=== PATIENT | female | born 1945 | race Caucasian/White ===

== ENCOUNTER 2020-05-12 08:57 | Outpatient (REF) | payer MEDICARE, OTHER, SELFPAY ==
[2020-05-12 11:35] LABS: Hematocrit 42.5 % (37-47); Hemoglobin 13.8 g/dl (12.0-16.0); Mean Corpuscular HGB Conc 32.5 g/dl (31.0-35.0); Mean Corpuscular Hemoglobin 30.1 pg (27.0-33.0); Mean Corpuscular Volume 92.8 fL (80-98); Mean Platelet Volume 10.5 fL (9.4-12.3); Platelet Count 261 X10*3/uL (160-400); Red Blood Count 4.58 X10*6/uL (4.20-5.50); Red Cell Distribution Width 13.1 % (11.0-16.0); White Blood Count 5.3 X10*3/uL (4.8-10.8)
[2020-05-12 11:39] LABS: Alanine Aminotransferase 31 U/L (0-31); Albumin Level 4.2 g/dL (3.5-5.0); Alkaline Phosphatase 56 U/L (39-117); Anion Gap 14 (12-20); Aspartate Amino Transferase 22 U/L (5-31); Bilirubin Total 0.5 mg/dL (0.0-1.0); Blood Urea Nitrogen 19 mg/dL (9-16); Calcium 9.1 mg/dL (8.4-10.2); Carbon Dioxide 26 mmol/L (22-29); Chloride 105 mmol/L (96-108); Cholesterol 191 mg/dL; Estimated Glomerular Filt Rate > 60; Glucose Fasting 78 mg/dL (60-99); HDL Cholesterol 59 mg/dL; LDL Cholesterol Calculated 101 mg/dl; Potassium 4.5 mmol/l (3.3-5.1); Sodium 140 mmol/L (135-145); Total Protein 7.1 g/dL (6.5-8.0); Triglycerides 155 mg/dL
[2020-05-12 12:01] LABS: Vitamin D 25-OH Total 33.8 ng/mL (>30)
== END 2020-05-12 08:58 | disposition home or self-care (01) ==
LOC: HO.HMGCLDS 08:57
PROVIDERS: PCP Internal Medicine; Visit Provider Internal Medicine
DX: E78.00 Pure hypercholesterolemia, unspecified (principal); E55.9 Vitamin D deficiency, unspecified; I10 Essential (primary) hypertension; M85.80 Other specified disorders of bone density and structure, unspecified site
CPT/HCPCS: 36415; 80053; 80061; 82306; 84443; 85027

== ENCOUNTER → 2020-05-15 08:59 | Outpatient (BNVA) | payer MEDICARE, OTHER, SELFPAY | PROVIDERS: PCP Internal Medicine; Referring Provider Internal Medicine; Visit Provider Surgery | DX: K21.9 Gastro-esophageal reflux disease without esophagitis (principal); K44.9 Diaphragmatic hernia without obstruction or gangrene | CPT/HCPCS: 99202 ==

== ENCOUNTER 2020-05-18 09:22 | Day surgery (SDC) | payer MEDICARE, OTHER, SELFPAY ==
[2020-05-13 14:21] VITALS: BMI 40.0
--- NOTE | 2020-05-14 13:33 | HO.ANESPROP2 ---
Documented by User: Autumn Martinney 05/15/20 13:40 HPI - Anesthesia Eval Consult details Narrative: 74yo F for Cataract PCP cleared Psuedocholinesterase deficiency [facility] Past Medical History Medical History Cataract Family history of pseudocholinesterase deficiency GERD (gastroesophageal reflux disease) Hearing difficulty of both ears Hiatal hernia HTN (hypertension) Hx of Clostridium difficile infection Hx of deep venous thrombosis Hypercholesterolemia Macular degeneration Obesity Osteopenia PVD (peripheral vascular disease) Restless leg syndrome Sleep apnea TIA (transient ischemic attack) Vitamin D deficiency Family History Family History Father Heart disease Stomach cancer CVD (cardiovascular disease) Mother Arthritis Brother Colon cancer Maternal Grandmother No problems noted. Maternal Grandfather No problems noted. Paternal Grandfather No problems noted. Paternal Grandmother No problems noted. Son No problems noted. Daughter No problems noted. Brother No problems noted. Brother No problems noted. Brother No problems noted. Brother No problems noted. Brother No problems noted. Brother No problems noted. Brother No problems noted. Surgical History Surgical History History of ankle surgery History of breast biopsy History of colonoscopy History of esophagogastroduodenoscopy (EGD) History of exploratory laparotomy History of eye surgery History of eyelid surgery History of foot surgery History of knee replacement procedure of right knee History of nasal surgery History of removal of cyst History of revision of total replacement of right knee joint History of thumb surgery Hx of cholecystectomy Hx of right cataract extraction Social History Social History Alcohol intake: current Alcohol intake frequency: holidays/special occasions only Smoking Status: Never smoker Advance Directives: No Advance Directives Information Provided: No Advance Directives on File: No Meds Allergies Allergy/AdvReac Type Severity Reaction Status Date / Time succinylcholine Allergy Severe PSEUDOCHOLINESTERASE Unverified 05/15/20 09:45 [SUCCINYLCHOLINE] DEFICIENT adhesive tape [ADHESIVE TAPE] Allergy Intermediate BLISTERS, Verified 05/15/20 09:45 ITCHING dibucaine [DIBUCAINE] Allergy Unknown UNKNOWN Verified 05/15/20 09:45 Home Medications Medication Instructions Recorded Confirmed Type ammonium lactate 12 % topical cream 1 appl TOPICAL BID 05/12/20 05/15/20 History aspirin 81 mg tablet,delayed 81 mg PO DAILY 05/12/20 05/15/20 History release calcium citrate 200 mg 2 tab PO BID 05/12/20 05/15/20 History calcium-vitamin D3 6.25 mcg (250 unit) tablet cholecalciferol (vitamin D3) 50 50 mcg PO DAILY 05/12/20 05/15/20 History mcg (2,000 unit) capsule fluticasone propionate 50 1 spray INTRANASAL DAILY 05/12/20 05/15/20 History mcg/actuation nasal spray,suspension lisinopril 10 mg tablet 5 mg PO BID 05/12/20 05/15/20 History loratadine 10 mg tablet 10 mg PO DAILY 05/12/20 05/15/20 History pramipexole 0.25 mg tablet 0.75 mg PO BEDTIME tab 05/12/20 05/15/20 History rosuvastatin 10 mg tablet See Rx Instructions PO DAILY 05/12/20 05/15/20 History vit C 250 mg-E 200 unit-zinc 40 1 tab PO BID 05/12/20 05/15/20 History mg-copper 1 ki-rzmmne-maqhss capsule biotin 10,000 mcg PO DAILY 05/13/20 05/15/20 History flaxseed oil 1,000 mg PO TID 05/13/20 05/15/20 History loperamide [Imodium A-D] 2 mg PO QID PRN 05/13/20 05/15/20 History sucralfate 100 mg/mL oral 10 ml PO DAILY PRN ml 05/15/20 05/15/20 History suspension Exam Exam Date and Time: May 14, 2020 1333 Height,Weight and Vital Signs: Height 5 ft Weight 92.986 kg Pertinent Lab Results Pertinent Lab Results: Laboratory Tests 05/12/20 05/12/20 09:03 09:03 WBC 5.3 Hgb 13.8 Hct 42.5 Plt Count 261 Sodium 140 Potassium 4.5 Chloride 105 Carbon Dioxide 26 BUN 19 H Creatinine 0.74 Assessment and Plan Assessment Anesthesia Assessment: Chart Reviewed Documented by User: Ira Bravo 05/18/20 11:12 [facility] Past Medical History Medical History Cataract Family history of pseudocholinesterase deficiency GERD (gastroesophageal reflux disease) Hearing difficulty of both ears Hiatal hernia HTN (hypertension) Hx of Clostridium difficile infection Hx of deep venous thrombosis Hypercholesterolemia Macular degeneration Obesity Osteopenia PVD (peripheral vascular disease) Restless leg syndrome Sleep apnea TIA (transient ischemic attack) Vitamin D deficiency Family History Family History Father Heart disease Stomach cancer CVD (cardiovascular disease) Mother Arthritis Brother Colon cancer Maternal Grandmother No problems noted. Maternal Grandfather No problems noted. Paternal Grandfather No problems noted. Paternal Grandmother No problems noted. Son No problems noted. Daughter No problems noted. Brother No problems noted. Brother No problems noted. Brother No problems noted. Brother No problems noted. Brother No problems noted. Brother No problems noted. Brother No problems noted. Surgical History Surgical History History of ankle surgery History of breast biopsy History of colonoscopy History of esophagogastroduodenoscopy (EGD) History of exploratory laparotomy History of eye surgery History of eyelid surgery History of foot surgery History of knee replacement procedure of right knee History of nasal surgery History of removal of cyst History of revision of total replacement of right knee joint History of thumb surgery Hx of cholecystectomy Hx of right cataract extraction Social History Social History Alcohol intake: current Alcohol intake frequency: holidays/special occasions only Smoking Status: Never smoker Advance Directives: No Advance Directives Information Provided: No Advance Directives on File: No Meds Allergies Allergy/AdvReac Type Severity Reaction Status Date / Time succinylcholine Allergy Severe PSEUDOCHOLINESTERASE Unverified 05/15/20 09:45 [SUCCINYLCHOLINE] DEFICIENT adhesive tape [ADHESIVE TAPE] Allergy Intermediate BLISTERS, Verified 05/15/20 09:45 ITCHING dibucaine [DIBUCAINE] Allergy Unknown UNKNOWN Verified 05/15/20 09:45 Home Medications Medication Instructions Recorded Confirmed Type ammonium lactate 12 % topical cream 1 appl TOPICAL BID 05/12/20 05/15/20 History aspirin 81 mg tablet,delayed 81 mg PO DAILY 05/12/20 05/15/20 History release calcium citrate 200 mg 2 tab PO BID 05/12/20 05/15/20 History calcium-vitamin D3 6.25 mcg (250 unit) tablet cholecalciferol (vitamin D3) 50 50 mcg PO DAILY 05/12/20 05/15/20 History mcg (2,000 unit) capsule fluticasone propionate 50 1 spray INTRANASAL DAILY 05/12/20 05/15/20 History mcg/actuation nasal spray,suspension lisinopril 10 mg tablet 5 mg PO BID 05/12/20 05/15/20 History loratadine 10 mg tablet 10 mg PO DAILY 05/12/20 05/15/20 History pramipexole 0.25 mg tablet 0.75 mg PO BEDTIME tab 05/12/20 05/15/20 History rosuvastatin 10 mg tablet See Rx Instructions PO DAILY 05/12/20 05/15/20 History vit C 250 mg-E 200 unit-zinc 40 1 tab PO BID 05/12/20 05/15/20 History mg-copper 1 hi-pyonln-mnnrri capsule biotin 10,000 mcg PO DAILY 05/13/20 05/15/20 History flaxseed oil 1,000 mg PO TID 05/13/20 05/15/20 History loperamide [Imodium A-D] 2 mg PO QID PRN 05/13/20 05/15/20 History sucralfate 100 mg/mL oral 10 ml PO DAILY PRN ml 05/15/20 05/15/20 History suspension Exam Airway Mallampati Class: II TM Dist: >3cm Neck ROM: Full Heart: RRR Lungs: CTA Assessment and Plan Assessment Anesthesia Assessment: Anesthesia Plan Discussed and Chart Reviewed Final Anesthetic Review NPO: Yes ASA Class: III Final Preanesthetic Review: Meds/Allgs Chart Reviewed, Consent Obtained/Reviewed and Anes Risks/Benef Reviewed Patient Risk: Intermediate Procedure Risk: Low Anesthetic Plan Anesthetic Plan: MAC: Disposition: Standard PACU
--- NOTE | 2020-05-14 13:38 | MHC.SHP ---
Pre-Procedural Eval Section A The patient is an INPATIENT: No The History & Physical has been completed within 30 days and I have reviewed it.: Yes Section B Chief Complaint: Cataracts Left Eye Allergies: Allergies Allergy/AdvReac Type Severity Reaction Status Date / Time succinylcholine Allergy Severe PSEUDOCHOLINESTERASE Unverified 02/20/20 14:34 [SUCCINYLCHOLINE] DEFICIENT adhesive tape [ADHESIVE TAPE] Allergy Intermediate BLISTERS, Verified 05/08/20 13:49 ITCHING dibucaine [DIBUCAINE] Allergy Unknown UNKNOWN Verified 05/08/20 13:49 pseudocolonestrace Allergy Unknown unknown Uncoded 05/08/20 13:49 Plan Diagnosis/Plan: Unchanged Patient has been examined and remains a candidate for the planned procedure
[2020-05-18 10:58] VITALS: BP 124/79; PULSE 73; RESP 16; TEMP 36.6; O2SAT 98
[2020-05-18] MEDS: Tetracaine HCl/PF 0.5% Oph Sol 4 ML DROPS 1 DROP EYE-LEFT (11:24)
[2020-05-18] MEDS: Tropicamide 1 % Ophth Sol 3 ML BTL 1 DROP EYE-LEFT ×3 (11:25→11:31)
[2020-05-18] MEDS: Phenylephrine HCL 2.5% Oph SoL 2 ML BOTTLE 1 DROP EYE-LEFT ×3 (11:27→11:33)
[2020-05-18 12:08] VITALS: BP 131/72; PULSE 78; RESP 18; TEMP 36.1; O2SAT 96
--- NOTE | 2020-05-18 12:08 | HO.PNOPHT ---
Ophthalmology Procedure Procedure Date of Service: 05/18/20 Ophthalmology Viscoelastic: Healdomenic Cidt Dual Pack Pro Ophthalmology Lenses: TECMARIELA [id number] (24) Procedure Notes: PREOPERATIVE DIAGNOSIS: Decreased visual acuity left eye secondary to cataract POSTOPERATIVE DIAGNOSIS: Same PROCEDURE: Left cataract extraction with intraocular lens insertion with Synialysis SURGEON: Wolfgang Carroll M.D. ANESTHESIA: Topical/MAC ESTIMATED BLOOD LOSS: None COMPLICATIONS: None After obtaining informed consent, the patient was brought to the operation room suite and placed in the supine position. After adequate sedation per anesthesia, topical drops of Tetracaine were given to the left eye. The eye was then prepped and draped in the usual sterile fashion. The operating room microscope was then positioned over the operative eye and a lid speculum placed. A paracentesis was created. Viscoelastic was then instilled into the anterior chamber. A three plane incision was then created temporally, utilizing a 2.85 mm keratome. Poor dilation due to synichaia reqired synichialysis followed by placement of a Malyugin ring.Capsulotomy forceps were then utilized to create a circular tear capsulotomy. Hydrodissection and hydrodelineation were carried out until adequate mobilization of the nucleus occurred. Phacoemulsification was then utilized to remove the dense central nucleus followed by removal of the cortical material utilizing the automated aspiration irrigation unit. Viscoat elastic was instilled into the posterior capsular bag followed by placement of a posterior chamber intraocular lens without difficulty.The Maiyugin Ring was removed. The residual Viscoat elastic was then removed utilizing the automated IA machine. The wound was check and found to be watertight. The patient tolerated the procedure well and the lid speculum was removed. Intracameral injection of Vigamox 0.1 mL followed by a subtenon injection of Kenalog-40 0.2 mL were administered. The patient will be seen in the a.m.
--- NOTE | 2020-05-18 12:39 | HO.POSTANES ---
Post Anesthesia Evaluation Post Anesthesia Evaluation Vital Signs: Vital Signs Temp Pulse Resp BP Pulse Ox 05/18/20 12:08 97.0 F 78 18 131/72 96 05/18/20 10:58 98 F 73 16 124/79 98 Anesthesia: Monitored Mental Status: Awake Pain Control: Satisfactory Nausea/Vomiting: None Hydration: Adequate Anesthesia-Related Issues: No Anes. Related Issues
== END 2020-05-18 12:29 | disposition home or self-care (01) ==
PROVIDERS: PCP Internal Medicine; Visit Provider Ophthalmology
PROC: (CPT 66985; principal; 2020-05-18 11:40)
DX: H25.12 Age-related nuclear cataract, left eye (principal); H21.542 Posterior synechiae (iris), left eye; H35.3190 Nonexudative age-related macular degeneration, unspecified eye, stage unspecified; I10 Essential (primary) hypertension; I73.9 Peripheral vascular disease, unspecified; E88.09 Other disorders of plasma-protein metabolism, not elsewhere classified; E55.9 Vitamin D deficiency, unspecified; Z79.82 Long term (current) use of aspirin; Z79.899 Other long term (current) drug therapy; Z86.718 Personal history of other venous thrombosis and embolism; Z86.73 Personal history of transient ischemic attack (TIA), and cerebral infarction without residual deficits; Z91.040 Latex allergy status; Z91.09 Other allergy status, other than to drugs and biological substances
CPT/HCPCS: 66982; J2250; J3010; J3300; V2632

== ENCOUNTER → 2020-08-13 09:49 | Outpatient (BNVA) | payer MEDICARE, OTHER, SELFPAY | PROVIDERS: PCP Internal Medicine; Visit Provider Surgery | DX: Z86.018 Personal history of other benign neoplasm (principal) | CPT/HCPCS: 99212 ==

== ENCOUNTER 2020-09-01 09:27 | Outpatient (REF) | payer MEDICARE, OTHER, SELFPAY ==
--- NOTE | 2020-09-01 10:35 | MHC.AU.AHA ---
Adult Audiological Evaluation Date of Visit: 09/01/20 Reason for Appointment: Audiological evaluation to monitor the status of Ms. Vargas's hearing loss. She has a longstanding history of bilateral sensorineural hearing loss and hearing aid use. She feels that her hearing is gradually getting worse. She denies any changes to her medical history since her last visit. Previous Hearing Test Results: [facility] [place], 12/31/2018- Mild to moderately severe sensorineural hearing loss bilaterally. Ear History: History of Ear Wax Buildup: Both Ears Medical History: Medical History: High Blood Pressure Medical History: Knee surgery with a complicated healing process between 4844-2455 that required high doses of antibiotics, some of which were administered through a PICC line. Numerous after-effects of the antibiotics. 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: [employer] Model: Adapto CIC Serial Number: [id number] Battery Size: 10 Repair Warranty: 06/06/2010 Loss and Damage Warranty: 06/06/2009 Dispensed By: [facility] Date of Fittin05/13/2008 Hearing Instrument History- Left Ear: Office Machines Teacher: Phon[employer] Model: Virto Q50-10 Serial Number: [id number] Battery Size: 10 Warranty: 07/28/2014 Loss and Damage Warranty: 07/28/2013 Dispensed By: [facility] Date of Fittin07/05/2012 Otoscopy: Right Ear: Unremarkable Left Ear: Partially occluded with cerumen Tympanometry: Tympanometry performed due to: To assess integrity of the middle ear system Right Ear: Normal Middle Ear System (Type A) Left Ear: Normal Middle Ear System (Type A) Hearing Evaluation: Transducer(s) Used: Insert Earphones, Bone Conduction Method: Conventional Audiometry Stimuli Used: Pure Tones Right Ear: Description of Hearing: Mild sloping to moderately severe sensorineural hearing loss from 250-8000 Hz. Left Ear: Description of Hearing: Normal hearing from 250-500 Hz, sloping to a mild to moderate sensorineural hearing loss from 8524-9608 Hz. Speech Recognition Threshold (SRT): Method Used: Monitored Live Voice Stimuli Used: Spondee Words Right Ear: 40 dBHL Left Ear: 35 dBHL Word Discrimination: Method: Recorded Lists Word Lists Used: NU-6 Right Ear: 88% at 75 dBHL Left Ear: 96% at 75 dBHL Comparison: Compared to the most recent evaluation: Hearing is stable. Recommendations: Audiological re-evaluation in one year. Hearing aid maintenance performed today. Recommend use of earwax removal drops or wax removal by a physician for the left ear. Diagnosis: Primary Diagnosis: H90.3 Bilateral Sensorineural Hearing Loss Services Performed: Comprehensive Audiological Evaluation (CPT 04220) Tympanometry (CPT 27166) Signature: Provider: Estrella Jeffers, CCC-A
== END 2020-09-01 09:28 | disposition home or self-care (01) ==
LOC: HO.SH 09:27
PROVIDERS: Visit Provider Internal Medicine
DX: H90.3 Sensorineural hearing loss, bilateral (principal)
CPT/HCPCS: 92557; 92567

== ENCOUNTER 2020-12-17 06:22 | Outpatient (REF) | payer MEDICARE, OTHER, SELFPAY ==
[2020-12-17 12:11] LABS: Alanine Aminotransferase 30 U/L (0-31); Albumin Level 4.1 g/dL (3.5-5.0); Alkaline Phosphatase 62 U/L (39-117); Anion Gap 15 (12-20); Aspartate Amino Transferase 22 U/L (5-31); Bilirubin Total 0.5 mg/dL (0.0-1.0); Blood Urea Nitrogen 16 mg/dL (9-16); Calcium 9.1 mg/dL (8.4-10.2); Carbon Dioxide 25 mmol/L (22-29); Chloride 103 mmol/L (96-108); Estimated Glomerular Filt Rate > 60; Glucose Fasting 107 mg/dL (60-99); Potassium 3.9 mmol/L (3.3-5.1); Sodium 139 mmol/L (135-145); Total Protein 6.8 g/dL (6.5-8.0)
[2020-12-17 12:19] LABS: Vitamin D 25-OH Total 34.7 ng/mL (>30)
[2020-12-23 07:32] LABS: N-Telopeptide 15 (see note); NTXCreaRU 43 mg/dL (20-275)
== END 2020-12-17 06:23 | disposition home or self-care (01) ==
LOC: HO.HMGCLDS 06:22
PROVIDERS: PCP Internal Medicine; Visit Provider Internal Medicine Endocrinology, Diabetes & Metabolism
DX: M81.0 Age-related osteoporosis without current pathological fracture (principal)
CPT/HCPCS: 36415; 80053; 82306; 82523

== ENCOUNTER → 2020-12-21 09:58 | Outpatient (BNVA) | payer MEDICARE, OTHER, SELFPAY | PROVIDERS: PCP Internal Medicine; Visit Provider Internal Medicine Endocrinology, Diabetes & Metabolism | DX: M81.0 Age-related osteoporosis without current pathological fracture (principal) | CPT/HCPCS: 99212 ==

== ENCOUNTER 2021-01-29 09:15 | Outpatient (REF) | payer MEDICARE, OTHER, SELFPAY ==
--- NOTE | ~2021-01-29 | MM_ITS ---
EXAMINATION: BONE DENSITOMETRY CLINICAL INDICATION: Age-related osteoporosis without current pathological fracture. COMPARISON: Previous BD dated 02/06/2018 and baseline BD dated 05/30/2006. TECHNIQUE: Using a [employer] DXA System (software version: 13.1) manufactured by [employer], dual-energy x-ray absorptiometry was performed of the lumbar spine and left hip. The images are of good technical quality. Summary results are attached. FINDINGS: AP SPINE L1-L4: Current: BMD 1.226 g/cm2, Z-score 1.3, T-score 0.4, normal, 7.5% increase from previous, 17.8% increase from baseline (<5% change is not significant). Prior: BMD 1.140 g/cm2. Baseline: BMD 1.041 g/cm2. LEFT FEMUR, NECK: Current: BMD 0.754 g/cm2, Z-score -0.6, T-score -2.0, osteopenia. Prior: BMD 0.774 g/cm2. Baseline: BMD 0.866 g/cm2. LEFT FEMUR, TOTAL: Current: BMD 0.938 g/cm2, Z-score 0.7, T-score -0.6, normal, 1.1% increase from previous, 3.2% decrease from baseline (<5% change is not significant). Prior: BMD 0.928 g/cm2. Baseline: BMD 0.969 g/cm2. IDENTIFIED RISK FACTORS: History of adult fracture. Osteoporosis. Thiazide. Menopause. HISTORY OF FRACTURE: Other. MEDICATIONS: Calcium supplement and/or multivitamin. Vitamin D. Bisphosphonates. MM/XR DEXA axial skeleton IMPRESSION: 1. DIAGNOSIS: Osteopenia based on the lowest T-score value of -2.0 in the femoral neck applying World Health Organization criteria. 2. 10-YEAR FRACTURE RISK PREDICTION, FRAX: Major osteoporotic fracture (clinical spine, forearm, hip or shoulder) 19.5%. Hip fracture 4.8%. 3. Treatment Recommendations: NOF guidelines recommend consideration for treatment in postmenopausal women and men age 50 and older presenting with the following: -A hip or vertebral (clinical or morphometric) fracture. -T-score less than or equal to -2.5 at the femoral neck or spine after appropriate evaluation to exclude secondary causes. -Low bone mass at the hip or spine and a 10-year fracture probability by FRAX of greater than or equal to 3% for hip fracture or greater than or equal to 20% for major osteoporotic fracture based on the [place] adapted WHO algorithm. 4. Other Recommendations: All treatment decisions require clinical judgment and consideration of individual patient factors, including patient preferences, comorbidities, previous drug use, risk factors not captured in the FRAX model (e.g. frailty, falls, vitamin D deficiency, increased bone turnover, interval significant decline in bone density) and possible under or overestimation of fracture risk by FRAX. Additional medical evaluation for secondary cause of low bone mineral density may be appropriate. FUTURE SCAN RECOMMENDATION: People with diagnosed cases of osteoporosis or at high risk for fracture should have regular bone mineral density tests. For patients eligible for Medicare, routine testing is allowed once every 2 years. The testing frequency can be increased to one year for patients who have rapidly progressing disease, those who are receiving or discontinuing medical therapy to restore bone mass, or have additional risk factors.
== END 2021-01-29 09:16 | disposition home or self-care (01) ==
LOC: HO.MAMMO 09:15
PROVIDERS: Visit Provider Internal Medicine Endocrinology, Diabetes & Metabolism
DX: Z13.820 Encounter for screening for osteoporosis (principal); M81.0 Age-related osteoporosis without current pathological fracture; M85.80 Other specified disorders of bone density and structure, unspecified site; Z87.81 Personal history of (healed) traumatic fracture; Z78.0 Asymptomatic menopausal state; Z79.899 Other long term (current) drug therapy
CPT/HCPCS: 77080

== ENCOUNTER 2021-02-17 10:35 | Outpatient (REF) | payer MEDICARE, OTHER, SELFPAY ==
--- NOTE | ~2021-02-17 | MM_ITS ---
EXAMINATION: MM SCREENING DIGITAL BREAST TOMOSYNTHESIS, BILATERAL CLINICAL INFORMATION: Screening. Asymptomatic. The lifetime risk of breast cancer based on the Tyrer-Cuzick Model is 12%. COMPARISON: Mammography: 02/12/2020, 11/21/2018, 11/20/2017 TECHNIQUE: Digital breast tomosynthesis is performed in both the craniocaudal and mediolateral oblique views along with computer-aided detection (CAD). Synthesized 2D images are generated from the tomosynthesis. Additional left MLO view is provided. FINDINGS: There are scattered areas of fibroglandular density (ACR BI-RADS breast composition Category b). Parenchymal pattern borders on heterogeneously glandular distribution is similar to prior studies. No interval mass or developing density. No architectural abnormality. There are scattered benign round and coarse and some vascular calcifications again seen. Biopsy clip marker again noted inferior medial right breast. There are multiple dermal lesions overlying both breasts, mid outer left breast and many bilateral posterior medial breasts. No significant changes. MM/MM tomosynthesis screening BI IMPRESSION: No mammographic evidence of malignancy. ASSESSMENT: BI-RADS 2: Benign RECOMMENDATION: Routine annual mammography screening. This patient's information was entered into a reminder system with a target due date for their next mammogram.
== END 2021-02-17 10:36 | disposition home or self-care (01) ==
LOC: HO.MAMMO 10:35
PROVIDERS: PCP Internal Medicine; Visit Provider Surgery
DX: Z12.31 Encounter for screening mammogram for malignant neoplasm of breast (principal)
CPT/HCPCS: 77063; 77067

== ENCOUNTER → 2021-02-24 11:04 | Outpatient (BNVA) | payer MEDICARE, OTHER, SELFPAY | PROVIDERS: PCP Internal Medicine; Referring Provider Internal Medicine; Visit Provider Surgery | DX: N60.99 Unspecified benign mammary dysplasia of unspecified breast (principal) | CPT/HCPCS: 99212 ==

== ENCOUNTER 2021-04-12 06:12 | Outpatient (REF) | payer MEDICARE, OTHER, SELFPAY ==
[2021-04-12 12:16] LABS: Vitamin D 25-OH Total 37.6 ng/mL (>30)
[2021-04-12 12:18] LABS: Alanine Aminotransferase 31 U/L (0-31); Albumin Level 4.1 g/dL (3.5-5.0); Alkaline Phosphatase 61 U/L (39-117); Anion Gap 13 (12-20); Aspartate Amino Transferase 20 U/L (5-31); Bilirubin Total 0.6 mg/dL (0.0-1.0); Blood Urea Nitrogen 23 mg/dL (9-16); Calcium 8.7 mg/dL (8.4-10.2); Carbon Dioxide 26 mmol/L (22-29); Chloride 103 mmol/L (96-108); Cholesterol 192 mg/dL; Estimated Glomerular Filt Rate > 60; Glucose Fasting 106 mg/dL (60-99); HDL Cholesterol 51 mg/dL; LDL Cholesterol Calculated 113 mg/dl; Potassium 3.9 mmol/L (3.3-5.1); Sodium 138 mmol/L (135-145); Total Protein 6.7 g/dL (6.5-8.0); Triglycerides 143 mg/dL
[2021-04-12 12:49] LABS: Reflex LDLD? No
== END 2021-04-12 06:13 | disposition home or self-care (01) ==
LOC: HO.HMGCLDS 06:12
PROVIDERS: PCP Internal Medicine; Visit Provider Internal Medicine
DX: E55.9 Vitamin D deficiency, unspecified (principal); E78.00 Pure hypercholesterolemia, unspecified; I10 Essential (primary) hypertension
CPT/HCPCS: 36415; 80053; 80061; 82306

== ENCOUNTER → 2021-08-25 11:05 | Outpatient (BNVA) | payer MEDICARE, OTHER, SELFPAY | PROVIDERS: PCP Internal Medicine; Visit Provider Surgery | DX: N60.99 Unspecified benign mammary dysplasia of unspecified breast (principal) | CPT/HCPCS: 99212 ==

== ENCOUNTER 2021-09-02 11:30 | Outpatient (REF) | payer MEDICARE, OTHER, SELFPAY ==
--- NOTE | 2021-09-22 14:04 | MHC.AU.AHA ---
Adult Audiological Evaluation Date of Visit: 09/02/21 Heat Treat Technician Used: Not Applicable Reason for Appointment: Audiologic re-evaluation to determine possible change in hearing. Palak has a long-standing history bilateral hearing loss with hearing aid use. She reports some right ear discomfort after wearing the hearing aid for an extended period of time. The right aid is 14 years old and the left aid is 9 years old. Previous Hearing Test Results: 09/01/2020 [facility] Right ear - Mild sloping to moderately-severe sensorineural hearing loss with 88% speech understanding at 75 dB HL. Left ear - Normal hearing thresholds at 250 and 500 Hz, sloping to a mild to moderate sensorineural loss at 5222-4367 Hz with 96% speech discrimination at 75 dB HL. 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 Room: [employer] Model: Adapto CIC Serial Number: [id number] Battery Size: 10 Repair Warranty: 06/06/2010 Loss and Damage Warranty: 06/06/2009 Dispensed By: [facility] Date of Fittin05/13/2008 Hearing Instrument History- Left Ear: Supervisor Beater Room: Phonak Model: Virto Q50-10 Serial Number: [id number] Battery Size: 10 Warranty: 07/28/2014 Loss and Damage Warranty: 07/28/2013 Dispensed By: [facility] Date of Fittin07/05/2012 Otoscopy: Right Ear: Unremarkable Left Ear: Unremarkable Tympanometry: Not performed at today's visit as all previous testing has indicated normal middle ear function bilaterally. Hearing Evaluation: Transducer(s) Used: Insert Earphones Bone Conduction Method: Conventional Audiometry Stimuli Used: Pure Tones Right Ear: Description of Hearing: Borderline normal hearing threshold at 250 Hz, sloping to a moderate high frequency sensorineural hearing loss. The right ear threshold is 15 dB poorer than the left ear only at 8000 Hz. Left Ear: Description of Hearing: Borderline normal hearing threshold at 250 Hz, sloping to a moderate high frequency sensorineural hearing loss. Speech Recognition Threshold (SRT): Method Used: Monitored Live Voice Stimuli Used: Spondee Words Right Ear: 35 dB HL Left Ear: 35 dB HL Word Discrimination: Method: Recorded Lists Word Lists Used: NU-6 Right Ear: 92% at 70 dB HL Left Ear: 92% at 80 dB HL Most Comfortable Level (MCL): Right Ear: 70 dB HL Left Ear: 75 dB HL Comparison: Compared to the most recent evaluation: Hearing is stable. Recommendations: Audiological re-evaluation in one year. Will send a reminder card. Hearing aid maintenance performed today. Due to the age of the hearing aids, advised Palak to consider trial period with new binaural hearing aids. Diagnosis: Primary Diagnosis: H90.3 Bilateral Sensorineural Hearing Loss Services Performed: Comprehensive Audiological Evaluation (CPT 92324) Signature: Provider: Estrella Granger, CCC-A
== END 2021-09-02 11:31 | disposition home or self-care (01) ==
LOC: HO.SH 11:30
PROVIDERS: Visit Provider Internal Medicine
DX: Z01.118 Encounter for examination of ears and hearing with other abnormal findings (principal); H90.3 Sensorineural hearing loss, bilateral
CPT/HCPCS: 92557

== ENCOUNTER 2021-10-11 06:15 | Outpatient (REF) | payer MEDICARE, OTHER, SELFPAY ==
[2021-10-11 11:31] LABS: Hematocrit 41.6 % (37.0-47.0); Hemoglobin 13.6 g/dl (12.0-16.0); Mean Corpuscular HGB Conc 32.7 g/dl (31.0-35.0); Mean Corpuscular Volume 91.8 fL (80.0-98.0); Mean Platelet Volume 10.5 fL (9.4-12.3); Platelet Count 254 X10*3/uL (160-400); Red Blood Count 4.53 X10*6/uL (4.20-5.50); Red Cell Distribution Width 12.7 % (11.0-16.0); White Blood Count 4.9 X10*3/uL (4.8-10.8)
[2021-10-11 11:54] LABS: Alanine Aminotransferase 22 U/L (0-31); Albumin Level 4.2 g/dL (3.5-5.0); Alkaline Phosphatase 53 U/L (39-117); Anion Gap 12 (12-20); Aspartate Amino Transferase 19 U/L (5-31); Bilirubin Total 0.4 mg/dL (0.0-1.0); Blood Urea Nitrogen 19 mg/dL (9-16); Calcium 9.9 mg/dL (8.4-10.2); Carbon Dioxide 28 mmol/L (22-29); Chloride 102 mmol/L (96-108); Estimated Glomerular Filt Rate > 60; Glucose Fasting 102 mg/dL (60-99); Potassium 4.1 mmol/L (3.3-5.1); Sodium 138 mmol/L (135-145); Total Protein 7.1 g/dL (6.5-8.0)
[2021-10-11 11:59] LABS: TSH reflex Free T4 0.97 uIU/mL (0.32-4.0); Vitamin D 25-OH Total 37.1 ng/mL (>30)
== END 2021-10-11 06:16 | disposition home or self-care (01) ==
LOC: HO.HMGCLDS 06:15
PROVIDERS: Visit Provider Internal Medicine
DX: Z00.00 Encounter for general adult medical examination without abnormal findings (principal); E78.00 Pure hypercholesterolemia, unspecified; I10 Essential (primary) hypertension; M81.0 Age-related osteoporosis without current pathological fracture; E55.9 Vitamin D deficiency, unspecified
CPT/HCPCS: 36415; 80053; 82306; 84443; 85027

== ENCOUNTER 2021-11-23 07:06 | Outpatient (REF) | payer MEDICARE, OTHER, SELFPAY ==
[2021-11-26 16:51] LABS: N-Telopeptide 17 (see note); NTXCreaRU 76 mg/dL (20-275)
== END 2021-11-23 07:07 | disposition home or self-care (01) ==
LOC: HO.HMGCLDS 07:06
PROVIDERS: Visit Provider Internal Medicine Endocrinology, Diabetes & Metabolism
DX: M85.80 Other specified disorders of bone density and structure, unspecified site (principal)
CPT/HCPCS: 82523

== ENCOUNTER → 2021-12-09 14:49 | Outpatient (BNVA) | payer MEDICARE, OTHER, SELFPAY | PROVIDERS: PCP Internal Medicine; Visit Provider Internal Medicine Endocrinology, Diabetes & Metabolism | DX: M81.0 Age-related osteoporosis without current pathological fracture (principal) | CPT/HCPCS: 99212 ==

== ENCOUNTER 2022-01-18 12:41 | Outpatient (REF) | payer MEDICARE, OTHER, SELFPAY ==
[2022-01-18 16:28] LABS: Creatinine, mg/dL 79.26
[2022-01-18 18:41] LABS: Creatinine, 24Hr Urine 1.3 G/Day (1.0-2.0); Total Volume 24 Hour Urine 1625 mL
[2022-01-20 18:12] LABS: Calcium, 24 Hr Urine 96 mg/24 h; Calcium/Creatinine Ratio 70 mg/g creat (30-275); Creatinine 24Hr Urine 1.37 g/24 h (0.50-2.15)
== END 2022-01-18 12:42 | disposition home or self-care (01) ==
LOC: HO.HMGCLDS 12:41
PROVIDERS: PCP Internal Medicine; Visit Provider Internal Medicine Endocrinology, Diabetes & Metabolism
DX: M81.0 Age-related osteoporosis without current pathological fracture (principal)
CPT/HCPCS: 82340; 82570

== ENCOUNTER 2022-02-23 10:28 | Outpatient (REF) | payer MEDICARE, OTHER, SELFPAY ==
--- NOTE | ~2022-02-23 | MM_ITS ---
EXAMINATION: MM SCREENING DIGITAL BREAST TOMOSYNTHESIS, BILATERAL CLINICAL INFORMATION: Screening. Asymptomatic. The lifetime risk of breast cancer based on the Tyrer-Cuzick Model is 11%. COMPARISON: Mammography: 02/17/2021, 02/12/2020, 11/21/2018 TECHNIQUE: Digital breast tomosynthesis is performed in both the craniocaudal and mediolateral oblique views along with computer-aided detection (CAD). Synthesized 2D images are generated from the tomosynthesis. FINDINGS: There are scattered areas of fibroglandular density (ACR BI-RADS breast composition Category b). There are no significant masses, abnormal calcifications, or other abnormalities. Breast tissue composition borders on heterogeneously dense. There is a biopsy clip marker again seen mid lower inner right breast. There are scattered vascular and some round and coarse calcifications in each breast. There are some dermal lesions overlying the posterior inferior breasts. No significant changes. MM/MM tomosynthesis screening BI IMPRESSION: No mammographic evidence of malignancy. ASSESSMENT: BI-RADS 2: Benign RECOMMENDATION: Routine annual mammography screening. This patient's information was entered into a reminder system with a target due date for their next mammogram.
== END 2022-02-23 10:29 | disposition home or self-care (01) ==
LOC: HO.MAMMO 10:28
PROVIDERS: PCP Internal Medicine; Visit Provider Internal Medicine
DX: Z12.31 Encounter for screening mammogram for malignant neoplasm of breast (principal)
CPT/HCPCS: 77063; 77067

== ENCOUNTER → 2022-03-02 10:03 | Outpatient (BNVA) | payer MEDICARE, OTHER, SELFPAY | PROVIDERS: PCP Internal Medicine; Visit Provider Surgery | DX: N60.99 Unspecified benign mammary dysplasia of unspecified breast (principal) | CPT/HCPCS: 99212 ==

== ENCOUNTER 2022-03-31 13:58 | Emergency (ER) | payer MEDICARE, OTHER, SELFPAY ==
[2022-03-31 14:19] VITALS: BP 166/83; PULSE 77; O2SAT 98
[2022-03-31 14:33] VITALS: BP 157/77; PULSE 82; RESP 18; TEMP 36.6; O2SAT 99; BMI 30.2
--- NOTE | 2022-03-31 15:21 | ED.BACK ---
HPI - Back Pain/Injury General Chief Complaint: Back Pain/Injury Stated Complaint: BACK PAIN Time Seen by Provider: 03/31/22 14:30 Source: patient Mode of arrival: ambulatory History of Present Illness HPI Narrative: 76 year old female with a PMHx of osteoporosis, osteoarthritis, obesity, GERD, Vit D deficiency, and HTN, presents to the ED with worsening mid/low back pain since last night. 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 Denies other injury, trauma or fall. She reports taking Tylenol arthritis with some alleviation. reports that the pain is exacerbated by movement, 9/10 in severity and it is a stabbing, intermittent pain. She denies any urinary incontinence/retention, fever, radiation pain, weakness, numbness or tingling, hematuria/dysuria, abdominal pain. MD elicited complaint: back pain Pertinent past history: arthritis Onset (ago): day(s) (couple days. Got worse last night) Timing: intermittent Severity: severe Pain scale (0-10): 9 Quality: sharp and stabbing Location: lumbar spine Radiation: none Exacerbating factors: movement Relieving factors: medication Associated symptoms: denies other symptoms Related Data Home Medications Medication Instructions Recorded Confirmed aspirin 81 mg tablet,delayed 81 mg PO DAILY 05/12/20 10/25/21 release vit C 250 mg-vit E 90 mg-zinc 40 1 tab PO BID 05/12/20 10/25/21 mg-copper 1 [id number] capsule (PreserVision AREDS-2) flaxseed oil 1,000 mg capsule 1,000 mg PO TID 05/13/20 10/25/21 loperamide 2 mg capsule (Imodium 2 mg PO QID PRN Diarrhea 05/13/20 10/25/21 A-D) acetaminophen 650 mg 650 mg PO Q12H 08/13/20 10/25/21 tablet,extended release (Tylenol Arthritis Pain) diclofenac sodium 1 % topical gel 2 g topical QID 08/13/20 10/25/21 lutein 10 mg tablet 10 mg PO DAILY 08/13/20 10/25/21 simethicone 180 mg capsule (Gas 180 mg PO DAILY 08/13/20 10/25/21 Relief (simethicone)) loratadine 10 mg tablet (Claritin) 10 mg PO DAILY 02/24/21 10/25/21 acetaminophen 650 mg 650 mg PO Q8H 08/25/21 10/25/21 tablet,extended release amoxicillin 500 mg capsule 1,000 mg PO BID 08/25/21 10/25/21 cimetidine 200 mg tablet 200 mg PO BEDTIME 10/25/21 10/25/21 Previous Rx's Medication Instructions Recorded esomeprazole magnesium 40 mg 40 mg PO BID #30 caps 05/12/20 capsule,delayed release calcium citrate 200 mg 2 tab PO DAILY 90 days #180 tabs 12/21/20 calcium-vitamin D3 6.25 mcg (250 unit) tablet fluticasone propionate 50 1 spray intranasal DAILY #48 mL 03/03/21 mcg/actuation nasal spray,suspension cholecalciferol (vitamin D3) 50 50 mcg PO DAILY 90 days #90 caps 06/30/21 mcg (2,000 unit) capsule lisinopril 10 mg tablet 5 mg PO BID #180 tabs 07/01/21 hydrochlorothiazide 25 mg tablet 25 mg PO DAILY #90 tabs 10/25/21 rosuvastatin 10 mg tablet See Rx Instructions PO DAILY #90 10/25/21 tabs meclizine 12.5 mg tablet 12.5 mg PO BID PRN dizziness #14 12/17/21 tabs pramipexole 0.25 mg tablet 0.5 - 0.75 mg PO DAILY #270 tabs 02/25/22 acetaminophen 500 mg tablet 500 mg PO Q6H PRN fever or pain 03/31/22 (Tylenol Extra Strength) #14 tabs cyclobenzaprine 5 mg tablet 5 mg PO Q8H PRN pain (scale score 03/31/22 7-10) 5 days #14 tabs naproxen 500 mg tablet 500 mg PO BID PRN pain 10 days #20 03/31/22 tabs Allergies Allergy/AdvReac Type Severity Reaction Status Date / Time succinylcholine Allergy Severe PSEUDOCHOLINESTERASE Verified 03/02/22 10:09 [SUCCINYLCHOLINE] DEFICIENT adhesive tape [ADHESIVE TAPE] Allergy Intermediate BLISTERS, Verified 03/02/22 10:09 ITCHING dibucaine [DIBUCAINE] Allergy Unknown UNKNOWN Verified 03/02/22 10:09 Review of Systems Review of Systems: Constitutional: No Fever, No Chills ENT/Mouth: No Ear Pain, No Nasal Congestion, No Sinus Pain, No Hoarseness, No sore throat, No Rhinorrhea, No Swallowing Difficulty Cardiovascular: No Chest Pain, No SOB Respiratory: No Cough, No Sputum, No Wheezing Gastrointestinal: No Nausea, No Vomiting, No Diarrhea, No Constipation, No Abdominal pain Genitourinary: No Dysuria, No Urinary Frequency, No Hematuria, No Urinary Incontinence/retention, No Urgency, No Flank Pain Musculoskeletal: +mid/lower back pain, No joint pain, No Myalgias, No Joint Swelling Skin: No Skin Lesions, No rash Neuro: No Weakness, No Numbness, No Paresthesias Yes all other systems are reviewed and are negative Constitutional: Constitutional: Reports as per HPI and Reports no additional constitutional complaints Neurologic: Denies Sensory deficit (Neuro) [facility] Past Medical History Attestation statement: The following information was validated with the patient. Medical History Annual physical exam Atypical ductal hyperplasia of breast Cataract Family history of pseudocholinesterase deficiency GERD (gastroesophageal reflux disease) Hearing difficulty of both ears Hearing loss Hiatal hernia HTN (hypertension) Hx of Clostridium difficile infection Hx of deep venous thrombosis Hypercholesterolemia Knee pain, left Macular degeneration Obesity Osteopenia Osteoporosis PVD (peripheral vascular disease) Restless leg syndrome Sleep apnea TIA (transient ischemic attack) Vitamin D deficiency Surgical History History of ankle surgery History of breast biopsy History of colonoscopy History of esophagogastroduodenoscopy (EGD) History of exploratory laparotomy History of eye surgery History of eyelid surgery History of foot surgery History of knee replacement procedure of right knee History of nasal surgery History of removal of cyst History of revision of total replacement of right knee joint History of thumb surgery Hx of cholecystectomy Hx of right cataract extraction Family History Family History Father Heart disease Stomach cancer CVD (cardiovascular disease) Mother Arthritis Brother Colon cancer Maternal Grandmother No problems noted. Maternal Grandfather No problems noted. Paternal Grandfather No problems noted. Paternal Grandmother No problems noted. Son No problems noted. Daughter No problems noted. Brother No problems noted. Brother No problems noted. Brother No problems noted. Brother No problems noted. Brother No problems noted. Brother No problems noted. Brother No problems noted. Social History Social History Housing: House Alcohol intake: current Alcohol intake frequency: holidays/special occasions only Patient Tobacco Use Status: Never used Tobacco e-Cigarette/Vaping Use: Never Used Advance Directives: No Advance Directives Information Provided: Yes Current occupational status: retired Cognitive needs: No Hearing needs: No Vision needs: Yes Physical Exam Vital Signs: Vital Signs: Last Vital Signs Temp 97.9 F 03/31/22 14:33 Pulse 82 03/31/22 14:33 Resp 18 03/31/22 14:33 BP 157/77 H 03/31/22 14:33 Pulse Ox 99 03/31/22 14:33 O2 Del Method 03/31/22 14:33 BMI result Body Mass Index 30.2 Const: General: cooperative, healthy appearing, comfortable, no acute distress, alert, awake, Physically active and acute distress Orientation/consciousness: patient oriented x3 Limitations: no limitations HEENT: Head: Yes normal to inspection and Yes atraumatic Ears: hearing grossly normal bilaterally General nose exam: Normal external nose present Face and sinus: Yes normal facial exam Eyes: General: appearance normal, both eyes and all related structures EOM: EOMs intact bilaterally Neck: Other: no midline cervical spinous ttp Neck: Yes normal visual inspection and Yes no meningeal signs Chest: Chest palpation & inspection: normal inspection of the chest Resp: Effort & Inspection: normal respiratory effort, able to speak in complete sentences and respiratory distress Auscultation: clear to auscultation bilaterally, no crackles, no rales and no rhonchi Cardio: Rate: regular rate Rhythm: regular rhythm Heart sounds: S1 normal heart sound present and S2 normal heart sound present Peripheral pulses: Peripheral pulses 2+ throughout GI: Inspection: Yes normal to inspection Palpation (GI): Soft to palpation, nontender, no guarding and not rigid : General: Yes no CVA tenderness Back/Spine/Pelvis: Other: No midline thoracic/lumbar spinous tenderness/step-off or deformity. + R buttock ttp Back: no CVA tenderness, No mass, No erythema, No warmth and No ecchymosis Skin: Rashes: no rashes Wounds: no wounds Neuro: Other: Strength intact throughout. No saddle anesthesia. Sensation intact to light touch. Neurovascular intact distally General: patient oriented x3, gait normal, tone normal, moves all extremities, no meningeal signs and no focal motor deficits Gait exam (Neuro): Normal gait present Motor exam (neuro): 5/5 motor strength present throughout Sensory Exam: No Sensory deficit (Neuro) Extrem: General: Yes normal to inspection and Yes no clubbing, cyanosis or edema Course Course Course Narrative: -1700--patient reports symptomatic improvement after medications given in the ED, ambulated w/steady gait to the bathroom MDM - Back Pain/Injury MDM Narrative Medical decision making narrative: 76 year old female with a PMHx of osteoporosis, osteoarthritis, obesity, GERD, Vit D deficiency, and HTN, presents to the ED with worsening mid/low back pain since last night. On exam, VSS, right-sided lumbar/buttock MSK tenderness. No midline spinous tenderness through or red flag symptoms. No saddle paresthesia. Concern for back strain/spasming vs ?herniated disc. Low suspicion for Kidney stone/ Pyelonephritis or UTI. Lower suspicion for cauda equina, compression fracture, epidural abscess, or fracture Plan: IM Toradol, PO Flexeril Differential Diagnosis Differential diagnosis: Likely lumbar radiculopathy, sciatica, strain of lumbar region and pyelonephritis Medical Records Attestation: I reviewed the patient's medical records. Lab Data Attestation: I reviewed the patient's lab results. Discharge Plan Discharge Clinical Impression: Back pain Patient Disposition: Home, Self-Care Instructions: Acute Low Back Pain (ED) Additional Instructions: Your pain is likely musculoskeletal Flexeril is a muscle relaxer, take at night as it makes you drowsy, do not drive, drink alcohol, or operate machinery while taking it Naproxen as an anti-inflammatory / pain medication, take with food In addition take Tylenol at home If symptoms persist or worsen, pain becomes unbearable, you developed urinary retention or incontinence, or weakness return to the ED Prescriptions: New acetaminophen [Tylenol Extra Strength] 500 mg tablet 500 mg PO Q6H PRN (Reason: fever or pain) Qty: 14 0RF naproxen 500 mg tablet 500 mg PO BID PRN (Reason: pain) 10 Days Qty: 20 0RF cyclobenzaprine 5 mg tablet 5 mg PO Q8H PRN (Reason: pain (scale score 7-10)) 5 Days Qty: 14 0RF No Action fluticasone propionate 50 mcg/actuation spray,suspension 1 spray intranasal DAILY Qty: 48 3RF cholecalciferol (vitamin D3) 50 mcg (2,000 unit) capsule 50 mcg PO DAILY 90 Days Qty: 90 1RF lisinopril 10 mg tablet 5 mg PO BID Qty: 180 3RF pramipexole 0.25 mg tablet 0.5 - 0.75 mg PO DAILY Qty: 270 3RF loperamide [Imodium A-D] 2 mg Capsule 2 mg PO QID PRN (Reason: Diarrhea) flaxseed oil 1,000 mg Capsule 1,000 mg PO TID aspirin 81 mg tablet,delayed release (DR/EC) 81 mg PO DAILY PreserVision AREDS-2 [phone]-mg capsule 1 tab PO BID Rx Instructions: give with food (meal/snack) esomeprazole magnesium 40 mg capsule,delayed release(DR/EC) 40 mg PO BID Qty: 30 0RF cimetidine 200 mg tablet 200 mg PO BEDTIME rosuvastatin 10 mg tablet See Rx Instructions PO DAILY Qty: 90 3RF Rx Instructions: 5 mg PO daily; hydrochlorothiazide 25 mg tablet 25 mg PO DAILY Qty: 90 3RF meclizine 12.5 mg tablet 12.5 mg PO BID PRN (Reason: dizziness) Qty: 14 0RF acetaminophen [Tylenol Arthritis Pain] 650 mg tablet extended release 650 mg PO Q12H lutein 10 mg tablet 10 mg PO DAILY Rx Instructions: give with meal/snack simethicone [Gas Relief (simethicone)] 180 mg capsule 180 mg PO DAILY diclofenac sodium 1 % gel 2 g topical QID Rx Instructions: apply to single elbow, wrist or hand; for hand includes palm/fingers/back of hand calcium citrate-vitamin D3 200 mg-6.25 mcg (250 unit) tablet 2 tab PO DAILY 90 Days Qty: 180 1RF acetaminophen 650 mg tablet extended release 650 mg PO Q8H amoxicillin 500 mg capsule 1,000 mg PO BID loratadine [Claritin] 10 mg tablet 10 mg PO DAILY Referrals: Erik Grant MD [Primary Care Provider] - 3 days
[2022-03-31] MEDS: Cyclobenzaprine HCl 10 MG TABLET PO (16:07)
[2022-03-31] MEDS: Ketorolac Tromethamine 30 MG/ML VIAL IM (16:08)
== END 2022-03-31 17:26 | disposition home or self-care (01) ==
PROVIDERS: Emergency Provider Emergency Medicine; PCP Internal Medicine Medical Oncology
DX: M54.50 Low back pain, unspecified (principal); Z79.899 Other long term (current) drug therapy
CPT/HCPCS: 96372; 99283; 99284; J1885

== ENCOUNTER 2022-08-05 07:37 | Outpatient (REF) | payer MEDICARE, OTHER, SELFPAY ==
[2022-08-05 11:24] LABS: MANUAL DIFF FLAG NO
[2022-08-05 11:40] LABS: Basophils Absolute Auto 0.1 X10*3/uL (0.0-0.2); Basophils Percent Auto 0.9 % (0-2); Eosinophils Absolute Auto 0.5 X10*3/uL (0.0-0.4); Eosinophils Percent Auto 8.4 % (0-4); Hematocrit 41.7 % (37.0-47.0); Hemoglobin 13.7 g/dl (12.0-16.0); Imm Gran Abs Auto 0.01 X10*3/uL (0.00-0.03); Imm Gran Pct Auto 0.2 % (0.0-0.4); Lymphocytes Absolute Auto 1.7 X10*3/uL (1.2-4.9); Lymphocytes Percent Auto 32.6 % (20-40); Mean Corpuscular HGB Conc 32.9 g/dl (31.0-35.0); Mean Corpuscular Hemoglobin 29.7 pg (27.0-33.0); Mean Corpuscular Volume 90.3 fL (80.0-98.0); Mean Platelet Volume 10.6 fL (9.4-12.3); Monocytes Absolute Auto 0.7 X10*3/uL (0.1-1.2); Monocytes Percent Auto 13.1 % (2-11); Neutrophils Absolute Auto 2.4 x10*3/uL (2.0-8.3); Neutrophils Percent Auto 44.8 % (45-73); Platelet Count 237 X10*3/uL (160-400); Red Blood Count 4.62 X10*6/uL (4.20-5.50); Red Cell Distribution Width 12.8 % (11.0-16.0); White Blood Count 5.3 X10*3/uL (4.8-10.8)
[2022-08-05 12:53] LABS: Alanine Aminotransferase 27 U/L (0-31); Alkaline Phosphatase 66 U/L (39-117); Anion Gap 11 (12-20); Aspartate Amino Transferase 24 U/L (5-31); Bilirubin Total 0.7 mg/dL (0.0-1.0); Blood Urea Nitrogen 14 mg/dL (9-16); Calcium 9.4 mg/dL (8.4-10.2); Carbon Dioxide 28 mmol/L (22-29); Chloride 102 mmol/L (96-108); Cholesterol 195 mg/dL; Estimated Glomerular Filt Rate > 60; Glucose Fasting 108 mg/dL (60-99); HDL Cholesterol 48 mg/dL; LDL Cholesterol Calculated 112 mg/dl; Potassium 4.1 mmol/L (3.3-5.1); Sodium 137 mmol/L (135-145); Total Protein 6.6 g/dL (6.5-8.0); Triglycerides 177 mg/dL
[2022-08-05 13:10] LABS: Thyroid Stimulating Hormone 1.01 uIU/mL (0.32-4.0); Vitamin D 25-OH Total 44.3 ng/mL (>30)
== END 2022-08-05 07:38 | disposition home or self-care (01) ==
LOC: HO.HMGCLDS 07:37
PROVIDERS: PCP Internal Medicine Medical Oncology; Visit Provider Internal Medicine Medical Oncology
DX: E88.09 Other disorders of plasma-protein metabolism, not elsewhere classified (principal); I10 Essential (primary) hypertension; E66.3 Overweight; K21.9 Gastro-esophageal reflux disease without esophagitis; E55.9 Vitamin D deficiency, unspecified
CPT/HCPCS: 36415; 80053; 80061; 82306; 84439; 84443; 85025

== ENCOUNTER → 2022-08-17 10:32 | Outpatient (BNVA) | payer MEDICARE, OTHER, SELFPAY | PROVIDERS: PCP Internal Medicine Medical Oncology; Visit Provider Surgery | DX: N60.92 Unspecified benign mammary dysplasia of left breast (principal) | CPT/HCPCS: 99212 ==

== ENCOUNTER → 2022-08-29 10:51 | Outpatient (REF) | payer MEDICARE, OTHER, SELFPAY | LOC: HO.SL 10:51 | PROVIDERS: PCP Internal Medicine Medical Oncology; Visit Provider Psychiatry & Neurology Neurology | DX: G47.33 Obstructive sleep apnea (adult) (pediatric) (principal) | CPT/HCPCS: 95806 ==

== ENCOUNTER → 2022-10-04 11:41 | Outpatient (BNVA) | payer MEDICARE, OTHER, SELFPAY | PROVIDERS: PCP Internal Medicine Medical Oncology; Visit Provider Nurse Practitioner Family | DX: G47.33 Obstructive sleep apnea (adult) (pediatric) (principal) | CPT/HCPCS: 99212 ==

== ENCOUNTER 2022-10-26 13:59 | Outpatient (REF) | payer MEDICARE, OTHER, SELFPAY | END 2022-10-26 14:00 | disposition home or self-care (01) | LOC: HO.SH 13:59 | PROVIDERS: Visit Provider Internal Medicine Medical Oncology | DX: Z01.118 Encounter for examination of ears and hearing with other abnormal findings (principal); H90.3 Sensorineural hearing loss, bilateral | CPT/HCPCS: 92552; 92556; 92567 ==

== ENCOUNTER 2022-12-02 10:04 | Outpatient (REF) | payer SELFPAY ==
--- NOTE | 2022-12-02 16:21 | MHC.AU.MED ---
Medical Clearance for Hearing Instrumentation Date: 12/02/22 Patient Name: Palak Vargas Date of : 1945 Primary Care Provider: Erik Grant MD We have seen your patient on 12/02/22 and have determined that they are a candidate for amplification (See accompanying report). Specifically, they would benefit from: Hearing aid use in both ears There is a statute that addresses Medical Evaluation Requirements prior to fitting a patient with a hearing aid. According to [place] statute 265 CMR:6.03(1), (a) General. Except as provided in 265 CMR 6.03(1)(b), a photography intern shall not sell a hearing aid unless the prospective user has presented to the photography intern a written statement signed by a licensed physician that states that the patient's hearing loss has been medically evaluated and the patient may be considered a candidate for a hearing aid. The medical evaluation must have taken place within the preceding six months. Please note: Due to the [place] Statute referenced above, we cannot accept a signature other than that of a licensed physician. FINISHING AREA OPERATOR and PA signatures cannot be accepted. I am in agreement with the above recommendation. There is no medical contraindication for hearing instrumentation. Physician Signature Date Physician Name (Printed)
--- NOTE | 2022-12-05 11:34 | MHC.AU.HA1 ---
Hearing Aid Evaluation Date of Visit: 12/02/22 Historical Information: Description of Hearing: Right Ear: Mild to moderately-severe sensorineural hearing loss; Left Ear: Mild to moderate sensorineural hearing loss Current personal amplification information: Bilateral CICs (Right - Oticon; Left - Phonak) purchased 10-15 years ago Summary: Palak has been a long time hearing aid user. Her current hearing aids are no longer meeting her needs as the right hearing aid is weak and both hearing aids are over 10 years old. Palak prefers to stay with the custom hearing aid style; however, she did not have a preference for corrections identification technician. She is interested in bluetooth capabilities to her iPhone. Discussed the trade-off for bluetooth would be a bigger shell. Palak was agreeable to an ITC size hearing aid to be able to encompass bluetooth. Impressions were taken, bilaterally, without incident. Hearing Aid Prescription: Based on the individual?s shared listening needs, communication environments, dexterity, desire for connectivity, and personal preferences, the following prescription for amplification has been made: Right ear: Make, Model, Color: Oticon OWN 2 ITC Color: Beige Battery Size: 312 Left ear: Left ear prescription to be same as Right Hearing Aid above: Make, Model, Color: Oticon OWN 2 ITC Color: Beige Battery Size: 312 Plan of Care: Patient wishes to purchase hearing aids as prescribed Action Taken/Action Needed: Hearing Instrument Fitting to be scheduled when materials arrive Primary Diagnosis: H90.3 Bilateral Sensorineural Hearing Loss Signature: Provider: Iliana Austin, [facility]
== END 2022-12-02 10:05 | disposition home or self-care (01) ==
LOC: HO.HAP 10:04
PROVIDERS: Visit Provider Internal Medicine Medical Oncology
DX: Z46.1 Encounter for fitting and adjustment of hearing aid (principal); H90.3 Sensorineural hearing loss, bilateral
CPT/HCPCS: 92590

== ENCOUNTER 2022-12-19 07:53 | Outpatient (REF) | payer MEDICARE, OTHER, SELFPAY ==
[2022-12-19 08:13] LABS: MANUAL DIFF FLAG NO
[2022-12-19 09:08] LABS: Basophils Absolute Auto 0.1 X10*3/uL (0.0-0.2); Basophils Percent Auto 0.9 % (0-2); Eosinophils Absolute Auto 0.2 X10*3/uL (0.0-0.4); Eosinophils Percent Auto 3.9 % (0-4); Hematocrit 41.4 % (37.0-47.0); Hemoglobin 13.8 g/dl (12.0-16.0); Imm Gran Abs Auto 0.02 X10*3/uL (0.00-0.03); Imm Gran Pct Auto 0.4 % (0.0-0.4); Lymphocytes Absolute Auto 1.7 X10*3/uL (1.2-4.9); Lymphocytes Percent Auto 30.8 % (20-40); Mean Corpuscular HGB Conc 33.3 g/dl (31.0-35.0); Mean Corpuscular Hemoglobin 30.4 pg (27.0-33.0); Mean Corpuscular Volume 91.2 fL (80.0-98.0); Monocytes Absolute Auto 0.8 X10*3/uL (0.1-1.2); Monocytes Percent Auto 13.5 % (2-11); Neutrophils Absolute Auto 2.8 x10*3/uL (2.0-8.3); Neutrophils Percent Auto 50.5 % (45-73); Platelet Count 244 X10*3/uL (160-400); Red Blood Count 4.54 X10*6/uL (4.20-5.50); White Blood Count 5.6 X10*3/uL (4.8-10.8)
[2022-12-19 09:49] LABS: Alanine Aminotransferase 26 U/L (0-31); Albumin Level 4.1 g/dL (3.5-5.0); Alkaline Phosphatase 56 U/L (39-117); Anion Gap 13 (12-20); Aspartate Amino Transferase 23 U/L (5-31); Bilirubin Total 0.6 mg/dL (0.0-1.0); Blood Urea Nitrogen 13 mg/dL (9-16); Calcium 9.4 mg/dL (8.4-10.2); Carbon Dioxide 26 mmol/L (22-29); Chloride 100 mmol/L (96-108); Cholesterol 209 mg/dL; Estimated Glomerular Filt Rate > 60; Glucose Random 111 mg/dL (60-115); HDL Cholesterol 54 mg/dL; LDL Cholesterol Calculated 123 mg/dl; Potassium 3.8 mmol/L (3.3-5.1); Sodium 135 mmol/L (135-145); Total Protein 7.1 g/dL (6.5-8.0); Triglycerides 161 mg/dL
== END 2022-12-19 07:54 | disposition home or self-care (01) ==
LOC: HO.LAB 07:53
PROVIDERS: PCP Internal Medicine Medical Oncology; Visit Provider Internal Medicine Medical Oncology
DX: I10 Essential (primary) hypertension (principal); E66.9 Obesity, unspecified; E78.2 Mixed hyperlipidemia
CPT/HCPCS: 36415; 80053; 80061; 85025

== ENCOUNTER 2022-12-29 09:16 | Outpatient (REF) | payer SELFPAY | END 2022-12-29 09:17 | disposition home or self-care (01) | LOC: HO.HAP 09:16 | PROVIDERS: Visit Provider Internal Medicine Medical Oncology | DX: Z46.1 Encounter for fitting and adjustment of hearing aid (principal); H90.3 Sensorineural hearing loss, bilateral | CPT/HCPCS: 92700; V5011; V5020; V5259 ==

== ENCOUNTER 2023-01-04 10:01 | Outpatient (REF) | payer SELFPAY | END 2023-01-04 10:02 | disposition home or self-care (01) | LOC: HO.HAP 10:01 | PROVIDERS: Visit Provider Internal Medicine Medical Oncology | DX: Z13.89 Encounter for screening for other disorder (principal) ==

== ENCOUNTER 2023-01-31 10:17 | Outpatient (REF) | payer MEDICARE, OTHER, SELFPAY ==
--- NOTE | ~2023-01-31 | MM_ITS ---
EXAMINATION: BONE DENSITOMETRY CLINICAL INDICATION: Osteoporosis. COMPARISON: Previous BD dated 01/29/2021 and baseline BD dated 05/30/2006. TECHNIQUE: Using a [employer] DXA System (software version: 13.1) manufactured by [employer], dual-energy x-ray absorptiometry was performed of the lumbar spine and left hip. The images are of good technical quality. Summary results are attached. FINDINGS: LEFT FEMUR, NECK: Current: BMD 0.824 g/cm2, Z-score 0.0, T-score -1.5, osteopenia. Prior: BMD 0.754 g/cm2. Baseline: BMD 0.866 g/cm2. LEFT FEMUR, TOTAL: Current: BMD 0.969 g/cm2, Z-score 1.0, T-score -0.3, normal, 3.3% increase from previous, 0.0% change from baseline (<5% change is not significant). Prior: BMD 0.938 g/cm2. Baseline: BMD 0.969 g/cm2. AP SPINE L1-L4: Current: BMD 1.204 g/cm2, Z-score 1.2, T-score 0.2, normal, 1.8% decrease from previous, 15.7% increase from baseline (<5% change is not significant). Prior: BMD 1.226 g/cm2. Baseline: BMD 1.041 g/cm2. IDENTIFIED RISK FACTORS: Menopause, height loss, history of fracture (adult), osteoporosis, thiazide. HISTORY OF FRACTURE: Other fracture. MEDICATIONS: Calcium, vitamin D, bisphosphonate. MM/XR DEXA axial skeleton IMPRESSION: 1. DIAGNOSIS: Osteopenia based on the lowest T-score value of -1.5 in the femoral neck applying World Health Organization criteria. 2. 10-YEAR FRACTURE RISK PREDICTION, FRAX: Not performed in this patient on estrogen or bone building treatments. 3. Treatment Recommendations: NOF guidelines recommend consideration for treatment in postmenopausal women and men age 50 and older presenting with the following: -A hip or vertebral (clinical or morphometric) fracture. -T-score less than or equal to -2.5 at the femoral neck or spine after appropriate evaluation to exclude secondary causes. -Low bone mass at the hip or spine and a 10-year fracture probability by FRAX of greater than or equal to 3% for hip fracture or greater than or equal to 20% for major osteoporotic fracture based on the [place] adapted WHO algorithm. 4. Other Recommendations: All treatment decisions require clinical judgment and consideration of individual patient factors, including patient preferences, comorbidities, previous drug use, risk factors not captured in the FRAX model (e.g. frailty, falls, vitamin D deficiency, increased bone turnover, interval significant decline in bone density) and possible under or overestimation of fracture risk by FRAX. Additional medical evaluation for secondary cause of low bone mineral density may be appropriate. FUTURE SCAN RECOMMENDATION: People with diagnosed cases of osteoporosis or at high risk for fracture should have regular bone mineral density tests. For patients eligible for Medicare, routine testing is allowed once every 2 years. The testing frequency can be increased to one year for patients who have rapidly progressing disease, those who are receiving or discontinuing medical therapy to restore bone mass, or have additional risk factors.
== END 2023-01-31 10:18 | disposition home or self-care (01) ==
LOC: HO.MAMMO 10:17
PROVIDERS: PCP Internal Medicine; Visit Provider Internal Medicine Endocrinology, Diabetes & Metabolism
DX: Z13.820 Encounter for screening for osteoporosis (principal); Z78.0 Asymptomatic menopausal state; M81.0 Age-related osteoporosis without current pathological fracture
CPT/HCPCS: 77080

== ENCOUNTER → 2023-01-31 10:30 | Outpatient (BNV) | payer OTHER, MEDICARE, SELFPAY | PROVIDERS: PCP Internal Medicine; Visit Provider Radiology Diagnostic Radiology | DX: M85.852 Other specified disorders of bone density and structure, left thigh (principal) | CPT/HCPCS: 77080 ==

== ENCOUNTER 2023-02-03 14:56 | Outpatient (REF) | payer MEDICARE, OTHER, SELFPAY ==
--- NOTE | ~2023-02-03 | MM_ITS ---
EXAMINATION: DXA VERTEBRAL FRACTURE ASSESSMENT CLINICAL INFORMATION: Age-related osteoporosis without current pathological fracture COMPARISON: None. TECHNIQUE: Your patient completed a vertebral fracture assessment using the [employer] DXA system (software version: 14.10) manufactured by [employer]. The following summarizes the results of our evaluation. LVA MORPHOMETRY RESULTS: Evaluation of the thoracolumbar spine from T4 through L4 was performed. Image quality is good. There is no focal vertebral body compression demonstrated. The lowest Z score is -1.3. The highest Z score is 2.6. MM/XR DEXA vertrebral fracture IMPRESSION: No significant vertebral body fracture identified. RECOMMENDATIONS: All patients should ensure an adequate intake of dietary calcium (1200 mg/d) and vitamin D (400-800 IU/d). Effective therapies are now available in the form of bisphosphonates, (alendronate, ibandronate, risedronate, zoledronic acid), antiresorptive agents (calcitonin, estrogen + progesterone and raloxifene) and anabolic agent (teriparatide). These therapies may reduce vertebral, hip and other fractures by up to 50%. FOLLOW UP: People with diagnosed cases of osteoporosis, high risk for fracture, or current vertebral fractures should have regular bone mineral density tests. The frequency of followup vertebral fracture assessment tests should be determined based on clinical circumstances. Often times, testing frequency will be based on rapidly progressing disease, or the addition or elimination of therapy to treat the disease.
== END 2023-02-03 14:57 | disposition home or self-care (01) ==
LOC: HO.MAMMO 14:56
PROVIDERS: PCP Internal Medicine; Visit Provider Internal Medicine
DX: Z13.820 Encounter for screening for osteoporosis (principal); M81.0 Age-related osteoporosis without current pathological fracture
CPT/HCPCS: 77086

== ENCOUNTER → 2023-02-03 15:00 | Outpatient (BNV) | payer MEDICARE, OTHER, SELFPAY | PROVIDERS: PCP Internal Medicine; Visit Provider Radiology Diagnostic Radiology | DX: M81.0 Age-related osteoporosis without current pathological fracture (principal) | CPT/HCPCS: 77086 ==

== ENCOUNTER 2023-02-16 08:50 | Outpatient (AMB) | payer MEDICARE, OTHER, SELFPAY ==
--- NOTE | 2023-02-16 08:53 | MHC.OFFVIS ---
Intake Vital Signs 02/16/23 08:54 Height 5 ft Weight 203 lb 4.259 oz BMI 39.7 BP 124/86 Blood Pressure Location Lt brachial Position Sitting Pulse 85 Pulse Source Pulse Oximeter Intake Visit Reasons: f/u osteoporosis/Confirmed Intake Note: Patient present today for osteoporosis follow up visit. Valve Technician Required: No Accompanied by: Self / Same As Patient Allergies succinylcholine [SUCCINYLCHOLINE] Allergy (Severe, Verified 02/16/23 09:01) PSEUDOCHOLINESTERASE DEFICIENT adhesive tape [ADHESIVE TAPE] Allergy (Intermediate, Verified 02/16/23 09:01) BLISTERS, ITCHING dibucaine [DIBUCAINE] Allergy (Unknown, Verified 02/16/23 09:01) UNKNOWN Medication List - Last Reconciled 02/16/23 by Erik Victoria MD acetaminophen ER 650 mg PO Q8H aspirin 81 mg PO DAILY calcium citrate-vitamin D3 200 mg-6.25 mcg (250 unit) 2 tabs PO DAILY 90 days cholecalciferol (vitamin D3) 50 mcg PO DAILY 90 days diclofenac sodium 1% 2 grams topical QID esomeprazole magnesium 40 mg PO BID famotidine 40 mg PO BID flaxseed oil 1,000 mg PO TID fluticasone propionate 50 mcg/actuation 1 spray intranasal DAILY hydrochlorothiazide 25 mg PO DAILY lisinopril 5 mg (1/2 x 10 mg) PO BID loperamide (Imodium A-D) 2 mg PO QID PRN loratadine (Claritin) 10 mg PO DAILY pramipexole 0.5 - 0.75 mg (2 - 3 x 0.25 mg) PO DAILY rosuvastatin 5 mg PO daily; simethicone (Gas Relief (simethicone)) 180 mg PO DAILY vit C,M-Py-exebb-lutein-zeaxan 250-90-40-1 mg (PreserVision AREDS-2) 1 tab PO BID HPI HPI Comments History of Present Illness Details 77 yo female today for follow-up visit, for osteoporosis . SHe is feeling well she has no complaints. Patient is today here for follow-up, she is feeling well she denies muscle pain, muscle cramps, bone pain. She had her first dose of Reclast on 09/14/17, 2nd dose was 11/05/2018, 3rd dose 01/31/2020 She has history of Ankle fracture after slip and fell, + GERD, positive FH of wrist fracture and osteoporosis in her mother, no nephrolithiasis, no steroids used, no smoker, no anti seizures medications, no bone deformities. Negative History of head or neck irradiation. Bisphosphonates use: Was on Fosamax for 2 months but she has sever acid reflux and Diarrhea. Calcium intake: 2 cups of milk daily, calcium citrate plus D twice a day 650 mg/500 IU. Vitamin D: 2000 international units daily Herbal medications. no No fx since last visit. DEXA scan 02/06/18 AP SPINE L2-L4 (excluding L1): The data of L1-L4 has been changed to exclude the L1 vertebral body, because degenerative changes at this level may cause overestimation of lumbar spine density. Current: BMD 1.107 g/cm2, Z-score 0.0, T-score -0.8, normal, 2.6% increase from previous, 7.0% increase from baseline (<5% change is not significant). Prior: BMD 1.079 g/cm2. Baseline: BMD 1.035 g/cm2. LEFT FEMUR, NECK: Current: BMD 0.786 g/cm2, Z-score -0.5, T-score -1.8, osteopenia. Prior: BMD 0.797 g/cm2. Baseline: BMD 0.866 g/cm2. LEFT FEMUR, TOTAL: Current: BMD 0.914 g/cm2, Z-score 0.3, T-score -0.7, normal, 4.0% increase from previous, 5.7% decrease from baseline (<5% change is not significant). Prior: BMD 0.879 g/cm2. Baseline: BMD 0.969 g/cm2. Laboratory Tests 12/17/20 12/17/20 06:29 06:30 Creatinine 0.81 Estimated GFR > 60 Calcium 9.1 Albumin 4.1 N-Telopeptide X-li nked Pending 25-OH Vitamin D To evan 34.7 Last bone density showed low bone mass with stability. Urine NTX was suppressed [facility] Medical History (Updated 10/21/22 @ 10:13 by Chauncey Lopez CNP) Obstructive sleep apnea Annual physical exam Osteoporosis Knee pain, left Atypical ductal hyperplasia of breast Hearing loss Hx of Clostridium difficile infection Hx of deep venous thrombosis Hiatal hernia PVD (peripheral vascular disease) Restless leg syndrome Sleep apnea Hearing difficulty of both ears Family history of pseudocholinesterase deficiency GERD (gastroesophageal reflux disease) Vitamin D deficiency Cataract Obesity Osteopenia Macular degeneration TIA (transient ischemic attack) Hypercholesterolemia HTN (hypertension) Surgical History History of eyelid surgery Hx of right cataract extraction History of esophagogastroduodenoscopy (EGD) History of breast biopsy History of foot surgery History of ankle surgery History of exploratory laparotomy History of nasal surgery History of thumb surgery History of revision of total replacement of right knee joint History of eye surgery History of knee replacement procedure of right knee History of removal of cyst Hx of cholecystectomy History of colonoscopy Family History Father Heart disease Stomach cancer CVD (cardiovascular disease) Mother Arthritis Brother Colon cancer Maternal Grandmother No problems noted. Maternal Grandfather No problems noted. Paternal Grandfather No problems noted. Paternal Grandmother No problems noted. Son No problems noted. Daughter No problems noted. Brother No problems noted. Brother No problems noted. Brother No problems noted. Brother No problems noted. Brother No problems noted. Brother No problems noted. Brother No problems noted. Social History Housing: House Alcohol intake: current Alcohol intake frequency: holidays/special occasions only Patient Tobacco Use Status: Never used Tobacco e-Cigarette/Vaping Use: Never Used Current occupational status: retired Cognitive needs: No Hearing needs: No Vision needs: Yes Physical Exam Vital Signs: Last Vital Signs Pulse 85 02/16/23 08:54 BP 124/86 02/16/23 08:54 BMI result Body Mass Index 39.7 Assessment & Plan Assessment & Plan (1) Osteoporosis: Code(s): M81.0 - Age-related osteoporosis without current pathological fracture Plan: This is a 76-year-old white female with a history of osteoporosis treated with intravenous bisphosphonate for 3 doses with remote ankle fracture. Secondary workup was negative. Bone density is stable off pharmacologic therapy and urine NTX is suppressed The plan is to have the patient return to her primary care provider. Would continue calcium and vitamin-D supplementation. Primary care provider can reassess bone density in 2 years time and this progression to osteoporosis or patient has a fracture can return back to endocrinology to discuss re-initiation pharmacologic therapy Coding Level of Care Code Est Pt Level 3 (94001) Diagnoses Osteoporosis M81.0
[2023-02-16 08:54] VITALS: BP 124/86; PULSE 85; BMI 39.7
== END 2023-02-16 09:21 | disposition home or self-care (01) ==
PROVIDERS: PCP Internal Medicine Medical Oncology; Visit Provider Internal Medicine Endocrinology, Diabetes & Metabolism
DX: M81.0 Age-related osteoporosis without current pathological fracture (principal)
CPT/HCPCS: 99213

== ENCOUNTER → 2023-02-16 08:50 | Outpatient (BNVA) | payer MEDICARE, OTHER, SELFPAY | PROVIDERS: Visit Provider Internal Medicine Endocrinology, Diabetes & Metabolism | DX: M81.0 Age-related osteoporosis without current pathological fracture (principal) | CPT/HCPCS: 99212 ==

== ENCOUNTER 2023-03-02 09:54 | Outpatient (REF) | payer MEDICARE, OTHER, SELFPAY ==
--- NOTE | ~2023-03-02 | MM_ITS ---
EXAMINATION: MM SCREENING DIGITAL BREAST TOMOSYNTHESIS, BILATERAL CLINICAL INFORMATION: Screening. Asymptomatic. COMPARISON: Mammography: This study is compared with prior exams dating back to 2018. TECHNIQUE: Digital breast tomosynthesis is performed in both the craniocaudal and mediolateral oblique views along with computer-aided detection (CAD). Synthesized 2D images are generated from the tomosynthesis. FINDINGS: There are scattered areas of fibroglandular density (ACR BI-RADS breast composition Category b). There are no significant masses, abnormal calcifications, or other abnormalities. There is a tissue marker in the right breast from prior benign percutaneous biopsy. There are a few, bilateral, benign calcifications. MM/MM tomosynthesis screening BI IMPRESSION: No mammographic evidence of malignancy. ASSESSMENT: BI-RADS BI-RADS 2 - Benign Findings RECOMMENDATION: Routine annual mammography screening. 1 year F/U This examination should not preclude the clinical evaluation of a suspicious palpable abnormality. This patient's information was entered into a reminder system with a target due date for their next mammogram.
== END 2023-03-02 09:55 | disposition home or self-care (01) ==
LOC: HO.MAMMO 09:54
PROVIDERS: PCP Internal Medicine; Visit Provider Internal Medicine
DX: Z12.31 Encounter for screening mammogram for malignant neoplasm of breast (principal)
CPT/HCPCS: 77063; 77067

== ENCOUNTER → 2023-03-02 10:00 | Outpatient (BNV) | payer MEDICARE, OTHER, SELFPAY | PROVIDERS: PCP Internal Medicine; Visit Provider Radiology Diagnostic Radiology | DX: Z12.31 Encounter for screening mammogram for malignant neoplasm of breast (principal) | CPT/HCPCS: 77063; 77067 ==

== ENCOUNTER 2023-03-11 10:04 | Outpatient (REF) | payer MEDICARE, OTHER, SELFPAY | END 2023-03-11 10:05 | disposition home or self-care (01) | LOC: HO.LAB 10:04 | PROVIDERS: PCP Internal Medicine Medical Oncology; Visit Provider Internal Medicine Medical Oncology | DX: E88.09 Other disorders of plasma-protein metabolism, not elsewhere classified (principal); I10 Essential (primary) hypertension; E66.9 Obesity, unspecified; E78.2 Mixed hyperlipidemia; K21.9 Gastro-esophageal reflux disease without esophagitis; R53.82 Chronic fatigue, unspecified; D64.9 Anemia, unspecified | CPT/HCPCS: 36415; 80053; 82728; 83880; 84443; 85025; 85652 ==

== ENCOUNTER 2023-03-24 08:53 | Outpatient (AMB) | payer MEDICARE, OTHER, SELFPAY ==
--- NOTE | 2023-03-24 08:59 | A.OFFVIS_ITS ---
Intake Vital Signs 03/24/23 09:06 Weight 204 lb BP 130/70 Blood Pressure Location Lt brachial Position Sitting Pulse 91 Pulse Source Pulse Oximeter Pulse Oximetry (%) 97 Oxygen Delivery Method Room Air Intake Visit Reasons: Follow up for Sleep - LVM Intake Note: F/U sleep, patient states she had a awful time falling a sleep a lot, she states was not using her mandibular devise regularly. Collections Assistant Required: No Allergies succinylcholine [SUCCINYLCHOLINE] Allergy (Severe, Verified 03/29/23 11:06) PSEUDOCHOLINESTERASE DEFICIENT adhesive tape [ADHESIVE TAPE] Allergy (Intermediate, Verified 03/29/23 11:06) BLISTERS, ITCHING dibucaine [DIBUCAINE] Allergy (Unknown, Verified 03/29/23 11:06) UNKNOWN HPI HPI Comments History of Present Illness Details 77 y/o female patient has hx of sleep ap lucien presents for follow up of sleep study. The home sleep study result was significant for mild degree of sleep apnea. The AHI was 6/hr, supine AHI was 14/hr and oxygen tex was 87%. Pt did not tolerate CPAP, and started using oral appliance to treat BOSSMAN. She used her oral appliance for the sleep study. She reports that she sleeps well with the appliance and wants to continue to use it. Pt does not want CPAP. She could not sleep with CPAP. [facility] Medical History Obstructive sleep apnea Annual physical exam Osteoporosis Knee pain, left Atypical ductal hyperplasia of breast Hearing loss Hx of Clostridium difficile infection Hx of deep venous thrombosis Hiatal hernia PVD (peripheral vascular disease) Restless leg syndrome Sleep apnea Hearing difficulty of both ears Family history of pseudocholinesterase deficiency GERD (gastroesophageal reflux disease) Vitamin D deficiency Cataract Obesity Osteopenia Macular degeneration TIA (transient ischemic attack) Hypercholesterolemia HTN (hypertension) Surgical History History of eyelid surgery Hx of right cataract extraction History of esophagogastroduodenoscopy (EGD) History of breast biopsy History of foot surgery History of ankle surgery History of exploratory laparotomy History of nasal surgery History of thumb surgery History of revision of total replacement of right knee joint History of eye surgery History of knee replacement procedure of right knee History of removal of cyst Hx of cholecystectomy History of colonoscopy Family History Father Heart disease Stomach cancer CVD (cardiovascular disease) Mother Arthritis Brother Colon cancer Maternal Grandmother No problems noted. Maternal Grandfather No problems noted. Paternal Grandfather No problems noted. Paternal Grandmother No problems noted. Son No problems noted. Daughter No problems noted. Brother No problems noted. Brother No problems noted. Brother No problems noted. Brother No problems noted. Brother No problems noted. Brother No problems noted. Brother No problems noted. Social History Housing: House Alcohol intake: current Alcohol intake frequency: holidays/special occasions only Patient Tobacco Use Status: Never used Tobacco e-Cigarette/Vaping Use: Never Used Current occupational status: retired Cognitive needs: No Hearing needs: No Vision needs: Yes Review of Systems Const All systems reviewed & are unremarkable except as noted in HPI and below ENT Reports Normal hearing present Neuro Reports Normal hearing present Physical Exam Vital Signs: Last Vital Signs Pulse 91 03/24/23 09:06 BP 130/70 03/24/23 09:06 Pulse Ox 97 03/24/23 09:06 Oxygen Delivery Method Room Air 03/24/23 09:06 Const General: cooperative and comfortable Nutritional Appearance: obese Orientation/consciousness: patient oriented x3 Neck Neck: Yes full ROM and Yes supple Resp Effort & Inspection: normal respiratory effort and able to speak in complete sentences Neuro General: patient oriented x3, gait normal and moves all extremities Cranial nerves: Yes Bilaterally intact EOM present, Yes Midline tongue present, Yes Symmetric palate elevation present, Yes Normal hearing present, Yes Ability to bilaterally rotate head present and Yes Ability to bilaterally elevate shoulders present Cognition (Neuro): normal cognition Gait exam (Neuro): Normal gait present Motor exam (neuro): 5/5 motor strength present throughout, Pronator motor function not present and no tremor noted Psych Appearance: grossly normal Mental Status: mental status grossly normal Speech and movement: Normal speech and movement present Affect: normal affect Attitude: cooperative Assessment & Plan Assessment & Plan (1) Obstructive sleep apnea: Comment: Mild degree of sleep apnea. The AHI was 6/hr and oxygen tex was 87%. Not tolerated CPAP, using oral appliance. Code(s): G47.33 - Obstructive sleep apnea (adult) (pediatric) Plan Continue to use the oral appliance to treat her sleep apnea. Wt reduction advised. Coding Level of Care Code Est Pt Level 3 (58869) Diagnoses Obstructive sleep apnea G47.33
[2023-03-24 09:06] VITALS: BP 130/70; PULSE 91; O2SAT 97
== END 2023-03-24 09:28 | disposition home or self-care (01) ==
PROVIDERS: PCP Internal Medicine Medical Oncology; Visit Provider Nurse Practitioner Family
DX: G47.33 Obstructive sleep apnea (adult) (pediatric) (principal)
CPT/HCPCS: 99213

== ENCOUNTER → 2023-03-24 08:53 | Outpatient (BNVA) | payer MEDICARE, OTHER, SELFPAY | PROVIDERS: PCP Internal Medicine Medical Oncology; Visit Provider Nurse Practitioner Family | DX: G47.33 Obstructive sleep apnea (adult) (pediatric) (principal) | CPT/HCPCS: 99212 ==

== ENCOUNTER 2023-03-29 11:00 | Outpatient (AMB) | payer MEDICARE, OTHER, SELFPAY ==
--- NOTE | 2023-03-29 11:01 | MHC.OFFVIS ---
Intake Vital Signs 03/29/23 11:05 Height 5 ft Weight 207 lb BMI 40.4 Intake Visit Reasons: 6 month breast exam Intake Note: This patient presents for a six month follow-up breast examination assessment. Patient c/o; reports no breast complaints at this time. Test Engineering Manager Required: No Accompanied by: Self / Same As Patient Allergies succinylcholine [SUCCINYLCHOLINE] Allergy (Severe, Verified 03/29/23 11:06) PSEUDOCHOLINESTERASE DEFICIENT adhesive tape [ADHESIVE TAPE] Allergy (Intermediate, Verified 03/29/23 11:06) BLISTERS, ITCHING dibucaine [DIBUCAINE] Allergy (Unknown, Verified 03/29/23 11:06) UNKNOWN HPI 6 month breast exam HPI Details She has a history of atypical ductal hyperplasia of the left breast and had undergone lumpectomy with Dr. Goodrich in the past. She comes to the office for regular exams. She had a mammogram 3 weeks ago which was unremarkable. She denies any palpable breast masses or any nipple or skin changes. [facility] Medical History Obstructive sleep apnea Annual physical exam Osteoporosis Knee pain, left Atypical ductal hyperplasia of breast Hearing loss Hx of Clostridium difficile infection Hx of deep venous thrombosis Hiatal hernia PVD (peripheral vascular disease) Restless leg syndrome Sleep apnea Hearing difficulty of both ears Family history of pseudocholinesterase deficiency GERD (gastroesophageal reflux disease) Vitamin D deficiency Cataract Obesity Osteopenia Macular degeneration TIA (transient ischemic attack) Hypercholesterolemia HTN (hypertension) Surgical History History of eyelid surgery Hx of right cataract extraction History of esophagogastroduodenoscopy (EGD) History of breast biopsy History of foot surgery History of ankle surgery History of exploratory laparotomy History of nasal surgery History of thumb surgery History of revision of total replacement of right knee joint History of eye surgery History of knee replacement procedure of right knee History of removal of cyst Hx of cholecystectomy History of colonoscopy Family History Father Heart disease Stomach cancer CVD (cardiovascular disease) Mother Arthritis Brother Colon cancer Maternal Grandmother No problems noted. Maternal Grandfather No problems noted. Paternal Grandfather No problems noted. Paternal Grandmother No problems noted. Son No problems noted. Daughter No problems noted. Brother No problems noted. Brother No problems noted. Brother No problems noted. Brother No problems noted. Brother No problems noted. Brother No problems noted. Brother No problems noted. Social History Housing: House Alcohol intake: current Alcohol intake frequency: holidays/special occasions only Patient Tobacco Use Status: Never used Tobacco e-Cigarette/Vaping Use: Never Used Current occupational status: retired Cognitive needs: No Hearing needs: No Vision needs: Yes Review of Systems Const Denies chills and Denies fever(s) Card Denies chest pain, Denies dyspnea and Denies dyspnea on exertion Resp Denies cough, Denies dyspnea and Denies dyspnea on exertion GI Denies hematochezia and Denies change in bowel habits Denies hematuria Musc Denies back pain and Denies limited range of motion Neuro Denies focal weakness and Denies convulsions Psych Denies depression and Denies mood swings Physical Exam Vital Signs: BMI result Body Mass Index 40.4 Const General: comfortable and no acute distress Orientation/consciousness: patient oriented x3 Neck Neck: Yes no lymphadenopathy Chest Other: No palpable breast masses, no nipple or skin changes, no axillary lymphadenopathy Resp Auscultation: clear to auscultation bilaterally Cardio Rhythm: regular rhythm GI Palpation (GI): Soft to palpation, nontender and no guarding Neuro General: patient oriented x3 Assessment & Plan Assessment & Plan (1) Atypical ductal hyperplasia of breast: Code(s): N60.99 - Unspecified benign mammary dysplasia of unspecified breast Plan: She had lumpectomy for atypical ductal hyperplasia in [address] Goodrich. She comes to the office for regular breast exams. Currently exam is unremarkable. Furthermore, she had an mammogram last February, which did not reveal any concerning findings. I have in remind her to continue with regular screening mammograms. She can otherwise follow up on a p.r.n. basis. She can continue to see us in the office for her breast exams. She otherwise does not have other significant risk factors for breast cancer. Coding Level of Care Code Est Pt Level 3 (24587) Diagnoses Atypical ductal hyperplasia of breast N60.99
[2023-03-29 11:05] VITALS: BMI 40.4
== END 2023-03-29 11:26 | disposition home or self-care (01) ==
PROVIDERS: PCP Internal Medicine Medical Oncology; Visit Provider Surgery
DX: N60.99 Unspecified benign mammary dysplasia of unspecified breast (principal)
CPT/HCPCS: 99213

== ENCOUNTER → 2023-03-29 11:00 | Outpatient (BNVA) | payer MEDICARE, OTHER, SELFPAY | PROVIDERS: PCP Internal Medicine Medical Oncology; Visit Provider Surgery | DX: N60.92 Unspecified benign mammary dysplasia of left breast (principal) | CPT/HCPCS: 99212 ==

== ENCOUNTER 2023-04-24 09:01 | Outpatient (REF) | payer MEDICARE, OTHER, SELFPAY ==
[2023-04-24 10:34] LABS: MANUAL DIFF FLAG NO
[2023-04-24 10:48] LABS: Basophils Absolute Auto 0.1 X10*3/uL (0.0-0.2); Eosinophils Absolute Auto 0.2 X10*3/uL (0.0-0.4); Eosinophils Percent Auto 4.6 % (0-4); Hemoglobin 13.1 g/dl (12.0-16.0); Imm Gran Abs Auto 0.01 X10*3/uL (0.00-0.03); Imm Gran Pct Auto 0.2 % (0.0-0.4); Lymphocytes Absolute Auto 1.6 X10*3/uL (1.2-4.9); Lymphocytes Percent Auto 32.3 % (20-40); Mean Corpuscular HGB Conc 32.8 g/dl (31.0-35.0); Mean Corpuscular Hemoglobin 29.6 pg (27.0-33.0); Mean Corpuscular Volume 90.5 fL (80.0-98.0); Mean Platelet Volume 10.4 fL (9.4-12.3); Monocytes Absolute Auto 0.6 X10*3/uL (0.1-1.2); Monocytes Percent Auto 11.7 % (2-11); Neutrophils Absolute Auto 2.4 x10*3/uL (2.0-8.3); Neutrophils Percent Auto 50.2 % (45-73); Platelet Count 225 X10*3/uL (160-400); Red Blood Count 4.42 X10*6/uL (4.20-5.50); Red Cell Distribution Width 13.2 % (11.0-16.0); White Blood Count 4.8 X10*3/uL (4.8-10.8)
[2023-04-24 11:49] LABS: Alanine Aminotransferase 34 U/L (0-31); Albumin Level 3.7 g/dL (3.5-5.0); Alkaline Phosphatase 73 U/L (39-117); Anion Gap 11 (12-20); Aspartate Amino Transferase 26 U/L (5-31); Bilirubin Total 0.4 mg/dL (0.0-1.0); Blood Urea Nitrogen 14 mg/dL (9-16); Calcium 8.8 mg/dL (8.4-10.2); Carbon Dioxide 26 mmol/L (22-29); Chloride 107 mmol/L (96-108); Cholesterol 184 mg/dL (<200); Estimated Glomerular Filt Rate > 60; Glucose Fasting 107 mg/dL (60-99); HDL Cholesterol 59 mg/dL (>40); LDL Cholesterol Calculated 95 mg/dL (<100); Potassium 3.7 mmol/L (3.3-5.1); Sodium 140 mmol/L (135-145); Total Protein 6.9 g/dL (6.5-8.0); Triglycerides 154 mg/dL (<150)
== END 2023-04-24 09:02 | disposition home or self-care (01) ==
LOC: HO.10HDL 09:01
PROVIDERS: Visit Provider Internal Medicine Medical Oncology
DX: I10 Essential (primary) hypertension (principal); E66.9 Obesity, unspecified; E78.2 Mixed hyperlipidemia
CPT/HCPCS: 36415; 80053; 80061; 85025

== ENCOUNTER 2023-08-21 07:22 | Outpatient (REF) | payer MEDICARE, OTHER, SELFPAY ==
[2023-08-21 10:57] LABS: MANUAL DIFF FLAG NO
[2023-08-21 11:23] LABS: Basophils Absolute Auto 0.1 X10*3/uL (0.0-0.2); Eosinophils Absolute Auto 0.3 X10*3/uL (0.0-0.4); Eosinophils Percent Auto 6.1 % (0-4); Hematocrit 40.1 % (37.0-47.0); Hemoglobin 13.1 g/dl (12.0-16.0); Imm Gran Abs Auto 0.01 X10*3/uL (0.00-0.03); Imm Gran Pct Auto 0.2 % (0.0-0.4); Lymphocytes Absolute Auto 1.5 X10*3/uL (1.2-4.9); Lymphocytes Percent Auto 29.1 % (20-40); Mean Corpuscular HGB Conc 32.7 g/dl (31.0-35.0); Mean Corpuscular Hemoglobin 29.3 pg (27.0-33.0); Mean Corpuscular Volume 89.7 fL (80.0-98.0); Mean Platelet Volume 10.6 fL (9.4-12.3); Monocytes Absolute Auto 0.7 X10*3/uL (0.1-1.2); Monocytes Percent Auto 13.4 % (2-11); Neutrophils Absolute Auto 2.5 x10*3/uL (2.0-8.3); Neutrophils Percent Auto 50.2 % (45-73); Platelet Count 233 X10*3/uL (160-400); Red Blood Count 4.47 X10*6/uL (4.20-5.50); Red Cell Distribution Width 13.8 % (11.0-16.0); White Blood Count 5.1 X10*3/uL (4.8-10.8)
[2023-08-21 12:02] LABS: Alanine Aminotransferase 22 U/L (0-31); Albumin Level 3.8 g/dL (3.5-5.0); Alkaline Phosphatase 76 U/L (39-117); Anion Gap 13 (12-20); Aspartate Amino Transferase 19 U/L (5-31); Bilirubin Total 0.4 mg/dL (0.0-1.0); Blood Urea Nitrogen 18 mg/dL (9-16); Calcium 9.2 mg/dL (8.4-10.2); Carbon Dioxide 25 mmol/L (22-29); Chloride 107 mmol/L (96-108); Cholesterol 208 mg/dL (<200); Estimated Glomerular Filt Rate > 60; Glucose Fasting 92 mg/dL (60-99); HDL Cholesterol 57 mg/dL (>40); LDL Cholesterol Calculated 129 mg/dL (<100); Sodium 141 mmol/L (135-145); Triglycerides 114 mg/dL (<150)
== END 2023-08-21 07:23 | disposition home or self-care (01) ==
LOC: HO.HMGCLDS 07:22
PROVIDERS: PCP Internal Medicine Medical Oncology; Visit Provider Internal Medicine Medical Oncology
DX: E88.09 Other disorders of plasma-protein metabolism, not elsewhere classified (principal); I10 Essential (primary) hypertension; E78.2 Mixed hyperlipidemia; M19.90 Unspecified osteoarthritis, unspecified site; R53.82 Chronic fatigue, unspecified
CPT/HCPCS: 36415; 80053; 80061; 85025

== ENCOUNTER 2023-08-30 14:23 | Outpatient (REF) | payer MEDICARE, OTHER, SELFPAY ==
[2023-08-31 14:34] LABS: Immunoglobulin A 213 mg/dL (70-320)
[2023-08-31 20:49] LABS: Transglutaminase Ab IgG <1.0 U/mL; Transglutaminase IgA <1.0 U/mL
[2023-09-04 09:43] LABS: Endomysial IgA Antibody Negative (Negative)
[2023-09-04 13:59] LABS: Gliadin Deamidated IgA Ab <1.0 U/mL; Gliadin Deamidated IgG Ab <1.0 U/mL
== END 2023-08-30 14:24 | disposition home or self-care (01) ==
LOC: HO.LAB 14:23
PROVIDERS: PCP Internal Medicine Medical Oncology; Visit Provider Internal Medicine
DX: R19.7 Diarrhea, unspecified (principal)
CPT/HCPCS: 36415; 82784; 86231; 86258; 86364

== ENCOUNTER 2023-10-03 11:30 | Outpatient (AMB) | payer MEDICARE, OTHER, SELFPAY ==
--- NOTE | 2023-10-03 11:30 | MHC.OFFVIS ---
Vital Signs 10/03/23 11:31 Height 5 ft BP 126/78 Blood Pressure Location Rt brachial Position Sitting Pulse 86 Pulse Source Pulse Oximeter Pulse Oximetry (%) 97 Oxygen Delivery Method Room Air Intake Visit Reasons: 6 mnts f/u for sleep -LVM w/address Intake Note: Patient presents for 6 months follow up sleep. Allergies succinylcholine [SUCCINYLCHOLINE] Allergy (Severe, Verified 10/03/23 11:32) PSEUDOCHOLINESTERASE DEFICIENT adhesive tape [ADHESIVE TAPE] Allergy (Intermediate, Verified 10/03/23 11:32) BLISTERS, ITCHING dibucaine [DIBUCAINE] Allergy (Unknown, Verified 10/03/23 11:32) UNKNOWN HPI Comments Details: 78 y/o female patient has hx of sleep apnea presents for follow up of sleep study. The home sleep study result was significant for mild degree of sleep apnea. The AHI was 6/hr, supine AHI was 14/hr and oxygen tex was 87%. Pt did not tolerate CPAP, and uses oral appliance to treat BOSSMAN. She had dental bridge and and the oral appliance broke her teeth. Now she uses partial denture, and actually she feels better to use oral appliance. She sleeps better now, not waking up as often. She has chronic diarrhea, started new diet, and she feels her fatigue has improved. She reports that she sleeps well with the appliance and wants to continue to use it. Pt does not want CPAP. She could not sleep with CPAP. Denies wt gain or loss. [facility] Medical History Obstructive sleep apnea Annual physical exam Osteoporosis Knee pain, left Atypical ductal hyperplasia of breast Hearing loss Hx of Clostridium difficile infection Hx of deep venous thrombosis Hiatal hernia PVD (peripheral vascular disease) Restless leg syndrome Sleep apnea Hearing difficulty of both ears Family history of pseudocholinesterase deficiency GERD (gastroesophageal reflux disease) Vitamin D deficiency Cataract Obesity Osteopenia Macular degeneration TIA (transient ischemic attack) Hypercholesterolemia HTN (hypertension) Surgical History History of eyelid surgery Hx of right cataract extraction History of esophagogastroduodenoscopy (EGD) History of breast biopsy History of foot surgery History of ankle surgery History of exploratory laparotomy History of nasal surgery History of thumb surgery History of revision of total replacement of right knee joint History of eye surgery History of knee replacement procedure of right knee History of removal of cyst Hx of cholecystectomy History of colonoscopy Family History Father Heart disease Stomach cancer CVD (cardiovascular disease) Mother Arthritis Brother Colon cancer Maternal Grandmother No problems noted. Maternal Grandfather No problems noted. Paternal Grandfather No problems noted. Paternal Grandmother No problems noted. Son No problems noted. Daughter No problems noted. Brother No problems noted. Brother No problems noted. Brother No problems noted. Brother No problems noted. Brother No problems noted. Brother No problems noted. Brother No problems noted. Social History Housing: House Alcohol intake: current Alcohol intake frequency: holidays/special occasions only Patient Tobacco Use Status: Never used Tobacco e-Cigarette/Vaping Use: Never Used Current occupational status: retired Cognitive needs: No Hearing needs: No Vision needs: Yes Review of Systems Const All systems reviewed & are unremarkable except as noted in HPI and below ENT Reports Normal hearing present Neuro Reports Normal hearing present Physical Exam Vital Signs: Last Vital Signs Pulse 86 10/03/23 11:31 BP 126/78 10/03/23 11:31 Pulse Ox 97 10/03/23 11:31 Oxygen Delivery Method Room Air 10/03/23 11:31 Const General: cooperative and comfortable Nutritional Appearance: obese Orientation/consciousness: patient oriented x3 Neck Neck: Yes full ROM and Yes supple Resp Effort & Inspection: normal respiratory effort and able to speak in complete sentences Neuro General: patient oriented x3, gait normal and moves all extremities Cranial nerves: Yes Bilaterally intact EOM present, Yes Midline tongue present, Yes Symmetric palate elevation present, Yes Normal hearing present, Yes Ability to bilaterally rotate head present and Yes Ability to bilaterally elevate shoulders present Cognition (Neuro): normal cognition Gait exam (Neuro): Normal gait present Motor exam (neuro): 5/5 motor strength present throughout, Pronator motor function not present and no tremor noted Psych Appearance: grossly normal Mental Status: mental status grossly normal Speech and movement: Normal speech and movement present Affect: normal affect Attitude: cooperative Assessment & Plan Assessment & Plan (1) Obstructive sleep apnea: Comment: Mild degree of sleep apnea. The AHI was 6/hr and oxygen tex was 87%. Not tolerated CPAP, using oral appliance. Code(s): G47.33 - Obstructive sleep apnea (adult) (pediatric) Category: Medical Plan Continue to use the oral appliance to treat her sleep apnea. Advised patient to sleep on her side. Wt reduction advised. Coding Level of Care Code Est Pt Level 3 (52072) Diagnoses Obstructive sleep apnea G47.33
[2023-10-03 11:31] VITALS: BP 126/78; PULSE 86; O2SAT 97
== END 2023-10-03 12:26 | disposition home or self-care (01) ==
PROVIDERS: PCP Internal Medicine Medical Oncology; Visit Provider Nurse Practitioner Family
DX: G47.33 Obstructive sleep apnea (adult) (pediatric) (principal)
CPT/HCPCS: 99213

== ENCOUNTER → 2023-10-03 11:30 | Outpatient (BNVA) | payer MEDICARE, OTHER, SELFPAY | PROVIDERS: PCP Internal Medicine Medical Oncology; Visit Provider Nurse Practitioner Family | DX: G47.33 Obstructive sleep apnea (adult) (pediatric) (principal) | CPT/HCPCS: 99212 ==

== ENCOUNTER 2023-10-12 14:36 | Outpatient (REF) | payer MEDICARE, OTHER, SELFPAY ==
[2023-10-12 16:15] LABS: MANUAL DIFF FLAG NO
[2023-10-12 16:22] LABS: Basophils Percent Auto 0.5 % (0-2); Eosinophils Absolute Auto 0.2 X10*3/uL (0.0-0.4); Eosinophils Percent Auto 2.6 % (0-4); Hematocrit 37.5 % (37.0-47.0); Hemoglobin 12.4 g/dl (12.0-16.0); Imm Gran Abs Auto 0.02 X10*3/uL (0.00-0.03); Imm Gran Pct Auto 0.3 % (0.0-0.4); Lymphocytes Absolute Auto 1.1 X10*3/uL (1.2-4.9); Lymphocytes Percent Auto 17.6 % (20-40); Mean Corpuscular HGB Conc 33.1 g/dl (31.0-35.0); Mean Corpuscular Hemoglobin 29.2 pg (27.0-33.0); Mean Corpuscular Volume 88.4 fL (80.0-98.0); Mean Platelet Volume 10.3 fL (9.4-12.3); Monocytes Absolute Auto 0.7 X10*3/uL (0.1-1.2); Monocytes Percent Auto 11.5 % (2-11); Neutrophils Absolute Auto 4.1 x10*3/uL (2.0-8.3); Neutrophils Percent Auto 67.5 % (45-73); Platelet Count 269 X10*3/uL (160-400); Red Blood Count 4.24 X10*6/uL (4.20-5.50); White Blood Count 6.1 X10*3/uL (4.8-10.8)
[2023-10-12 16:49] LABS: Alanine Aminotransferase 16 U/L (0-31); Albumin Level 3.7 g/dL (3.5-5.0); Alkaline Phosphatase 77 U/L (39-117); Anion Gap 14 (12-20); Aspartate Amino Transferase 16 U/L (5-31); Bilirubin Direct < 0.2 mg/dL (0.0-0.5); Bilirubin Total 0.2 mg/dL (0.0-1.0); Blood Urea Nitrogen 14 mg/dL (9-16); C Reactive Protein 2.98 mg/dL (< or = 0.50); Carbon Dioxide 22 mmol/L (22-29); Chloride 107 mmol/L (96-108); Estimated Glomerular Filt Rate > 60; Glucose Random 120 mg/dL (60-115); Sodium 139 mmol/L (135-145); Total Protein 7.1 g/dL (6.5-8.0)
[2023-10-12 17:20] LABS: Erythrocyte Sedimentation Rate 37 MM/HR (0-20)
== END 2023-10-12 14:37 | disposition home or self-care (01) ==
LOC: HO.HMGCLDS 14:36
PROVIDERS: PCP Internal Medicine Medical Oncology; Visit Provider Internal Medicine
DX: R19.7 Diarrhea, unspecified (principal)
CPT/HCPCS: 36415; 80051; 80076; 82565; 82947; 84520; 85025; 85652; 86140

== ENCOUNTER 2023-10-13 09:35 | Outpatient (REF) | payer MEDICARE, OTHER, SELFPAY ==
[2023-10-13 14:15] LABS: Leukocytes Stool Qualitative NEGATIVE (NEGATIVE)
[2023-10-13 14:46] LABS: CDiff Gene PCR NEGATIVE (Negative)
[2023-10-13 15:10] LABS: Adenovirus F 40/41 Not Detected (Not Detect.); Astrovirus Not Detected (Not Detect.); Campylobacter Not Detected (Not Detect.); Cryptosporidium Not Detected (Not Detect.); Cyclospora cayetanensis Not Detected (Not Detect.); E. coli EAEC Not Detected (Not Detect.); E. coli EPEC Not Detected (Not Detect.); E. coli ETEC Not Detected (Not Detect.); E. coli STEC Not Detected (Not Detect.); Entamoeba histolytica Not Detected (Not Detect.); Giardia lamblia Not Detected (Not Detect.); Norovirus GI/GII Not Detected (Not Detect.); Plesiomonas shigelloides Not Detected (Not Detect.); Rotavirus A Not Detected (Not Detect.); Salmonella Not Detected (Not Detect.); Sapovirus Not Detected (Not Detect.); Shigella sp./EIEC Not Detected (Not Detect.); Vibrio Not Detected (Not Detect.); Vibrio Cholerae Not Detected (Not Detect.); Yersinia enterocolitica Not Detected (Not Detect.)
[2023-10-20 22:04] LABS: Calprotectin, Fecal 134 mcg/g
== END 2023-10-13 10:44 | disposition home or self-care (01) ==
LOC: HO.HMGCLNP 09:35
PROVIDERS: PCP Internal Medicine Medical Oncology; Visit Provider Internal Medicine
DX: R19.7 Diarrhea, unspecified (principal)
CPT/HCPCS: 83993; 87493; 87507; 89055

== ENCOUNTER 2024-01-09 16:06 | Outpatient (REF) | payer MEDICARE, OTHER, SELFPAY ==
[2024-01-09 16:18] LABS: MANUAL DIFF FLAG NO
[2024-01-09 17:05] LABS: Basophils Percent Auto 0.4 % (0-2); Eosinophils Absolute Auto 0.2 X10*3/uL (0.0-0.4); Eosinophils Percent Auto 2.9 % (0-4); Hematocrit 37.7 % (37.0-47.0); Hemoglobin 12.9 g/dl (12.0-16.0); Imm Gran Abs Auto 0.01 X10*3/uL (0.00-0.03); Imm Gran Pct Auto 0.1 % (0.0-0.4); Lymphocytes Absolute Auto 1.9 X10*3/uL (1.2-4.9); Lymphocytes Percent Auto 25.9 % (20-40); Mean Corpuscular HGB Conc 34.2 g/dl (31.0-35.0); Mean Corpuscular Hemoglobin 30.3 pg (27.0-33.0); Mean Corpuscular Volume 88.5 fL (80.0-98.0); Mean Platelet Volume 10.1 fL (9.4-12.3); Monocytes Absolute Auto 0.8 X10*3/uL (0.1-1.2); Monocytes Percent Auto 11.1 % (2-11); Neutrophils Absolute Auto 4.3 x10*3/uL (2.0-8.3); Neutrophils Percent Auto 59.6 % (45-73); Platelet Count 249 X10*3/uL (160-400); Red Blood Count 4.26 X10*6/uL (4.20-5.50); Red Cell Distribution Width 14.1 % (11.0-16.0); White Blood Count 7.2 X10*3/uL (4.8-10.8)
[2024-01-09 17:56] LABS: Alanine Aminotransferase 20 U/L (0-31); Albumin Level 3.9 g/dL (3.5-5.0); Alkaline Phosphatase 81 U/L (39-117); Anion Gap 12 (12-20); Aspartate Amino Transferase 21 U/L (5-31); Bilirubin Total 0.2 mg/dL (0.0-1.0); Blood Urea Nitrogen 16 mg/dL (9-16); Calcium 9.7 mg/dL (8.4-10.2); Carbon Dioxide 26 mmol/L (22-29); Chloride 106 mmol/L (96-108); Estimated Glomerular Filt Rate > 60; Glucose Random 100 mg/dL (60-115); Potassium 3.8 mmol/L (3.3-5.1); Sodium 140 mmol/L (135-145); Total Protein 7.2 g/dL (6.5-8.0)
== END 2024-01-09 16:07 | disposition home or self-care (01) ==
LOC: HO.LAB 16:06
PROVIDERS: PCP Internal Medicine Medical Oncology; Visit Provider Internal Medicine Medical Oncology
DX: R22.1 Localized swelling, mass and lump, neck (principal)
CPT/HCPCS: 36415; 80053; 85025

== ENCOUNTER 2024-01-10 15:18 | Outpatient (REF) | payer MEDICARE, OTHER, SELFPAY ==
--- NOTE | ~2024-01-10 | CT_ITS ---
EXAMINATION: CT SOFT TISSUE NECK WITHOUT CONTRAST CLINICAL INFORMATION: Fixed left neck mass concerning for neoplasm COMPARISON: None. TECHNIQUE: Noncontrast helical imaging was performed in the axial plane with generation of coronal and sagittal reformatted images. This CT examination was performed using dose optimization techniques as appropriate, variously including the following: *Automated exposure control. *Adjustment of mA and/or kV according to patient size (this includes techniques or standardized protocols for targeted exams where dose is matched to indication/reason for exam; i.e. extremities or head). *Use of iterative reconstruction technique. DLP: 311.1 mGy-cm FINDINGS: There is a marker noted overlying the left submandibular region denoting the site of clinical concern. The left submandibular gland is asymmetrically enlarged and demonstrates mild sialectasis upstream to two adjacent calculi within the proximal aspect of the left Rudyard's duct, each measuring 3 mm, suspicious for acute obstructive sialadenitis. There is surrounding periglandular fat stranding, thickening of the left platysma muscle, and slight reticulation of the overlying subcutaneous soft tissues. A couple of nonobstructive calculi are noted within the right submandibular gland without evidence of acute sialoadenitis on the right. 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 Nonpathologic size criteria left level Ib/IIa lymph nodes. The fat planes of the skull base and soft tissues of the nasopharynx are unremarkable. Trace paranasal sinus mucosal thickening. Trace left mastoid effusion. Lens extractions. Asymmetric severe left TMJ osteoarthrosis. The pharyngeal mucosal space is unremarkable, noting crowding of soft tissue structures. The epiglottis is ventrally deflected and abuts the posterior oropharyngeal wall. The laryngeal structures are opposed, limiting assessment. Heterogeneity of the thyroid gland with asymmetric enlargement of the right lobe and likely diffusely reduced density that may reflect reduced iodine content and can be correlated with thyroid function tests for the possibility of chronic thyroid disease. The bilateral parotid glands are normal. Retropharyngeal course of the distal right common carotid artery and proximal to mid right internal carotid artery. Mild calcific plaque at the left subclavian artery origin and bilateral carotid bifurcations. The partially visualized lung apices are clear. Multilevel cervical spondylosis. The imaged portions of the brain parenchyma are unremarkable. Mural calcifications along the carotid siphons. CT/CT soft tissue neck wo IV con IMPRESSION: 1. Acute obstructive left submandibular sialectasis related to two adjacent 3 mm obstructing calculi along the proximal aspect of the left Rudyard's duct. Acutely inflamed left submandibular gland likely accounting for fullness in this region. 2. Nonobstructive calculi are noted within the right submandibular gland without evidence of acute sialoadenitis on the right. 3. Heterogeneity of the thyroid gland with asymmetric enlargement of the right lobe and likely diffusely reduced density that may reflect reduced iodine content and can be correlated with thyroid function tests for the possibility of chronic thyroid disease.
== END 2024-01-10 15:19 | disposition home or self-care (01) ==
LOC: HO.CT 15:18
PROVIDERS: PCP Internal Medicine Medical Oncology; Visit Provider Internal Medicine Medical Oncology
DX: R22.1 Localized swelling, mass and lump, neck (principal)
CPT/HCPCS: 70490

== ENCOUNTER 2024-02-01 08:17 | Outpatient (REF) | payer MEDICARE, OTHER, SELFPAY ==
[2024-02-01 10:01] LABS: MANUAL DIFF FLAG NO
[2024-02-01 10:05] LABS: Basophils Absolute Auto 0.1 X10*3/uL (0.0-0.2); Basophils Percent Auto 0.9 % (0-2); Eosinophils Absolute Auto 0.2 X10*3/uL (0.0-0.4); Hemoglobin 12.4 g/dl (12.0-16.0); Imm Gran Abs Auto 0.02 X10*3/uL (0.00-0.03); Imm Gran Pct Auto 0.4 % (0.0-0.4); Lymphocytes Absolute Auto 1.3 X10*3/uL (1.2-4.9); Lymphocytes Percent Auto 23.6 % (20-40); Mean Corpuscular HGB Conc 33.5 g/dl (31.0-35.0); Mean Corpuscular Hemoglobin 30.1 pg (27.0-33.0); Mean Corpuscular Volume 89.8 fL (80.0-98.0); Mean Platelet Volume 10.5 fL (9.4-12.3); Monocytes Absolute Auto 0.7 X10*3/uL (0.1-1.2); Monocytes Percent Auto 12.3 % (2-11); Neutrophils Absolute Auto 3.3 x10*3/uL (2.0-8.3); Neutrophils Percent Auto 58.8 % (45-73); Platelet Count 222 X10*3/uL (160-400); Red Blood Count 4.12 X10*6/uL (4.20-5.50); Red Cell Distribution Width 13.9 % (11.0-16.0); White Blood Count 5.5 X10*3/uL (4.8-10.8)
[2024-02-01 10:34] LABS: Alanine Aminotransferase 21 U/L (0-31); Albumin Level 3.7 g/dL (3.5-5.0); Alkaline Phosphatase 73 U/L (39-117); Anion Gap 13 (12-20); Aspartate Amino Transferase 20 U/L (5-31); Bilirubin Total 0.3 mg/dL (0.0-1.0); Blood Urea Nitrogen 15 mg/dL (9-16); Calcium 9.3 mg/dL (8.4-10.2); Carbon Dioxide 23 mmol/L (22-29); Chloride 107 mmol/L (96-108); Cholesterol 190 mg/dL (<200); Estimated Glomerular Filt Rate > 60; Glucose Fasting 104 mg/dL (60-99); HDL Cholesterol 52 mg/dL (>40); LDL Cholesterol Calculated 113 mg/dL (<100); Sodium 139 mmol/L (135-145); Total Protein 6.9 g/dL (6.5-8.0); Triglycerides 128 mg/dL (<150)
[2024-02-01 10:38] LABS: Free T4 (Free Thyroxine) 1.17 ng/dL (0.71-1.85); TSH reflex Free T4 0.79 uIU/mL (0.32-4.0)
== END 2024-02-01 08:18 | disposition home or self-care (01) ==
LOC: HO.HMGCLDS 08:17
PROVIDERS: PCP Internal Medicine Medical Oncology; Visit Provider Internal Medicine Medical Oncology
DX: I10 Essential (primary) hypertension (principal); E66.9 Obesity, unspecified; E01.0 Iodine-deficiency related diffuse (endemic) goiter
CPT/HCPCS: 36415; 80053; 80061; 84439; 84443; 85025

== ENCOUNTER 2024-03-05 10:06 | Outpatient (REF) | payer MEDICARE, OTHER, SELFPAY ==
--- NOTE | ~2024-03-05 | MM_ITS ---
EXAMINATION: MM SCREENING DIGITAL BREAST TOMOSYNTHESIS, BILATERAL CLINICAL INFORMATION: Screening. Asymptomatic. COMPARISON: Mammography: Comparison is made with available priors TECHNIQUE: Digital breast mammography with tomosynthesis is performed in both the craniocaudal and mediolateral oblique views along with computer-aided detection (CAD). FINDINGS: There are scattered areas of fibroglandular density (ACR BI-RADS breast composition Category b). Marker clip in the right breast from previous benign needle core biopsy. There are no significant masses, abnormal calcifications, or other abnormalities. MM/MM tomosynthesis screening BI IMPRESSION: No mammographic evidence of malignancy. ASSESSMENT: BI-RADS BI-RADS 2 - Benign Findings RECOMMENDATION: Routine annual mammography screening. 1 year F/U This examination should not preclude the clinical evaluation of a suspicious palpable abnormality. This patient's information was entered into a reminder system with a target due date for their next mammogram. Electronically signed by: Mally Cross DO 03/12/2024 05:48 PM EDT
== END 2024-03-05 10:07 | disposition home or self-care (01) ==
LOC: HO.MAMMO 10:06
PROVIDERS: PCP Internal Medicine Medical Oncology; Visit Provider Surgery
DX: Z12.31 Encounter for screening mammogram for malignant neoplasm of breast (principal)
CPT/HCPCS: 77063; 77067

== ENCOUNTER → 2024-03-05 10:15 | Outpatient (BNV) | payer MEDICARE, OTHER, SELFPAY | PROVIDERS: PCP Internal Medicine Medical Oncology; Visit Provider Internal Medicine | DX: Z12.31 Encounter for screening mammogram for malignant neoplasm of breast (principal) | CPT/HCPCS: 77063; 77067 ==

== ENCOUNTER 2024-03-13 10:29 | Outpatient (AMB) | payer MEDICARE, OTHER, SELFPAY ==
--- NOTE | 2024-03-13 10:31 | A.OFFVIS_ITS ---
Vital Signs 03/13/24 10:39 Height 5 ft Weight 199 lb BMI 38.9 BP 150/74 H Blood Pressure Location Lt brachial Position Standing Pulse 102 H Intake Visit Reasons: Breast exam, 1 year follow up Intake Note: This patient presents for yearly follow-up breast examination assessment. Pt c/o; reports no breast complaints at this time. 03/05/2024: MM screening Truck Sales Representative Required: No Accompanied by: Self / Same As Patient Allergies succinylcholine [SUCCINYLCHOLINE] Allergy (Severe, Verified 03/13/24 10:41) PSEUDOCHOLINESTERASE DEFICIENT adhesive tape [ADHESIVE TAPE] Allergy (Intermediate, Verified 03/13/24 10:41) BLISTERS, ITCHING dibucaine [DIBUCAINE] Allergy (Unknown, Verified 03/13/24 10:41) UNKNOWN Medication List - Last Reconciled 03/13/24 by Sylvester Helm MD acetaminophen ER 650 mg PO Q8H amoxicillin 2,000 mg PO ONCE aspirin 81 mg PO DAILY calcium citrate-vitamin D3 200 mg-6.25 mcg (250 unit) 2 tabs PO DAILY 90 days cholecalciferol (vitamin D3) 50 mcg PO DAILY 90 days diclofenac sodium 1% 2 grams topical QID esomeprazole magnesium 40 mg PO BID famotidine 40 mg PO BID flaxseed oil 1,000 mg PO TID fluticasone propionate 50 mcg/actuation 1 spray intranasal DAILY hydrochlorothiazide 25 mg PO DAILY ibuprofen 600 mg PO Q6H PRN ipratropium bromide intranasal lisinopril 5 mg (1/2 x 10 mg) PO BID loperamide (Imodium A-D) 2 mg PO QID PRN loratadine (Claritin) 10 mg PO DAILY melatonin 3 mg PO BEDTIME PRN nabumetone 1,000 mg PO BID pramipexole 0.5 - 0.75 mg (2 - 3 x 0.25 mg) PO DAILY rosuvastatin 5 mg PO daily; simethicone (Gas Relief (simethicone)) 180 mg PO DAILY vit C,K-Aw-imozy-lutein-zeaxan 250-90-40-1 mg (PreserVision AREDS-2) 1 tab PO BID HPI HPI Breast exam, 1 year follow up: Details: She has a history of atypical ductal hyperplasia of the left breast and had undergone lumpectomy with Dr. Goodrich in the past. She comes to the office for regular yearly breast exams. She had a mammogram last week which was unremarkable. She denies any palpable breast masses or any nipple or skin changes. [facility] Medical History Obstructive sleep apnea Annual physical exam Osteoporosis Knee pain, left Atypical ductal hyperplasia of breast Hearing loss Hx of Clostridium difficile infection Hx of deep venous thrombosis Hiatal hernia PVD (peripheral vascular disease) Restless leg syndrome Sleep apnea Hearing difficulty of both ears Family history of pseudocholinesterase deficiency GERD (gastroesophageal reflux disease) Vitamin D deficiency Cataract Obesity Osteopenia Macular degeneration TIA (transient ischemic attack) Hypercholesterolemia HTN (hypertension) Surgical History History of eyelid surgery Hx of right cataract extraction History of esophagogastroduodenoscopy (EGD) History of breast biopsy History of foot surgery History of ankle surgery History of exploratory laparotomy History of nasal surgery History of thumb surgery History of revision of total replacement of right knee joint History of eye surgery History of knee replacement procedure of right knee History of removal of cyst Hx of cholecystectomy History of colonoscopy Family History Father Heart disease Stomach cancer CVD (cardiovascular disease) Mother Arthritis Brother Colon cancer Maternal Grandmother No problems noted. Maternal Grandfather No problems noted. Paternal Grandfather No problems noted. Paternal Grandmother No problems noted. Son No problems noted. Daughter No problems noted. Brother No problems noted. Brother No problems noted. Brother No problems noted. Brother No problems noted. Brother No problems noted. Brother No problems noted. Brother No problems noted. Social History Housing: House Alcohol intake: current Alcohol intake frequency: holidays/special occasions only Patient Tobacco Use Status: Never used Tobacco e-Cigarette/Vaping Use: Never Used Current occupational status: retired Cognitive needs: No Hearing needs: No Vision needs: Yes Review of Systems Const Denies chills and Denies fever(s) Card Denies chest pain, Denies dyspnea and Denies dyspnea on exertion Resp Denies cough, Denies dyspnea and Denies dyspnea on exertion GI Denies hematochezia and Denies change in bowel habits Denies hematuria Musc Denies back pain and Denies limited range of motion Neuro Denies focal weakness and Denies convulsions Psych Denies depression and Denies mood swings Physical Exam Const General: comfortable and no acute distress Chest Other: No palpable breast masses, no axillary lymphadenopathy Resp Effort & Inspection: normal respiratory effort Cardio Rate: regular rate GI Palpation (GI): Soft to palpation, not firm and nontender Assessment & Plan Assessment & Plan (1) Atypical ductal hyperplasia of breast: Code(s): N60.99 - Unspecified benign mammary dysplasia of unspecified breast Category: Medical Plan: She has a history of lumpectomy for atypical ductal hyperplasia. Her breast exam is currently unremarkable. I have reviewed her mammogram from last week and this did not reveal any suspicious lesions. She may continue to do regular yearly mammograms. She can otherwise follow up on a p.r.n. basis. Coding Level of Care Code Est Pt Level 3 (39056) Diagnoses Atypical ductal hyperplasia of breast N60.99
[2024-03-13 10:39] VITALS: BP 150/74; PULSE 102; BMI 38.9
== END 2024-03-13 10:53 | disposition home or self-care (01) ==
PROVIDERS: PCP Internal Medicine Medical Oncology; Visit Provider Surgery
DX: N60.99 Unspecified benign mammary dysplasia of unspecified breast (principal)
CPT/HCPCS: 99213

== ENCOUNTER → 2024-03-13 10:29 | Outpatient (BNVA) | payer MEDICARE, OTHER, SELFPAY | PROVIDERS: PCP Internal Medicine Medical Oncology; Visit Provider Surgery | DX: N60.92 Unspecified benign mammary dysplasia of left breast (principal) | CPT/HCPCS: 99212 ==

== ENCOUNTER 2024-04-10 13:06 | Outpatient (REF) | payer MEDICARE, OTHER, SELFPAY | END 2024-04-10 13:07 | disposition home or self-care (01) | LOC: HO.HAP 13:06 | PROVIDERS: Visit Provider Internal Medicine Medical Oncology | DX: Z13.89 Encounter for screening for other disorder (principal) ==

== ENCOUNTER 2024-04-12 13:38 | Outpatient (REF) | payer MEDICARE, OTHER, SELFPAY | END 2024-04-12 13:39 | disposition home or self-care (01) | LOC: HO.HAP 13:38 | PROVIDERS: Visit Provider Internal Medicine Medical Oncology | DX: Z13.89 Encounter for screening for other disorder (principal) ==

== ENCOUNTER 2024-05-13 09:28 | Outpatient (REF) | payer MEDICARE, OTHER, SELFPAY ==
[2024-05-13 13:23] LABS: MANUAL DIFF FLAG NO
[2024-05-13 13:27] LABS: Basophils Absolute Auto 0.1 X10*3/uL (0.0-0.2); Basophils Percent Auto 0.8 % (0-2); Eosinophils Absolute Auto 0.2 X10*3/uL (0.0-0.4); Eosinophils Percent Auto 3.5 % (0-4); Hematocrit 40.1 % (37.0-47.0); Imm Gran Abs Auto 0.01 X10*3/uL (0.00-0.03); Imm Gran Pct Auto 0.2 % (0.0-0.4); Lymphocytes Absolute Auto 1.3 X10*3/uL (1.2-4.9); Lymphocytes Percent Auto 20.5 % (20-40); Mean Corpuscular HGB Conc 32.4 g/dl (31.0-35.0); Mean Corpuscular Hemoglobin 29.3 pg (27.0-33.0); Mean Corpuscular Volume 90.3 fL (80.0-98.0); Mean Platelet Volume 10.6 fL (9.4-12.3); Monocytes Absolute Auto 0.8 X10*3/uL (0.1-1.2); Monocytes Percent Auto 12.9 % (2-11); Neutrophils Absolute Auto 3.9 x10*3/uL (2.0-8.3); Neutrophils Percent Auto 62.1 % (45-73); Platelet Count 247 X10*3/uL (160-400); Red Blood Count 4.44 X10*6/uL (4.20-5.50); Red Cell Distribution Width 13.4 % (11.0-16.0); White Blood Count 6.3 X10*3/uL (4.8-10.8)
[2024-05-13 14:03] LABS: Alanine Aminotransferase 34 U/L (0-31); Albumin Level 3.8 g/dL (3.5-5.0); Alkaline Phosphatase 85 U/L (39-117); Anion Gap 11 (12-20); Aspartate Amino Transferase 33 U/L (5-31); Bilirubin Total 0.4 mg/dL (0.0-1.0); Blood Urea Nitrogen 15 mg/dL (9-16); Calcium 8.8 mg/dL (8.4-10.2); Carbon Dioxide 26 mmol/L (22-29); Chloride 106 mmol/L (96-108); Cholesterol 208 mg/dL (<200); Estimated Glomerular Filt Rate > 60; Glucose Fasting 92 mg/dL (60-99); HDL Cholesterol 53 mg/dL (>40); LDL Cholesterol Calculated 128 mg/dL (<100); Potassium 3.8 mmol/L (3.3-5.1); Sodium 139 mmol/L (135-145); Total Protein 7.1 g/dL (6.5-8.0); Triglycerides 137 mg/dL (<150)
--- OUTSIDE RECORDS SUMMARY | 2024-05-15 13:59 | XMS_ITS ---
Author Organization Erik Grant III, MD Address [address] [address] Care Team Providers Care Can Feeder Name Role Phone Erik Grant Primary Care Provider [phone] Medications Medication SIG (Take, Route, Fr equency, Duration) Notes Start Date End Date Status PARoxetine HCl 10 MG 1 tablet in the mor jimbo Orally Once a day for 30 days 03/27/2024 Active Social History Sex Assigned At : Social History Observation Description Sex Assigned At Female Encounters Encounter Location Date Provider Diagnosis Erik Grant III, MD [address] [place] [address] [place] [address] 03/27/2024 Erik Grant Plan Of Treatment Medication Medication Name Sig Start Date Stop Date Notes PARoxetine HCl 10 MG 1 tablet in the mor jimbo Orally Once a day for 30 days 03/27/2024 Next Appt Details Provider Name:Erik Grant, 05/17/2024 03:00:00 PM, [address] [place] [address] [place], [phone], Progress Notes * SAMAnabelle EDOB: [birth year] (78 yo F)Acc No.[id number]:03/27/2024 Patient:?Palak VARGAS :1945???Age:78 Y???Sex:Female Address:[address] [place], [address] * Refills? Start PARoxetine HCl Tablet, 10 MG, Orally, 30, 1 tablet in the morning, Once a day, 30 days, Refills=6 * true * Date:? Generated for Gely mcfadden/[place]/Yakelin on:?05/15/2024 01:59 PM EST
--- OUTSIDE RECORDS SUMMARY | 2024-05-15 13:59 | XMS_ITS ---
Author Organization Erik Grant III, MD Address [address] [place] [address] Care Team Providers Care Casing Grader Name Role Phone Erik Grant Primary Care Provider [phone] REASON FOR VISIT Message Social History Sex Assigned At : Social History Observation Description Sex Assigned At Female Encounters Encounter Location Date Provider Diagnosis Erik Grant III, MD [address] [place] [address] [place] [id number] 03/07/2024 Erik Grant Plan Of Treatment Next Appt Details Provider Name:Erik Grant, 05/17/2024 03:00:00 PM, [address] [place] [address] [place] [place], [place], [id number], Progress Notes * Palak VARGAS EDOB: [birth year] (78 yo F)Acc No.[id number]:03/07/2024 Patient:?RENETTA, Palak Donis :1945???Age:78 Y???Sex:Female Address:[address] [place], [address] * true * Date:? Generated for Printi ng/Farodneyg/eTransmitting on:?05/15/2024 01:59 PM EST
--- OUTSIDE RECORDS SUMMARY | 2024-05-15 13:59 | XMS_ITS ---
Author Organization Erik Grant III, MD Address [address] [place] [address] Care Team Providers Care Airway Traffic Controller Name Role Phone Erik Grant Primary Care Provider REASON FOR VISIT ? can have covid and flu shot Social History Sex Assigned At : Social History Observation Description Sex Assigned At Female Encounters Encounter Location Date Provider Diagnosis Erik Grant III, MD [address] [place] [address] [place] [phone] 03/05/2024 Erik Grant Plan Of Treatment Next Appt Details Provider Name:Erik Grant, 05/17/2024 03:00:00 PM, [address] [place] [address] [address] [place], [place], [phone], Progress Notes * SAM, Adele EDOB: [birth year] (78 yo F)Acc No.[id number]:03/05/2024 Patient:?Palak VARGAS :1945???Age:78 Y???Sex:Female Address:[address], [place], [address] * true * Date:? Generated for Printi ng/Farodneyg/eTransmitting on:?05/15/2024 01:59 PM EST
--- OUTSIDE RECORDS SUMMARY | 2024-05-15 14:00 | XMS_ITS | Patient Health Record ---
Author Organization Erik Grant III, MD Address [address] [place] [address] Care Team Providers Care Metal Control Coordinator Name Role Phone Erik Grant Primary Care Provider Allergies Allergen (clinical drug ingredient) Drug/Non Drug Allergy documented on EMR Reaction Allergy Type Onset Date Status succinylcholine Succinylcholine Unknown Drug Allergy Active dibucaine Dibucaine Unknown Drug Allergy Active Adhesive Unknown Allergy Active Results Component Value Reference Range Notes Complete Blood Count Auto Di ff Reviewed date:09/22/2023 10:34:29 AM Interpretation: Performing Lab:[facility], [address] [place] [phone] Notes/Report: White Blood Count 5.1 4.8-10.8 X10*3/uL Red Blood Count 4.47 4.20-5.50 X10*6/uL Hemoglobin 13.1 12.0-16.0 g/dl Hematocrit 40.1 37.0-47.0 % Mean Corpuscular Volume 89.7 80.0-98.0 fL Mean Corpuscular Hemoglobin 29.3 27.0-33.0 pg Mean Corpuscular HGB Conc 32.7 31.0-35.0 g/dl Red Cell Distribution Width 13.8 11.0-16.0 % Platelet Count 233 160-400 X10*3/uL Mean Platelet Volume 10.6 9.4-12.3 fL Neutrophils Percent Auto 50.2 45-73 % Imm Gran Pct Auto 0.2 0.0-0.4 % Lymphocytes Percent Auto 29.1 20-40 % Monocytes Percent Auto 13.4 2-11 % Eosinophils Percent Auto 6.1 0-4 % Basophils Percent Auto 1.0 0-2 % NRBC Pct Auto 0.0 0.0-0.2 /100WBC Neutrophils Absolute Auto 2.5 2.0-8.3 x10*3/uL Imm Gran Abs Auto 0.01 0.00-0.03 X10*3/uL Lymphocytes Absolute Auto 1.5 1.2-4.9 X10*3/uL Monocytes Absolute Auto 0.7 0.1-1.2 X10*3/uL Eosinophils Absolute Auto 0.3 0.0-0.4 X10*3/uL Basophils Absolute Auto 0.1 0.0-0.2 X10*3/uL NRBC Abs Auto 0.000 0.0-0.012 X10*3/uL Comprehensive [place]. Panel Fa Reviewed date:09/22/2023 10:34:29 AM Interpretation: Performing Lab:[address] [phone] Notes/Report: Sodium 141 135-145 mmol/L Potassium 4.0 3.3-5.1 mmol/L Chloride 107 96-108 mmol/L Carbon Dioxide 25 22-29 mmol/L Anion Gap 13 12-20 Blood Urea Nitrogen 18 9-16 mg/dL Creatinine 0.82 0.5-1.4 mg/dL Estimated Glomerular Filt Rate > 60 NOTE: For -Guine[place] individuals, multiply the result by 1.210. Chronic Kidney Disease: Estimated GFR < 60 mL/min/1.73m2 Severe Kidney Disease: Estimated GFR < 15 mL/min/1.73m2 Glucose Fasting 92 60-99 mg/dL Calcium 9.2 8.4-10.2 mg/dL Bilirubin Total 0.4 0.0-1.0 mg/dL Aspartate Amino Transferase 19 5-31 U/L Alanine Aminotransferase 22 0-31 U/L Total Protein 7.0 6.5-8.0 g/dL Albumin Level 3.8 3.5-5.0 g/dL Alkaline Phosphatase 76 39-117 U/L Lipid Panel Reviewed date:09/22/2023 10:34:29 AM Interpretation: Performing Lab:[facility], [address] [place] [phone] Notes/Report: Triglycerides 114 <150 mg/dL Desirable Triglyceride: less than 150 mg/dL Borderline High Triglyceride 150-199 mg/dL High Triglyceride: 200-499 mg/dL Very High Triglyceride: greater than or equal to 5OO mg/dL Cholesterol 208 <200 mg/dL Desirable Cholesterol: less than 200 mg/dL Borderline High Cholesterol: 200-239 mg/dL High Cholesterol: greater than 239 mg/dL LDL Cholesterol Calculated 129 <100 mg/dL Desirable LDL: less than 100 mg/dL Near Optimal/Above Optimal LDL: 110-129 mg/dL Borderline High LDL: 130-159 mg/dL High LDL: 160-189 mg/dL Very High LDL: greater than or equal to 190 mg/dL HDL Cholesterol 57 >40 mg/dL Desirable HDL: greater than 40 mg/dL Note: This HDL assay may give artificially low results in patients with liver disease. Complete Blood Count Auto Di ff Reviewed date:10/29/2023 06:54:19 AM Interpretation: Performing Lab:[facility], [address] [place] [phone] Notes/Report: White Blood Count 6.1 4.8-10.8 X10*3/uL Red Blood Count 4.24 4.20-5.50 X10*6/uL Hemoglobin 12.4 12.0-16.0 g/dl Hematocrit 37.5 37.0-47.0 % Mean Corpuscular Volume 88.4 80.0-98.0 fL Mean Corpuscular Hemoglobin 29.2 27.0-33.0 pg Mean Corpuscular HGB Conc 33.1 31.0-35.0 g/dl Red Cell Distribution Width 13.0 11.0-16.0 % Platelet Count 269 160-400 X10*3/uL Mean Platelet Volume 10.3 9.4-12.3 fL Neutrophils Percent Auto 67.5 45-73 % Imm Gran Pct Auto 0.3 0.0-0.4 % Lymphocytes Percent Auto 17.6 20-40 % Monocytes Percent Auto 11.5 2-11 % Eosinophils Percent Auto 2.6 0-4 % Basophils Percent Auto 0.5 0-2 % NRBC Pct Auto 0.0 0.0-0.2 /100WBC Neutrophils Absolute Auto 4.1 2.0-8.3 x10*3/uL Imm Gran Abs Auto 0.02 0.00-0.03 X10*3/uL Lymphocytes Absolute Auto 1.1 1.2-4.9 X10*3/uL Monocytes Absolute Auto 0.7 0.1-1.2 X10*3/uL Eosinophils Absolute Auto 0.2 0.0-0.4 X10*3/uL Basophils Absolute Auto 0.0 0.0-0.2 X10*3/uL NRBC Abs Auto 0.000 0.0-0.012 X10*3/uL Erythrocyte Sedimentation Ra te Reviewed date:10/29/2023 06:54:19 AM Interpretation: Performing Lab:[facility], [address] [place] [phone] Notes/Report: Erythrocyte Sedimentation Rate 37 0-20 MM/HR Patients with polycythemia and many hemoglobin abnormalities may have depressed sed rates whereas patients with anemia may have elevated sed rates. Liver Panel Reviewed date:10/29/2023 06:54:19 AM Interpretation: Performing Lab:[address] [phone] Notes/Report: Bilirubin Total 0.2 0.0-1.0 mg/dL Bilirubin Direct < 0.2 0.0-0.5 mg/dL Aspartate Amino Transferase 16 5-31 U/L Alanine Aminotransferase 16 0-31 U/L Total Protein 7.1 6.5-8.0 g/dL Albumin Level 3.7 3.5-5.0 g/dL Alkaline Phosphatase 77 39-117 U/L Electrolytes Reviewed date:10/29/2023 06:54:19 AM Interpretation: Performing Lab:[address] [phone] Notes/Report: Sodium 139 135-145 mmol/L Potassium 4.0 3.3-5.1 mmol/L Chloride 107 96-108 mmol/L Carbon Dioxide 22 22-29 mmol/L Anion Gap 14 12-20 Blood Urea Nitrogen Reviewed date:10/29/2023 06:54:19 AM Interpretation: Performing Lab:[address] [phone] Notes/Report: Blood Urea Nitrogen 14 9-16 mg/dL Creatinine Reviewed date:10/29/2023 06:54:19 AM Interpretation: Performing Lab:[address] [phone] Notes/Report: Creatinine 0.73 0.5-1.4 mg/dL Estimated Glomerular Filt Rate > 60 NOTE: For -[place]ine[place] individuals, multiply the result by 1.210. Chronic Kidney Disease: Estimated GFR < 60 mL/min/1.73m2 Severe Kidney Disease: Estimated GFR < 15 mL/min/1.73m2 Glucose Random Reviewed date:10/29/2023 06:54:19 AM Interpretation: Performing Lab:[facility], [address] [place] [phone] Notes/Report: Glucose Random 120 60-115 mg/dL C Reactive Protein Reviewed date:10/29/2023 06:54:19 AM Interpretation: Performing Lab:[address] [phone] Notes/Report: C Reactive Protein 2.98 < or = 0.50 mg/dL Leukocytes Stool Qualitative Reviewed date:10/29/2023 06:54:19 AM Interpretation: Performing Lab:[facility], [address] [place] [phone] Notes/Report: Leukocytes Stool Qualitative NEGATIVE NEGATIVE Calprotectin, Fecal Reviewed date:10/29/2023 06:54:19 AM Interpretation: Performing Lab:[address] [phone] Notes/Report: Calprotectin, Fecal 134 Reference Range: <50 Normal 50-120 Borderline >120 Elevated Calprotectin in Crohn's disease and ulcerative colitis can be five to several thousand times above the reference population (50 mcg/g or less). Levels are usually 50 mcg/g or less in healthy patients and with irritable bowel syndrome. Repeat testing in 4-6 weeks is suggested for borderline values. THIS TEST WAS PERFORMED AT: [facility] [address] [place] [address] YOLANDA LANGLEY MD,PHD,JUANITO CDiff Gene PCR Reviewed date:10/29/2023 06:54:19 AM Interpretation: Performing Lab:[address] [phone] Notes/Report: CDiff Gene PCR NEGATIVE Negative If C. difficile strongly suspected despite one negative test, a second test may be sent vs. empiric treatment for C. difficile infection. GI Panel Reviewed date:10/29/2023 06:54:19 AM Interpretation: Performing Lab:[facility], [address] [place] [phone] Notes/Report: Campylobacter Not Detected Not Detect. Plesiomonas shigelloides Not Detected Not Detect. Salmonella Not Detected Not Detect. Vibrio Not Detected Not Detect. Vibrio Cholerae Not Detected Not Detect. Yersinia enterocolitica Not Detected Not Detect. E. coli EAEC Not Detected Not Detect. E. coli EPEC Not Detected Not Detect. E. coli ETEC Not Detected Not Detect. E. coli STEC Not Detected Not Detect. E. coli O157 Not applicable Not Detect. E. coli containing the O157 antigen are a subset of Shiga-like toxin-producing E. coli (STEC). Shigella sp./EIEC Not Detected Not Detect. Cryptosporidium Not Detected Not Detect. Cyclospora cayetanensis Not Detected Not Detect. Entamoeba histolytica Not Detected Not Detect. Giardia lamblia Not Detected Not Detect. Adenovirus F 40/41 Not Detected Not Detect. Astrovirus Not Detected Not Detect. Norovirus GI/GII Not Detected Not Detect. Rotavirus A Not Detected Not Detect. Sapovirus Not Detected Not Detect. All results must be correlated with clinical findings. Negative results do not exclude the possibility of gastrointestinal infection and should not be used as the sole basis for diagnosis, treatment, or other management decisions. Virus, bacteria, and parasite nucleic acid may persist in vivo independently of organism viability. Additionally, some organisms may be carried symptomatically. Detection of organism targets does not imply that the corresponding organisms are infectious or are the causative agents for clinical symptoms. There is a risk of false negative values due to the presence of sequence variants in the gene targets of the assay, amplification inhibitors in specimens, or inadequate numbers of organisms for amplification. The identification of several diarrheagenic E. coli pathotypes has historically relied upon phenotypic characteristics. This panel targets genetic determinants characteristic of most pathogenic strains, but may not detect all strains having phenotypic characteristics of a pathotype. The performance of this test has not been established for monitoring treatment of infection with any of the panel organisms. This assay is performed by Multiplexed PCR, utilizing the [employer] Array. Complete Blood Count Auto Di ff Reviewed date:01/11/2024 02:26:22 PM Interpretation: Performing Lab:[facility], [address] [place] [phone] Notes/Report: White Blood Count 7.2 4.8-10.8 X10*3/uL Red Blood Count 4.26 4.20-5.50 X10*6/uL Hemoglobin 12.9 12.0-16.0 g/dl Hematocrit 37.7 37.0-47.0 % Mean Corpuscular Volume 88.5 80.0-98.0 fL Mean Corpuscular Hemoglobin 30.3 27.0-33.0 pg Mean Corpuscular HGB Conc 34.2 31.0-35.0 g/dl Red Cell Distribution Width 14.1 11.0-16.0 % Platelet Count 249 160-400 X10*3/uL Mean Platelet Volume 10.1 9.4-12.3 fL Neutrophils Percent Auto 59.6 45-73 % Imm Gran Pct Auto 0.1 0.0-0.4 % Lymphocytes Percent Auto 25.9 20-40 % Monocytes Percent Auto 11.1 2-11 % Eosinophils Percent Auto 2.9 0-4 % Basophils Percent Auto 0.4 0-2 % NRBC Pct Auto 0.0 0.0-0.2 /100WBC Neutrophils Absolute Auto 4.3 2.0-8.3 x10*3/uL Imm Gran Abs Auto 0.01 0.00-0.03 X10*3/uL Lymphocytes Absolute Auto 1.9 1.2-4.9 X10*3/uL Monocytes Absolute Auto 0.8 0.1-1.2 X10*3/uL Eosinophils Absolute Auto 0.2 0.0-0.4 X10*3/uL Basophils Absolute Auto 0.0 0.0-0.2 X10*3/uL NRBC Abs Auto 0.000 0.0-0.012 X10*3/uL Comprehensive Met. Panel Reviewed date:01/11/2024 02:26:22 PM Interpretation: Performing Lab:[facility], [address] [place] [phone] Notes/Report: Sodium 140 135-145 mmol/L Potassium 3.8 3.3-5.1 mmol/L Chloride 106 96-108 mmol/L Carbon Dioxide 26 22-29 mmol/L Anion Gap 12 12-20 Blood Urea Nitrogen 16 9-16 mg/dL Creatinine 0.76 0.5-1.4 mg/dL Estimated Glomerular Filt Rate > 60 NOTE: For -[place]ine[place] individuals, multiply the result by 1.210. Chronic Kidney Disease: Estimated GFR < 60 mL/min/1.73m2 Severe Kidney Disease: Estimated GFR < 15 mL/min/1.73m2 Glucose Random 100 60-115 mg/dL Calcium 9.7 8.4-10.2 mg/dL Bilirubin Total 0.2 0.0-1.0 mg/dL Aspartate Amino Transferase 21 5-31 U/L Alanine Aminotransferase 20 0-31 U/L Total Protein 7.2 6.5-8.0 g/dL Albumin Level 3.9 3.5-5.0 g/dL Alkaline Phosphatase 81 39-117 U/L CT soft tissue neck wo con Reviewed date:01/11/2024 02:26:22 PM Interpretation: Performing Lab: Notes/Report: [place] [id number] [address] Scan Report Signed Patient: Palak Vargas MR#: [id number] [birth year] : 1945 Acct:[id number] Age/Sex: 78 / F ADM Date: 01/10/24 Loc: .CT Attending Dr: Erik Grant MD Ordering Physician: Erik Grant MD Date of Service: 01/10/24 Procedure(s): CT soft tissue neck wo IV con Accession Number(s): [id number] cc: Erik Grant MD EXAMINATION: CT SOFT TISSUE NECK WITHOUT CONTRAST CLINICAL INFORMATION: Fixed left neck mass concerning for neoplasm COMPARISON: None. TECHNIQUE: Noncontrast helical imaging was performed in the axial plane with generation of coronal and sagittal reformatted images. This CT examination was performed using dose optimization techniques as appropriate, variously including the following: *Automated exposure control. *Adjustment of mA and/or kV according to patient size (this includes techniques or standardized protocols for targeted exams where dose is matched to indication/reason for exam; i.e. extremities or head). *Use of iterative reconstruction technique. DLP: 311.1 mGy-cm FINDINGS: There is a marker noted overlying the left submandibular region denoting the site of clinical concern. The left submandibular gland is asymmetrically enlarged and demonstrates mild sialectasis upstream to two adjacent calculi within the proximal aspect of the left Leonor's duct, each measuring 3 mm, suspicious for acute obstructive sialadenitis. There is surrounding periglandular fat stranding, thickening of the left platysma muscle, and slight reticulation of the overlying subcutaneous soft tissues. A couple of nonobstructive calculi are noted within the right submandibular gland without evidence of acute sialoadenitis on the right. 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 Nonpathologic size criteria left level Ib/IIa lymph nodes. The fat planes of the skull base and soft tissues of the nasopharynx are unremarkable. Trace paranasal sinus mucosal thickening. Trace left mastoid effusion. Lens extractions. Asymmetric severe left TMJ osteoarthrosis. The pharyngeal mucosal space is unremarkable, noting crowding of soft tissue structures. The epiglottis is ventrally deflected and abuts the posterior oropharyngeal wall. The laryngeal structures are opposed, limiting assessment. Heterogeneity of the thyroid gland with asymmetric enlargement of the right lobe and likely diffusely reduced density that may reflect reduced iodine content and can be correlated with thyroid function tests for the possibility of chronic thyroid disease. The bilateral parotid glands are normal. Retropharyngeal course of the distal right common carotid artery and proximal to mid right internal carotid artery. Mild calcific plaque at the left subclavian artery origin and bilateral carotid bifurcations. The partially visualized lung apices are clear. Multilevel cervical spondylosis. The imaged portions of the brain parenchyma are unremarkable. Mural calcifications along the carotid siphons. CT/CT soft tissue neck wo IV con IMPRESSION: 1. Acute obstructive left submandibular sialectasis related to two adjacent 3 mm obstructing calculi along the proximal aspect of the left Leonor's duct. Acutely inflamed left submandibular gland likely accounting for fullness in this region. 2. Nonobstructive calculi are noted within the right submandibular gland without evidence of acute sialoadenitis on the right. 3. Heterogeneity of the thyroid gland with asymmetric enlargement of the right lobe and likely diffusely reduced density that may reflect reduced iodine content and can be correlated with thyroid function tests for the possibility of chronic thyroid disease. Dictated By: Jenny Mueller Signed By: <Electronically signed by Jenny Mueller in [place]> 01/10/24 1742 DD/ 1617 TD/TT: [employer]: [address] [address] [address] Scan Report Signed Patient: Gigi Vargas MR#: [id number] 00 : 1945 Acct:[id number] Age/Sex: 78 / F ADM Date: 01/10/24 Loc: HO.CT Attending Dr: Erik Grant MD Ordering Physician: Erik Grant MD Date of Service: 01/10/24 Procedure(s): CT sof t tissue neck wo IV con Accession Number(s): [id number] cc: Erik Grant MD EXAMINATION: CT SOFT TISSUE NECK WITHOUT CONTRAST CLINICAL INFORMATION: Fixed left neck mass concerning for neoplasm COMPARISON: None. TECHNIQUE: Noncontrast helical imaging was performed in the axial plane with generation of lee l and sagittal reformatted images. This CT examination was performed using dose optimization techniques as appropriate, various ly including the following: *Automated exposure control. *Adjustment of mA and/or kV according to patient size (this includes techniques or standardized protocols for targeted exams where dose is matched to indication/reason for exam; i.e. extremities or head). *Use of iterative reconstruction technique. DLP: 311.1 mGy-cm FINDINGS: There is a marker no alan overlying the left submandibular region denoting the site of clinical concern. The left submandibular gland is asymmetrically enlar ged and demonstrates mild sialectasis upstream to two adjacent calculi within the proximal aspect of the left [place]'s duct, each measuring 3 mm, suspicious for acute obstructive sialadenitis. There is surrounding periglandular fat stranding, thickening of the le ft platysma muscle, and slight reticulation of the overlying subcutaneo us soft tissues. A couple of nonobstructive calculi are noted within the right submandibular gland without evidence of acute sialoadenitis on the right. 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 Nonpathologic size criteria left level Ib/IIa lymph nodes. The fat planes of th e skull base and soft tissues of the nasopharynx are unremarkable. Tr ruba paranasal sinus mucosal thickening. Trace left mastoid effusion. Le ns extractions. Asymmetric severe left TMJ osteoarthrosis. The pharyngeal mucosal space is unremarkable, noting crowding of soft tis jose structures. The epiglottis is ventrally deflected and abuts the posterior oropharyngeal wall. The laryngeal structures are oppos ed, limiting assessment. Heterogeneity of the thyroid gland with asymmetric enlargement of the right lobe and likely diffusely reduced density that may reflect reduced iodine content and can be correlated wi thyroid function tests for the possibility of chronic thyroid disease. The bilateral parotid glands are normal. Retropharyngeal cour se of the distal right common carotid artery and proximal to mid righ t internal carotid artery. Mild calcific plaque at the left subclavian artery origin and bilateral carotid bifurcations. The partially visualized lung apices are clear. Multilevel cervical spondylosis. The darline ged portions of the brain parenchyma are unremarkable. Mural calcifications along the carotid siphons. CT/CT soft tissue neck wo IV con IMPRESSION: 1. Acute obstructive left submandibular sialectasis related to two adjacent 3 mm obstructing calculi along the proximal aspect of the left Leonor's duct. Acut allison inflamed left submandibular gland likely accounting for fulln ess in this region. 2. Nonobstructive calculi are noted within the right submandibular gland without eviden ce of acute sialoadenitis on the right. 3. Heterogeneity of the thyroid gland with asymmetric enlargement of the right lobe and likely diffusely reduced density that may reflect reduced iodine yudi nt and can be correlated with thyroid function tests for the possibility of chronic thyroid disease. Dictated By: Jenny Mueller Signed By: <Electronically signed by Jenny Mueller in [place]> 01/10/24 1742 DD/ 1617 TD/TT: [employer]: Complete Blood Count Auto Di ff Reviewed date:02/01/2024 12:28:30 PM Interpretation: Performing Lab:[facility], [address] [place] [phone] Notes/Report: White Blood Count 5.5 4.8-10.8 X10*3/uL Red Blood Count 4.12 4.20-5.50 X10*6/uL Hemoglobin 12.4 12.0-16.0 g/dl Hematocrit 37.0 37.0-47.0 % Mean Corpuscular Volume 89.8 80.0-98.0 fL Mean Corpuscular Hemoglobin 30.1 27.0-33.0 pg Mean Corpuscular HGB Conc 33.5 31.0-35.0 g/dl Red Cell Distribution Width 13.9 11.0-16.0 % Platelet Count 222 160-400 X10*3/uL Mean Platelet Volume 10.5 9.4-12.3 fL Neutrophils Percent Auto 58.8 45-73 % Imm Gran Pct Auto 0.4 0.0-0.4 % Lymphocytes Percent Auto 23.6 20-40 % Monocytes Percent Auto 12.3 2-11 % Eosinophils Percent Auto 4.0 0-4 % Basophils Percent Auto 0.9 0-2 % NRBC Pct Auto 0.0 0.0-0.2 /100WBC Neutrophils Absolute Auto 3.3 2.0-8.3 x10*3/uL Imm Gran Abs Auto 0.02 0.00-0.03 X10*3/uL Lymphocytes Absolute Auto 1.3 1.2-4.9 X10*3/uL Monocytes Absolute Auto 0.7 0.1-1.2 X10*3/uL Eosinophils Absolute Auto 0.2 0.0-0.4 X10*3/uL Basophils Absolute Auto 0.1 0.0-0.2 X10*3/uL NRBC Abs Auto 0.000 0.0-0.012 X10*3/uL Comprehensive [place]. Panel Fa st Reviewed date:02/01/2024 12:28:30 PM Interpretation: Performing Lab:[facility], [address] [place] [phone] Notes/Report: Sodium 139 135-145 mmol/L Potassium 4.0 3.3-5.1 mmol/L Chloride 107 96-108 mmol/L Carbon Dioxide 23 22-29 mmol/L Anion Gap 13 12-20 Blood Urea Nitrogen 15 9-16 mg/dL Creatinine 0.81 0.5-1.4 mg/dL Estimated Glomerular Filt Rate > 60 NOTE: For -[place] individuals, multiply the result by 1.210. Chronic Kidney Disease: Estimated GFR < 60 mL/min/1.73m2 Severe Kidney Disease: Estimated GFR < 15 mL/min/1.73m2 Glucose Fasting 104 60-99 mg/dL A fasting glucose from 100-125 mg/dl is considered impaired (pre-diabetes). Calcium 9.3 8.4-10.2 mg/dL Bilirubin Total 0.3 0.0-1.0 mg/dL Aspartate Amino Transferase 20 5-31 U/L Alanine Aminotransferase 21 0-31 U/L Total Protein 6.9 6.5-8.0 g/dL Albumin Level 3.7 3.5-5.0 g/dL Alkaline Phosphatase 73 39-117 U/L Lipid Panel Reviewed date:02/01/2024 12:28:30 PM Interpretation: Performing Lab:[facility], [address] [place] [phone] Notes/Report: Triglycerides 128 <150 mg/dL Desirable Triglyceride: less than 150 mg/dL Borderline High Triglyceride 150-199 mg/dL High Triglyceride: 200-499 mg/dL Very High Triglyceride: greater than or equal to 5OO mg/dL Cholesterol 190 <200 mg/dL Desirable Cholesterol: less than 200 mg/dL Borderline High Cholesterol: 200-239 mg/dL High Cholesterol: greater than 239 mg/dL LDL Cholesterol Calculated 113 <100 mg/dL Desirable LDL: less than 100 mg/dL Near Optimal/Above Optimal LDL: 110-129 mg/dL Borderline High LDL: 130-159 mg/dL High LDL: 160-189 mg/dL Very High LDL: greater than or equal to 190 mg/dL HDL Cholesterol 52 >40 mg/dL Desirable HDL: greater than 40 mg/dL Note: This HDL assay may give artificially low results in patients with liver disease. Free T4 (Free Thyroxine) Reviewed date:02/01/2024 12:28:30 PM Interpretation: Performing Lab:[facility], [address] [place] [phone] Notes/Report: Free T4 (Free Thyroxine) 1.17 0.71-1.85 ng/dL TSH reflex Free T4 Reviewed date:02/01/2024 12:28:30 PM Interpretation: Performing Lab:[facility], [address] [place] [phone] Notes/Report: TSH reflex Free T4 0.79 0.32-4.0 uIU/mL MM tomosynthesis screening B I Reviewed date:03/18/2024 07:34:20 AM Interpretation: Performing Lab: Notes/Report: [address] [place] [address] Mammography Report Signed Patient: Palak Vargas MR#: [id number] 00 : 1945 Acct:[id number] Age/Sex: 78 / F ADM Date: 03/05/24 Loc: HO.MAMMO Attending Dr: Sylvester Helm MD Ordering Physician: Sylvester Helm MD Results: 2Ben ign Findings Date of Service: 03/05/24 Follow Up: 1 Year From Orig ina Mammogram Procedure(s): MM tomosynthesis screening BI Accession Number(s): [id number] cc: Erik Grant MD; Sylvester Helm MD EXAMINATION: MM SCREENING DIGITAL BREAST TOMOSYNTHESIS, BILATERAL CLINICAL INFORMATION: Screening. Asymptomatic. COMPARISON: Mammography: Comparison is made with available priors TECHNIQUE: Digital breast mammography with tomosynthesis is performed in both the craniocaudal and mediolateral oblique views along with computer-aided detection (CAD). FINDINGS: There are scattered areas of fibroglandular density (ACR BI-RADS breast composition Category b). Marker clip in the right breast from previous benign needle core biopsy. There are no significant masses, abnormal calcifications, or other abnormalities. MM/MM tomosynthesis screening BI IMPRESSION: No mammographic evidence of malignancy. ASSESSMENT: BI-RADS BI-RADS 2 - Benign Findings RECOMMENDATION: Routine annual mammography screening. 1 year F/U This examination should not preclude the clinical evaluation of a suspicious palpable abnormality. This patient's information was entered into a reminder system with a target due date for their next mammogram. Electronically signed by: Mally Cross DO 03/12/2024 05:48 PM EDT Dictated By: Mally Cross DO Signed By: <Electronically signed by Mally Cross DO in OV> 03/12/24 1748 DD/ 1015 TD/TT: 03/05/24 1031 [employer]: [address] [place] [address] Mammography Report Signed Patient: Gigi Vargas MR#: [id number] [birth year] : 1945 Acct:[id number] Age/Sex: 78 / F ADM Date: 03/05/24 Loc: HO.MAMMO Attending Dr: Lizette Helm MD Ordering Physician: Sylvester Helm MD Results: 2Ben ign Findings Date of Service: 03/05/24 Follow Up: 1 Year From Orig ina Mammogram Procedure(s): MM tomosynthesis screening BI Accession Number(s): [id number] cc: Erik Grant MD; Sylvester Helm MD EXAMINATION: MM SCREENING DIGITAL BREAST TOMOSYNTHESIS, BILATERAL CLINICAL INFORMATION: Screening. Asymptomatic. COMPARISON: Mammography: Compari son is made with available priors TECHNIQUE: Digital breast mammography with tomosynthesis is performed in both the craniocaudal and mediolateral oblique views along with computer-aided detection (CAD). FINDINGS: There are scattered areas of fibroglandular density (ACR BI-RADS breast composition Category b). Marker clip in the right breast from previous benign needle core biopsy. There are no significant masses, abnormal calcifications, or other abnormalities. MM/MM tomosynthesis screening BI IMPRESSION: No mammographic evidence of malignancy. ASSESSMENT: BI-RADS BI-RADS 2 - Benign Findings RECOMMENDATION: Routine annual mammography screening. 1 year F/U This examination fidelina uld not preclude the clinical evaluation of a suspicious palpable abnormality. This patient's information was entered into a reminder system with a target due date for their next mammogram. Electronically edison d by: Mally Cross DO 03/12/2024 05:48 PM EDT Dictated By: Mally Cross DO Signed By: <Electronically signed by Mally Cross DO in OV> 03/12/24 1748 DD/ 1015 TD/TT: 03/05/24 1031 [employer]: Complete Blood Count Auto Di ff (Not yet reviewed by provider) Interpretation: Performing Lab:[facility], [address] [place] [phone] Notes/Report: White Blood Count 6.3 4.8-10.8 X10*3/uL Red Blood Count 4.44 4.20-5.50 X10*6/uL Hemoglobin 13.0 12.0-16.0 g/dl Hematocrit 40.1 37.0-47.0 % Mean Corpuscular Volume 90.3 80.0-98.0 fL Mean Corpuscular Hemoglobin 29.3 27.0-33.0 pg Mean Corpuscular HGB Conc 32.4 31.0-35.0 g/dl Red Cell Distribution Width 13.4 11.0-16.0 % Platelet Count 247 160-400 X10*3/uL Mean Platelet Volume 10.6 9.4-12.3 fL Neutrophils Percent Auto 62.1 45-73 % Imm Gran Pct Auto 0.2 0.0-0.4 % Lymphocytes Percent Auto 20.5 20-40 % Monocytes Percent Auto 12.9 2-11 % Eosinophils Percent Auto 3.5 0-4 % Basophils Percent Auto 0.8 0-2 % NRBC Pct Auto 0.0 0.0-0.2 /100WBC Neutrophils Absolute Auto 3.9 2.0-8.3 x10*3/uL Imm Gran Abs Auto 0.01 0.00-0.03 X10*3/uL Lymphocytes Absolute Auto 1.3 1.2-4.9 X10*3/uL Monocytes Absolute Auto 0.8 0.1-1.2 X10*3/uL Eosinophils Absolute Auto 0.2 0.0-0.4 X10*3/uL Basophils Absolute Auto 0.1 0.0-0.2 X10*3/uL NRBC Abs Auto 0.000 0.0-0.012 X10*3/uL Comprehensive [place]. Panel Fa st (Not yet reviewed by provider) Interpretation: Performing Lab:[facility], [address] [place] [phone] Notes/Report: Sodium 139 135-145 mmol/L Potassium 3.8 3.3-5.1 mmol/L Chloride 106 96-108 mmol/L Carbon Dioxide 26 22-29 mmol/L Anion Gap 11 12-20 Blood Urea Nitrogen 15 9-16 mg/dL Creatinine 0.65 0.5-1.4 mg/dL Estimated Glomerular Filt Rate > 60 Chronic Kidney Disease: Estimated GFR < 60 mL/min/1.73m2 Severe Kidney Disease: Estimated GFR < 15 mL/min/1.73m2 Glucose Fasting 92 60-99 mg/dL Calcium 8.8 8.4-10.2 mg/dL Bilirubin Total 0.4 0.0-1.0 mg/dL Aspartate Amino Transferase 33 5-31 U/L Alanine Aminotransferase 34 0-31 U/L Total Protein 7.1 6.5-8.0 g/dL Albumin Level 3.8 3.5-5.0 g/dL Alkaline Phosphatase 85 39-117 U/L Lipid Panel (Not yet reviewe d by provider) Interpretation: Performing Lab:[facility], [address] [place] [phone] Notes/Report: Triglycerides 137 <150 mg/dL Desirable Triglyceride: less than 150 mg/dL Borderline High Triglyceride 150-199 mg/dL High Triglyceride: 200-499 mg/dL Very High Triglyceride: greater than or equal to 5OO mg/dL Cholesterol 208 <200 mg/dL Desirable Cholesterol: less than 200 mg/dL Borderline High Cholesterol: 200-239 mg/dL High Cholesterol: greater than 239 mg/dL LDL Cholesterol Calculated 128 <100 mg/dL Desirable LDL: less than 100 mg/dL Near Optimal/Above Optimal LDL: 110-129 mg/dL Borderline High LDL: 130-159 mg/dL High LDL: 160-189 mg/dL Very High LDL: greater than or equal to 190 mg/dL HDL Cholesterol 53 >40 mg/dL Desirable HDL: greater than 40 mg/dL Note: This HDL assay may give artificially low results in patients with liver disease. Reason For Referral Reason Consult and Treat Refractory Heartburn Diarrhea Diagnosis 1 GERD (gastroesophage al reflux disease) (K21.9) Diagnosis 2 Diarrhea (R19.7) Diagnosis 3 Heartburn (R12) Referral Organization Erik Grant III, MD Referring Provider First Name Erik Referring Provider Last Name Rudy Referring Provider Speciality Internal M edicine Referred Provider Erik Avery Referred Provider Specialty Gastroentero logy General Notes Cassandra Rankin 08/17 09:53:10 AM >Faxed referral and progress note. Spoke with office Sunday 08/13, was sending message to Dr. Avery to see if patient can be squeezed in. Referral Priority Routine Referral Appointment Date 08/30/2023 Reason 4 cm hard fixed mass left neck with throat pain non smoker evaluate and treat Diagnosis 1 Hypertension (I10) Diagnosis 2 Neck mass (R22.1) Referral Organization Erik Grant III, MD Referring Provider First Name Erik Referring Provider Last Name Grant Referring Provider Speciality Internal M edicine Referred Provider [facility], [facility] Referred Provider Specialty Otolaryngolo gy General Notes Cassandra Rankin 2023 10:37:40 AM EDT > Patient is scheduled to see Dr. Loza on 01/30/2024 @ 11am. patient was called and left a message regarding appointment. Referral Priority Routine Referral Appointment Date 01/30/2024 Medications Medication SIG (Take, Route, Frequency, Duration) Notes Start Date End Date Status Fiber Active PARoxetine HCl 10 MG 1 tablet in the morning Orally Once a day for 30 days 03/27/2024 Active Claritin 10 MG 1 tablet Orally Once a day Active Pramipexole Dihydrochloride 0.25 MG TAKE 2 (0.5MG) TO 3 TABS (0.75 MG) DAILY Orally Active Aspirin 81 81 MG 1 tablet Orally Once a day Active PreserVision AREDS 2 - as directed Orally Active Imodium A-D Active Amoxicillin 500 MG 4 capsules 1 hour before dental or surgical procedures Orally Once Dental procedures Active Flax Seed Oil Active Rosuvastatin Calcium 5 MG TAKE 1 TABLET BY MOUTH EVERY DAY FOR 90 DAYS Active Multivitamin Active Fluticasone Propionate 50 MCG/ACT Nasal Active Gas Relief 180 MG 1 capsule after meals and at bedtime as needed Orally Twice a day Active Esomeprazole Magnesium 40 MG 1 capsule Orally Twice a day Active Calcium Active Nabumetone 1000 MG 1 tablet Orally Twice a day Active Melatonin Active hydroCHLOROthiazide 25 MG 1 tablet in th e morning Orally Once a day Active Ibuprofen Active Famotidine 40 MG 1 tablet as needed Orally Twice a day Active Tums 500 MG 1 tablet Orally Once a day Active Voltaren 1 % as directed Externally Active Immunizations Vaccine Route Administration Date Status Comme nts Tdap Unknown 02/23/2015 Administered Influenza-iiv4 p-free high dose Unknown 01/29/2021 Admi nistered COVID Pfizer Bivalent Unknown 03/08/2022 Administered Zostavax Unknown 08/24/2013 Administered Influenza no Preserv 3 and > Unknown 03/17/2014 Adminis tered COVID PFIZER Unknown 03/06/2021 Administered COVID PFIZER Unknown 10/02/2021 Administered PPV 23 Unknown 10/15/2014 Administered COVID PFIZER Unknown 07/12/2020 Administered Hepatitis A (adult) Unknown 08/05/2005 Administered PCV13 Unknown 05/20/2016 Administered COVID PFIZER Unknown 07/30/2020 Administered Influenza-iiv4 p-free high dose Unknown 04/06/2022 Admi nistered Fluzone High-Dose (HD-IIV3) Unknown 03/01/2016 Administ ered Fluzone High-Dose (HD-IIV3) Unknown 02/25/2015 Administ ered Fluzone High-Dose (HD-IIV3) Unknown 03/06/2024 Administ ered Fluzone High-Dose (HD-IIV3) Unknown 03/13/2018 Administ ered Fluzone High-Dose (HD-IIV3) Unknown 02/14/2017 Administ ered COVID-19 Moderna SPIKEVAX Unknown 03/17/2023 Administer ed Social History Tobacco Use: Social History Observation Description Date Details (start date - stop date) Never Smoker NA - NA Sex Assigned At : Social History Observation Description Sex Assigned At Female Tobacco Use/Smoking Question Answer Notes Patient is a nonsmoker Additional Findings: Tobacco Non-User Aggressive non-smoker Problems Problem Type SNOMED Code ICD Code Onset Dates Problem Status W/U Status Risk Notes Problem Hypertension (94638866) Hypertension (I10) Active confirmed Her blood pressure is stable at 140/80 and no change in her regimen was needed. Problem Gastroesophageal reflux disease (469407383) GERD (gastroesophage al reflux disease) (K21.9) Active confirmed Her reflux symptoms are well controlled with dans-rdc-fylkbqz medication. Problem 902763786 Mixed hyperlipidemia (E78.2) Active confirmed Her total cholesterol fasting is 190. I have recommended that she continue her medications without change and pursue aggressive weight loss and sodium restriction. Problem 60143268 Age-related osteoporosis without current pathological fracture (M81.0) Active confirmed She was continued on current medications. Her bone densities will be reviewed and another one ordered if necessary. 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 Problem [id number] Unspecified benign mammary dysplasia of left breast (N60.92) Active confirmed No breast cancer. Has ever been detected. Problem 035168213 Obesity (BMI 30-39.9) (E66.9) Active confirmed Her body mass index is 38.6 and her weight is stable. We discussed her diet and nutrition. She will commence a diet low in sodium and calories and lipids designed to lose weight at a rate of one half of a pound per week. Problem 07067418 Chronic fatigue (R53.82) Active confirmed He says that sh sarina feels tired all of the time but denies daytime somnolence. Problem 19799515 Obstructive sleep apnea (G47.33) Active confirmed She was continued on her CPAP. No change in her regimen was needed. Problem 99452790 Hiatal hernia (K44.9) Active confirmed Her reflux symptoms are well controlled. Problem Osteoarthritis (517890605) Osteoarthritis (M19.90) Active confirmed She has mild arthritic pain in her fingers but her main complaint is pain in the right knee on the tibial plateau. Problem 767140793 TIA (transient ischemic attack) (G45.9) Active confirmed She has had no neurological symptoms recently. She was continue current therapy. Problem 99559273 Restless leg syndrome (G25.81) Active confirmed This is been a minor problem lately and does not require changing her regimen. Problem 007006954 History of DVT (deep vein thrombosis) (Z86.718) Active confirmed She is no longe r anticoagulated. She has had no further blood clots. Old records will be requested. Problem Goiter (5459010) Enlarged thyroid (E01.0) Active confirmed This is a CT finding and will be pursued. Problem 058588664 Sensorineural hearing loss (SNHL) of both ears (H90.3) Active confirmed Communication was possible and she has working hearing aids. 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 Problem 929108491 Primary osteoarthritis involving multiple joints (M15.9) Active confirmed She has had multiple surgical procedures and a right knee arthroplasty. She is able to conduct all of the activities of daily life. 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 Problem 051180544 Mass of left side of neck (R22.1) Active confirmed On the CT scan done recently this appears to be obstructed salivary gland or sialadenitis. Opinion from ENT will be obtained. Vital Signs Heart Rate 88 /min 02/22/2024 Her longline lo ngline is more Temperature 97.8 degrees Fahrenheit 02/22/2024 Her longline longline is more Blood pressure diastolic 80 mm Hg 02/22/2024 Her longline longline is more Height 60 in 02/22/2024 Her longline lo ngline is more Blood pressure systolic 140 mm Hg 02/22/2024 Her longline longline is more Weight 198 lbs 02/22/2024 Her longline lo ngline is more BMI 38.67 kg/m2 02/22/2024 Her longline lo ngline is more Encounters Encounter Location Date Provider Diagnosis Erik Grant III, MD [address] [address] [place] [address] 07/31/2023 Erik Grant Hypertension I10 ; G ERD (gastroesophageal reflux disease) K21.9 ; Obesity (BMI 30-39.9) E66.9 ; Primary osteoarthritis involving multiple joints M15.9 ; Age-related osteoporosis without current pathological fracture M81.0 ; History of DVT (deep vein thrombosis) Z86.718 ; Restless leg syndrome G25.81 and Osteoarthritis M19.90 Erik Grant III, MD [address] [address] [place] [address] 08/14/2023 Erik Grant Hypertension I10 ; G ERD (gastroesophageal reflux disease) K21.9 ; Obesity (BMI 30-39.9) E66.9 ; Primary osteoarthritis involving multiple joints M15.9 ; Mixed hyperlipidemia E78.2 ; Sensorineural hearing loss (SNHL) of both ears H90.3 and Viral syndrome B34.9 Erik Grant III, MD [address] [address] [place] [address] 09/19/2023 Erik Grant Hypertension I10 ; O besity (BMI 30-39.9) E66.9 ; Mixed hyperlipidemia E78.2 ; Primary osteoarthritis involving multiple joints M15.9 ; GERD (gastroesophageal reflux disease) K21.9 ; Sensorineural hearing loss (SNHL) of both ears H90.3 ; Age-related osteoporosis without current pathological fracture M81.0 ; Hiatal hernia K44.9 ; History of DVT (deep vein thrombosis) Z86.718 and Restless leg syndrome G25.81 Erik Grant III, MD [address] [address] [place] [address] 12/29/2023 Erik Grant Hypertension I10 ; A cute adenitis L04.9 ; 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 ; GERD (gastroesophageal reflux disease) K21.9 ; Primary osteoarthritis involving multiple joints M15.9 and Obesity (BMI 30-39.9) E66.9 Erik Grant III, MD [address] [address] [place] [address] 01/09/2024 Erik Grant Hypertension I10 ; N charlie mass R22.1 ; 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 ; GERD (gastroesophageal reflux disease) K21.9 ; Obesity (BMI 30-39.9) E66.9 and Primary osteoarthritis involving multiple joints M15.9 Erik Grant III, MD [address] [place] [address] [place] [address] 01/19/2024 Erik Grant Hypertension I10 ; M ass of left side of neck R22.1 ; Obesity (BMI 30-39.9) E66.9 ; Enlarged thyroid E01.0 ; 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 ; GERD (gastroesophageal reflux disease) K21.9 ; Sensorineural hearing loss (SNHL) of both ears H90.3 ; Mixed hyperlipidemia E78.2 and Obstructive sleep apnea G47.33 Erik Grant III, MD [address] [place] [address] [place] [address] 02/22/2024 Erik Grant Hypertension I10 ; O besity (BMI 30-39.9) E66.9 ; Mixed hyperlipidemia E78.2 ; Chronic fatigue R53.82 ; GERD (gastroesophageal reflux disease) K21.9 and Primary osteoarthritis involving multiple joints M15.9 Erik Grant III, MD [address] [place] [address] [place] [address] 05/16/2023 Erik Grant III, MD [address] [place] [address] [place] [address] 01/04/2024 Erik Grant III, MD [address] [place] [address] [place] [address] 03/05/2024 Erik Grant III, MD [address] [place] [address] [place] [address] 03/07/2024 Erik Grant III, MD [address] [place] [address] [address] [place], [place] [address] 03/27/2024 Erik Grant Assessments Encounter Date Diagnosis (ICD Code) Assessment Notes T reatment Notes Treatment Clinical Notes 07/31/2023 Hypertension (ICD-10 - I10) Her blood pressure is stable and normal at this time and no change in her regimen was needed. 07/31/2023 GERD (gastroesophage al reflux disease) (ICD-10 - K21.9) Her reflux symptoms are well controlled with fxbz-xah-smafmvk medication. 08/14/2023 Hypertension (ICD-10 - I10) Her blood pressure is stable and normal at this time and no change in her regimen was needed. 08/14/2023 GERD (gastroesophage al reflux disease) (ICD-10 - K21.9) Her reflux symptoms are well controlled with svlg-coe-pybyyrx medication. 09/19/2023 Hypertension (ICD-10 - I10) Her blood pressure is stable at 140/80and normal at this time and no change in her regimen was needed. 09/19/2023 Obesity (BMI 30-39.9 ) (ICD-10 - E66.9) Her weight is unchanged at 202 with a body mass index of 39. We have discussed diet and nutrition today. We made a plan to lose weight at a rate of one half of a pound per week. 12/29/2023 Hypertension (ICD-10 - I10) Her blood pressure is stable at 106/75 and no change in her regimen was needed. 12/29/2023 Acute adenitis (ICD- 10 - L04.9) This is likely reactive to an infection although the primary source was not seen. She was given a course of amoxicillin and a follow-up visit in 10 days. If it does not resolve she will be referred to ENT for definitive diagnosis and therapy. No other lymph node enlargement was found. 01/09/2024 Hypertension (ICD-10 - I10) Her blood pressure is stable and no change in her regimen was needed. 01/09/2024 Neck mass (ICD-10 - R22.1) She has never smoked cigarettes or consumed excessive alcohol. The mass has developed rapidly. A CT scan is pending to help elucidate the nature of the mass. An ENT appointment is pending after the CT scan. 01/19/2024 Hypertension (ICD-10 - I10) Her blood pressure is stable at 106/75 and no change in her regimen was needed. 01/19/2024 Mass of left side of neck (ICD-10 - R22.1) On the CT scan done recently this appears to be obstructed salivary gland or sialadenitis. Opinion from ENT will be obtained. 02/22/2024 Hypertension (ICD-10 - I10) Her blood pressure is stable at 140/80 and no change in her regimen was needed. 02/22/2024 Obesity (BMI 30-39.9 ) (ICD-10 - E66.9) Her body mass index is 38.6 and her weight is stable. We discussed her diet and nutrition. She will commence a diet low in sodium and calories and lipids designed to lose weight at a rate of one half of a pound per week. 07/31/2023 Obesity (BMI 30-39.9 ) (ICD-10 - E66.9) Her body mass index is 39. We reviewed her diet and nutrition. We reviewed her weight loss strategy. We made a plan to lose weight at a rate of one half a pound per week. 08/14/2023 Obesity (BMI 30-39.9 ) (ICD-10 - E66.9) Her body mass index is 39. We reviewed her diet and nutrition. We reviewed her weight loss strategy. We made a plan to lose weight at a rate of one half a pound per week. 09/19/2023 Mixed hyperlipidemia (ICD-10 - E78.2) Her triglycerides are 114 and her total cholesterol is 208. I recommended gradual weight loss and a sensible Mediterranean diet. 12/29/2023 Pseudocholinesterase deficiency (ICD-10 - E88.09) She has not recently been exposed to any anesthetics. 01/09/2024 Pseudocholinesterase deficiency (ICD-10 - E88.09) She has not recently been exposed to any anesthetics. 01/19/2024 Obesity (BMI 30-39.9 ) (ICD-10 - E66.9) We have discussed her diet and nutrition. We made a plan to lose weight at a rate of one half of a pound per week. 02/22/2024 Mixed hyperlipidemia (ICD-10 - E78.2) Her total cholesterol fasting is 190. I have recommended that she continue her medications without change and pursue aggressive weight loss and sodium restriction. 07/31/2023 Primary osteoarthrit is involving multiple joints (ICD-10 - M15.9) She has had multiple surgical procedures and a right knee arthroplasty. She is able to conduct all of the activities of daily life. 08/14/2023 Primary osteoarthrit is involving multiple joints (ICD-10 - M15.9) She has had multiple surgical procedures and a right knee arthroplasty. She is able to conduct all of the activities of daily life. 09/19/2023 Primary osteoarthrit is involving multiple joints (ICD-10 - M15.9) She has had multiple surgical procedures and a right knee arthroplasty. She is able to conduct all of the activities of daily life. 12/29/2023 GERD (gastroesophage al reflux disease) (ICD-10 - K21.9) Her reflux symptoms are well controlled with xuqe-cqg-tgthdls medication. 01/09/2024 GERD (gastroesophage al reflux disease) (ICD-10 - K21.9) Her reflux symptoms are well controlled with oypo-ajy-okqjxfw medication. 01/19/2024 Enlarged thyroid (IC D-10 - E01.0) This is a CT finding and will be pursued. 02/22/2024 Chronic fatigue (ICD -10 - R53.82) He says that she feels tired all of the time but denies daytime somnolence. 07/31/2023 Age-related osteopor osis without current pathological fracture (ICD-10 - M81.0) She was continued on current medications. Her bone densities will be reviewed and another one ordered if necessary. 08/14/2023 Mixed hyperlipidemia (ICD-10 - E78.2) Her lipids are stable. No change in her regimen was made. We reviewed her diet and lifestyle and made a plan to lose weight. 09/19/2023 GERD (gastroesophage al reflux disease) (ICD-10 - K21.9) Her reflux symptoms are well controlled with xrie-cvd-vwopuin medication. 12/29/2023 Primary osteoarthrit is involving multiple joints (ICD-10 - M15.9) She has had multiple surgical procedures and a right knee arthroplasty. She is able to conduct all of the activities of daily life. 01/09/2024 Obesity (BMI 30-39.9 ) (ICD-10 - E66.9) She has lost 8 pounds since her last visit in September of this year. We have discussed diet and nutrition today. We made a plan to lose weight at a rate of one half of a pound per week. 01/19/2024 Pseudocholinesterase deficiency (ICD-10 - E88.09) She has not recently been exposed to any anesthetics. 02/22/2024 GERD (gastroesophage al reflux disease) (ICD-10 - K21.9) Her reflux symptoms are well controlled with dxla-vcz-xmieqrq medication. 07/31/2023 History of DVT (deep vein thrombosis) (ICD-10 - Z86.718) She is no longer anticoagulated. She has had no further blood clots. Old records will be requested. 08/14/2023 Sensorineural hearin g loss (SNHL) of both ears (ICD-10 - H90.3) Communication was possible and she has working hearing aids. 09/19/2023 Sensorineural hearin g loss (SNHL) of both ears (ICD-10 - H90.3) Communication was possible and she has working hearing aids. 12/29/2023 Obesity (BMI 30-39.9 ) (ICD-10 - E66.9) She has lost 8 pounds since her last visit in September of this year. We have discussed diet and nutrition today. We made a plan to lose weight at a rate of one half of a pound per week. 01/09/2024 Primary osteoarthrit is involving multiple joints (ICD-10 - M15.9) She has had multiple surgical procedures and a right knee arthroplasty. She is able to conduct all of the activities of daily life. 01/19/2024 GERD (gastroesophage al reflux disease) (ICD-10 - K21.9) Her reflux symptoms are well controlled with [id number] medication. 02/22/2024 Primary osteoarthrit is involving multiple joints (ICD-10 - M15.9) She has had multiple surgical procedures and a right knee arthroplasty. She is able to conduct all of the activities of daily life. 07/31/2023 Restless leg syndrom e (ICD-10 - G25.81) This is been a minor problem lately and does not require changing her regimen. 08/14/2023 Viral syndrome (ICD- 10 - B34.9) She is beginning to recover from the infection. She is breathing comfortably unable to keep down food and fluid although she does still have some nausea. Current therapy was continued. 09/19/2023 Age-related osteopor osis without current pathological fracture (ICD-10 - M81.0) She was continued on current medications. Her bone densities will be reviewed and another one ordered if necessary. 01/19/2024 Sensorineural hearin g loss (SNHL) of both ears (ICD-10 - H90.3) Communication was possible and she has working hearing aids. 07/31/2023 Osteoarthritis (ICD- 10 - M19.90) She has mild arthritic pain in her fingers but her main complaint is pain in the right knee on the tibial plateau. 09/19/2023 Hiatal hernia (ICD-1 0 - K44.9) Her reflux symptoms are well controlled. 01/19/2024 Mixed hyperlipidemia (ICD-10 - E78.2) Her triglycerides are 114 and her total cholesterol is 208. I recommended gradual weight loss and a sensible Mediterranean diet. 09/19/2023 History of DVT (deep vein thrombosis) (ICD-10 - Z86.718) She is no longer anticoagulated. She has had no further blood clots. Old records will be requested. 01/19/2024 Obstructive sleep ap lucien (ICD-10 - G47.33) She was continued on her CPAP. No change in her regimen was needed. 09/19/2023 Restless leg syndrom e (ICD-10 - G25.81) This is been a minor problem lately and does not require changing her regimen. Plan Of Treatment Pending Test Test Name Order Date PROFILE, FASTING (COMPREHENSIVE METABOLI C) 02/22/2024 PROFILE, FASTING (COMPREHENSIVE METABOLI C) 01/19/2024 PROFILE, FASTING (COMPREHENSIVE METABOLI C) 12/26/2022 PROFILE, FASTING (COMPREHENSIVE METABOLI C) 09/19/2023 PROFILE, FASTING (COMPREHENSIVE METABOLI C) 08/04/2022 PROFILE, FASTING (COMPREHENSIVE METABOLI C) 08/26/2022 PROFILE, FASTING (COMPREHENSIVE METABOLI C) 05/01/2023 PROFILE, RANDOM (COMPREHENSIVE METABOLIC ) 03/14/2023 LIPID PANEL 12/26/2022 LIPID PANEL 08/04/2022 LIPID PANEL 08/26/2022 FREE T4 (FT4) 08/04/2022 TSH (THYROID STIMULATING HORMONE) 2023 TSH (THYROID STIMULATING HORMONE) 2022 TSH (THYROID STIMULATING HORMONE) 2022 BRAIN NATRIURETIC PEPTIDE (BNP) 03/14/20 23 CBC w DIFF 08/04/2022 CBC w DIFF 03/14/2023 CBC w DIFF 12/26/2022 CBC w DIFF 08/26/2022 CBC w DIFF 05/01/2023 VITAMIN D 25-OH TOTAL 08/04/2022 CBC WITH AUTO DIFF 02/22/2024 CBC WITH AUTO DIFF 01/19/2024 CBC WITH AUTO DIFF 09/19/2023 Complete Blood Count Auto Diff Erythrocyte Sedimentation Rate Comprehensive [place]. Panel Fast Ferritin 03/14/2023 Lipid Panel 05/01/2023 Lipid Panel 02/22/2024 Lipid Panel 01/19/2024 Lipid Panel 09/19/2023 Lipid Panel 05/13/2024 Free T4 (Free Thyroxine) 01/19/2024 TSH reflex Free T4 01/19/2024 Next Appt Details Provider Name:Erik Grant, 05/17/2024 03:00:00 PM, [address] [place] [address] DR, [facility], [place], [address], Insurance Providers Payer Name Payer Address Payer Phone Subscriber Number Group Number Insured Name Patient Relationship to Insured Coverage Start Date Coverage End Date MEDICARE NGS [address] [place] [phone] [id number] Palak Vargas Self - patient is the insured [address] [facility] [phone] [id number] Palak Vargas Self - patient is the insured Medical (General) History Medical History History ICD Code Hypertension I10 GERD (gastroesophageal reflux disease) K 21.9 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 Espinal cataract surgery Nasal surgery right hand surgery Cholecystectomy Right knee replacement
== END 2024-05-13 09:29 | disposition home or self-care (01) ==
LOC: HO.HMGCLDS 09:28
PROVIDERS: PCP Internal Medicine Medical Oncology; Visit Provider Internal Medicine Medical Oncology
DX: E66.9 Obesity, unspecified (principal); E78.2 Mixed hyperlipidemia; R53.82 Chronic fatigue, unspecified
CPT/HCPCS: 36415; 80053; 80061; 85025

== ENCOUNTER 2024-08-02 12:51 | Outpatient (REF) | payer SELFPAY ==
--- OUTSIDE RECORDS SUMMARY | 2024-08-02 14:55 | XMS_ITS ---
Author Organization Erik Grant III, MD Address [address] [place] [address] Care Team Providers Care Cyber Defense Analyst Name Role Phone Erik Grant Primary Care Provider Medications Medication SIG (Take, Route, Fr equency, Duration) Notes Start Date End Date Status PARoxetine HCl 10 MG 1 tablet in the mor jimbo Orally Once a day for 30 days 03/27/2024 Active Social History Sex Assigned At : Social History Observation Description Sex Assigned At Female Encounters Encounter Location Date Provider Diagnosis Erik Grant III, MD [address] [place] [address] [place] [address] 03/27/2024 Erik Grant Plan Of Treatment Medication Medication Name Sig Start Date Stop Date Notes PARoxetine HCl 10 MG 1 tablet in the mor jimbo Orally Once a day for 30 days 03/27/2024 Next Appt Details Provider Name:Erik Grant, 09/16/2024 11:15:00 AM, [address] [place] [address] [place], [address], Provider Name:Erik Grant, 05/21/2025 02:30:00 PM, [address] [place] [address] [place], [address], Progress Notes * Palak VARGAS EDOB: [birth year] (78 yo F)Acc No.[id number]:03/27/2024 Patient:?RENETTAPalak SULLIVAN Donis :1945???Age:78 Y???Sex:Female Address: [address], [place], [address] * Refills? Start PARoxetine HCl Tablet, 10 MG, Orally, 30, 1 tablet in the morning, Once a day, 30 days, Refills=6 * true * Date:? Generated for Gely mcfadden/[place]/Yakelin on:?08/02/2024 02:55 PM EST
--- OUTSIDE RECORDS SUMMARY | 2024-08-02 14:56 | XMS_ITS ---
Author Organization [facility] Address [address] [place] [address] Care Team Providers Care Paint Mixer Name Role Phone Erik Grant MD Primary Care Provider UnavailErik Morgan Unavailable [phone] ALLERGIES Allergen (clinical drug ingredient) Drug/Non Drug Allergy documented on EMR Reaction Allergy Type Onset Date Status Adhesive Unknown Allergy Active dibucaine Dibucaine Unknown Drug Allergy Active REASON FOR VISIT Patient presents today for acid reflux MEDICATIONS Medication SIG (Take, Route, Frequency, Duration) Notes Start Date End Date Status Amoxicillin when seeing a dentist Not-Taking Famotidine 40 MG 1 tablet at midday and at bedtime Orally Twice a day for 90 days Active Cholestyramine 4 GM/DOSE 1/2 to 1 scoop in a glass of water or orange juice orally Once or twice a day for diarrhea for 30 day(s) 10/12/2023 Active Esomeprazole Magnesium 40 MG TAKE 1 CAPSULE BY MOUTH IN THE MORNING AND 1 CAPSULE IN THE EVENING Orally Twice a day for 90 days Active Amoxicillin NEEDED FOR DENTAL OR SURGICAL PROCEDURES Not-Taking Vitamin D3 50 MCG (2000 UT) 1 tablet Orally Once a day Active Fiber 2 tablets as needed ONCE A DAY Active Claritin Active Diclofenac Sodium 1 % as directed Externally as needed for pain Active Calcium Citrate + D3 Maximum 315-250 MG-UNIT 2 tablet ONCE a day Active Multi Vitamin/Minerals - as directed Orally once a day Active PreserVision AREDS 2 - as directed Orally BID Active Fluticasone Propionate 50 MCG/ACT 1 spray in each nostril Nasally Twice a day Active Flax Seed Oil 1000 MG as directed Orally BID Active hydroCHLOROthiazide 25 MG 1 tablet in th e morning Orally Once a day for 30 day(s) Active Aspir-Low 81 MG 1 tablet Orally Once a day for 30 day(s) Active Crestor 5 MG 1/2 tablet Orally Once a day Active Tylenol 8 Hour Arthritis Pain 650 MG 2 tablets as needed Orally tid/prn Active Mirapex 0.25 MG 2-3 tablet Orally DAILY Active immodium 1 tab Oral for 14 days Active Gas Relief 180 MG 1 capsule after meals and at bedtime as needed Orally Twice a day Active Nabumetone 1000 MG 1 tablet Orally Once a day for 30 day(s) Active Melatonin 3 MG 1 tablet at bedtime as needed Orally Once a day for 30 day(s) Active Sudafed 60 MG 1 tablet as needed Orally every 6 hrs Active Diclofenac Sod &Adhesive Sheet 1 % as directed Transdermal Active Furosemide 20 MG 1 tablet Orally Once a day for 30 day(s) Active PROBLEMS Problem Type ICD Code Onset Dates Problem Status W/U Status Risk SNOMED Code Notes Problem Irritable bowel syndrome with diarrhea (K58.0) Active confirmed Irritable bowel syndrome with diarrhea (415823955) VITAL SIGNS Temperature 97.3 degrees Fahrenheit 03/01/20 24 Blood pressure systolic 000 mm Hg 03/01/20 24 Blood pressure diastolic 00 mm Hg 024 Height 60.0 in 03/01/2024 Weight 197 lb 6 oz lbs 03/01/2024 BMI 38.54 kg/m2 03/01/2024 Encounters Encounter Location Date Provider Diagnosis [facility] [address] [facility] [address] [place] [address] 03/01/2024 Erik Avery Irritable bowel synd ricardo with diarrhea K58.0 and Gastroesophageal reflux disease, esophagitis presence not specified K21.9 ASSESSMENTS Encounter Date Diagnosis Assessment Notes Treatment Notes Treatment Clinical Notes 03/01/2024 Irritable bowel syndrome with diarrhea (ICD-10 - K58.0) Use 1 or 2 Imodium every morning to try to prevent diarrhea. Try decreasing your fiber pills and avoid eggs and/or lactose for a while to see if that helps with the loose stools. 03/01/2024 Gastroesophageal ref lux disease, esophagitis presence not specified (ICD-10 - K21.9) Continue the Nexium and Pepcid as you are doing for the reflux PLAN OF TREATMENT Treatment Notes Assessment Notes Irritable bowel syndrome with diarrhea U se 1 or 2 Imodium every morning to try to prevent diarrhea. Try decreasing your fiber pills and avoid eggs and/or lactose for a while to see if that helps with the loose stools. Gastroesophageal reflux dise ase, esophagitis presence not specified Continue the Nexium and Pepcid as you are doing for the reflux Next Appt Details Follow Up: prn, Reason: Progress Notes * Examination Category Sub-Category Detail Notes General Examination GENERAL APPEARANCE: pleasant , well nourished, well developed, in no acute distress HEAD: EYES: sclera non-icteric EARS: NOSE: THROAT: NECK/THYROID: no cervical lymphade nopathy, neck supple HEART: S1, S2 normal CHEST: LUNGS: clear to auscultatio n bilaterally ABDOMEN: normal bowel sounds, no guarding or rigidity, no guarding or rigidity, no masses palpable, soft, nontender, nondistended NEUROLOGIC: alert and oriented SKIN: nonjaundiced, no spi apolonia angiomata EXTREMITIES: no edema PERIPHERAL PULSES: BACK: BREASTS: MUSCULOSKELETAL: MALE GENITOURINARY: LYMPH NODES: RECTAL EXAM: FEMALE GENITOURINARY: ORAL CAVITY: mucosa moist
--- OUTSIDE RECORDS SUMMARY | 2024-08-02 14:56 | XMS_ITS | Clinical Summary ---
Author Organization [facility] Address [address] [place] [address] Phone Care Team Providers Care Bounty Trapper Name Role Phone Leila Nicole MD Primary Care Provider [phone] Allergies Active Allergy Reactions Criticality Noted Date Comments Dibucaine Other (see comments) 07/02/2020 Medications Calcium Polycarbophil (Fiber) 625 MG tablet Take 1 tablet by mouth 2 (two) times a day Active calcium carbonate (OS-LAURA) 1250 (500 Ca) MG tablet Take 1 tablet by mouth in the morning and 1 tablet in the evening. Active Multiple Vitamins-Minerals (PRESERVISION AREDS 2+MULTI VIT PO) Take 1 capsule by mouth 2 (two) times a day Active aspirin (ST FARNAZ) 81 MG EC tablet Take 1 tablet by mouth 1 (one) time each day Active rosuvastatin (CRESTOR) 10 MG tablet Take 0.5 tablets by mouth 1 (one) time each day Active cholecalciferol (VITAMIN D-3) 50 MCG (2000 UT) capsule Take 1 tablet by mouth Active pramipexole (MIRAPEX) 0.25 MG tablet 1 (one) time each day Active lisinopril 5 MG tablet Take 1 tablet by mouth in the morning and 1 tablet in the evening. Active esomeprazole (NexIUM) [address] capsule TAKE 1 CAP BY MOUTH IN AM AND 1 TAB BY MOUTH IN PM (INS WILL ONLY COVER 30 CAPS/30 DAYS) Active Diclofenac Sodium 1 % gel Apply topically Active famotidine (PEPCID) 40 MG tablet TAKE 1 TABLET BY MOUTH EVERY MORNIGN & AGAIN AT 5PM 90 3 Active ipratropium (ATROVENT) 0.06 % nasal spray USE 1 SPRAY IN EACH NOSTRIL TWICE DAILY 3 Active nabumetone (RELAFEN) 500 MG tablet Take 2 tablets by mouth in the morning and 2 tablets in the evening. Active furosemide (LASIX) 20 MG tablet TAKE 1 TABLET (20 MG TOTAL) BY MOUTH ONE TIME EACH DAY 90 tablet Active Active Problems Problem Noted Date Diagnosed Date Edema 02/01/2024 Clostridioides difficile infection 07/22/2021 Diarrhea 07/22/2021 Gastroesophageal reflux disease 07/22/2021 Hiatal hernia 07/22/2021 Screening for malignant neoplasm of colon 2021 Essential hypertension 06/28/2021 Encounters Date Type Department Care Team Description 05/18/2024 Refill [facility] [address] [facility] [address] [place] [address] Aftab Louis MD from Last 3 Months Immunizations Name Administration Dates Next Due Influenza, Unspecified 03/05/2020,03/04/2019,06/2015,03/19/2014 Pneumococcal Polysaccharide 12/26/2013 Family History Medical History Relation Comments Cancer Father stomach Hypertension Sibling 1 brother Cancer Sibling 2 brother colon CA Relation Status Comments Father Mother Sibling 1 Sibling 2 Social History Tobacco Use Types Packs/Day Years Used Date Smoking Tobacco: Never Smokeless Tobacco: Never Tobacco Cessation:Counseling Given: No Alcohol Use Standard Drinks/Week Comments Yes 0 (1 standard drink = 0.6 oz pure alcohol) Alcoholic Drinks/day: Occasional social drink Comments Unknown Sex and Gender Information Value Date Recorded Sex Assigned at Not on file Legal Sex Female 5:06 PM EST Gender Identity Not on file Sexual Orientation Not on file Last Filed Vital Signs Vital Sign Reading Time Taken Comments Blood Pressure 120/72 01/30/2023 1:10 PM EDT Pulse 92 01/30/2023 1:10 PM EDT Temperature - - Respiratory Rate - - Oxygen Saturation 97% 01/30/2023 1:10 PM EDT Inhaled Oxygen Concentration - - Weight 90.7 kg (200 lb) 01/30/2023 1:10 PM EDT Height 152.4 cm (5') 01/20/2022 1:22 PM EDT Body Mass Index 39.06 01/20/2022 1:22 PM EDT Plan of Treatment Upcoming Encounters Date Type Department Care Team (Late st Contact Info) Description 02/06/2025 2:00 PM EDT Office Visit [facility] [address] [place] [address] Aftab Louis MD [address] [facility] [address] [place] [phone] Health Maintenance Due Date Last Done Comments Pneumococcal Vaccine: 65+ Years (2 of 2 - PCV) 12/26/2014 12/26/2013 Influenza Vaccine (#1) 2024 0, 03/04/2019, 02/04/2016, Additional history exists Hepatitis B Vaccine Aged Out No longe r eligible based on patient's age to complete this topic Insurance MEDICARE [facility] MEDICARE [facility] Care Teams Bounty Trapper Relationship Specialty Start Date End Date Leila Nicole MD [address] [place] [id number] PCP - General 06/15/20
--- OUTSIDE RECORDS SUMMARY | 2024-08-02 14:56 | XMS_ITS ---
Author Organization Erik Grant III, MD Address [address] [place] [address] Care Team Providers Care Crime Scene Analyst Name Role Phone Erik Grant Primary Care Provider REASON FOR VISIT Message Social History Sex Assigned At : Social History Observation Description Sex Assigned At Female Encounters Encounter Location Date Provider Diagnosis Erik Grant III, MD [address] [place] [address] [place] [address] 03/07/2024 Erik Grant Plan Of Treatment Next Appt Details Provider Name:Erik Grant, 09/16/2024 11:15:00 AM, [address] [place] [address] [place], [address], Provider Name:Erik Grant, 05/21/2025 02:30:00 PM, [address] [place] [address] [place], [address], Progress Notes * SAM, Palak EDOB: [birth year] (78 yo F)Acc No.[id number]:03/07/2024 Patient:?Palak VARGAS :1945???Age:78 Y???Sex:Female Address:[place], [address] * true * Date:? Generated for Printi ng/Faxing/eTransmitting on:?08/02/2024 02:55 PM EST
--- OUTSIDE RECORDS SUMMARY | 2024-08-02 14:56 | XMS_ITS ---
Author Organization [facility] Address [address] [place] [address] Care Team Providers Care Photographic Equipment Assembler Name Role Phone Rudy ALEGRIA, Erik Primary Care Provider UnavailErik Morgan Unavailable [phone] RESULTS Component Value Reference Range Notes Calprotectin, Fecal Reviewed date:10/23/2023 01:27:54 AM Interpretation: Performing Lab:[facility], [address] [place] [phone] Notes/Report: Calprotectin, Fecal 134 Reference Range: <50 [...] borderline values. THIS TEST WAS PERFORMED AT: [employer]/[facility] [address] [place] [address] YOLANDA LANGLEY MD,PHD,JUANITO GI PANEL Reviewed date:10/15/2023 11:47:37 AM Interpretation: Performing Lab:[address] [address] Notes/Report: Campylobacter Not Detected Not Detect. Plesiomonas [...] is performed by Multiplexed PCR, utilizing the [employer] Array. REASON FOR VISIT diarrhea/ patient called back MEDICATIONS Medication SIG (Take, Route, Frequency, Duration) Notes Start Date End Date Status Cholestyramine 4 GM/DOSE 1/2 to 1 scoop in a glass of water or orange juice orally Once or twice a day for diarrhea for 30 day(s) 10/12/2023 Activ e PROBLEMS Problem Type ICD Code Onset Dates Problem Status W/U Status Risk SNOMED Code Notes Problem Diarrhea (R19.7) Active confirmed Diarrhea ([id number]) Encounters Encounter Location Date Provider Diagnosis [facility] [address] [facility] [address] [place] [address] 10/10/2023 Erik Avery Diarrhea R19.7 ASSESSMENTS Encounter Date Diagnosis Assessment Notes Treatment Notes Treatment Clinical Notes 10/10/2023 Diarrhea (ICD-10 - R19.7) PLAN OF TREATMENT Medication Medication Name Sig Start Date Stop Date Notes Cholestyramine 4 GM/DOSE 1/2 to 1 scoop in a glass of water or orange juice orally Once or twice a day for diarrhea for 30 day(s) 10/12/2023 Pending Test Test Name Order Date CHEM 7 PROFILE 10/10/2023 LIVER PROFILE 10/10/2023 CRP 10/10/2023 CBC w DIFF 10/10/2023 SED RATE (ESR) 10/10/2023 STOOL WBC 10/10/2023 C DIFFICILE RFLX PCR 10/10/2023
--- OUTSIDE RECORDS SUMMARY | 2024-08-02 14:56 | XMS_ITS | Encounter Summary ---
Author Organization [facility] Address [address] [address] Phone Care Team Providers Care Cigarette Making Examiner Name Role Phone Leila Nicole MD Primary Care Provider [phone] Encounter Details Date Type Department Care Team (Late Contact Info) Description 03/25/2024 Office Communication [facility] [address] [address] Sonya Michel [address] [place] [phone] Social History Tobacco Use Types Packs/Day Years Used Date Smoking Tobacco: Never Smokeless Tobacco: Never Alcohol Use Standard Drinks/Week Comments Yes 0 (1 standard drink = 0.6 oz pure alcohol) Alcoholic Drinks/day: Occasional social drink Comments Unknown Sex and Gender Information Value Date Recorded Sex Assigned at Not on file Legal Sex Female 5:06 PM EST Gender Identity Not on file Sexual Orientation Not on file documented as of this encounter Miscellaneous Notes * Telephone Encounter - Sonya Michel - 03/25/2024 11:30 AM EDT PT called to say that she has been on Furosemide for approx 1 month, but still has swelling in feetand ankles. It's a little better at night, but starts up again 1st thing in the morning. Pls call her at [phone]. documented in this encounter Plan of Treatment Upcoming Encounters Date Type Department Care Team (Late Contact Info) Description 02/06/2025 2:00 PM EDT Office Visit [facility] [address] [place] [phone] Aftab Louis MD [address] [facility] [address] [place] [address] documented as of this encounter Visit Diagnoses Not on filedocumented in this encounter Care Teams Cigarette Making Examiner Relationship Specialty Start Date End Date Leila Nicole MD [address] [place] [address] PCP - General 06/15/20 documented as of this encounter
--- OUTSIDE RECORDS SUMMARY | 2024-08-02 14:56 | XMS_ITS | Data Portability ---
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 Plan of Treatment Reminders Order Date Submit Date Provider Last Modified By Organization Details Last Modified Time Details Appointments None recorded. Lab None recorded. Referral None recorded. Procedures None recorded. Surgeries None recorded. Imaging CT, neck, soft tissue, w/ contrast - evaluate for sialadeniti s and neoplastic left submandibul ar processPlea se call and book then fax date and time to [phone] 2023 [facility] Centralized Scheduling([facility]), [address] [place] [address], [address], 4 10:44:23 Medication Orders doxycycline hyclate 100 mg capsule 2023 024 [facility]/Ph[facility]acy #[id number], [address] [place], [address], 11:30:26 Patient TargetsNo targets recorded. Patient InstructionsNo instructions recorded. Reason for Referral None Reported. Results Created Date Observation Date Name Description Value Unit Range Abnormal Flag Note LastModifiedBy Organization Detail LastModifiedTime 01/30/2001/30/2024 BUN BUN 13 mg/dL 8-27 normal Not Available [facility] ([facility]) [address] [facility], [place], [address], 01/30/2024 23:13:29 01/30/20 24 01/30/2024 CREAT ININE creatinine 0.78 mg/dL 0.57-1 .00 normal Not Available [facility] ([facility]) [address] [facility], [place], [address], 01/30/2024 23:13:30 01/30/20 24 01/30/2024 CREAT ININE eGFR 77 mL/mi n/1.7 3 >59 normal Not Available [facility] ([facility]) [address] [facility], [place], [address], 01/30/2024 23:13:30 01/30/20 24 02/02/2024 AEROB IC BACTE RIAL CULTU RE aerobic bacterial culture Final report abnormal Not Available [facility] ([facility]) [address] [facility], [place], [address], 02/13/2024 12:11:49 01/30/20 24 02/02/2024 AEROB IC BACTE RIAL CULTU RE result 1 COMMEN T abnormal Cyndi tia lique facie ns compl ex Moder ate growt h Not Available [facility] ([facility]) [address] [facility], [place], [address], 02/13/2024 12:11:49 01/30/20 24 02/02/2024 AEROB IC BACTE RIAL CULTU RE result 2 Skin brenna isolat ed Light growt h Not Available [facility] ([facility]) [address] [place], [address], 02/13/2024 12:11:49 01/30/20 24 02/02/2024 AEROB IC BACTE RIAL CULTU RE antimicrobia l susceptibili ty Commen t S = Susce ptibl e; I = Inter media te; R = Resis tant P = Posit ingrid; N = Negat ingrid MICS are expre ssed in micro grams per mL Antib iotic RSLT# 1 RSLT# 2 RSLT# 3 RSLT# 4 Amoxi cilli n/Cla vulan ic Acid R Cefaz john R Cefep sumaya S Ceftr iaxon e S Cefur oxime R Cipro floxa mahsa S Genta micin S Tetra cycli ne S Tobra mycin S Trime thopr im/Mcwilliams lfa S Not Available [facility] ([facility]) [address] [facility], [place], [address], 02/13/2024 12:11:49 01/30/2002/13/2024 FUNGU S (MYCO LOGY) CULTU RE fungus (mycology) culture Final report Not Available [facility] ([facility]) [address] [facility], [place], [address], 02/13/2024 12:11:50 01/30/2002/13/2024 FUNGU S (MYCO LOGY) CULTU RE result 1 Commen t Cultu re overg rown with bacte ramila. Not Available [facility] ([facility]) [address] [facility], [place], [address], 02/13/2024 12:11:50 01/17/20 24 01/10/2024 CT, neck, soft tissu e, w/o contr ast No observ ation record ed. BARCODE Not Available 2023 12:58:10 01/30/20 24 01/10/2024 CT, neck, soft tissu e, w/o contr ast No observ ation record ed. [email or web address] Not Available 11:54:07 01/30/20 24 01/10/2024 CT, neck, soft tissu e, w/o contr ast No observ ation record ed. [email or web address] Not Available 12:46:04 02/19/2002/16/2024 CT, neck, soft tissu e, w/ contr ast No observ ation [facility] [address] [place], [address], 03/05/2024 09:46:19 03/14/20 24 02/16/2024 CT, neck, soft tissu e, w/ contr ast No observ ation record ed. [email or web address] [facility] Centralized Scheduling([facility]) [address] [facility], [place], [address], 03/14/2024 14:29:05 Result Notes None recorded. Problems Name Problem SNOMED Code Status Onset Date Resolution Date Notes Provider Name and Address Organization Details Recorded Time Allergic rhinitis 48452777 Active 2014 Allergic rhinitis: Due to other allergen; Note: Date Diagnosed : 11/18/2014 3:06 PM (477.8) ; Start Date : 5 Allergi c rhinitis: Due to other allergen; Note: Date Diagnosed : 11/07/2014 2:39 PM (477.8) ; Start Date : 5 Perenni al allergic rhinitis; Note: Date Diagnosed : 12/23/2014 3:48 PM (J30.89) [mapped from ICD9 code: 477.8] Not Available [facility] 4 02:19:39 Impacted cerumen 90876928 Active 2014 Impacted cerumen; Note: Date Diagnosed : 11/07/2014 2:38 PM (380.4) Not Available [facility] hospital 4 02:19:31 Sialolithi asis 70929906 Active 2023 WILIAM LUX MD [address] [place] [address], [place], [address] , [place] - [facility] 4 11:30:16 Acute sialoadeni tis 705189990 Active 2023 WILIAM LUX MD [address] [place] [address], [place], [address] , [place] [facility] 4 11:30:23 Chronic sialadenit is 125739611 Active 2023 WILIAM LUX MD [address] [place] [address],[place] [address], [place], [address] , [facility] 4 11:43:53 Problem Notes None recorded. Procedures Surgical History None recorded. Imaging Results Imaging Date Name Status LastModified by Organiz ation Details LastModified Time 01/10/2024 CT, neck, soft tissue, w/o contrast completed BARCODE Information not available 01/17/2024 12:58:10 01/10/2024 CT, neck, soft tissue, w/o contrast completed Information not available 01/30/2024 11:54:07 01/10/2024 CT, neck, soft tissue, w/o contrast completed Information not available 01/30/2024 12:46:04 02/16/2024 CT, neck, soft tissue, w/ contrast completed [email or web address], [address], 03/05/2024 09:46:19 02/16/2024 CT, neck, soft tissue, w/ contrast completed [address] Scheduling([facility]iol [facility]) [address] [place] [address], [address], 03/14/2024 14:29:05 Procedure Notes None recorded. Medical Equipment None Reported. Medications Name Sig Start Date Stop Date Status Note LastModified by Organization Details LastModified Time celecoxib 200 mg capsule 11/11 [place]: [id number] Du ration Value: 30 Reason: () Brand Name: celecoxi b Send Method: E-Prescr ibed Sub s Allowed: subs OK Speci al Instruct ion: TAKE 1 CAPSULE BY MOUTH ONCE A DAY Medi cationGe nericNam e: celecoxi b Not Available Not Available Not Available amoxicill in 500 mg capsule TAKE 1 CAPSULE BY MOUTH EVERY 8 HOURS FOR 10 DAYS 01/29 completed Not Available Not Available Not Available furosemid e 40 mg tablet 05/05 [place]ati on ID: [id number] Du ration Value: 60 Reason: () Brand Name: furosemi de Send Method: E-Prescr ibed Sub s Allowed: subs OK Speci al Instruct ion: TAKE 1 TABLET BY MOUTH TWICE A WEEK-- MONDAY AND MONDAY Medicat ionGener icName: furosemi de Not Available Not Available Not Available vitamin E 670 mg (1,000 unit) capsule 2015 active Medicati on ID: [id number] B rand Name: vitamin E Send Method: E-Prescr ibed Sub s Allowed: subs OK Medic ationGen ericName : vitamin E Not Available Not Available Not Available vitamin A 2,400 mcg capsule 2015 active Medicati on ID: [id number] B rand Name: vitamin A Send Method: E-Prescr ibed Sub s Allowed: subs OK Medic ationGen ericName : vitamin A Not Available Not Available Not Available loratadin e 10 mg disintegr ating tablet 02/11 [place] Medicati on ID: [id number] Re ason: () Brand Name: loratadi ne Send Method: E-Prescr ibed Sub s Allowed: subs OK Medic ationGen ericName : loratadi ne Not Available Not Available Not Available doxycycli ne hyclate 100 mg capsule TAKE 1 CAPSULE BY MOUTH TWICE A DAY FOR 14 DAYS active Not Available Not Available No t Available paroxetin e 10 mg tablet TAKE 1 TABLET BY MOUTH EVERY DAY IN THE MORNING FOR 30 DAYS active Not Available Not Available No t Available labetalol 200 mg tablet 05/05 completed Medicati on ID: [id number] D uration Value: 30 Reason: () Brand Name: labetalo l Send Method: E-Prescr ibed Sub s Allowed: subs OK Speci al Instruct ion: TAKE 1 TABLET BY MOUTH TWICE A DAY Medi cationGe nericNam e: labetalo l Not Available Not Available Not Available Claritin 10 mg tablet 1 tablet by mouth 2015 active Medicati on ID: [id number] D uration Value: 30 Brand Name: Claritin Send Method: E-Prescr ibed Sub s Allowed: subs OK Medic ationGen ericName : Claritin Not Available Not Available Not Available meloxicam 15 mg tablet 02/09 completed Medicati on ID: [id number] D uration Value: 30 Reason: () Brand Name: meloxica m Send Method: E-Prescr ibed Sub s Allowed: subs OK Speci al Instruct ion: TAKE 1 TABLET BY MOUTH ONCE A DAY TAKE WITH FOOD OR MILK Med icationG enericNa me: meloxica m Not Available Not Available Not Available famotidin e 40 mg tablet TAKE 1 TABLET AT MIDDAY AND AT BEDTIME ORALLY TWICE A DAY FOR 90 DAYS active Not Available Not Available No t Available amlodipin e 5 mg tablet 02/09 completed Medicati on ID: [id number] D uration Value: 30 Reason: () Brand Name: amlodipi ne Send Method: E-Prescr ibed Sub s Allowed: subs OK Speci al Instruct ion: TAKE 1 TABLET BY MOUTH EVERY NIGHT Me dication GenericN naman: amlodipi ne Not Available Not Available Not Available aspirin 81 mg tablet,de layed release 2014 [place] Medicati [place] ID: [id number] Du ration Value: 30 Brand Name: aspirin Send Method: E-Prescr ibed Sub s Allowed: subs OK Speci al Instruct ion: TAKE 1 TABLET BY MOUTH ONCE A DAY Medi cationGe nericNam e: aspirin Not Available Not Available Not Available tramadol 50 mg tablet 2014 active Medicati on ID: [id number] Du ration Value: 15 Brand Name: tramadol Send Method: E-Prescr ibed Sub s Allowed: subs OK Speci al Instruct ion: TAKE 1 TABLET 3 TO 4 TIMES A DAY NEEDED FOR PAIN Med icationG enericNa me: tramadol Not Available Not Available Not Available acetamino phen 500 mg tablet TAKE 1 TABLETS (500 MG) BY ORAL ROUTE EVERY 6 HOURS NEEDED IN ALTERNAT ION WITH IBUPROFE N active Not Available Not Available No t Available amoxicill in 875 mg tablet TAKE 1 TABLET BY MOUTH EVERY 12 HOURS active Not Available Not Available No t Available lutein 6 mg capsule 2015 active Medicati on ID: [id number] B rand Name: lutein S end Method: E-Prescr ibed Sub s Allowed: subs OK Medic ationGen ericName : lutein Not Available Not Available Not Available esomepraz ole magnesium 40 mg capsule,d elayed release TAKE 1 CAP BY MOUTH IN THE MORNING AND 1 CAP IN THE EVENING FOR 90 DAYS active Not Available Not Available No t Available pramipexo le 0.25 mg tablet TAKE 2 TO 3 TABLETS BY MOUTH EVERY DAY active Not Available Not Available No t Available omeprazol e 20 mg capsule,d elayed release 2014 active Medicati on ID: [id number] Du ration Value: 30 Brand Name: omeprazo le Send Method: E-Prescr ibed Sub s Allowed: subs OK Speci al Instruct ion: TAKE 1 CAPSULE BY MOUTH TWICE A DAY Medi cationGe nericNam e: omeprazo le Not Available Not Available Not Available Tylenol 325 mg tablet 2014 active Medicati on ID: [id number] B rand Name: Tylenol Send Method: E-Prescr ibed Sub s Allowed: subs OK Medic ationGen ericName : Tylenol Not Available Not Available Not Available zinc 50 mg tablet 2015 active Medicati on ID: [id number] B rand Name: zinc Sen d Method: E-Prescr ibed Sub s Allowed: subs OK Medic ationGen ericName : zinc Not Available Not Available Not Available lisinopri l 5 mg tablet TAKE 1 TABLET BY MOUTH TWICE A DAY active Not Available Not Available No t Available hydrochlo rothiazid e 25 mg tablet TAKE 1 TABLET (25MG) BY MOUTH DAILY. 90 active Not Available Not Available No t Available furosemid e 20 mg tablet TAKE 1 TABLET (20 MG TOTAL) BY MOUTH ONE TIME EACH DAY active Not Available Not Available No t Available ibuprofen 600 mg tablet TAKE 1 TABLET BY MOUTH EVERY 6 HOURS NEEDED WITH FOOD active Not Available Not Available No t Available ipratropi um bromide 42 mcg (0.06 %) nasal spray INSTILL 1 SPRAY INTO EACH NOSTRIL TWICE A DAY active Not Available Not Available No t Available ipratropi um bromide 21 mcg (0.03 %) nasal spray 2014 active Medicati on ID: [id number] D uration Value: 30 Brand Name: ipratrop ium bromide Send Method: E-Prescr ibed Sub s Allowed: subs OK Speci al Instruct ion: INHALE 2 SPRAY INTO BOTH NOSTRILS THREE TIMES A DAY DIRECTED Medicat ionGener icName: ipratrop ium bromide Not Available Not Available Not Available Co Q-10 10 mg capsule 02/09 completed Medicati on ID: [id number] R poonam: () Brand Name: Co Q-10 Sen d Method: E-Prescr ibed Sub s Allowed: subs OK Medic ationGen ericName : Co Q-10 Not Available Not Available Not Available nabumeton e 500 mg tablet TAKE 2 TABLETS BY MOUTH TWICE A DAY active Not Available Not Available No t Available lutein 15 mg-zeaxan thin extract 0.7 mg capsule 2015 active Medicati on ID: [id number] B rand Name: lutein-z eaxanthi n Send Method: E-Prescr ibed Sub s Allowed: subs OK Medic ation ericName : lutein-z eaxanthi n Not Available Not Available Not Available valsartan 160 mg tablet 04/15 completed Medicati on ID: [id number] Du ration Value: 30 Reason: () Brand Name: valsarta n Send Method: E-Prescr ibed Sub s Allowed: subs OK Speci al Instruct ion: TAKE 1 TABLET BY MOUTH EVERY EVENING Medicati onGeneri cName: valsarta n Not Available Not Available Not Available Vitamin C 500 mg capsule,e xtended release 2015 active Medicati on ID: [id number] B rand Name: Vitamin C Send Method: E-Prescr ibed Sub s Allowed: subs OK Medic ationGen ericName : Vitamin C Not Available Not Available Not Available Vitamin D3 25 mcg (1,000 unit) capsule 2015 active Medicati on ID: [id number] B rand Name: Vitamin D3 Send Method: E-Prescr ibed Sub s Allowed: subs OK Medic ationGen ericName : Vitamin D3 Not Available Not Available Not Available cholestyr amine (with sugar) 4 gram oral powder DISSOLVE 1/2 TO 1 SCOOP IN GLASS OF WATER OR ORANGE JUICE & DRINK ONCE OR TWICE A DAY FOR DIARRHEA active Not Available Not Available No t Available rosuvasta tin 5 mg tablet TAKE 1 TABLET BY MOUTH EVERY DAY active Not Available Not Available No t Available Crestor 10 mg tablet 2014 active Medicati on ID: [id number] Du ration Value: 30 Brand Name: Crestor Send Method: E-Prescr ibed Sub s Allowed: subs OK Speci al Instruct ion: TAKE 1 TABLET BY MOUTH ONCE A DAY Medi cationGe nericNam e: Crestor Not Available Not Available Not Available ProAir HFA 90 mcg/actua tion aerosol inhaler 02/11 completed Medicati on ID: [id number] R poonam: () Brand Name: ProAir HFA Send Method: E-Prescr ibed Sub s Allowed: subs OK Medic ationGen ericName : ProAir HFA Not Available Not Available Not Available Calcium 500 mg + D (D3) 3.125 mcg (125 unit) tablet 05/05 completed Medicati on ID: [id number] R poonam: () Brand Name: Calcium 500 + D (D3) Sen d Method: E-Prescr ibed Sub s Allowed: subs OK Medic ationGen ericName : Calcium 500 + D (D3) Not Available Not Available Not Available copper gluconate 2 mg capsule 2015 active Medicati on ID: [id number] B rand Name: copper gluconat e Send Method: E-Prescr ibed Sub s Allowed: subs OK Medic ationGen ericName : copper gluconat e Not Available Not Available Not Available Prevnar 13 (PF) 0.5 mL intramusc ular syringe 11/11 completed Medicati on ID: [id number] Du ration Value: 30 Reason: () Brand Name: Prevnar 13 (PF) Sen d Method: E-Prescr ibed Sub s Allowed: subs OK Speci al Instruct ion: TO BE ADMINIST ERED BY PHARMACI ST FOR IMMUNIZA TION Med icationG enericNa me: Prevnar 13 (PF) Not Available Not Available Not Available Probiotic and Acidophil us 300 million cell-250 mg capsule 2014 active Medicati on ID: [id number] B rand Name: Probioti c & Acidophi raphael Send Method: E-Prescr ibed Sub s Allowed: subs OK Medic ationGen ericName : Probioti c & Acidophi raphael Not Available Not Available Not Available EpiPen 2-Navneet 0.3 mg/0.3 mL injection , auto-inje ctor 1 pen injector intramus cularly 2015 active Medicati on ID: [id number] D uration Value: 180 Prescri bed By Name: Otf Ortiz nd Name: EpiPen 2-Navneet Se nd Method: E-Prescr ibed Sub s Allowed: subs OK Medic ationGen ericName : EpiPen 2-Navneet Not Available Not Available Not Available PreserVis ion AREDS-2 250 mg-90 mg-40 mg-1 mg capsule 2014 active Medicati on ID: [id number] B rand Name: PreserVi sukhwinder AREDS 2 Send Method: E-Prescr ibed Sub s Allowed: subs OK Medic ationGen ericName : PreserVi sukhwinder AREDS 2 Not Available Not Available Not Available turmeric 2015 active Medicati on ID: [id number] B rand Name: turmeric Send Method: E-Prescr ibed Sub s Allowed: subs OK Medic ationGen ericName : turmeric Not Available Not Available Not Available glucosami ne sulf dipotassi um Cl 750 mg-chondr oitin sulf 600 mg tablet 02/09 completed Medicati on ID: [id number] R poonam: () Brand Name: glucosam ine-phil droitn sulf.Na Send Method: E-Prescr ibed Sub s Allowed: subs OK Medic ationGen ericName : glucosam ine-phil droitn sulf.Na Not Available Not Available Not Available Vitals Date Recorded Body height Body mass index (BMI) Body weight Provider Name and Address Organization Details Last Updated DateTime 01/30/2024 149.86 cm 39.4 kg/m2 41551.51 g Jose Nelson [place] [facility] 01/30/2024 11:12:04 Date Recorded Body height Body mass index (BMI) Body weight Provider Name and Address Organization Details Last Updated DateTime 03/06/2024 149.86 cm 39.4 kg/m2 27228.51 g Jose Nelson [facility] 03/06/2024 10:40:47 Social History None recorded. Functional Status None recorded. Mental Status None recorded. Family History Nothing Reported. Medical History Condition Response Arthritis Y Hypertension Y Gynecological HistoryNo gynecological history recorded. 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 On my exam stone is posterior near hilum. I expressed and cultured turbid saliva. She does not seem very symptomati c so I will defer abx for now (she tells me the prior course she was on in November did not help at all). I encouraged massage, hydration, and sialogogue s. I reviewed her CT report but did not have access to the images. I will order a contrasted scan to exclude neoplastic pathology with f/u thereafter . 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 On my exam stone is posterior near hilum. I expressed purulent saliva.I reviewed her CT which showed a 6mm left stone with evidence of glandular inflammati on. I recommend a course of doxy based on the prior culture. I recommend improving the infection and then considerin g observatio n vs. transoral stone removal attempt as it is palpable but very posterior. I told her this would be challengin g. I also discussed gland removal. Will reassess at f/u. Sialolithiasis 33431742 K11.5 see below Health Concerns Section Related Observation LastModified by Organization Detai ls LastModified Time None Recorded Concern Status LastModified by Organization Details LastModified Time None Recorded Advance Directives Directive None Recorded Payers Encounter Date Sequence Insurance Name Policy Number Policy Escobar Covered Member ID Escobar Member ID Guarantor Name 01/30/2024 1 MEDICARE B-[place]: [employer] Palak E Sam [id number] Palak E Sam 01/30/2024 2 [facility] [id number] Palak E E Sam [id number] Palak E Sam 03/06/2024 1 MEDICARE B-[place]: [employer] Palak E Sam [id number] Palak E Sam 03/06/2024 2 [facility] [id number] 1 Palak E E Sam [id number] Palak Donis Sam Notes Date Note Type Note Provider Name and Address Organization Details Recorded Time 01/30/2024 text/html She reports feel ing fatigued and tired starting in August 2023. In December she noted a left neck mass. It was not painful to touch. She reports the inside of her mouth was aching on the inside of the cheek. She has not smoked. She reports a sore spot in her mouth which occasionally swells. She denies dysphagia but sometimes her partial rubs on the tender spot when she chews. Her PCP ordered a CT neck which was done without contrast due to inability to get IV access. CT 01/10/24 showed an acute obstructive left submandibular sialectasis with adjacent obstructing calculi in the proximal Leonor's duct. Non obstructive calculi were see on the right without sialadenitis. Thyroid heterogeneity was noted and correlation with TFTs was recommended. WILIAM LUX MD [address] [place] [address], [address], [place] - [facility] 01/30/2024 11:47:19 03/06/2024 text/html Hx of recurrent left submandibular sialadenitis. At the last visit I was not able to review her CT. We obtained a new contrasted CT which showed a small intraglandular stone on the right but a large 6x3mm stones vs. 2 adjacent stones in the proximal left submandibular duct near the hilum with chronic inflammatory change of the gland. Culture at the last visit showed serratia (resistant to PCN).She did hot compresses which helped. She was doing well and then it started to swelling again about 3 weeks ago. She drinks plenty of water. WILIAM LUX MD [address] [facility],[address], [address], [place] [facility] 03/06/2024 11:30:27 OBGyn Episode No OBEpisode recorded.
--- OUTSIDE RECORDS SUMMARY | 2024-08-02 14:57 | XMS_ITS | Patient Health Record ---
Author Organization [facility] Address [address] [place] [address] Care Team Providers Care Innovation Manager Name Role Phone Erik Grant MD Primary Care Provider UnavailErik Morgan Unavailable [phone] ALLERGIES Allergen (clinical drug ingredient) Drug/Non Drug Allergy documented on EMR Reaction Allergy Type Onset Date Status Adhesive Unknown Allergy Active dibucaine Dibucaine Unknown Drug Allergy Active RESULTS Component Value Reference Range Notes Calprotectin, Fecal Reviewed date:10/23/2023 01:27:54 AM Interpretation: Performing Lab:[facility], [address] [place] [phone] Notes/Report: Calprotectin, Fecal 134 Reference Range: <50 [...] borderline values. THIS TEST WAS PERFORMED AT: [facility] [address] [place] [address] YOLANDA LANGLEY MD,PHD,JUANITO GI PANEL Reviewed date:10/15/2023 11:47:37 AM Interpretation: Performing Lab:[facility], [address] [place] [phone] Notes/Report: Campylobacter Not Detected Not Detect. Plesiomonas [...] is performed by Multiplexed PCR, utilizing the Privia Array. Immunoglobulin A Reviewed date:09/05/2023 09:06:58 AM Interpretation: Performing Lab:[facility], [address] [place] [phone] Notes/Report: Immunoglobulin A 213 70-320 mg/dL THIS TEST WAS PERFORMED AT: [facility] [address] [place] [phone] LASHAY FLORES MD Transglutaminase Ab IgG Reviewed date:09/05/2023 09:07:04 AM Interpretation: Performing Lab:[facility], [address] [place] [phone] Notes/Report: Transglutaminase Ab IgG <1.0 Value Interpretation ----- <15.0 Antibody not detected > or = 15.0 Antibody detected THIS TEST WAS PERFORMED AT: [facility] [address] [place] [phone] LASHAY FLORES MD Transglutaminase IgA Reviewed date:09/05/2023 09:07:10 AM Interpretation: Performing Lab:[facility], [address] [place] [phone] Notes/Report: Transglutaminase IgA <1.0 Value Interpretation ----- <15.0 Antibody not detected > or = 15.0 Antibody detected THIS TEST WAS PERFORMED AT: [facility] [address] [place] [phone] LASHAY FLORES MD Gliadin Ab Panel Reviewed date:09/05/2023 09:07:16 AM Interpretation: Performing Lab:[facility], [address] [place] [phone] Notes/Report: Gliadin Deamidated IgA Ab <1.0 Value Interpretation ----- <15.0 Antibody not detected > or = 15.0 Antibody detected Gliadin Deamidated IgG Ab <1.0 Value Interpretation ----- <15.0 Antibody not detected > or = 15.0 Antibody detected THIS TEST WAS PERFORMED AT: [facility] [address] [place] [phone] LASHAY FLORES MD Endomysial IgA rflx Titer Reviewed date:09/05/2023 09:07:30 AM Interpretation: Performing Lab:[facility], [address] [place] [phone] Notes/Report: Endomysial IgA Antibody Negative Negative THIS TEST WAS PERFORMED AT: [facility] [id number] [place] [phone] CATHLEEN PAZ MD,PHD Endomysial Titer TNP Complete Blood Count Auto Di ff Reviewed date:10/12/2023 07:07:13 PM Interpretation: Performing Lab:[facility], [address] [place] [phone] Notes/Report: White Blood Count 6.1 4.8-10.8 X10*3/uL [...] 0.0-0.2 /100WBC Neutrophils Absolute Auto 4.1 2.0-8.3 x10*3/u L Imm Gran Abs Auto 0.02 0.00-0.03 X10*3/uL Lymphocytes Absolute Auto 1.1 1.2-4.9 X10*3/u L Monocytes Absolute Auto 0.7 0.1-1.2 X10*3/uL Eosinophils Absolute Auto 0.2 0.0-0.4 X10*3/u L Basophils Absolute Auto 0.0 0.0-0.2 X10*3/uL NRBC Abs Auto 0.000 0.0-0.012 X10*3/uL Erythrocyte Sedimentation Ra te Reviewed date:10/12/2023 07:06:57 PM Interpretation: Performing Lab:[facility], [address] [place] [phone] Notes/Report: Erythrocyte Sedimentation Rate 37 0-20 MM/HR Patients with polycythemia and many hemoglobin abnormalities may have depressed sed rates whereas patients with anemia may have elevated sed rates. Liver Panel Reviewed date:10/12/2023 10:32:01 PM Interpretation: Performing Lab:[address] [phone] Notes/Report: Bilirubin Total 0.2 0.0-1.0 mg/dL Bilirubin Direct < 0.2 0.0-0.5 mg/dL Aspartate Amino Transferase 16 5-31 U/L Alanine Aminotransferase 16 0-31 U/L Total Protein 7.1 6.5-8.0 g/dL Albumin Level 3.7 3.5-5.0 g/dL Alkaline Phosphatase 77 39-117 U/L Electrolytes Reviewed date:10/12/2023 10:32:12 PM Interpretation: Performing Lab:[facility], [address] [place] [phone] Notes/Report: Sodium 139 135-145 mmol/L Potassium 4.0 3.3-5.1 mmol/L Chloride 107 96-108 mmol/L Carbon Dioxide 22 22-29 mmol/L Anion Gap 14 12-20 Blood Urea Nitrogen Reviewed date:10/12/2023 10:32:21 PM Interpretation: Performing Lab:[facility], [address] [place] [phone] Notes/Report: Blood Urea Nitrogen 14 9-16 mg/dL Creatinine Reviewed date:10/12/2023 10:32:29 PM Interpretation: Performing Lab:[address] [phone] Notes/Report: Creatinine 0.73 0.5-1.4 mg/dL Estimated Glomerular Filt Rate > 60 NOTE: For -[place] individuals, multiply the result by 1.210. Chronic Kidney Disease: Estimated GFR < 60 mL/min/1.73m2 Severe Kidney Disease: Estimated GFR < 15 mL/min/1.73m2 Glucose Random Reviewed date:10/12/2023 07:06:44 PM Interpretation: Performing Lab:[address] [phone] Notes/Report: Glucose Random 120 60-115 mg/dL C Reactive Protein Reviewed date:10/20/2023 06:54:00 PM Interpretation: Performing Lab:[facility], [address] [place] [phone] Notes/Report: C Reactive Protein 2.98 < or = 0.50 mg/dL Leukocytes Stool Qualitative Reviewed date:10/15/2023 11:46:18 AM Interpretation: Performing Lab:[facility], [address] [place] [phone] Notes/Report: Leukocytes Stool Qualitative NEGATIVE NEGATIVE CDiff Gene PCR Reviewed date:10/15/2023 11:46:30 AM Interpretation: Performing Lab:[facility], [address] [place] [phone] Notes/Report: CDiff Gene PCR NEGATIVE Negative If C. difficile strongly suspected despite one negative test, a second test may be sent vs. empiric treatment for C. difficile infection. REASON FOR REFERRAL No Information MEDICATIONS Medication SIG (Take, Route, Frequency, Duration) Notes Start Date End Date Status immodium 1 tab Oral for 14 days Active Amoxicillin when seeing a dentist Not-Taking Gas Relief 180 MG 1 capsule after meals and at bedtime as needed Orally Twice a day Active Famotidine 40 MG 1 tablet at midday and at bedtime Orally Twice a day for 90 days Active Diclofenac Sod &Adhesive Sheet 1 % as directed Transdermal Active Cholestyramine 4 GM/DOSE 1/2 to 1 scoop in a glass of water or orange juice orally Once or twice a day for diarrhea for 30 day(s) 10/12/2023 Active Furosemide 20 MG 1 tablet Orally Once a day for 30 day(s) Active Aspir-Low 81 MG 1 tablet Orally Once a day for 30 day(s) Active Nabumetone 1000 MG 1 tablet Orally Once a day for 30 day(s) Active Melatonin 3 MG 1 tablet at bedtime as needed Orally Once a day for 30 day(s) Active Sudafed 60 MG 1 tablet as needed Orally every 6 hrs Active Amoxicillin NEEDED FOR DENTAL OR SURGICAL PROCEDURES Not-Taking Claritin Active Diclofenac Sodium 1 % as directed Externally as needed for pain Active Calcium Citrate + D3 Maximum 315-250 MG-UNIT 2 tablet ONCE a day Active Esomeprazole Magnesium 40 MG TAKE 1 CAP BY MOUTH IN THE MORNING AND 1 CAP IN THE EVENING FOR 90 DAYS for 90 Active Multi Vitamin/Minerals - as directed Orally once a day Active PreserVision AREDS 2 - as directed Orally BID Active hydroCHLOROthiazide 25 MG 1 tablet in e morning Orally Once a day for 30 day(s) Active Vitamin D3 50 MCG (1999) 1 tablet Orally Once a day Active Fiber 2 tablets as needed ONCE A DAY Active Fluticasone Propionate 50 MCG/ACT 1 spray in each nostril Nasally Twice a day Active Flax Seed Oil 1000 MG as directed Orally BID Active Tylenol 8 Hour Arthritis Pain 650 MG 2 tablets as needed Orally tid/prn Active Mirapex 0.25 MG 2-3 tablet Orally DAILY Active Crestor 5 MG 1/2 tablet Orally Once a day Active IMMUNIZATIONS Vaccine Route Administration Date Status Comme nts Flu vaccine no Preserv 3 and > Unknown 03/19/2014 Admin istered Flu vaccine no Preserv 3 and > Unknown 02/04/2016 Admin istered Influenza Unknown 03/04/2019 Administered Influenza Unknown 03/05/2020 Administered Influenza Unknown 02/03/2022 Administered Influenza Unknown 03/28/2023 Administered SOCIAL HISTORY Sex Assigned At : Social History Observation Description Sex Assigned At Unknown PROBLEMS Problem Type ICD Code Onset Dates Problem Status W/U Status Risk SNOMED Code Notes Problem Encounter for screening for malignant neoplasm of colon (Z12.11) Active confirmed 526208418 Problem Diarrhea (R19.7) Active confirmed Diarr hea (00782416) Problem Irritable bowel syndrome with diarrhea (K58.0) Active confirmed Irritable bowel syndrome with diarrhea (863421570) Problem Gastroesophageal reflux disease, esophagitis presence not specified (K21.9) Active confirmed 250159202 Problem Clostridium difficile infection (B96.89) Active confirmed 588544886 Problem Hiatal hernia (K44.9) Active confirmed 17667184 Problem Diarrhea, unspecified type (R19.7) Active confirmed 27381457 Problem Cough, unspecified type (R05.9) Active confirmed 66830647 VITAL SIGNS Temperature 97.3 degrees Fahrenheit 03/01/2024 Blood pressure diastolic 00 mm Hg 03/01/2024 Height 60.0 in 03/01/2024 Blood pressure systolic 000 mm Hg 03/01/2024 Weight 197 lb 6 oz lbs 03/01/2024 BMI 38.54 kg/m2 03/01/2024 Encounters Encounter Location Date Provider Diagnosis [facility] [address] [place] [phone] 08/30/2023 Erik Avery Diarrhea, unspecifie d type R19.7 ; Gastroesophageal reflux disease, esophagitis presence not specified K21.9 and Hiatal hernia K44.9 [facility] [address] [place] [address] [place] [phone] 03/01/2024 Erik Avery Irritable bowel synd ricardo with diarrhea K58.0 and Gastroesophageal reflux disease, esophagitis presence not specified K21.9 [facility] [address] [place] [phone] 08/14/2023 Erik Avery [facility] [address] [place] [phone] 09/04/2023 Erik Avery [facility] [address] [place] [phone] 10/10/2023 Erik Avery Diarrhea R19.7 [facility] [address] [place] [phone] 10/19/2023 Erik Avery ASSESSMENTS Encounter Date Diagnosis Assessment Notes Treatment Notes Treatment Clinical Notes 08/30/2023 Gastroesophageal ref lux disease, esophagitis presence not specified (ICD-10 - K21.9) Use the 40mg Nexium before breakfast and before the evening meal. Use the Pepcid at midday and before bedtime. Do not eat or drink anything for 3 hours before bedtime. Take 3 TUMS right at bedtime. Call me me if things remain bad and we may need to do an upper endoscopy at some point 08/30/2023 Diarrhea, unspecifie d type (ICD-10 - R19.7) Use 2 Imodium as needed for diarrhea 03/01/2024 Irritable bowel syndrome with diarrhea (ICD-10 [...] as you are doing for the reflux 10/10/2023 Diarrhea (ICD-10 - R19.7) 08/30/2023 Hiatal hernia (ICD-1 0 - K44.9) PLAN OF TREATMENT Pending Test Test Name Order Date CHEM 7 PROFILE 10/10/2023 LIVER PROFILE 10/10/2023 CRP 10/10/2023 CBC w DIFF 10/10/2023 SED RATE (ESR) 10/10/2023 CLOSTRIDIUM DIFF TOXIN A&B (C DIFF) 06/06 CLOSTRIDIUM DIFF TOXIN A&B (C DIFF) 09/04 CLOSTRIDIUM DIFF TOXIN A&B (C DIFF) 12/2016 STOOL WBC 08/09/2016 STOOL WBC 09/27/2016 CELIAC PANEL #10 08/30/2023 STOOL WBC 10/10/2023 C DIFFICILE RFLX PCR 10/10/2023 Future Test Test Name Order Date UPPER GI ENDOSCOPY 03/08/2018 COLONOSCOPY 03/27/2019 Insurance Providers Payer Name Payer Address Payer Phone Subscriber Number Group Number Insured Name Patient Relationship to Insured Coverage Start Date Coverage End Date MEDICARE OF [place] [address] [place] [address] [id number] RENETTAORA Dykes Self - patient is the insured [facility] [address] [address] [place] [address] [phone] [id number] ORA JACKSON Self - patient is the insured MEDICAL (GENERAL) HISTORY Medical History History ICD Code Neg. Colonoscopies in 2002 a nd 01/2009--no polyps--diverticulosis and internal hemorrhoids---neg. Hemoccults in 2014 and 2015 GERD--Moderate-sized Hiatal hernia-otherwise Neg EGD in 01/2009 and in 04/2018-- moderate-sized hiatal hernia, no esophagitis nor Arias's esophagus, normal duodenal biopsies, benign gastric polyps with biopsies negative for H. 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 of C.diff infection in 201 7 from the above antibiotics in 2015-2 stools equivocal in 06/2016-treated with 2 courses of Flagyl--stool neg. for C.diff in 08/2016 urinary incontinence -mild Sleep apnea--uses a mouth appliance, no CPAP Questionable sigmoid diverticulitis on C AT scan in August of 2018 Colonoscopy 06/2019 with 2 small tubular adenomas removed IBS with loose stools Surgical History Surgery Date(Month/Year) Right knee replacement in 2010--had an infection in the right knee in 02/2014 requiring surgery and [facility] antibiotics-still on them as of 08/19/14--in 2015 had the prosthetic knee removed and treated with antibiotics--new knee replaced in 2016 Right hand surgery Cholecystectomy Ankle and foot surgery-left Foot surgery-right X3 Exploratory laparotomy Cataract right eye Vein ligation left leg
--- OUTSIDE RECORDS SUMMARY | 2024-08-02 14:57 | XMS_ITS ---
Author Organization Erik Grant III, MD Address [address] [place] [address] Care Team Providers Care Utilities Ground Worker Name Role Phone Erik Grant Primary Care Provider [phone] Allergies Allergen (clinical drug ingredient) Drug/Non Drug [...] Date Provider Diagnosis Erik Grant III, MD [address] [place] [address] [place] [address] 05/17/2024 Erik Grant Hypertension I10 ; O [...] Her reflux symptoms are well controlled with sruy-mjp-dwzaymr medication. 05/17/2024 Primary osteoarthrit is involving multiple [...] eyes (ICD-10 - H35.3132) She sees her concrete pourer regularly. 05/17/2024 Obstructive sleep ap lucien (ICD-10 [...] Externally hydroCHLOROthiazide 25 MG 1 tablet in th e morning Orally Once a day PARoxetine [...] 4 Months, Reason: OV Provider Name:Erik Grant, 09/16/2024 11:15:00 AM, [address] [place] [address] OMID GARNER, [place], [id number], Provider Name:Erik Grant, 05/21/2025 02:30:00 PM, [address] [place] [address] OMID GARNER, [place], [phone], Progress Notes * Palak VARGAS EDOB: [birth year] (78 yo F)Acc No.[id number]:05/17/2024 Progress Notes Patient:?Palak VARGAS Provider:?Erik Grant MD :1945???Age:78 Y???Sex:Female D ate:05/17/2024 Address:[address] [place] [address], [place] [id number] Subjective: * Chief Complaints: * ???Annual Exam * HPI: ???Depression Screening:?PHQ-9?Little interest or pleasure in doing things?Nearly every day ?Feeling down, depressed, or hopeless?Not at all ?Trouble falling or staying asleep, or sleeping too much?Nearly every day ?Feeling tired or having little energy?Several days ?Poor appetite or overeating?Not at all ?Feeling bad about yourself or that you are a failure, or have let yourself or your family down?Not at all ?Trouble concentrating on things, such as reading the newspaper or watching television?Not at all ?Moving or speaking so slowly that other people could have noticed; or the opposite, being so fidgety or restless that you have been moving around a lot more than usual?Not at all ?Thoughts that you would be better off or of hurting yourself in some way?Not at all ?Total Score?7 ?Interpretation?Mild Depression ???COVID-19 Screening:?Questions?Have you had any new onset fever, chills, cough, congestion, sore throat, shortness of breath, muscle aches??No ???Fall Risk Screening:?Fall History?Have you had any falls with injury in the past year??No ?Have you had two or more falls in the past year??No ?Fall Risk Assessment:?SDOH Questions:?SDOH Questions?In the past year have you been worried about losing your housing??No ?In the past year have you or any family members you live with been unable to get any of the following when it was really needed? Check all that apply:?None * ROS:?General/Constitutional:?pain?only normal aches and pains.?Chills?denies.?Fatigue?admits.?Fever?denies.?ENT:?Decreased hearing?in both ears.?Respiratory:?Cough?denies.?Cardiovascular:?Chest pain with exertion?denies.?Dyspnea on exertion?denies.?Shortness of breath?with exertion.?Gastrointestinal:?Constipation?occasional.?Decreased appetite?denies.?Diarrhea?denies.?Heartburn?denies.?Nausea?denies.?Rectal bleeding?denies.?Vomiting?denies.?Hematology:?bruising?denies.?petechiae?denies.?Swollen glands?none have been noted.?Genitourinary:?Frequent urination?at night.?Musculoskeletal:?Muscle aches?denies.?Painful joints?Hands hips shoulders and knees.?Sciatica?denies.?Weakness?denies.?Skin:?Itching?denies.?Rash?denies.?Skin lesion(s)?denies.?Neurologic:?Difficulty speaking?denies.?Dizziness?denies.?Headache?denies.?Low back pain?denies.?Psychiatric:?Depressed mood?denies.? * Medical History:? * Surgical History:?Right knee replacement Cholecystectomy right hand surgery Nasal surgery cataract surgery biopsy breast x3, Dr. Espinal urinary track surgery Bilateral blepharoplasty Colonoscopy, upper endoscopy * Hospitalization/Major Diagno stic Procedure:?Denies Past Hospitalization * Family History:?Father: dece ased 86 yrs, stomach cancer, osteoarthritis, CHF, diagnosed with Cancer, CVD.?Mother: 84 yrs, Osteoarthritis.?Children: alive.?Son(s): alive.?Daughter(s): alive.?Siblings: , colon cancer, Parkinsons, Lung dicease.?Maternal Grand Mother: , gall bladder disease.?6 brother(s) . 1 son(s) , 1 daughter(s) - healthy. .? She has 7 brothers. Several have arthritis. One has Parkinson's disease and one has colon cancer. There is no family history of breast cancer, endometrial cancer or ovarian cancer. HER-2 children and 4 grandchildren are healthy and well. She is not aware of any family history of mental illness or substance use disorder or addiction. * Social History:?Tobacco Use:?Tobacco Use/Smoking?Patient is a?nonsmoker ?Additional Findings: Tobacco Non-User?Aggressive non-smoker ???She was born in [place], [place] and lives in [place]. 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 She has been to [place] for many years. She has a son and a daughter and 4 grandchildren. She has no quaker objection to blood transfusion. She does not drink alcohol or smoke cigarettes. * Medications:?TakingProbiotic 250 MG Capsule as directed Orally Furosemide [...] reviewed and reconciled with the patient * Allergies:?AdhesiveDibucaine Succinylcholineno[Allergies Verified] Objective: * Vitals:?Ht: 60, Wt:194, BMI: 37.88, BP:138/82, HR:78, Temp:97.0, Wt-k. * ???Past Orders: ???Imaging:MM tomosynthesis screening BI (Order Date - 03/05/2024) (Performed Date - 03/05/2024) Lab:[facility] * Collection Date 05/13/2024 02/01/2024 08/21/2023 Collection Time 09:35 AM 08:35 AM 07:27 AM Order Date 05/13/2024 02/01/2024 08/21/2023 Sodium 139 (Ref Range: 135-145 mmol/L) 139 (Ref Range: 135-145 mmol/L) 141 (Ref Range: 135-145 mmol/L) Bilirubin Total 0.4 (Ref Range: 0.0-1.0 mg/dL) 0.3 (Ref Range: 0.0-1.0 mg/dL) 0.4 (Ref Range: 0.0-1.0 mg/dL) Aspartate Amino Transferase 33?H (Ref Range: 5-31 U/L) 20 (Ref Range: 5-31 U/L) 19 (Ref Range: 5-31 U/L) Alanine Aminotransferase 34?H (Ref Range: 0-31 U/L) 21 (Ref Range: [...] 25 (Ref Range: 22-29 mmol/L) Anion Gap 11?L (Ref Range: 12-20) 13 (Ref Range: 12-20) 13 (Ref Range: 12-20) Blood Urea Nitrogen 15 (Ref Range: 9-16 mg/dL) 15 (Ref Range: 9-16 mg/dL) 18?H (Ref Range: 9-16 mg/dL) Creatinine 0.65 (Ref Range: 0.5-1.4 mg/dL) 0.81 (Ref Range: 0.5-1.4 mg/dL) 0.82 (Ref Range: 0.5-1.4 mg/dL) Estimated Glomerular Filt Rate > 60 > 60 > 60 Glucose Fasting 92 (Ref Range: 60-99 mg/dL) 104?H (Ref Range: 60-99 mg/dL) 92 (Ref Range: [...] Blood Count 4.44 (Ref Range: 4.20-5.50 X10*6/uL) 4.12?L (Ref Range: 4.20-5.50 X10*6/uL) 4.26 (Ref Range: [...] (Ref Range: 20-40 %) Monocytes Percent Auto 12.9?H (Ref Range: 2-11 %) 12.3?H (Ref Range: 2-11 %) 11.1?H (Ref Range: 2-11 %) Eosinophils Percent Auto [...] mg/dL) 114 (Ref Range: <150 mg/dL) Cholesterol 208?H (Ref Range: <200 mg/dL) 190 (Ref Range: <200 mg/dL) 208?H (Ref Range: <200 mg/dL) LDL Cholesterol Calculated 128?H (Ref Range: <100 mg/dL) 113?H (Ref Range: <100 mg/dL) 129?H (Ref Range: <100 mg/dL) HDL Cholesterol 53 (Ref Range: >40 mg/dL) 52 (Ref Range: >40 mg/dL) 57 (Ref Range: >40 mg/dL) * Examination: ???General Examination: ?GENERAL APPEARANCE:?pleasant, well nourished, well developed, in no acute distress, calm and relaxed, obese, elderly woman.?HEAD:?atraumatic, normocephalic.?EYES:?eomi, perrla, anicteric, conjugate.?EARS:?normal.?NOSE:?septum intact.?ORAL CAVITY:?normal, unremarkable.?NECK/THYROID:?no jugular venous distention, no carotid bruit, thyroid normal.?LYMPH NODES:?no enlarged lymph nodes,spleen normal.?SKIN:?no suspicious lesions, anicteric.?HEART:?no clicks, gallops, murmurs, or rubs, regular rhythm, S1, S2 normal, no s3, or vascular bruits.?LUNGS:?clear to auscultation .?BREASTS:??no masses palpable bilaterally.?ABDOMEN:?bowel sounds normal, no ascites, no organomegaly, no mass, centripital obesity.?RECTAL EXAM:?not examined.?MUSCULOSKELETAL:?extremities unremarkable, no clubbing, cyanosis or edema, Mild arthritic changes of fingers.?PERIPHERAL PULSES:?normal.?NEUROLOGIC:?alert and oriented, cranial nerves 2-12 grossly intact, deep tendon reflexes 2+ symmetrical, motor strength normal upper and lower extremities, sensory exam intact.?PSYCH:?alert, oriented, thought process logical, goal directed, speech clear, good eye contact, cooperative with exam, cognitive function intact.? Assessment: * Assessment: 1.?Hypertension - I10 (Prima ry)???Notes :Her blood pressure is stable and no change in her regimen was needed.???2.?Obesity (BMI 30-39.9) - E66.9???Notes :Her body mass index is 37.? We discussed her diet and nutrition.? We reviewed her weight loss strategy.? We made a plan to lose weight at a rate of one half of a pound per week through diet restricted in fat calories and sodium.???3.?Mixed hyperlipidemia - E78.2???Notes :Her cholesterol is slightly above 200.? She is essentially at target.? No change in her regimen was necessary today.???4.?GERD (gastroesophageal reflux disease) - K21.9???Notes :Her reflux symptoms are well controlled with [id number] medication.???5.?Primary osteoarthritis involving multiple joints - M15.9???Notes :She has had multiple surgical procedures and a right knee arthroplasty. 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 Has ever been detected.???10.?History of DVT (deep vein thrombosis) - Z86.718???Notes :She is no longer anticoagulated. She has had no further blood clots. Old records will be requested.???11.?Age-related osteoporosis without current pathological fracture - M81.0???Notes :She was continued on current medications. Her bone densities will be reviewed and another one ordered if necessary.???12.?Intermediate stage nonexudative age-related macular degeneration of both eyes - H35.3132???Notes :She sees her concrete pourer regularly.???13.?Obstructive sleep apnea - G47.33???Notes :She was continued on her CPAP. No change in her regimen was needed.???14.?Hiatal hernia - K44.9???Notes :Her reflux symptoms are well controlled.??? Plan: * Treatment: 2.?Obesity (BMI 30-39.9)?LAB: PROFILE, FASTING (COMPREHENSIVE METABOLIC) ?LAB: TSH (THYROID STIMULATING HORMONE) ?LAB: CBC WITH AUTO DIFF ?LAB: Lipid Panel 3.?Mixed hyperlipidemia?LAB: PROFILE, FASTING (COMPREHENSIVE METABOLIC) ?LAB: TSH (THYROID STIMULATING HORMONE) ?LAB: CBC WITH AUTO DIFF ?LAB: Lipid Panel 4.?Others? Continue PARoxetine HCl Tablet, 10 MG, 1 tablet in the morning, Orally, Once a day.?? * Procedure Codes:? * Preventive Medicine:? ??Counseling:?Care goal follow-up plan:?Counseling for abnormal BMI given?Yes ?Above Normal BMI Follow-up?Dietary management education, guidance, and counseling, Dietary needs education, Exercise promotion: strength training * Follow Up:?4 Months (Reason: OV) * Images: * Sign off status: Completed true * Provider:?Erik Grant MD Date:?05/05 Generated for Gely mcfadden/[place]/eTransmitting on:?08/02/2024 02:56 PM EST History and Physical Notes * HPI (History [...]
--- OUTSIDE RECORDS SUMMARY | 2024-08-02 14:57 | XMS_ITS ---
Author Organization [facility] Address [address] [place] [id number] Care Team Providers Care Economics Analyst Name Role Phone Erik Grant MD Primary Care Provider Unavailab Erik Sarah Unavailable [phone] REASON FOR VISIT requesting results on labs Encounters Encounter Location Date Provider Diagnosis [facility] [address] [place] [id number] 10/19/2023 Erik Avery PLAN OF TREATMENT No Information
== END 2024-08-02 12:52 | disposition home or self-care (01) ==
LOC: HO.SH 12:51
PROVIDERS: Visit Provider Internal Medicine Medical Oncology
DX: Z13.89 Encounter for screening for other disorder (principal)

== ENCOUNTER 2024-09-11 07:38 | Outpatient (REF) | payer OTHER, SELFPAY ==
--- OUTSIDE RECORDS SUMMARY | 2024-09-11 07:41 | XMS_ITS | Data Portability ---
Author Organization [place] [facility], Allergy Address [address] [address] Care Team Providers Care Semiconductor Package Symbol Stamper Name Role Phone CHHAYA MANLEY Primary Care Provider [phone] Assessment No assessment recorded. Plan of Treatment [...] book then fax date and time to 2023 [facility] Centralized Scheduling([facility]), [address] [place] [address], [address], 4 10:44:23 Medication Orders doxycycline hyclate 100 mg capsule 2023 024 [facility] #[id number], [address] [place], [address], 11:30:26 Patient TargetsNo targets recorded. Patient InstructionsNo instructions recorded. Reason for Referral None Reported. Results Created Date Observation Date Name Description Value Unit Range Abnormal Flag Note LastModifiedBy Organization Detail LastModifiedTime 01/30/2001/30/2024 BUN BUN 13 mg/dL 8-27 normal Not Available [facility] ([facility]) [address] [facility], [place], [address], 01/30/2024 23:13:29 01/30/20 24 01/30/2024 CREAT ININE creatinine 0.78 mg/dL 0.57-1 .00 normal Not Available [facility] ([facility]) [address] [facility], [place], [address], 01/30/2024 23:13:30 01/30/20 24 01/30/2024 CREAT ININE eGFR 77 mL/mi n/1.7 3 >59 normal Not Available [facility] ([facility]) [address] [facility], [place], [address], 01/30/2024 23:13:30 01/30/20 24 02/02/2024 AEROB IC BACTE RIAL CULTU RE aerobic bacterial culture Final report abnormal Not Available [facility] ([facility]) [address] [facility], [place], [address], 02/13/2024 12:11:49 01/30/20 24 02/02/2024 AEROB IC BACTE RIAL CULTU RE result 1 COMMEN T abnormal Cyndi tia lique facie ns compl ex Moder ate growt h Not Available [facility] ([facility]) [address] [facility], [place], [address], 02/13/2024 12:11:49 01/30/20 24 02/02/2024 AEROB IC BACTE RIAL CULTU RE result 2 Skin brenna isolat ed Light growt h Not Available [facility] ([facility]) [address] [place], [address], 02/13/2024 12:11:49 01/30/20 24 02/02/2024 AEROB IC [...] thopr im/Mcwilliams lfa S Not Available [facility] ([facility]) [address] [facility], [place], [address], 02/13/2024 12:11:49 01/30/2002/13/2024 FUNGU S (MYCO LOGY) CULTU RE fungus (mycology) culture Final report Not Available [facility] ([facility]) [address] [facility], [place], [address], 02/13/2024 12:11:50 01/30/2002/13/2024 FUNGU S (MYCO LOGY) CULTU RE result 1 Commen t Cultu re overg rown with bacte ramila. Not Available [facility] ([facility]) [address] [facility], [place], [address], 02/13/2024 12:11:50 01/17/20 24 01/10/2024 CT, neck, [...] contr ast No observ ation record ed. [facility] [address] [place], [address], 03/05/2024 09:46:19 03/14/20 24 02/16/2024 CT, neck, soft tissu e, w/ contr ast No observ ation record ed. [email or web address] [facility] Centralized Scheduling([facility]) [address] [facility], [place], [address], 03/14/2024 14:29:05 Result Notes None recorded. Problems Name Problem SNOMED Code Status Onset Date Resolution Date Notes Provider Name and Address Organization Details Recorded Time Allergic rhinitis 60061291 Active 2014 Allergic rhinitis: Due to other allergen; Note: Date Diagnosed : 11/18/2014 3:06 PM (477.8) ; Start Date : 5 Allergi c rhinitis: Due to other allergen; Note: Date Diagnosed : 11/07/2014 2:39 PM (477.8) ; Start Date : 5 Perenni al allergic rhinitis; Note: Date Diagnosed : 12/23/2014 3:48 PM (J30.89) [mapped from ICD9 code: 477.8] Not Available [facility] 4 02:19:39 Impacted cerumen 53768948 Active 2014 Impacted cerumen; Note: Date Diagnosed : 11/07/2014 2:38 PM (380.4) Not Available [facility] 4 02:19:31 Sialolithi asis 82609002 Active 2023 WILIAM LUX MD [address] [place] [address], [place], [address] , [place] [facility] 4 11:30:16 Acute sialoadeni tis 578114325 Active 2023 WILIAM LUX MD [address] [place] [address], [place], [address] , [place] [facility] 4 11:30:23 Chronic sialadenit is 818175237 Active 2023 WILIAM LUX MD [address] [place] [address],[place] [address], [place], [address] , [facility] - [facility] 4 11:43:53 Problem Notes None recorded. Procedures [...] CT, neck, soft tissue, w/ contrast completed [address], [address], 03/05/2024 09:46:19 02/16/2024 CT, neck, soft tissue, w/ contrast completed [address] [place] [address] Scheduling([facility]) [address] [place] [address], [address], 03/14/2024 14:29:05 Procedure Notes None recorded. Medical Equipment None Reported. Medications Name Sig Start Date Stop Date Status Note LastModified by Organization Details LastModified Time celecoxib 200 mg capsule 11/11 [place]ati [place] ID: [id number] Du ration Value: 30 Reason: () Brand [...] mg tablet 05/05 [place]: [id number] Du ration Value: 60 Reason: () Brand Name: furosemi de Send Method: E-Prescr ibed Sub s Allowed: subs OK Speci al Instruct ion: TAKE 1 TABLET BY MOUTH TWICE A WEEK-- MONDAY AND MONDAY Medicat ionGener icName: furosemi de Not Available Not Available Not Available vitamin E 670 mg (1,000 unit) capsule 2015 active Medicati on ID: [id number] B rand Name: vitamin E Send Method: E-Prescr ibed Sub s Allowed: subs OK Medic ationGen ericName : vitamin E Not Available Not Available Not Available vitamin A 2,400 mcg capsule 2015 active Medicati on ID: [id number] B rand Name: vitamin A Send Method: E-Prescr ibed Sub s Allowed: subs OK Medic ationGen ericName : vitamin A Not Available Not Available Not Available loratadin e 10 mg disintegr ating tablet 02/11 completed Medicati on ID: [id number] Re ason: () Brand Name: loratadi ne [...] mg tablet 05/05 completed Medicati on ID: [id number] D uration Value: 30 Reason: () Brand Name: labetalo l Send Method: E-Prescr ibed Sub s Allowed: subs OK Speci al Instruct ion: TAKE 1 TABLET BY MOUTH TWICE A DAY Medi cationGe nericNam e: labetalo l Not Available Not Available Not Available Claritin 10 mg tablet 1 tablet by mouth 2015 active Medicati on ID: [id number] D uration Value: 30 Brand Name: Claritin Send Method: E-Prescr ibed Sub s Allowed: subs OK Medic ationGen ericName : Claritin Not Available Not Available Not Available meloxicam 15 mg tablet 02/09 completed Medicati on ID: [id number] D uration Value: 30 Reason: () Brand [...] mg tablet 02/09 completed Medicati on ID: [id number] D uration Value: 30 Reason: () Brand Name: amlodipi ne Send Method: E-Prescr ibed Sub s Allowed: subs OK Speci al Instruct ion: TAKE 1 TABLET BY MOUTH EVERY NIGHT Me dication GenericN naman: amlodipi ne Not Available Not Available Not Available aspirin 81 mg tablet,de layed release 2014 active Medicati on ID: [id number] Du ration Value: 30 Brand Name: aspirin Send Method: E-Prescr ibed Sub s Allowed: subs OK Speci al Instruct ion: TAKE 1 TABLET BY MOUTH ONCE A DAY Medi cationGe nericNam e: aspirin Not Available Not Available Not Available tramadol 50 mg tablet 2014 active Medicati on ID: [id number] Du ration Value: 15 Brand Name: tramadol [...] mg capsule 2015 active Medicati on ID: [id number] B rand Name: lutein S end Method: [...] elayed release 2014 active Medicati on ID: [id number] Du ration Value: 30 Brand Name: omeprazo le Send Method: E-Prescr ibed Sub s Allowed: subs OK Speci al Instruct ion: TAKE 1 CAPSULE BY MOUTH TWICE A DAY Medi cationGe nericNam e: omeprazo le Not Available Not Available Not Available Tylenol 325 mg tablet 2014 active Medicati on ID: [id number] B rand Name: Tylenol Send Method: E-Prescr ibed Sub s Allowed: subs OK Medic ationGen ericName : Tylenol Not Available Not Available Not Available zinc 50 mg tablet 2015 active Medicati on ID: [id number] B rand Name: zinc Sen d Method: [...] nasal spray 2014 active Medicati on ID: [id number] D uration Value: 30 Brand Name: ipratrop ium bromide Send Method: E-Prescr ibed Sub s Allowed: subs OK Speci al Instruct ion: INHALE 2 SPRAY INTO BOTH NOSTRILS THREE TIMES A DAY DIRECTED Medicat ionGener icName: ipratrop ium bromide Not Available Not Available Not Available Co Q-10 10 mg capsule 02/09 completed Medicati on ID: [id number] R poonam: () Brand Name: Co Q-10 Sen d Method: E-Prescr ibed Sub s Allowed: subs OK Medic ationGen ericName : Co Q-10 Not Available Not Available Not Available nabumeton e 500 mg tablet TAKE 2 TABLETS BY MOUTH TWICE A DAY active Not Available Not Available No t Available lutein 15 mg-zeaxan thin extract 0.7 mg capsule 2015 active Medicati on ID: [id number] B rand Name: lutein-z eaxanthi n Send Method: E-Prescr ibed Sub s Allowed: subs OK Medic ation ericName : lutein-z eaxanthi n Not Available Not Available Not Available valsartan 160 mg tablet 04/15 completed Medicati on ID: [id number] Du ration Value: 30 Reason: () Brand Name: valsarta n Send Method: E-Prescr ibed Sub s Allowed: subs OK Speci al Instruct ion: TAKE 1 TABLET BY MOUTH EVERY EVENING Medicati onGeneri cName: valsarta n Not Available Not Available Not Available Vitamin C 500 mg capsule,e xtended release 2015 active Medicati on ID: [id number] B rand Name: Vitamin C Send Method: E-Prescr ibed Sub s Allowed: subs OK Medic ationGen ericName : Vitamin C Not Available Not Available Not Available Vitamin D3 25 mcg (1,000 unit) capsule 2015 active Medicati on ID: [id number] B rand Name: Vitamin D3 Send Method: [...] mg tablet 2014 [place] Medicati on ID: [id number] Du ration Value: 30 Brand Name: Crestor Send Method: E-Prescr ibed Sub s Allowed: subs OK Speci al Instruct ion: TAKE 1 TABLET BY MOUTH ONCE A DAY Medi cationGe nericNam e: Crestor Not Available Not Available Not Available ProAir HFA 90 mcg/actua tion aerosol inhaler 02/11 completed Medicati on ID: [id number] R poonam: () Brand Name: ProAir HFA Send Method: E-Prescr ibed Sub s Allowed: subs OK Medic ationGen ericName : ProAir HFA Not Available Not Available Not Available Calcium 500 mg + D (D3) 3.125 mcg (125 unit) tablet 05/05 completed Medicati on ID: [id number] R poonam: () Brand Name: Calcium 500 + D (D3) Sen d Method: E-Prescr ibed Sub s Allowed: subs OK Medic ationGen ericName : Calcium 500 + D (D3) Not Available Not Available Not Available copper gluconate 2 mg capsule 2015 active Medicati on ID: [id number] B rand Name: copper gluconat e Send Method: E-Prescr ibed Sub s Allowed: subs OK Medic ationGen ericName : copper gluconat e Not Available Not Available Not Available Prevnar 13 (PF) 0.5 mL intramusc ular syringe 11/11 completed Medicati on ID: [id number] Du ration Value: 30 Reason: () Brand Name: Prevnar 13 (PF) Sen d Method: E-Prescr ibed Sub s Allowed: subs OK Speci al Instruct ion: TO BE ADMINIST ERED BY PHARMACI ST FOR IMMUNIZA TION Med icationG enericNa me: Prevnar 13 (PF) Not Available Not Available Not Available Probiotic and Acidophil us 300 million cell-250 mg capsule 2014 active Medicati on ID: [id number] B rand Name: Probioti c & Acidophi raphael Send Method: E-Prescr ibed Sub s Allowed: subs OK Medic ationGen ericName : Probioti c & Acidophi raphael Not Available Not Available Not Available EpiPen 2-Navneet 0.3 mg/0.3 mL injection , auto-inje ctor 1 pen injector intramus cularly 2015 active Medicati on ID: [id number] D uration Value: 180 Prescri bed By Name: Otf Ortiz nd Name: EpiPen 2-Navneet Se nd Method: E-Prescr ibed Sub s Allowed: subs OK Medic ationGen ericName : EpiPen 2-Navneet Not Available Not Available Not Available PreserVis ion AREDS-2 250 mg-90 mg-40 mg-1 mg capsule 2014 active Medicati on ID: 448394 B rand Name: PreserVi sukhwinder AREDS 2 Send Method: E-Prescr ibed Sub s Allowed: subs OK Medic ationGen ericName : PreserVi sukhwinder AREDS 2 Not Available Not Available Not Available turmeric 2015 active Medicati on ID: 585145 B rand Name: turmeric Send Method: E-Prescr ibed Sub s Allowed: subs OK Medic ationGen ericName : turmeric Not Available Not Available Not Available glucosami ne sulf dipotassi um Cl 750 mg-chondr oitin sulf 600 mg tablet 02/09 completed Medicati on ID: [id number] R poonam: () Brand Name: glucosam ine-phil droitn sulf.Na Send Method: E-Prescr ibed Sub s Allowed: subs OK Medic ationGen ericName : glucosam ine-phil droitn sulf.Na Not Available Not Available Not Available Vitals Date Recorded Body height Body mass index (BMI) Body weight Provider Name and Address Organization Details Last Updated DateTime 01/30/2024 149.86 cm 39.4 kg/m2 21876.51 g Jose Nelson [place] [facility] 01/30/2024 11:12:04 Date Recorded Body height Body mass index (BMI) Body weight Provider Name and Address Organization Details Last Updated DateTime 03/06/2024 149.86 cm 39.4 kg/m2 61953.51 g Jose Nelson [facility] 03/06/2024 10:40:47 Social History None recorded. Functional Status None recorded. Mental Status None recorded. Family History Nothing Reported. Medical History Condition Response Arthritis Y Hypertension Y Gynecological HistoryNo gynecological history recorded. Obstetrics History GPAL:G 0 P 0 0 0 0 Past Encounters Encounter ID Performer Location Encounter Start Date Encounter Closed Date Diagnosis/Indication Diagnosis SNOMED-CT Code Diagnosis ICD10 Code Diagnosis Note [id number] WILIAM LUX MD [facility] [address] [address] 01/30/2024 10:48:55 01/30/2024 11:40:42 Sialolithiasis 56727151 K11.5 see below Chronic sialadenitis 235 598425 K11.23 She has chronic left submandibu lar [...] exclude neoplastic pathology with f/u thereafter . [id number] WILIAM LUX MD [facility] on [address] [place] [address] 03/06/2024 10:14:58 03/06/2024 11:31:46 Chronic sialadenitis 024799677 K11.23 She has chronic left submandibu lar [...] gland removal. Will reassess at f/u. Sialolithiasis 08542482 K11.5 see below Health Concerns Section Related Observation LastModified by Organization Detai ls LastModified Time None Recorded Concern Status LastModified by Organization Details LastModified Time None Recorded Advance Directives Directive None Recorded Payers Encounter Date Sequence Insurance Name Policy Number Policy Escobar Covered Member ID Escobar Member ID Guarantor Name 01/30/2024 1 MEDICARE B-[place]: [employer] Palak E Sam [id number] Palak E Sam 01/30/2024 2 [facility] [id number] Palak E E Sam [id number] Palak E Sam 03/06/2024 1 MEDICARE B-[place]: [employer]ATIONAL [employer] Palak E Sam [id number] Palak E Sam 03/06/2024 2 [facility] [id number] Palak E E Sam [id number] Palak Donis Sam Notes Date Note Type [...] with TFTs was recommended. WILIAM LUX MD [address] [place] [address], [address], [place] [facility] 01/30/2024 11:47:19 03/06/2024 text/html Hx of recurrent [...] plenty of water. WILIAM LUX MD 100 [facility],[address], [address], [place] [facility] 03/06/2024 11:30:27 OBGyn Episode No OBEpisode recorded.
--- OUTSIDE RECORDS SUMMARY | 2024-09-11 07:41 | XMS_ITS ---
Author Organization [facility] Address [address] [place] [address] Care Team Providers Care Cable Installer Repairer Helper Name Role Phone Rudy ALEGRIA, Erik Primary Care Provider UnavailErik Morgan Unavailable [phone] Results Component Value Reference Range Notes Calprotectin, Fecal Reviewed date:10/23/2023 01:27:54 AM Interpretation: Performing Lab:[facility], [address] [place] [address] Notes/Report: Calprotectin, Fecal 134 Reference Range: <50 [...] borderline values. THIS TEST WAS PERFORMED AT: [employer] [facility] [address] [place] [address] YOLANDA LANGLEY MD,PHD,[facility] GI PANEL Reviewed date:10/15/2023 11:47:37 AM Interpretation: Performing Lab:[address] [address] Notes/Report: Campylobacter Not Detected Not Detect. Plesiomonas [...] is performed by Multiplexed PCR, utilizing the Happy [employer] Array. REASON FOR VISIT diarrhea/ patient called back Medications Medication SIG (Take, Route, Frequency, Duration) Notes Start Date End Date Status Cholestyramine 4 GM/DOSE 1/2 to 1 scoop in a glass of water or orange juice orally Once or twice a day for diarrhea for 30 day(s) 10/12/2023 Activ e Problems Problem Type SNOMED Code ICD Code Onset Dates Problem Status W/U Status Risk Notes Problem Diarrhea (04552403) Diarrhea (R19.7) Active confirmed Encounters Encounter Location Date Provider Diagnosis [facility] [address] [facility] [address] [place] [address] 10/10/2023 Erik Avery Diarrhea R19.7 Assessments Encounter Date Diagnosis (ICD Code) Assessment Notes Treatment Notes Treatment Clinical Notes Section Notes 10/10/2023 Diarrhea (ICD-10 - R19.7) Plan Of Treatment Medication Medication Name Sig [...] WBC 10/10/2023 C DIFFICILE RFLX PCR 10/10/2023 Progress Notes * ORA JACKSON EDOB: [birth year] (78 yo F)Acc No.[id number]:10/10/2023 Patient:?ORA JACKSON E :1945???Age:78 Y???Sex:Female Address:[address] [place] [address], [place] [address] * Refills? Start Cholestyramine Powder, 4 GM/DOSE, orally, 1, 1/2 to 1 scoop in a glass of water or orange juice, Once or twice a day for diarrhea, 30 day(s), Refills=6 Subjective: * Chief Complaints: * ???Diarrhea/ patient called back * Medical History:? * Surgical History:? * Hospitalization/Major Diagno stic Procedure:? * Medications:? Objective: Assessment: * Assessment: 1.?Diarrhea - R19.7 (Primary )? Plan: * Treatment: 2.?Others? Start Cholestyramine Powder, 4 GM/DOSE, 1/2 to 1 scoop in a glass of water or orange juice, orally, Once or twice a day for diarrhea, 30 day(s), 1, Refills 6.?? * Procedure Codes:? * true * Date:? Generated for Gely mcfadden/[place]/eTduncansmitting on:?09/11/2024 07:41 AM EDT
--- OUTSIDE RECORDS SUMMARY | 2024-09-11 07:41 | XMS_ITS ---
Author Organization Erik Grant III, MD Address [address] [facility] [place] [address] Care Team Providers Care Infant Room Teacher Name Role Phone Erik Grant Primary Care [...] Date Provider Diagnosis Erik Grant III, MD [address] [place] [address] [place] [address] 03/27/2024 Erik Grant Plan Of Treatment Medication Medication Name Sig Start Date Stop Date Notes PARoxetine HCl 10 MG 1 tablet in the mor jimbo Orally Once a day for 30 days 03/27/2024 Next Appt Details Provider Name:Erik Grant, 09/16/2024 11:15:00 AM, [address] [place] [address] [place], [address], Provider Name:Erik Grant, 05/21/2025 02:30:00 PM, [address] [place] [address] [place], [address], Progress Notes * Palak VARGAS EDOB: [birth year] (78 yo F)Acc No.[id number]:03/27/2024 Patient:?Palak VARGAS Donis :1945???Age:78 Y???Sex:Female Address: [address], [place], [address] * Refills? Start PARoxetine HCl Tablet, 10 MG, Orally, 30, 1 tablet in the morning, Once a day, 30 days, Refills=6 * true * Date:? Generated for Gely mcfadden/[place]/Yakelin on:?09/11/2024 07:40 AM EDT
--- OUTSIDE RECORDS SUMMARY | 2024-09-11 07:41 | XMS_ITS | Encounter Summary ---
Author Organization [facility] Address [address] [address] Phone Care Team Providers Care Grievance Manager Name Role Phone Leila Nicole MD Primary Care Provider [phone] Encounter Details Date Type Department Care Team (Late Contact Info) Description 03/25/2024 Office Communication [facility] [address] [address] Sonya Michel [address] [place] [phone] Social History Tobacco Use Types Packs/Day Years [...] in the morning. Pls call her at [phone]. documented in this encounter Plan of Treatment Upcoming Encounters Date Type Department Care Team (Late Contact Info) Description 02/06/2025 2:00 PM EDT Office Visit [facility] [address] [place] [phone] Aftab Louis MD [address] [facility] [address] [place] [address] documented as of this encounter Visit Diagnoses Not on filedocumented in this encounter Care Teams Grievance Manager Relationship Specialty Start Date End Date Leila Nicole MD [address] [place] [address] PCP - General 06/15/20 documented as of this encounter
--- OUTSIDE RECORDS SUMMARY | 2024-09-11 07:41 | XMS_ITS ---
Author Organization Erik Grant III, MD Address [address] [place] [address] Care Team Providers Care Editor Name Role Phone Erik Grant Primary Care Provider REASON FOR VISIT Message Social History Sex Assigned At : Social History Observation Description Sex Assigned At Female Encounters Encounter Location Date Provider Diagnosis Erik Grant III, MD [address] [place] [address] [place] [address] 03/07/2024 Erik Grant Plan Of Treatment Next Appt Details Provider Name:Erik Grant, 09/16/2024 11:15:00 AM, [address] [place] [address] [place], [address], Provider Name:Erik Grant, 05/21/2025 02:30:00 PM, [address] [place] [address] [place], [address], Progress Notes * SAM Palak EDOB: [birth year] (78 yo F)Acc No.[id number]:03/07/2024 Patient:?Palak VARGAS :1945???Age:78 Y???Sex:Female Address:[place], [address] * true * Date:? Generated for Printi ng/Faxing/eTransmitting on:?09/11/2024 07:41 AM EDT
--- OUTSIDE RECORDS SUMMARY | 2024-09-11 07:41 | XMS_ITS | Patient Health Record ---
Author Organization Erik Grant III, MD Address [address] [place] [address] Care Team Providers Care [employer] Custodian Name Role Phone Erik Grant Primary Care Provider [phone] Allergies Allergen (clinical drug ingredient) Drug/Non Drug Allergy documented on EMR Reaction Allergy Type Onset Date Status succinylcholine Succinylcholine Unknown Drug Allergy Active dibucaine Dibucaine Unknown Drug Allergy Active Adhesive Unknown Allergy Active Results Component Value Reference Range Notes Complete Blood Count Auto Di ff Reviewed date:10/29/2023 06:54:19 AM Interpretation: Performing Lab:[facility], [address] [place] [phone] Notes/Report: White Blood Count 6.1 4.8-10.8 X10*3/uL [...] te Reviewed date:10/29/2023 06:54:19 AM Interpretation: Performing Lab:[address] [address] Notes/Report: Erythrocyte Sedimentation Rate 37 0-20 MM/HR Patients with polycythemia and many hemoglobin abnormalities may have depressed sed rates whereas patients with anemia may have elevated sed rates. Liver Panel Reviewed date:10/29/2023 06:54:19 AM Interpretation: Performing Lab:[address] [address] Notes/Report: Bilirubin Total 0.2 0.0-1.0 mg/dL Bilirubin Direct < 0.2 0.0-0.5 mg/dL Aspartate Amino Transferase 16 5-31 U/L Alanine Aminotransferase 16 0-31 U/L Total Protein 7.1 6.5-8.0 g/dL Albumin Level 3.7 3.5-5.0 g/dL Alkaline Phosphatase 77 39-117 U/L Electrolytes Reviewed date:10/29/2023 06:54:19 AM Interpretation: Performing Lab:[address] [address] Notes/Report: Sodium 139 135-145 mmol/L Potassium 4.0 3.3-5.1 mmol/L Chloride 107 96-108 mmol/L Carbon Dioxide 22 22-29 mmol/L Anion Gap 14 12-20 Blood Urea Nitrogen Reviewed date:10/29/2023 06:54:19 AM Interpretation: Performing Lab:[address] [address] Notes/Report: Blood Urea Nitrogen 14 9-16 mg/dL Creatinine Reviewed date:10/29/2023 06:54:19 AM Interpretation: Performing Lab:[facility], [address] [place] [phone] Notes/Report: Creatinine 0.73 0.5-1.4 mg/dL Estimated Glomerular Filt Rate > 60 NOTE: For -[place] individuals, multiply the result by 1.210. Chronic Kidney Disease: Estimated GFR < 60 mL/min/1.73m2 Severe Kidney Disease: Estimated GFR < 15 mL/min/1.73m2 Glucose Random Reviewed date:10/29/2023 06:54:19 AM Interpretation: Performing Lab:[facility], [address] [place] [phone] Notes/Report: Glucose Random 120 60-115 mg/dL C Reactive Protein Reviewed date:10/29/2023 06:54:19 AM Interpretation: Performing Lab:[facility], [address] [place] [phone] Notes/Report: C Reactive Protein 2.98 < or = 0.50 mg/dL Leukocytes Stool Qualitative Reviewed date:10/29/2023 06:54:19 AM Interpretation: Performing Lab:[facility], [address] [place] [phone] Notes/Report: Leukocytes Stool Qualitative NEGATIVE NEGATIVE Calprotectin, Fecal Reviewed date:10/29/2023 06:54:19 AM Interpretation: Performing Lab:[address] [address] Notes/Report: Calprotectin, Fecal 134 Reference Range: <50 [...] borderline values. THIS TEST WAS PERFORMED AT: [employer] [address] [place] [address] YOLANDA LANGLEY MD,PHD,JUANITO CDiff Gene PCR Reviewed date:10/29/2023 06:54:19 AM Interpretation: Performing Lab:[facility], [address] [place] [phone] Notes/Report: CDiff Gene PCR NEGATIVE Negative If C. difficile strongly suspected despite one negative test, a second test may be sent vs. empiric treatment for C. difficile infection. GI Panel Reviewed date:10/29/2023 06:54:19 AM Interpretation: Performing Lab:[facility], [address] [place] [phone] Notes/Report: Campylobacter Not Detected Not Detect. Plesiomonas [...] is performed by Multiplexed PCR, utilizing the DATY Array. Complete Blood Count Auto Di ff Reviewed date:01/11/2024 02:26:22 PM Interpretation: Performing Lab:[facility], [address] [place] [phone] Notes/Report: White Blood Count 7.2 4.8-10.8 X10*3/uL [...] Panel Reviewed date:01/11/2024 02:26:22 PM Interpretation: Performing Lab:[facility], [address] [place] [phone] Notes/Report: Sodium 140 135-145 mmol/L Potassium 3.8 3.3-5.1 mmol/L Chloride 106 96-108 mmol/L Carbon Dioxide 26 22-29 mmol/L Anion Gap 12 12-20 Blood Urea Nitrogen 16 9-16 mg/dL Creatinine 0.76 0.5-1.4 mg/dL Estimated Glomerular Filt Rate > 60 NOTE: For -[place] individuals, multiply the result by 1.210. Chronic [...] date:01/11/2024 02:26:22 PM Interpretation: Performing Lab: Notes/Report: [address] [address] [address] Scan Report Signed Patient: Palak Vargas MR#: [id number] 00 : 1945 Acct:[id number] Age/Sex: 78 / F ADM Date: 01/10/24 Loc: HO.CT Attending Dr: Erik Grant MD Ordering Physician: Erik Grant MD Date of Service: 01/10/24 Procedure(s): CT soft tissue neck wo IV con Accession Number(s): [id number] cc: Erik Grant MD EXAMINATION: CT SOFT [...] within the proximal aspect of the left Lafayette's duct, each measuring 3 mm, suspicious for [...] in OV> 01/10/24 1742 DD/ 1617 TD/TT: Machine Spreader: [address] [address] [address] Scan Report Signed Patient: Gigi Vargas MR#: [id number] 00 : 1945 Acct:[id number] Age/Sex: 78 / F ADM Date: 01/10/24 Loc: HO.CT Attending Dr: Erik Grant MD Ordering Physician: Erik Grant MD Date of Service: 01/10/24 Procedure(s): CT sof t tissue neck wo IV con Accession Number(s): [id number] cc: Erik Grant MD EXAMINATION: CT SOFT [...] within the proximal aspect of the left Lafayette's duct, each measuring 3 mm, suspicious for [...] in OV> 01/10/24 1742 DD/ 1617 TD/TT: Machine Spreader: Complete Blood Count Auto Di ff Reviewed date:02/01/2024 12:28:30 PM Interpretation: Performing Lab:[facility], [address] [place] [phone] Notes/Report: White Blood Count 5.5 4.8-10.8 X10*3/uL [...] NRBC Abs Auto 0.000 0.0-0.012 X10*3/uL Comprehensive [place]. Panel Fa st Reviewed date:02/01/2024 12:28:30 PM Interpretation: Performing Lab:[facility], [address] [place] [phone] Notes/Report: Sodium 139 135-145 mmol/L Potassium 4.0 3.3-5.1 mmol/L Chloride 107 96-108 mmol/L Carbon Dioxide 23 22-29 mmol/L Anion Gap 13 12-20 Blood Urea Nitrogen 15 9-16 mg/dL Creatinine 0.81 0.5-1.4 mg/dL Estimated Glomerular Filt Rate > 60 NOTE: For -[place] individuals, multiply the result by 1.210. Chronic [...] Panel Reviewed date:02/01/2024 12:28:30 PM Interpretation: Performing Lab:[address] [address] Notes/Report: Triglycerides 128 <150 mg/dL Desirable Triglyceride: [...] Thyroxine) Reviewed date:02/01/2024 12:28:30 PM Interpretation: Performing Lab:[address] [address] Notes/Report: Free T4 (Free Thyroxine) 1.17 0.71-1.85 ng/dL TSH reflex Free T4 Reviewed date:02/01/2024 12:28:30 PM Interpretation: Performing Lab:[facility], [address], [place] [address] Notes/Report: TSH reflex Free T4 0.79 0.32-4.0 uIU/mL MM tomosynthesis screening B I Reviewed date:03/18/2024 07:34:20 AM Interpretation: Performing Lab: Notes/Report: [facility]'s [address] [place] [address] Mammography Report Signed Patient: Palak Vargas MR#: [id number] 00 : 1945 Acct:[id number] Age/Sex: 78 / F ADM Date: 03/05/24 Loc: HO.MAMMO Attending Dr: Sylvester Helm MD Ordering Physician: Sylvester Helm MD Results: 2Ben ign Findings Date of Service: 03/05/24 Follow Up: 1 Year From [facility] ina Mammogram Procedure(s): MM tomosynthesis screening BI Accession Number(s): [id number] cc: Erik Grant MD; Sylvester Helm MD [...] 03/12/24 1748 DD/ 1015 TD/TT: 03/05/24 1031 Machine Spreader: [address] [place] [address] Mammography Report Signed Patient: Gigi Vargas MR#: [id number] 00 : 1945 Acct:[id number] Age/Sex: 78 / F ADM Date: 03/05/24 Loc: HO.MAMMO Attending Dr: Lizette eHlm MD Ordering Physician: Sylvester Helm MD Results: 2Ben ign Findings Date of Service: 03/05/24 Follow Up: 1 Year From Orig ina Mammogram Procedure(s): MM tomosynthesis screening BI Accession Number(s): [id number] cc: Erik Grant MD; Sylvester Helm MD [...] 03/12/24 1748 DD/ 1015 TD/TT: 03/05/24 1031 Machine Spreader: Complete Blood Count Auto Di ff Reviewed date:05/17/2024 08:37:13 AM Interpretation: Performing Lab:[facility], [address] [place] [phone] Notes/Report: White Blood Count 6.3 4.8-10.8 X10*3/uL [...] NRBC Abs Auto 0.000 0.0-0.012 X10*3/uL Comprehensive [place]. Panel Fa st Reviewed date:05/17/2024 08:37:13 AM Interpretation: Performing Lab:[facility], [address] [place] [phone] Notes/Report: Sodium 139 135-145 mmol/L Potassium 3.8 [...] Alkaline Phosphatase 85 39-117 U/L Lipid Panel Reviewed date:05/17/2024 08:37:13 AM Interpretation: Performing Lab:[facility], [address] [place] [phone] Notes/Report: Triglycerides 137 <150 mg/dL Desirable Triglyceride: [...] with liver disease. Reason For Referral Reason 4 cm hard fixed mass left neck with throat pain non smoker evaluate and treat Diagnosis 1 Hypertension (I10) Diagnosis 2 Neck mass (R22.1) Referral Organization Erik Grant III, MD Referring Provider First Name Erik Referring Provider Last Name Rudy Referring Provider Speciality Internal M edicine Referred Provider [facility], [facility] Referred Provider Specialty Otolaryngolo gy General Notes Cassandra Rankin 2023 10:37:40 AM EDT > Patient is scheduled to see Dr. Loza on 01/30/2024 @ 11am. patient was called and left a message regarding appointment. Referral Priority Routine Referral Appointment Date 01/30/2024 Medications Medication SIG (Take, Route, Frequency, Duration) Notes Start Date End Date Status Calcium Active PreserVision AREDS 2 - as directed Orally Active Melatonin Active Nabumetone 1000 MG 1 tablet Orally Twice a day Active Claritin 10 MG 1 tablet Orally Once a day Active Rosuvastatin Calcium 5 MG TAKE 1 TABLET BY MOUTH EVERY DAY FOR 90 DAYS Active Aspirin 81 81 MG 1 tablet Orally Once a day Active Pramipexole Dihydrochloride 0.25 MG TAKE 2 (0.5MG) TO 3 TABS (0.75 MG) DAILY Orally Active Flax Seed Oil Active Amoxicillin 500 MG 4 capsules 1 hour before dental or surgical procedures Orally Once Dental procedures Active Fiber Active Voltaren 1 % as directed Externally Active Imodium A-D Active hydroCHLOROthiazide 25 MG 1 tablet in th e morning Orally Once a day Active Ibuprofen Active Famotidine 40 MG 1 tablet as needed Orally Twice a day Active PARoxetine HCl 10 MG 1 tablet in the morning Orally Once a day 03/27/2024 Active Tums 500 MG 1 tablet Orally Once a day Active Multivitamin Active Fluticasone Propionate 50 MCG/ACT Nasal Active Furosemide 20 MG 1 tablet Orally Once a day Active Gas Relief 180 MG 1 capsule after meals and at bedtime as needed Orally Twice a day Active Esomeprazole Magnesium 40 MG 1 capsule Orally Twice a day Active Probiotic 250 MG as directed Orally Active Immunizations Vaccine Route Administration Date Status [...] nonsmoker Additional Findings: Tobacco Non-User Aggressive non-smoker Alcohol Screen Question Answer Notes Did you have a drink containing alcohol in the p ast year? No Points 0 Interpretation Negative Problems Problem Type SNOMED Code ICD Code Onset Dates Problem Status W/U Status Risk Notes Problem Hypertension (57855210) Hypertension (I10) Active confirmed Her blood pressure is stable and no change in her regimen was needed. Problem Gastroesophageal reflux disease (918149052) GERD (gastroesophage al reflux disease) (K21.9) Active confirmed Her reflux symptoms are well controlled with xuff-ifr-meyfrza medication. Problem 893120655 Mixed hyperlipidemia (E78.2) Active confirmed Her cholesterol is slightly above 200. She is essentially at target. No change in her regimen was necessary today. Problem 74978318 Age-related osteoporosis without current pathological fracture (M81.0) Active confirmed She was continued on current medications. Her bone densities will be reviewed and another one ordered if necessary. 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 Problem [id number] Unspecified benign mammary dysplasia of left breast (N60.92) Active confirmed No breast cancer. Has ever been detected. Problem 701493145 Obesity (BMI 30-39.9) (E66.9) Active confirmed Her body mass index is 37. We discussed her diet and nutrition. We reviewed her weight loss strategy. We made a plan to lose weight at a rate of one half of a pound per week through diet restricted in fat calories and sodium. Problem 05288556 Chronic fatigue (R53.82) Active confirmed He says that sh sarina feels tired all of the time but denies daytime somnolence. Problem 34041915 Obstructive sleep apnea (G47.33) Active confirmed She was continued on her CPAP. No change in her regimen was needed. Problem 10614362 Hiatal hernia (K44.9) Active confirmed Her reflux symptoms are well controlled. Problem Osteoarthritis (091704319) Osteoarthritis (M19.90) Active confirmed She has mild arthritic pain in her fingers but her main complaint is pain in the right knee on the tibial plateau. Problem 190529613 TIA (transient ischemic attack) (G45.9) Active confirmed She has had no neurological symptoms recently. She was continue current therapy. Problem 32652970 Restless leg syndrome (G25.81) Active confirmed This is been a minor problem lately and does not require changing her regimen. Problem 435181754 History of DVT (deep vein thrombosis) (Z86.718) Active confirmed She is no longe r anticoagulated. She has had no further blood clots. Old records will be requested. Problem Goiter (8553368) Enlarged thyroid (E01.0) Active confirmed This is a CT finding and will be pursued. Problem 620618198 Sensorineural hearing loss (SNHL) of both ears (H90.3) Active confirmed Communication was possible and she has working hearing aids. 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 Problem 238903200 Primary osteoarthritis involving multiple joints (M15.9) Active confirmed She has had multiple surgical procedures and a right knee arthroplasty. She is able to conduct all of the activities of daily life. 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 Problem 718637572 Mass of left side of neck (R22.1) Active confirmed On the CT scan done recently this appears to be obstructed salivary gland or sialadenitis. Opinion from ENT will be obtained. Vital Signs Heart Rate 78 /min 05/17/2024 Temperature 97.0 degrees Fahrenheit 05/17/2024 Blood pressure diastolic 82 mm Hg 05/17/2024 Height 60 in 05/17/2024 Blood pressure systolic 138 mm Hg 05/17/2024 Weight 194 lbs 05/17/2024 BMI 37.88 kg/m2 05/17/2024 Encounters Encounter Location Date Provider Diagnosis Erik Grant III, MD [address] [place] [address] [place] [address] 09/19/2023 Erik Grant Hypertension I10 ; O [...] leg syndrome G25.81 Erik Grant III, MD [address] [place] [address] [place] [address] 12/29/2023 Erik Grant Hypertension I10 ; A cute adenitis L04.9 ; 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 ; GERD (gastroesophageal reflux disease) K21.9 ; Primary osteoarthritis involving multiple joints M15.9 and Obesity (BMI 30-39.9) E66.9 Erik Grant III, MD [address] [place] [address] [place] [address] 01/09/2024 Erik Grant Hypertension I10 ; N charlie mass R22.1 ; 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 ; GERD (gastroesophageal reflux disease) K21.9 ; Obesity (BMI 30-39.9) E66.9 and Primary osteoarthritis involving multiple joints M15.9 Erik Grant III, MD [address] [place] [address] [place] [address] 01/19/2024 Erik Grant Hypertension I10 ; M ass of left side of neck R22.1 ; Obesity (BMI 30-39.9) E66.9 ; Enlarged thyroid E01.0 ; 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 ; GERD (gastroesophageal reflux disease) K21.9 ; Sensorineural hearing loss (SNHL) of both ears H90.3 ; Mixed hyperlipidemia E78.2 and Obstructive sleep apnea G47.33 Erik Grant III, MD [address] [place] [address] [place] [address] 02/22/2024 Erik Grant Hypertension I10 ; O besity (BMI 30-39.9) E66.9 ; Mixed hyperlipidemia E78.2 ; Chronic fatigue R53.82 ; GERD (gastroesophageal reflux disease) K21.9 and Primary osteoarthritis involving multiple joints M15.9 Erik Grant III, MD [address] [place] [address] [place] [address] 05/17/2024 Erik Grant Hypertension I10 ; O [...] sleep apnea G47.33 and Hiatal hernia K44.9 Erik Grant III, MD [address] [place] [address] [place] [address] 01/04/2024 Erik Grant III, MD [address] [place] [address] [place] [address] 03/05/2024 Erik Grant III, MD [address] [place] [address] [place] [address] 03/07/2024 Erik Grant III, MD [address] [place] [address] [place] [address] 03/27/2024 Erik Grant Assessments Encounter Date Diagnosis (ICD Code) Assessment Notes T reatment Notes Treatment Clinical Notes 09/19/2023 Hypertension (ICD-10 - I10) Her blood [...] one half of a pound per week. 05/17/2024 Hypertension (ICD-10 - I10) Her blood [...] diet restricted in fat calories and sodium. 09/19/2023 Mixed hyperlipidemia (ICD-10 - E78.2) Her [...] pursue aggressive weight loss and sodium restriction. 05/17/2024 Mixed hyperlipidemia (ICD-10 - E78.2) Her cholesterol is slightly above 200. She is essentially at target. No change in her regimen was necessary today. 09/19/2023 Primary osteoarthrit is involving multiple joints (ICD-10 - M15.9) She has had multiple surgical procedures and a right knee arthroplasty. She is able to conduct all of the activities of daily life. 12/29/2023 GERD (gastroesophage al reflux disease) (ICD-10 - K21.9) Her reflux symptoms are well controlled with hvsm-nrk-ueujhkx medication. 01/09/2024 GERD (gastroesophage al reflux disease) (ICD-10 - K21.9) Her reflux symptoms are well controlled with eznt-lzx-mnnmtib medication. 01/19/2024 Enlarged thyroid (IC D-10 - E01.0) This is a CT finding and will be pursued. 02/22/2024 Chronic fatigue (ICD -10 - R53.82) He says that she feels tired all of the time but denies daytime somnolence. 05/17/2024 GERD (gastroesophage al reflux disease) (ICD-10 - K21.9) Her reflux symptoms are well controlled with knkr-rnj-gdnxmeb medication. 09/19/2023 GERD (gastroesophage al reflux disease) (ICD-10 - K21.9) Her reflux symptoms are well controlled with pmbb-rgu-zwyicom medication. 12/29/2023 Primary osteoarthrit is involving multiple [...] Her reflux symptoms are well controlled with iaxo-xgv-jjiiqwl medication. 05/17/2024 Primary osteoarthrit is involving multiple joints (ICD-10 - M15.9) She has had multiple surgical procedures and a right knee arthroplasty. She is able to conduct all of the activities of daily life. 09/19/2023 Sensorineural hearin g loss (SNHL) of [...] Her reflux symptoms are well controlled with efdq-gra-rtlmuvl medication. 02/22/2024 Primary osteoarthrit is involving multiple joints (ICD-10 - M15.9) She has had multiple surgical procedures and a right knee arthroplasty. She is able to conduct all of the activities of daily life. 05/17/2024 Restless leg syndrom e (ICD-10 - G25.81) This is been a minor problem lately and does not require changing her regimen. 09/19/2023 Age-related osteopor osis without current pathological fracture (ICD-10 - M81.0) She was continued on current medications. Her bone densities will be reviewed and another one ordered if necessary. 01/19/2024 Sensorineural hearin g loss (SNHL) of both ears (ICD-10 - H90.3) Communication was possible and she has working hearing aids. 05/17/2024 Pseudocholinesterase deficiency (ICD-10 - E88.09) She has not recently been exposed to any anesthetics. 09/19/2023 Hiatal hernia (ICD-1 0 - K44.9) Her reflux symptoms are well controlled. 01/19/2024 Mixed hyperlipidemia (ICD-10 - E78.2) Her triglycerides are 114 and her total cholesterol is 208. I recommended gradual weight loss and a sensible Mediterranean diet. 05/17/2024 Sensorineural hearin g loss (SNHL) of both ears (ICD-10 - H90.3) Communication was possible and she has working hearing aids. 09/19/2023 History of DVT (deep vein thrombosis) (ICD-10 - Z86.718) She is no longer anticoagulated. She has had no further blood clots. Old records will be requested. 01/19/2024 Obstructive sleep ap lucien (ICD-10 - G47.33) She was continued on her CPAP. No change in her regimen was needed. 05/17/2024 Unspecified benign mammary dysplasia of left breast (ICD-10 - N60.92) No breast cancer. Has ever been detected. 09/19/2023 Restless leg syndrom e (ICD-10 - G25.81) This is been a minor problem lately and does not require changing her regimen. 05/17/2024 History of DVT (deep vein thrombosis) [...] eyes (ICD-10 - H35.3132) She sees her high school teacher regularly. 05/17/2024 Obstructive sleep ap lucien (ICD-10 - G47.33) She was continued on her CPAP. No change in her regimen was needed. 05/17/2024 Hiatal hernia (ICD-1 0 - K44.9) Her reflux symptoms are well controlled. Plan Of Treatment Pending Test Test Name Order Date PROFILE, FASTING (COMPREHENSIVE METABOLI C) 09/19/2023 PROFILE, FASTING (COMPREHENSIVE METABOLI C) 08/04/2022 PROFILE, FASTING (COMPREHENSIVE METABOLI C) 08/26/2022 PROFILE, FASTING (COMPREHENSIVE METABOLI C) 05/17/2024 PROFILE, FASTING (COMPREHENSIVE METABOLI C) 05/01/2023 PROFILE, FASTING (COMPREHENSIVE METABOLI C) 02/22/2024 PROFILE, FASTING (COMPREHENSIVE METABOLI C) 12/26/2022 PROFILE, FASTING (COMPREHENSIVE METABOLI C) 01/19/2024 PROFILE, RANDOM (COMPREHENSIVE METABOLIC ) 03/14/2023 LIPID PANEL 12/26/2022 LIPID PANEL 08/04/2022 LIPID PANEL 08/26/2022 FREE T4 (FT4) 08/04/2022 TSH (THYROID STIMULATING HORMONE) 2023 TSH (THYROID STIMULATING HORMONE) 2023 TSH (THYROID STIMULATING HORMONE) 2022 TSH (THYROID STIMULATING HORMONE) 2022 BRAIN NATRIURETIC PEPTIDE (BNP) 03/14/20 23 CBC w DIFF 03/14/2023 CBC w DIFF 12/26/2022 CBC w DIFF 08/26/2022 CBC w DIFF 05/01/2023 CBC w DIFF 08/04/2022 VITAMIN D 25-OH TOTAL 08/04/2022 CBC WITH AUTO DIFF 02/22/2024 CBC WITH AUTO DIFF 01/19/2024 CBC WITH AUTO DIFF 09/19/2023 CBC WITH AUTO DIFF 05/17/2024 Erythrocyte Sedimentation Rate 3 Ferritin 03/14/2023 Lipid Panel 02/22/2024 Lipid Panel 01/19/2024 Lipid Panel 09/19/2023 Lipid Panel 05/01/2023 Lipid Panel 05/17/2024 Free T4 (Free Thyroxine) 01/19/2024 TSH reflex Free T4 01/19/2024 Next Appt Details Provider Name:Erik Grant, 09/16/2024 11:15:00 AM, [address] [facility] [address], [place], [address], Provider Name:Erik Grant, 05/21/2025 02:30:00 PM, [address] [facility] [address], [place], [address], Insurance Providers Payer Name Payer Address Payer Phone Subscriber Number Group Number Insured Name Patient Relationship to Insured Coverage Start Date Coverage End Date MEDICARE NGS [address] [place] [phone] [id number] Palak Vargas Self - patient is the insured [address] [place] [phone] [id number] Palak Vargas Self - patient is the [...]
--- OUTSIDE RECORDS SUMMARY | 2024-09-11 07:42 | XMS_ITS ---
Author Organization Erik Grant III, MD Address [address] [facility] [place] [address] Care Team Providers Care Research Professor Name Role Phone Erik Grant Primary Care [...] Provider Diagnosis Erik Grant III, MD [address] [place] [address] [place] [address] 05/17/2024 Erik Grant Hypertension I10 ; O [...] Her reflux symptoms are well controlled with vvkq-mtm-zjaztyy medication. 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 05/17/2024 Obstructive sleep ap lucien (ICD-10 [...] OV Provider Name:Erik Grant, 09/16/2024 11:15:00 AM, [address] [place] [address] OMID GARNER, [place], [phone], Provider Name:Erik Grant, 05/21/2025 02:30:00 PM, [address] [place] [address] OMID GARNER, [place], [phone], Progress Notes * Palak VARGAS EDOB: [birth year] (78 yo F)Acc No.[id number]:05/17/2024 Progress Notes Patient:?Palak VARGAS Provider:?Erik Grant MD :1945???Age:78 Y???Sex:Female D ate:05/17/2024 Address:[address] [place] [address], [id number] Subjective: * Chief Complaints: * ???Annual Exam [...] Tobacco Non-User?Aggressive non-smoker ???She was born in [place], [place] and lives in [place]. 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 She has been to [place] for many years. She has a son and a daughter and 4 grandchildren. She has no jainism objection to blood transfusion. 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
--- OUTSIDE RECORDS SUMMARY | 2024-09-11 07:42 | XMS_ITS ---
Author Organization [facility] Address [address] [place] [phone] Care Team Providers Care Credit Control Administrator Name Role Phone Rudy ALEGRIA, Erik Primary Care Provider Unavailab Erik Sarah Unavailable [phone] REASON FOR VISIT requesting results on labs Encounters Encounter Location Date Provider Diagnosis [facility] [address] [place] [phone] 10/19/2023 Erik Avery Plan Of Treatment No Information Progress Notes * RENETTA, ADELE EDOB: [birth year] (78 yo F)Acc No.[id number]:10/19/2023 Patient:?ORA JACKSON :1945???Age:78 Y???Sex:Female Address:[address] [facility], [place] [address] * true * Date:? Generated for Printi ng/Farodneyg/eTransmitting on:?09/11/2024 07:42 AM EDT
--- OUTSIDE RECORDS SUMMARY | 2024-09-11 07:42 | XMS_ITS | Clinical Summary ---
Author Organization [facility] Address [address] [place] [address] Phone Care Team Providers Care Advanced Practice Nurse Psychotherapist Name Role Phone Leila Nicole MD Primary Care Provider [phone] Allergies Active Allergy Reactions Criticality Noted Date [...] MOUTH ONE TIME EACH DAY 90 tablet 4 Active Active Problems Problem Noted Date Diagnosed Date Edema 02/01/2024 Clostridioides difficile infection 07/22/2021 Diarrhea 07/22/2021 Gastroesophageal reflux disease 07/22/2021 Hiatal hernia 07/22/2021 Screening for malignant neoplasm of colon 2021 Essential hypertension 06/28/2021 Immunizations Name Administration Dates Next Due Influenza, [...] Visit [facility] [address] [place] [address] Aftab Louis MD [address] [phone] Health Maintenance Due Date Last Done Comments Pneumococcal Vaccine: 65+ Years (2 of 2 - PCV) 12/26/2014 12/26/2013 Influenza Vaccine (Season Ended) 2025 03/05/2020, 03/04/2019, 02/04/2016, Additional history exists Hepatitis B Vaccine Aged Out No longe r eligible based on patient's age to complete this topic Insurance MEDICARE [facility] MEDICARE [facility] Care Teams Advanced Practice Nurse Psychotherapist Relationship Specialty Start Date End Date Leila Nicole MD [address] [place] [id number] PCP - General 06/15/20
--- OUTSIDE RECORDS SUMMARY | 2024-09-11 07:42 | XMS_ITS ---
Author Organization [facility] Address [address] [place] [phone] Care Team Providers Care Strawberry Grower Name Role Phone Erik Grant MD Primary Care Provider UnavailErik Morgan Unavailable [phone] Allergies Allergen (clinical drug ingredient) Drug/Non Drug Allergy documented on EMR Reaction Allergy Type Onset Date Status Adhesive Unknown Allergy Active dibucaine Dibucaine Unknown Drug Allergy Active REASON FOR VISIT Patient presents today for acid reflux Medications Medication SIG (Take, Route, Frequency, Duration) [...] Once a day for 30 day(s) Active Problems Problem Type SNOMED Code ICD Code Onset Dates Problem Status W/U Status Risk Notes Problem Irritable bowel syndrome with diarrhea ([id number]) Irritable bowel syndrome with diarrhea (K58.0) Active confirmed Vital Signs Temperature 97.3 degrees Fahrenheit 03/01/20 24 Blood pressure systolic 000 mm Hg 03/01/20 24 Blood pressure diastolic 00 mm Hg 024 Height 60.0 in 03/01/2024 Weight 197 lb 6 oz lbs 03/01/2024 BMI 38.54 kg/m2 03/01/2024 Encounters Encounter Location Date Provider [facility] [address] [facility] [address] [place] [phone] 03/01/2024 Erik Avery Irritable bowel synd ricardo with diarrhea K58.0 and Gastroesophageal reflux disease, esophagitis presence not specified K21.9 Assessments Encounter Date Diagnosis (ICD Code) Assessment Notes Treatment Notes Treatment Clinical Notes Section Notes 03/01/2024 Irritable bowel syndrome with diarrhea (ICD-10 - K58.0) Use 1 or 2 Imodium every morning to try to prevent diarrhea. Try decreasing your fiber pills and avoid eggs and/or lactose for a while to see if that helps with the loose stools. Overall, Ora appears very well. Her reflux seems to be under good control at the present time with the adjustment of the timing of her Nexium and Pepcid dosing. I did advise her to certainly continue his current regimen. We did review that continued attempts at watching her diet and weight would help her reflux as well. In regard to her loose bowel movements we discussed that this seems quite consistent with some mild irritable bowel syndrome given the longevity of her symptoms, her clinical history, and a good clinical appearance. Given the negative workup earlier this year, I don't think she needs any particular workup at the present time otherwise. I did recommend that she continue to adjust her diet and avoid anything she thinks bothersome such as lactose or eggs. I also recommended that she might want to decrease her supplemental fiber intake in the event that is causing some increased bowel movements. I also recommended that she take one or 2 Imodium every morning upon awakening to see if that can help prevent diarrhea in the first place. However, I did advise her to obviously decrease that if she is developing any sign of constipation. At this point, if things otherwise remain well she will see me on a p.r.n. basis. I advised her to certainly call if she has any problems or questions I can be of assistance with. Ora was comfortable with this plan. Thank you again for allowing me to have participated in Ora's care. Please do not hesitate to contact me if I can be of any further assistance in the future. 03/01/2024 Gastroesophageal reflux disease, esophagitis presence not specified (ICD-10 - K21.9) Continue the Nexium and Pepcid as you are doing for the reflux Overall, Ora appears very well. Her reflux seems to be under good control at the present time with the adjustment of the timing of her Nexium and Pepcid dosing. I did advise her to certainly continue his current regimen. We did review that continued attempts at watching her diet and weight would help her reflux as well. In regard to her loose bowel movements we discussed that this seems quite consistent with some mild irritable bowel syndrome given the longevity of her symptoms, her clinical history, and a good clinical appearance. Given the negative workup earlier this year, I don't think she needs any particular workup at the present time otherwise. I did recommend that she continue to adjust her diet and avoid anything she thinks bothersome such as lactose or eggs. I also recommended that she might want to decrease her supplemental fiber intake in the event that is causing some increased bowel movements. I also recommended that she take one or 2 Imodium every morning upon awakening to see if that can help prevent diarrhea in the first place. However, I did advise her to obviously decrease that if she is developing any sign of constipation. At this point, if things otherwise remain well she will see me on a p.r.n. basis. I advised her to certainly call if she has any problems or questions I can be of assistance with. Ora was comfortable with this plan. Thank you again for allowing me to have participated in Ora's care. Please do not hesitate to contact me if I can be of any further assistance in the future. Plan Of Treatment Treatment Notes Assessment Notes Irritable bowel syndrome [...] Follow Up: prn, Reason: Progress Notes * ORA JACKSON EDOB: [birth year] (78 yo F)Acc No.[id number]:03/01/2024 Progress Notes Patient:?ORA JACKSON Provider:?Erik Avery MD :1945???Age:78 Y???Sex:Female D ate:03/01/2024 Address:[address] [place] [address] Pcp:Erik Grant MD Subjective: * Chief Complaints: * ???Patient presents today fo r acid reflux * HPI: ???incontinence:? I saw Ora in followup today in regard to her hiatal hernia and associated chronic gastroesophageal reflux, as well as her chronic irregular bowel movements with predominantly diarrhea. ?I last saw Ora in August, at which time we reviewed her ongoing issues of reflux and her medications for that. At that time I had her switch the timing of her medications for both the Nexium and Pepcid. She is now using the Nexium at 3 AM and 3 PM and is using the Pepcid at 9 AM and 9 PM on a regular basis. She has found that strategy has helped greatly in relieving her reflux symptoms. She is no longer having any symptomatic heartburn or regurgitation. She is eating comfortably and she denies any issues with dysphagia, early satiety, nausea, nor vomiting. She denies abdominal pain, jaundice, nor unintentional weight loss ?She does describe continued issues with some loose bowel movements predominantly in the morning. This has been going on for years . She describes that she will have 2 or 3 loose stools in the morning and then be fine the remainder of the day. She does have some days in which she does not have a bowel movement at all. She denies any hematochezia nor melena. There is no family history of colon cancer, inflammatory bowel disease, nor celiac disease. ?Since I last saw her she did try the cholestyramine but could not tolerate the taste. She doesn't think it really helped anyway. She does describe having some small amounts of milk during the day in her cereal and coffee, but nothing more than that. She does not have much coffee during the day. She has recently tried eliminating her morning eggs but it is too early to tell if that is helping. She does take Imodium usually after the diarrhea starts with some relief. She also takes 2 fiber pills twice a day on a regular basis. ?After I saw her in August I did have her turn in multiple stool specimens that were all negative for any type of infection or anything to suggest inflammatory bowel disease. Laboratories for celiac disease were negative as well. Her last colonoscopy in 2019 was negative any sign of inflammatory bowel disease although biopsies were not done to rule out microscopic colitis. * ROS:?General/Constitutional:?Change in appetite?denies.?Chills?denies.?Fatigue?denies.?Ophthalmologic:?Comments?all negative.?ENT:?Comments?some cough and postnasal drip.?Respiratory:?hemoptysis?denies.?Cough?denies.?Cardiovascular:?Chest pain?denies.?Orthopnea?denies.?Gastrointestinal:?Comments?See HPI for details.?Genitourinary:?Comments?No incontinence.?Hematuria?denies.?Dysuria?denies.?Musculoskeletal:?Painful joints?Bursitis/tendonitis.?Weakness?denies.?Skin:?Itching?denies.?Rash?denies.?Neurologic:?Headache?denies.?Seizures?denies.?Psychiatric:?Comments?all negative.? * Medical History:? * Surgical History:?Right knee replacement in 2010--had an infection in the right knee in 02/2014 requiring surgery and senior care antibiotics-still on them as of 08/19/14--in 2015 had the prosthetic knee removed and treated with antibiotics--new knee replaced in 2016 Right hand surgery Cholecystectomy Ankle and foot surgery- left Foot surgery-right X3 Exploratory laparotomy Cataract right eye Vein ligation left leg * Hospitalization/Major Diagno stic Procedure:?No Hospitalization History. * Family History:?Father: dece ased.?Mother: .?Siblings: , colon cancer in his 60, diagnosed with Colon cancer.? Brother with colon cancer in his 60's. No family history of liver cancer. * Social History:?Tobacco Use:?Tobacco Use/Smoking?Are you a: nonsmoker.?Drugs/Alcohol:?Alcohol Screen?Points: 1, Interpretation: Negative.?Miscellaneous:?Caffeine: 1-2 cups per day. Marital status: . Occupation: retired. ???Nonsmoker; no sig.alcohol. * Medications:?TakingFurosemid e 20 MG Tablet 1 tablet Orally Once a dayDiclofenac Sod &Adhesive Sheet 1 % Therapy Pack as directed Transdermal Gas Relief 180 MG Capsule 1 capsule after meals and at bedtime as needed Orally Twice a dayimmodium 1 tab Oral Sudafed 60 MG Tablet 1 tablet as needed Orally every 6 hrsMelatonin 3 MG Tablet 1 tablet at bedtime as needed Orally Once a dayNabumetone 1000 MG Tablet 1 tablet Orally Once a dayAspir-Low 81 MG Tablet Delayed Release 1 tablet Orally Once a dayCrestor 5 MG Tablet 1/2 tablet Orally Once a dayMirapex 0.25 MG Tablet 2-3 tablet Orally DAILYTylenol 8 Hour Arthritis Pain 650 MG Tablet Extended Release 2 tablets as needed Orally tid/prnhydroCHLOROthiazide 25 MG Tablet 1 tablet in the morning Orally Once a dayPreserVision AREDS 2 - Tablet Chewable as directed Orally BIDMulti Vitamin/Minerals - Tablet as directed Orally once a dayCalcium Citrate + D3 Maximum 315-250 MG-UNIT Tablet 2 tablet ONCE a dayFlax Seed Oil 1000 MG Capsule as directed Orally BIDFluticasone Propionate 50 MCG/ACT Suspension 1 spray in each nostril Nasally Twice a dayFiber 2 tablets as needed ONCE A DAYVitamin D3 50 MCG (1999) Capsule 1 tablet Orally Once a dayDiclofenac Sodium 1 % Gel as directed Externally as needed for painClaritin Esomeprazole Magnesium 40 MG Capsule Delayed Release TAKE 1 CAPSULE BY MOUTH IN THE MORNING AND 1 CAPSULE IN THE EVENING Orally Twice a dayCholestyramine 4 GM/DOSE Powder 1/2 to 1 scoop in a glass of water or orange juice orally Once or twice a day for diarrheaFamotidine 40 MG Tablet 1 tablet at midday and at bedtime Orally Twice a dayTaking Furosemide 20 MG Tablet 1 tablet Orally Once a dayTaking Diclofenac Sod &Adhesive Sheet 1 % Therapy Pack as directed Transdermal Taking Gas Relief 180 MG Capsule 1 capsule after meals and at bedtime as needed Orally Twice a dayTaking immodium 1 tab Oral Taking Sudafed 60 MG Tablet 1 tablet as needed Orally every 6 hrsTaking Melatonin 3 MG Tablet 1 tablet at bedtime as needed Orally Once a dayTaking Nabumetone 1000 MG Tablet 1 tablet Orally Once a dayTaking Aspir-Low 81 MG Tablet Delayed Release 1 tablet Orally Once a dayTaking Crestor 5 MG Tablet 1/2 tablet Orally Once a dayTaking Mirapex 0.25 MG Tablet 2-3 tablet Orally DAILYTaking Tylenol 8 Hour Arthritis Pain 650 MG Tablet Extended Release 2 tablets as needed Orally tid/prnTaking hydroCHLOROthiazide 25 MG Tablet 1 tablet in the morning Orally Once a dayTaking PreserVision AREDS 2 - Tablet Chewable as directed Orally BIDTaking Multi Vitamin/Minerals - Tablet as directed Orally once a dayTaking Calcium Citrate + D3 Maximum 315-250 MG-UNIT Tablet 2 tablet ONCE a dayTaking Flax Seed Oil 1000 MG Capsule as directed Orally BIDTaking Fluticasone Propionate 50 MCG/ACT Suspension 1 spray in each nostril Nasally Twice a dayTaking Fiber 2 tablets as needed ONCE A DAYTaking Vitamin D3 50 MCG (2000 UT) Capsule 1 tablet Orally Once a dayTaking Diclofenac Sodium 1 % Gel as directed Externally as needed for painTaking Claritin Taking Esomeprazole Magnesium 40 MG Capsule Delayed Release TAKE 1 CAPSULE BY MOUTH IN THE MORNING AND 1 CAPSULE IN THE EVENING Orally Twice a dayTaking Cholestyramine 4 GM/DOSE Powder 1/2 to 1 scoop in a glass of water or orange juice orally Once or twice a day for diarrheaTaking Famotidine 40 MG Tablet 1 tablet at midday and at bedtime Orally Twice a dayNot-Taking/PRNAmoxicillin , Notes: when seeing a dentistAmoxicillin NEEDED FOR DENTAL OR SURGICAL PROCEDURESNot- Taking/PRN Amoxicillin , Notes: when seeing a dentistNot-Taking/PRN Amoxicillin NEEDED FOR DENTAL OR SURGICAL PROCEDURESDiscontinuedLisinopril 5 MG Tablet 1 tablet Orally Once a dayMedication List reviewed and reconciled with the patientDiscontinued Lisinopril 5 MG Tablet 1 tablet Orally Once a dayMedication List reviewed and reconciled with the patient * Allergies:?DibucaineAdhesive yes[Allergies Verified] Objective: * Vitals:?Wt: 197 lb 6 oz, Ht: 60.0 in, BMI:38.54 Index, BP: 000/00 mm Hg, Temp: 97.3. * Examination: ???General Examination: ?GENERAL APPEARANCE:?pleasant, well nourished, well developed, in no acute distress.?EYES:?sclera non-icteric.?ORAL CAVITY:?mucosa moist.?NECK/THYROID:?no cervical lymphadenopathy, neck supple.?SKIN:?nonjaundiced, no spider angiomata.?HEART:?S1, S2 normal.?LUNGS:?clear to auscultation bilaterally.?ABDOMEN:?normal bowel sounds, no guarding or rigidity, no guarding or rigidity, no masses palpable, soft, nontender, nondistended.?EXTREMITIES:?no edema.?NEUROLOGIC:?alert and oriented.? Assessment: * Assessment: 1.?Gastroesophageal reflux d isease, esophagitis presence not specified - K21.9 (Primary)?2.?Irritable bowel syndrome with diarrhea - K58.0? Overall, Ora appears very well. Her reflux seems to be under good control at the present time with the adjustment of the timing of her Nexium and Pepcid dosing. I did advise her to certainly continue his current regimen. We did review that continued attempts at watching her diet and weight would help her reflux as well. In regard to her loose bowel movements we discussed that this seems quite consistent with some mild irritable bowel syndrome given the longevity of her symptoms, her clinical history, and a good clinical appearance. Given the negative workup earlier this year, I don't think she needs any particular workup at the present time otherwise. I did recommend that she continue to adjust her diet and avoid anything she thinks bothersome such as lactose or eggs. I also recommended that she might want to decrease her supplemental fiber intake in the event that is causing some increased bowel movements. I also recommended that she take one or 2 Imodium every morning upon awakening to see if that can help prevent diarrhea in the first place. However, I did advise her to obviously decrease that if she is developing any sign of constipation. At this point, if things otherwise remain well she will see me on a p.r.n. basis. I advised her to certainly call if she has any problems or questions I can be of assistance with. Ora was comfortable with this plan. Thank you again for allowing me to have participated in Ora's care. Please do not hesitate to contact me if I can be of any further assistance in the future. Plan: * Treatment: 2.?Irritable bowel syndrome with diarrhea? Notes: Use 1 or 2 Imodium every morning to try to prevent diarrhea. Try decreasing your fiber pills and avoid eggs and/or lactose for a while to see if that helps with the loose stools.?? * Procedure Codes:?1036F TOBAC CO [id number] BP SCR NOT PRFRM REC REASON NOS * Preventive Medicine:? ??Counseling:?Care goal follow-up plan:?Above Normal BMI Follow-up?Giving encouragement to exercise,?BMI management provided?Yes.? ??Urinary Incontinence:?Urinary Incontinence?Assessment:?Present,?Plan of care documented:?Yes,?Type of plan of care:?Reassess at follow-up visit.? ??Screenings:?Fall Risk Screening?Fall Risk Assessment:?No falls in the past year.? * Follow Up:?prn * * Sign off status: Completed true * Provider:?Erik Avery MD Date:? 024 Generated for Gely mcfadden/[place]/Yakelin on:?09/11/2024 07:41 AM EDT History and Physical Notes * HPI (History of Present Illness) Category Sub-Category Detail Notes Category Not es incontinence I saw Ora in followup today in regard to her hiatal hernia and associated chronic gastroesophageal reflux, as well as her chronic irregular bowel movements with predominantly diarrhea. I last saw Ora in August, at which time we reviewed her ongoing issues of reflux and her medications for that. At that time I had her switch the timing of her medications for both the Nexium and Pepcid. She is now using the Nexium at 3 AM and 3 PM and is using the Pepcid at 9 AM and 9 PM on a regular basis. She has found that strategy has helped greatly in relieving her reflux symptoms. She is no longer having any symptomatic heartburn or regurgitation. She is eating comfortably and she denies any issues with dysphagia, early satiety, nausea, nor vomiting. She denies abdominal pain, jaundice, nor unintentional weight loss She does describe continued issues with some loose bowel movements predominantly in the morning. This has been going on for years . She describes that she will have 2 or 3 loose stools in the morning and then be fine the remainder of the day. She does have some days in which she does not have a bowel movement at all. She denies any hematochezia nor melena. There is no family history of colon cancer, inflammatory bowel disease, nor celiac disease. Since I last saw her she did try the cholestyramine but could not tolerate the taste. She doesn't think it really helped anyway. She does describe having some small amounts of milk during the day in her cereal and coffee, but nothing more than that. She does not have much coffee during the day. She has recently tried eliminating her morning eggs but it is too early to tell if that is helping. She does take Imodium usually after the diarrhea starts with some relief. She also takes 2 fiber pills twice a day on a regular basis. After I saw her in August I did have her turn in multiple stool specimens that were all negative for any type of infection or anything to suggest inflammatory bowel disease. Laboratories for celiac disease were negative as well. Her last colonoscopy in 2019 was negative any sign of inflammatory bowel disease although biopsies were not done to rule out microscopic colitis. Examination Category Sub-Category Detail Notes Category Not es General Examination GENERAL APPEARANCE: pleasant , well [...]
[2024-09-11 10:29] LABS: MANUAL DIFF FLAG NO
[2024-09-11 11:04] LABS: Basophils Absolute Auto 0.1 X10*3/uL (0.0-0.2); Basophils Percent Auto 1.1 % (0-2); Eosinophils Absolute Auto 0.3 X10*3/uL (0.0-0.4); Eosinophils Percent Auto 6.4 % (0-4); Hematocrit 40.3 % (37.0-47.0); Hemoglobin 13.2 g/dl (12.0-16.0); Imm Gran Abs Auto 0.01 X10*3/uL (0.00-0.03); Imm Gran Pct Auto 0.2 % (0.0-0.4); Lymphocytes Absolute Auto 1.3 X10*3/uL (1.2-4.9); Lymphocytes Percent Auto 24.5 % (20-40); Mean Corpuscular HGB Conc 32.8 g/dl (31.0-35.0); Mean Corpuscular Hemoglobin 29.1 pg (27.0-33.0); Monocytes Absolute Auto 0.8 X10*3/uL (0.1-1.2); Monocytes Percent Auto 15.7 % (2-11); Neutrophils Absolute Auto 2.8 x10*3/uL (2.0-8.3); Neutrophils Percent Auto 52.1 % (45-73); Platelet Count 221 X10*3/uL (160-400); Red Blood Count 4.53 X10*6/uL (4.20-5.50); Red Cell Distribution Width 13.4 % (11.0-16.0); White Blood Count 5.4 X10*3/uL (4.8-10.8)
[2024-09-11 11:21] LABS: Alanine Aminotransferase 27 U/L (0-31); Albumin Level 3.8 g/dL (3.5-5.0); Alkaline Phosphatase 90 U/L (39-117); Anion Gap 10 (12-20); Aspartate Amino Transferase 32 U/L (5-31); Bilirubin Total 0.5 mg/dL (0.0-1.0); Blood Urea Nitrogen 13 mg/dL (9-16); Carbon Dioxide 25 mmol/L (22-29); Chloride 111 mmol/L (96-108); Cholesterol 193 mg/dL (<200); Estimated Glomerular Filt Rate > 60; Glucose Fasting 103 mg/dL (60-99); HDL Cholesterol 55 mg/dL (>40); LDL Cholesterol Calculated 118 mg/dL (<100); Potassium 3.6 mmol/L (3.3-5.1); Sodium 142 mmol/L (135-145); Total Protein 6.7 g/dL (6.5-8.0); Triglycerides 103 mg/dL (<150)
[2024-09-11 11:40] LABS: Thyroid Stimulating Hormone 0.78 uIU/mL (0.32-4.0)
== END 2024-09-11 07:39 | disposition home or self-care (01) ==
LOC: HO.HMGCLDS 07:38
PROVIDERS: PCP Internal Medicine Medical Oncology; Visit Provider Internal Medicine Medical Oncology
DX: Z00.00 Encounter for general adult medical examination without abnormal findings (principal); I10 Essential (primary) hypertension; E66.9 Obesity, unspecified; E78.2 Mixed hyperlipidemia; E01.0 Iodine-deficiency related diffuse (endemic) goiter
CPT/HCPCS: 36415; 80053; 80061; 84443; 85025

== ENCOUNTER 2024-10-14 09:29 | Outpatient (REF) | payer OTHER, SELFPAY ==
--- OUTSIDE RECORDS SUMMARY | 2024-10-14 09:45 | XMS_ITS | Encounter Summary ---
Author Organization [facility] Address [address] [place] [phone] Phone Care Team Providers Care Snack Stewardess Name Role Phone Erik Grant MD Primary Care Provider Encounter Details Date Type Department Care Team (Late Contact Info) Description 10/01/2024 Office Communication [facility] [address] [address] Aftab Louis MD [address] [address] Social History Tobacco Use Types Packs/Day Years [...] encounter Miscellaneous Notes * Telephone Encounter - Aftab Louis MD - 10/01/2024 4:05 AM EDT Please call patient and tell her to stay on lasix --just 20 mg 1x/day and not go up to 40 mg but instead to go to pharmacy and start on aldcatone 25 mg 3x/week --needs repeat labs in 10-14 days afterstarting the aldactone documented in this encounter Plan of Treatment Upcoming Encounters Date Type Department Care Team (Late Contact Info) Description 02/06/2025 2:00 PM EDT Office Visit [facility] [address] [place] [address] Aftab Louis MD [address] [address] 03/31/2025 3:00 PM EDT Office Visit [facility] [address] [place] [address] Aftab Louis MD [address] [address] documented as of this encounter Visit Diagnoses Not on filedocumented in this encounter Care Teams Snack Stewardess Relationship Specialty Start Date End Date Erik Grant MD [address] [place] [address] , [address] [place] [address] PCP - General Medical Oncology 10/01/24 documented as of this encounter
--- OUTSIDE RECORDS SUMMARY | 2024-10-14 09:45 | XMS_ITS | Encounter Summary ---
Author Organization [facility] Address [address] [address] Phone Care Team Providers Care Fleet Manager/Dispatch Name Role Phone Erik Grant MD Primary Care Provider [phone] Encounter Details Date Type Department Care Team (Late Contact Info) Description 10/07/2024 Orders Only [facility] [address] [place] [address] Aftab Louis MD [address] [address] Edema, not otherwise specified Social History Tobacco Use Types Packs/Day Years [...] on file documented as of this encounter Plan of Treatment Upcoming Encounters Date Type Department Care Team (Late Contact Info) Description 02/06/2025 2:00 PM EDT Office Visit [facility] [address] [place] [address] Aftab Louis MD [address] [phone] 03/31/2025 3:00 PM EDT Office Visit [facility] [address] [place] [address] Aftab Louis MD [address] [phone] documented as of this encounter Visit Diagnoses Diagnosis Edema, not otherwise specified documented in this encounter Care Teams Fleet Manager/Dispatch Relationship Specialty Start Date End Date Erik Grant MD [address] [place] [address] , [address] [place] [address] PCP - General Medical Oncology 10/01/24 documented as of this encounter
--- OUTSIDE RECORDS SUMMARY | 2024-10-14 09:45 | XMS_ITS | Encounter Summary ---
Author Organization [facility] Address [address] [address] Phone Care Team Providers Care Wall Cleaner Name Role Phone Erik Grant MD Primary Care Provider [phone] Encounter Details Date Type Department Care Team (Late Contact Info) Description 10/14/2024 Orders Only [facility] [address] [place] [address] Aftab Louis MD [address] [phone] Edema, not otherwise specified Social [...] Office Visit [facility] [address] [place] [address] Aftab Louis MD [address] [phone] 03/31/2025 3:00 PM EDT Office Visit [facility] [address] [place] [address] Aftab Louis MD [address] [address] documented as of this encounter Visit Diagnoses Diagnosis Edema, not otherwise specified documented in this encounter Care Teams Wall Cleaner Relationship Specialty Start Date End Date Erik Grant MD [address] [place] [address] , [address] [place] [address] PCP - General Medical Oncology 10/01/24 documented as of this encounter
--- OUTSIDE RECORDS SUMMARY | 2024-10-14 09:46 | XMS_ITS ---
Author Organization [facility] Address [address] [place] [address] Care Team Providers Care Merchant Seaman Name Role Phone Erik Grant MD Primary Care Provider UnavailErik Morgan Unavailable [phone] Allergies Allergen (clinical drug ingredient) Drug/Non Drug [...] Notes Problem Irritable bowel syndrome with diarrhea (210836071) Irritable bowel syndrome with diarrhea (K58.0) Active confirmed Vital Signs Temperature 97.3 degrees Fahrenheit 03/01/20 24 Blood pressure systolic 000 mm Hg 03/01/20 24 Blood pressure diastolic 00 mm Hg 024 Height 60.0 in 03/01/2024 Weight 197 lb 6 oz lbs 03/01/2024 BMI 38.54 kg/m2 03/01/2024 Encounters Encounter Location Date Provider Diagnosis [facility] [address] [place] [phone] 03/01/2024 Erik Avery Irritable bowel synd ricardo [...] ORA JACKSON EDOB: [birth year] (78 yo F)Acc No.[id number]:03/01/2024 Progress Notes Patient:?ORA JACKSON Provider:?Erik Avery MD :1945???Age:78 Y???Sex:Female D ate:03/01/2024 Address:[address] [place] [address] Pcp:Erik Grant MD Subjective: * Chief Complaints: [...] right knee in 02/2014 requiring surgery and fci antibiotics-still on them as of 08/19/14--in 2015 [...] loose stools.?? * Procedure Codes:?1036F TOBAC CO NON-[id number] BP SCR NOT PRFRM REC REASON NOS [...] MD Date:? 024 Generated for Gely mcfadden/[place]/Yakelin on:?10/14/2024 09:46 AM EDT History and Physical Notes * [...]
--- OUTSIDE RECORDS SUMMARY | 2024-10-14 09:46 | XMS_ITS ---
Author Organization [facility] Address [address] [place] [address] Care Team Providers Care Moccasin Sewer Name Role Phone Rudy ALEGRIA, Erik Primary Care Provider UnavailErik Morgan Unavailable [phone] Results Component Value Reference Range Notes Calprotectin, Fecal Reviewed date:10/23/2023 01:27:54 AM Interpretation: Performing Lab:[facility], [address] [place] [phone] Notes/Report: Calprotectin, Fecal 134 Reference Range: <50 [...] borderline values. THIS TEST WAS PERFORMED AT: [facility] [address] [place] [address] YOLANDA LANGLEY MD,PHD,[facility] GI PANEL Reviewed date:10/15/2023 11:47:37 AM Interpretation: Performing Lab:[address] [address] Notes/Report: Campylobacter Not Detected Not Detect. Plesiomonas [...] is performed by Multiplexed PCR, utilizing the eTect Array. REASON FOR VISIT diarrhea/ patient called [...] Status W/U Status Risk Notes Problem Diarrhea (92045650) Diarrhea (R19.7) Active confirmed Encounters Encounter Location Date Provider Diagnosis [facility] [address] [place] [phone] 10/10/2023 Erik Avery Diarrhea R19.7 Assessments Encounter [...] ORA JACKSON EDOB: [birth year] (78 yo F)Acc No.[id number]:10/10/2023 Patient:?ORA JACKSON E :1945???Age:78 Y???Sex:Female Address:[address] [place] [address], [place] [address] * Refills? Start Cholestyramine Powder, 4 GM/DOSE, [...] * true * Date:? Generated for Gely mcfadden/[place]/Letyitting on:?10/14/2024 09:46 AM EDT
--- OUTSIDE RECORDS SUMMARY | 2024-10-14 09:46 | XMS_ITS | Encounter Summary ---
Author Organization [facility] Address [address] [address] Phone Care Team Providers Care Production Director Name Role Phone Erik Grant MD Primary Care Provider [phone] Encounter Details Date Type Department Care Team (Late Contact Info) Description 03/25/2024 Office Communication [facility] [address] [address] Sonya Michel [address] [place] [phone] Social History Tobacco Use Types Packs/Day Years [...] in the morning. Pls call her at [phone]. documented in this encounter Plan of Treatment Upcoming Encounters Date Type Department Care Team ([facility] Contact Info) Description 02/06/2025 2:00 PM EDT Office Visit [facility] [address] [place] [address] Aftab Louis MD [address] [phone] 03/31/2025 3:00 PM EDT Office Visit [facility] [place] [address] [place] [address] Aftab Louis MD [address] [address] documented as of this encounter Visit Diagnoses Not on filedocumented in this encounter Care Teams Production Director Relationship Specialty Start Date End Date Erik Grant MD [address] [place] [address] [address] [place] [address] PCP - General Medical Oncology 10/01/24 documented as of this encounter
--- OUTSIDE RECORDS SUMMARY | 2024-10-14 09:46 | XMS_ITS ---
Author Organization Erik Grant III, MD Address [address] [facility] [place] [address] Care Team Providers Care E Learning Designer Name Role Phone Erik Grant Primary Care [...] Date Provider Diagnosis Erik Grant III, MD [address] [place] [address] [place] [address] 03/27/2024 Erik Grant Plan Of Treatment Medication Medication Name Sig Start Date Stop Date Notes PARoxetine HCl 10 MG 1 tablet in the mor jimbo Orally Once a day for 30 days 03/27/2024 Next Appt Details Provider Name:Erik Grant, 01/17/2025 11:30:00 AM, [address] [place] [address] [place], [address], Provider Name:Erik Grant, 05/21/2025 02:30:00 PM, [address] [facility] [place], [address], Progress Notes * Palak VARGAS EDOB: [birth year] (78 yo F)Acc No.[id number]:03/27/2024 Patient:?RENETTA Palak Donis :1945???Age:78 Y???Sex:Female Address: [address], [place], [address] * Refills? Start PARoxetine HCl Tablet, 10 MG, Orally, 30, 1 tablet in the morning, Once a day, 30 days, Refills=6 * true * Date:? Generated for Gely mcfadden/[place]/Letyitting on:?10/14/2024 09:45 AM EDT
--- OUTSIDE RECORDS SUMMARY | 2024-10-14 09:46 | XMS_ITS | Patient Health Record ---
Author Organization Erik Grant III, MD Address [address] [place] [address] [place] [address] Care Team Providers [employer] Vice President Name Role Phone Erik Grant Primary Care Provider Allergies Allergen (clinical drug ingredient) Drug/Non Drug Allergy documented on EMR Reaction Allergy Type Onset Date Status succinylcholine Succinylcholine Unknown Drug Allergy Active dibucaine Dibucaine Unknown Drug Allergy Active Adhesive Unknown Allergy Active Results Component Value Reference Range Notes Complete Blood Count Auto Di ff Reviewed date:01/11/2024 02:26:22 PM Interpretation: Performing Lab:[facility], [address] [place] [phone] Notes/Report: White Blood Count 7.2 4.8-10.8 X10*3/uL [...] 0.0-0.2 /100WBC Neutrophils Absolute Auto 4.3 2.0-8.3 x10*3/u L Imm Gran Abs Auto 0.01 0.00-0.03 X10*3/uL Lymphocytes Absolute Auto 1.9 1.2-4.9 X10*3/u L Monocytes Absolute Auto 0.8 0.1-1.2 X10*3/uL Eosinophils Absolute Auto 0.2 0.0-0.4 X10*3/u L Basophils Absolute Auto 0.0 0.0-0.2 X10*3/uL NRBC Abs Auto 0.000 0.0-0.012 X10*3/uL Comprehensive Met. Panel Reviewed date:01/11/2024 02:26:22 PM Interpretation: Performing Lab:[facility], [address] [place] [phone] Notes/Report: Sodium 140 135-145 mmol/L Potassium 3.8 3.3-5.1 mmol/L Chloride 106 96-108 mmol/L Carbon Dioxide 26 22-29 mmol/L Anion Gap 12 12-20 Blood Urea Nitrogen 16 9-16 mg/dL Creatinine 0.76 0.5-1.4 mg/dL Estimated Glomerular Filt Rate > 60 NOTE: For -Georgian individuals, multiply the result by 1.210. Chronic [...] date:01/11/2024 02:26:22 PM Interpretation: Performing Lab: Notes/Report: [address] [address] [address] Scan Report Signed Patient: Palak Vargas MR#: [id number] 00 : 1945 Acct:[id number] Age/Sex: 78 / F ADM Date: 01/10/24 Loc: HO.CT Attending Dr: Erik Grant MD Ordering Physician: Erik Grant MD Date of Service: 01/10/24 Procedure(s): CT soft tissue neck wo IV con Accession Number(s): [id number] cc: Erik Grant MD EXAMINATION: CT SOFT [...] along the proximal aspect of the left [place]'s duct. Acutely inflamed left submandibular gland likely [...] in OV> 01/10/24 1742 DD/ 1617 TD/TT: Supply Requirements Officer: [place] [address] CT Scan Report Signed Patient: Gigi Vargas MR#: [id number] 00 : 1945 Acct:[id number] Age/Sex: 78 / F ADM Date: 01/10/24 Loc: HO.CT Attending Dr: Erik Grant MD Ordering Physician: Erik Grant MD Date of Service: 01/10/24 Procedure(s): CT sof t tissue neck wo IV con Accession Number(s): [id number] cc: Erik Grant MD EXAMINATION: CT SOFT [...] along the proximal aspect of the left [place]'s duct. Acut allison inflamed left submandibular gland [...] in OV> 01/10/24 1742 DD/ 1617 TD/TT: Supply Requirements Officer: Complete Blood Count Auto Di ff Reviewed date:02/01/2024 12:28:30 PM Interpretation: Performing Lab:[facility], [address] [place] [phone] Notes/Report: White Blood Count 5.5 4.8-10.8 X10*3/uL [...] 0.0-0.2 /100WBC Neutrophils Absolute Auto 3.3 2.0-8.3 x10*3/u L Imm Gran Abs Auto 0.02 0.00-0.03 X10*3/uL Lymphocytes Absolute Auto 1.3 1.2-4.9 X10*3/u L Monocytes Absolute Auto 0.7 0.1-1.2 X10*3/uL Eosinophils Absolute Auto 0.2 0.0-0.4 X10*3/u L Basophils Absolute Auto 0.1 0.0-0.2 X10*3/uL NRBC Abs Auto 0.000 0.0-0.012 X10*3/uL Comprehensive [facility]. Panel Fa st Reviewed date:02/01/2024 12:28:30 PM Interpretation: Performing Lab:[facility], [address] [place] [phone] Notes/Report: Sodium 139 135-145 mmol/L Potassium 4.0 3.3-5.1 mmol/L Chloride 107 96-108 mmol/L Carbon Dioxide 23 22-29 mmol/L Anion Gap 13 12-20 Blood Urea Nitrogen 15 9-16 mg/dL Creatinine 0.81 0.5-1.4 mg/dL Estimated Glomerular Filt Rate > 60 NOTE: For -Georgian individuals, multiply the result by 1.210. Chronic [...] Panel Reviewed date:02/01/2024 12:28:30 PM Interpretation: Performing Lab:[facility], [address] [place] [phone] Notes/Report: Triglycerides 128 <150 mg/dL Desirable Triglyceride: [...] Thyroxine) Reviewed date:02/01/2024 12:28:30 PM Interpretation: Performing Lab:[facility], [address] [place] [phone] Notes/Report: Free T4 (Free Thyroxine) 1.17 0.71-1.85 ng/dL TSH reflex Free T4 Reviewed date:02/01/2024 12:28:30 PM Interpretation: Performing Lab:[facility], [address] [place] [phone] Notes/Report: TSH reflex Free T4 0.79 0.32-4.0 uIU/mL MM tomosynthesis screening B I Reviewed date:03/18/2024 07:34:20 AM Interpretation: Performing Lab: Notes/Report: [facility] [address] [place] [address] Mammography Report Signed Patient: Palak Vargas MR#: [id number] 00 : 1945 Acct:[id number] Age/Sex: 78 / F ADM Date: 03/05/24 Loc: HO.MAMMO Attending Dr: Sylvester Helm MD Ordering Physician: Sylvester Helm MD Results: 2Ben ign Findings Date of Service: 03/05/24 Follow Up: 1 Year From [facility] Mammogram Procedure(s): MM tomosynthesis screening BI Accession Number(s): [id number] cc: Erik Grant MD; Sylvester Helm MD [...] Mally Cross DO 03/12/2024 05:48 PM EDT RP Dictated By: Mally Cross DO Signed By: <Electronically signed by Mally Cross DO in OV> 03/12/24 1748 DD/ 1015 TD/TT: 03/05/24 1031 Supply Requirements Officer: Yara [facility] [address] [place] [address] Mammography Report Signed Patient: Gigi Vargas MR#: [id number] 00 : 1945 Acct:[id number] Age/Sex: 78 / F ADM Date: 03/05/24 Loc: HO.MAMMO Attending Dr: Lizette Helm MD Ordering Physician: Sylvester Helm MD Results: 2Ben ign Findings Date of Service: 03/05/24 Follow Up: 1 Year From [facility]a Mammogram Procedure(s): MM tomosynthesis screening BI Accession Number(s): [id number] cc: Erik Grant MD; Sylvester Helm MD [...] Mally Cross DO 03/12/2024 05:48 PM EDT RP Dictated By: Mally Cross DO Signed By: <Electronically signed by Mally Cross DO in OV> 03/12/24 1748 DD/ 1015 TD/TT: 03/05/24 1031 Supply Requirements Officer: Complete Blood Count Auto Di ff Reviewed date:05/17/2024 08:37:13 AM Interpretation: Performing Lab:[facility], [address] [place] [phone] Notes/Report: White Blood Count 6.3 4.8-10.8 X10*3/uL [...] 0.0-0.2 /100WBC Neutrophils Absolute Auto 3.9 2.0-8.3 x10*3/u L Imm Gran Abs Auto 0.01 0.00-0.03 X10*3/uL Lymphocytes Absolute Auto 1.3 1.2-4.9 X10*3/u L Monocytes Absolute Auto 0.8 0.1-1.2 X10*3/uL Eosinophils Absolute Auto 0.2 0.0-0.4 X10*3/u L Basophils Absolute Auto 0.1 0.0-0.2 X10*3/uL NRBC Abs Auto 0.000 0.0-0.012 X10*3/uL Comprehensive [facility]. Panel Fa st Reviewed date:05/17/2024 08:37:13 AM Interpretation: Performing Lab:[facility], [address] [place] [phone] Notes/Report: Sodium 139 135-145 mmol/L Potassium 3.8 [...] Panel Reviewed date:05/17/2024 08:37:13 AM Interpretation: Performing Lab:[facility], [address] [place] [phone] Notes/Report: Triglycerides 137 <150 mg/dL Desirable Triglyceride: [...] Complete Blood Count Auto Di ff Reviewed date:09/12/2024 08:11:36 PM Interpretation: Performing Lab:[facility], [address] [place] [phone] Notes/Report: White Blood Count 5.4 4.8-10.8 X10*3/uL Red Blood Count 4.53 4.20-5.50 X10*6/uL Hemoglobin 13.2 12.0-16.0 g/dl Hematocrit 40.3 37.0-47.0 % Mean Corpuscular Volume 89.0 80.0-98.0 fL Mean Corpuscular Hemoglobin 29.1 27.0-33.0 pg Mean Corpuscular HGB Conc 32.8 31.0-35.0 g/dl Red Cell Distribution Width 13.4 11.0-16.0 % Platelet Count 221 160-400 X10*3/uL Mean Platelet Volume 11.0 9.4-12.3 fL Neutrophils Percent Auto 52.1 45-73 % Imm Gran Pct Auto 0.2 0.0-0.4 % Lymphocytes Percent Auto 24.5 20-40 % Monocytes Percent Auto 15.7 2-11 % Eosinophils Percent Auto 6.4 0-4 % Basophils Percent Auto 1.1 0-2 % NRBC Pct Auto 0.0 0.0-0.2 /100WBC Neutrophils Absolute Auto 2.8 2.0-8.3 x10*3/u L Imm Gran Abs Auto 0.01 0.00-0.03 X10*3/uL Lymphocytes Absolute Auto 1.3 1.2-4.9 X10*3/u L Monocytes Absolute Auto 0.8 0.1-1.2 X10*3/uL Eosinophils Absolute Auto 0.3 0.0-0.4 X10*3/u L Basophils Absolute Auto 0.1 0.0-0.2 X10*3/uL NRBC Abs Auto 0.000 0.0-0.012 X10*3/uL [facility]. Panel Fa Reviewed date:09/12/2024 08:11:36 PM Interpretation: Performing Lab:[facility], [address] [place] [phone] Notes/Report: Sodium 142 135-145 mmol/L Potassium 3.6 3.3-5.1 mmol/L Chloride 111 96-108 mmol/L Carbon Dioxide 25 22-29 mmol/L Anion Gap 10 12-20 Blood Urea Nitrogen 13 9-16 mg/dL Creatinine 0.78 0.5-1.4 mg/dL Estimated Glomerular Filt Rate > 60 Chronic Kidney Disease: Estimated GFR < 60 mL/min/1.73m2 Severe Kidney Disease: Estimated GFR < 15 mL/min/1.73m2 Glucose Fasting 103 60-99 mg/dL A fasting glucose from 100-125 mg/dl is considered impaired (pre-diabetes). Calcium 9.0 8.4-10.2 mg/dL Bilirubin Total 0.5 0.0-1.0 mg/dL Aspartate Amino Transferase 32 5-31 U/L Alanine Aminotransferase 27 0-31 U/L Total Protein 6.7 6.5-8.0 g/dL Albumin Level 3.8 3.5-5.0 g/dL Alkaline Phosphatase 90 39-117 U/L Lipid Panel Reviewed date:09/12/2024 08:11:36 PM Interpretation: Performing Lab:[facility], [address] [place] [phone] Notes/Report: Triglycerides 103 <150 mg/dL Desirable Triglyceride: less than 150 mg/dL Borderline High Triglyceride 150-199 mg/dL High Triglyceride: 200-499 mg/dL Very High Triglyceride: greater than or equal to 5OO mg/dL Cholesterol 193 <200 mg/dL Desirable Cholesterol: less than 200 mg/dL Borderline High Cholesterol: 200-239 mg/dL High Cholesterol: greater than 239 mg/dL LDL Cholesterol Calculated 118 <100 mg/dL Desirable LDL: less than 100 mg/dL Near Optimal/Above Optimal LDL: 110-129 mg/dL Borderline High LDL: 130-159 mg/dL High LDL: 160-189 mg/dL Very High LDL: greater than or equal to 190 mg/dL HDL Cholesterol 55 >40 mg/dL Desirable HDL: greater than 40 mg/dL Note: This HDL assay may give artificially low results in patients with liver disease. Thyroid Stimulating Hormone Reviewed date:09/12/2024 08:11:36 PM Interpretation: Performing Lab:[facility], [address] [facility], [place] [address] Notes/Report: Thyroid Stimulating Hormone 0.78 0.32-4.0 uIU/mL TSH 3rd Generation ([facility]) Reason For Referral Reason 4 cm hard fixed mass left neck with throat pain non smoker evaluate and treat Diagnosis 1 Hypertension (I10) Diagnosis 2 Neck mass (R22.1) Referral Organization Erik Grant III, MD Referring Provider First Name Erik Referring Provider Last Name Rudy Referring Provider Speciality Internal M edicine Referred Provider [facility], [facility], [facility] Referred Provider Specialty Otolaryngolo gy General Notes Cassandra Rankin 2023 10:37:40 AM EDT > Patient is scheduled to see Dr. Loza on 01/30/2024 @ 11am. patient was called and left a message regarding appointment. Referral Priority Routine Referral Appointment Date 01/30/2024 Medications Medication SIG (Take, Route, Frequency, Duration) Notes Start Date End Date Status Multivitamin Active Fluticasone Propionate 50 MCG/ACT Nasal Active Gas Relief 180 MG 1 capsule after meals and at bedtime as needed Orally Twice a day Active Esomeprazole Magnesium 40 MG 1 capsule Orally Twice a day Active Ibuprofen Active Famotidine 40 MG 1 tablet as needed Orally Twice a day Active Furosemide 20 MG 1 tablet Orally Once a day Active Tums 500 MG 1 tablet Orally Once a day Active Probiotic 250 MG as directed Orally Active Claritin 10 MG 1 tablet Orally Once a day Active Aspirin 81 81 MG 1 tablet Orally Once a day Active Calcium Active PreserVision AREDS 2 - as directed Orally Active Melatonin Active Nabumetone 1000 MG 1 tablet Orally Twice a day Active Rosuvastatin Calcium 5 MG TAKE 1 TABLET BY MOUTH EVERY DAY for 90 Active Pramipexole Dihydrochloride 0.25 MG TAKE 2 TO 3 TABLETS BY MOUTH EVERY DAY for 90 Active Fiber Active Voltaren 1 % as directed Externally Active Imodium A-D Active hydroCHLOROthiazide 25 MG 1 tablet in th e morning Orally Once a day Active Flax Seed Oil Active Amoxicillin 500 MG 4 capsules 1 hour before dental or surgical procedures Orally Once Dental procedures Active Immunizations Vaccine Route Administration Date Status [...] Status W/U Status Risk Notes Problem Hypertension (38676406) Hypertension (I10) Active confirmed Her blood pressure is stable and no change in her regimen was needed.The value is 136/80. Problem Gastroesophageal reflux disease (816671528) GERD (gastroesophage al reflux disease) (K21.9) Active confirmed Her reflux symptoms are well controlled with iseg-ejz-eoqaefi medication. Problem 495587633 Mixed hyperlipidemia (E78.2) Active confirmed Her total cholesterol was 193 and your LDL is 118. She was continued on her current medications without change. I recommended aggressive weight loss and a diet low in animal fat. Problem 62116925 Age-related osteoporosis without current pathological fracture (M81.0) Active confirmed She was continued on current medications. Her bone densities will be reviewed and another one ordered if necessary. 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 Problem [id number] Unspecified benign mammary dysplasia of left breast (N60.92) Active confirmed No breast cancer. Has ever been detected. Problem 723769524 Obesity (BMI 30-39.9) (E66.9) Active confirmed Her body mass index is 36. Her weight is stable. We have discussed diet and nutrition and made a plan to lose weight at a rate of one half of a pound per week through a diet restricted in fat calories and sodium. Problem 46586152 Chronic fatigue (R53.82) Active confirmed He says that sh e feels tired all of the time but denies daytime somnolence. Problem 44283287 Obstructive sleep apnea (G47.33) Active confirmed She was continued on her CPAP. No change in her regimen was needed. Problem 40194570 Hiatal hernia (K44.9) Active confirmed Her reflux symptoms are well controlled. Problem Osteoarthritis (349029132) Osteoarthritis (M19.90) Active confirmed She has mild arthritic pain in her fingers but her main complaint is pain in the right knee on the tibial plateau. Problem 789544623 TIA (transient ischemic attack) (G45.9) Active confirmed She has had no neurological symptoms recently. She was continue current therapy. Problem 04218684 Restless leg syndrome (G25.81) Active confirmed This is been a minor problem lately and does not require changing her regimen. Problem 634139783 History of DVT (deep vein thrombosis) (Z86.718) Active confirmed She is no longe r anticoagulated. She has had no further blood clots. Old records will be requested. Problem Goiter (1529167) Enlarged thyroid (E01.0) Active confirmed This is a CT finding and will be pursued. Problem 075243138 Sensorineural hearing loss (SNHL) of both ears (H90.3) Active confirmed Communication was possible and she has working hearing aids. 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 Problem 358298507 Primary osteoarthritis involving multiple joints (M15.9) Active confirmed She has had multiple surgical procedures and a right knee arthroplasty. She is able to conduct all of the activities of daily life. 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 Problem 477784331 Mass of left side of neck (R22.1) Active confirmed On the CT scan done recently this appears to be obstructed salivary gland or sialadenitis. Opinion from ENT will be obtained. Vital Signs Heart Rate 85 /min 09/16/2024 Temperature 97.4 degrees Fahrenheit 09/16/2024 Blood pressure diastolic 80 mm Hg 09/16/2024 Height 60 in 09/16/2024 Blood pressure systolic 135 mm Hg 09/16/2024 Weight 193 lbs 09/16/2024 BMI 37.69 kg/m2 09/16/2024 Encounters Encounter Location Date Provider Diagnosis Erik Grant III, MD [address] [place] [address] [place] [phone] 12/29/2023 Erik Grant Hypertension I10 ; A cute adenitis L04.9 ; 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 ; GERD (gastroesophageal reflux disease) K21.9 ; Primary osteoarthritis involving multiple joints M15.9 and Obesity (BMI 30-39.9) E66.9 Erik Grant III, MD [address] [place] [address] [place] [address] 01/09/2024 Erik Grant Hypertension I10 ; N charlie mass R22.1 ; 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 ; GERD (gastroesophageal reflux disease) K21.9 ; Obesity (BMI 30-39.9) E66.9 and Primary osteoarthritis involving multiple joints M15.9 Erik Grant III, MD [address] [place] [address] [place] [address] 01/19/2024 Erik Grant Hypertension I10 ; M ass of left side of neck R22.1 ; Obesity (BMI 30-39.9) E66.9 ; Enlarged thyroid E01.0 ; 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 ; GERD (gastroesophageal reflux disease) K21.9 ; Sensorineural hearing loss (SNHL) of both ears H90.3 ; Mixed hyperlipidemia E78.2 and Obstructive sleep apnea G47.33 Erik Grant III, MD [address] [place] [address] [place] [address] 02/22/2024 Erik Grant Hypertension I10 ; O besity (BMI 30-39.9) E66.9 ; Mixed hyperlipidemia E78.2 ; Chronic fatigue R53.82 ; GERD (gastroesophageal reflux disease) K21.9 and Primary osteoarthritis involving multiple joints M15.9 Erik Grant III, MD [address] [place] [address] [place] [address] 05/17/2024 Erik Grant Hypertension I10 ; O [...] Hiatal hernia K44.9 Erik Grant III, MD [address] [place] [address] [place] [address] 09/16/2024 Erik Grant Hypertension I10 ; O besity (BMI 30-39.9) E66.9 ; Mixed hyperlipidemia E78.2 ; GERD (gastroesophageal reflux disease) K21.9 ; Primary osteoarthritis involving multiple joints M15.9 ; 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 ; Sensorineural hearing loss (SNHL) of both ears H90.3 ; Unspecified benign mammary dysplasia of left breast N60.92 and Unspecified benign mammary dysplasia of right breast N60.91 Erik Grant III, MD [address] [place] [address] [place] [address] 01/04/2024 Erik Grant III, MD [address] [place] [address] [place] [address] 03/05/2024 Erik Grant III, MD [address] [place] [address] [address] [place] [address] 03/07/2024 Erik Grant III, MD [address] [place] [address] [address] [place] [address] 03/27/2024 Erik Grant Assessments Encounter Date Diagnosis (ICD Code) Assessment Notes T reatment Notes Treatment Clinical Notes 12/29/2023 Hypertension (ICD-10 - I10) Her blood [...] restricted in fat calories and sodium. 09/16/2024 Hypertension (ICD-10 - I10) Her blood [...] diet restricted in fat calories and sodium. 12/29/2023 Pseudocholinesterase deficiency (ICD-10 - E88.09) She [...] change in her regimen was necessary today. 09/16/2024 Mixed hyperlipidemia (ICD-10 - E78.2) Her total cholesterol was 193 and your LDL is 118. She was continued on her current medications without change. I recommended aggressive weight loss and a diet low in animal fat. 12/29/2023 GERD (gastroesophage al reflux disease) (ICD-10 - K21.9) Her reflux symptoms are well controlled with dwol-wgy-kkfxatj medication. 01/09/2024 GERD (gastroesophage al reflux disease) (ICD-10 - K21.9) Her reflux symptoms are well controlled with cozy-jza-gvvpbfw medication. 01/19/2024 Enlarged thyroid (IC D-10 - E01.0) This is a CT finding and will be pursued. 02/22/2024 Chronic fatigue (ICD -10 - R53.82) He says that she feels tired all of the time but denies daytime somnolence. 05/17/2024 GERD (gastroesophage al reflux disease) (ICD-10 - K21.9) Her reflux symptoms are well controlled with pbci-xbb-bcckxqe medication. 09/16/2024 GERD (gastroesophage al reflux disease) (ICD-10 - K21.9) Her reflux symptoms are well controlled with qdey-deq-fevtsrn medication. 12/29/2023 Primary osteoarthrit is involving multiple [...] Her reflux symptoms are well controlled with pxpd-avz-feuwair medication. 05/17/2024 Primary osteoarthrit is involving multiple joints (ICD-10 - M15.9) She has had multiple surgical procedures and a right knee arthroplasty. She is able to conduct all of the activities of daily life. 09/16/2024 Primary osteoarthrit is involving multiple joints (ICD-10 - M15.9) She has had multiple surgical procedures and a right knee arthroplasty. She is able to conduct all of the activities of daily life. 12/29/2023 Obesity (BMI 30-39.9 ) (ICD-10 - [...] Her reflux symptoms are well controlled with mkta-dkg-qivqavf medication. 02/22/2024 Primary osteoarthrit is involving multiple joints (ICD-10 - M15.9) She has had multiple surgical procedures and a right knee arthroplasty. She is able to conduct all of the activities of daily life. 05/17/2024 Restless leg syndrom e (ICD-10 - G25.81) This is been a minor problem lately and does not require changing her regimen. 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 01/19/2024 Sensorineural hearin g loss (SNHL) of both ears (ICD-10 - H90.3) Communication was possible and she has working hearing aids. 05/17/2024 Pseudocholinesterase deficiency (ICD-10 - E88.09) She has not recently been exposed to any anesthetics. 09/16/2024 Sensorineural hearin g loss (SNHL) of both ears (ICD-10 - H90.3) Communication was possible and she has working hearing aids. 01/19/2024 Mixed hyperlipidemia (ICD-10 - E78.2) Her [...] No breast cancer. Has ever been detected. 01/19/2024 Obstructive sleep ap lucien (ICD-10 - G47.33) She was continued on her CPAP. No change in her regimen was needed. 05/17/2024 Unspecified benign mammary dysplasia of left breast (ICD-10 - N60.92) No breast cancer. Has ever been detected. 09/16/2024 Unspecified benign mammary dysplasia of right breast (ICD-10 - N60.91) She has had multiple biopsies of the breast that showed benign disease. 05/17/2024 History of DVT (deep vein thrombosis) [...] eyes (ICD-10 - H35.3132) She sees her camp housekeeper regularly. 05/17/2024 Obstructive sleep ap lucien (ICD-10 - G47.33) She was continued on her CPAP. No change in her regimen was needed. 05/17/2024 Hiatal hernia (ICD-1 0 - K44.9) Her reflux symptoms are well controlled. Plan Of Treatment Pending Test Test Name Order Date PROFILE, FASTING (COMPREHENSIVE METABOLI C) 09/16/2024 PROFILE, FASTING (COMPREHENSIVE METABOLI C) 09/19/2023 PROFILE, [...] CBC w DIFF 12/26/2022 CBC w DIFF 09/16/2024 CBC w DIFF 08/26/2022 CBC w DIFF 05/01/2023 VITAMIN D 25-OH TOTAL 08/04/2022 CBC WITH AUTO DIFF 02/22/2024 CBC WITH AUTO DIFF 01/19/2024 CBC WITH AUTO DIFF 09/19/2023 CBC WITH AUTO DIFF 05/17/2024 Erythrocyte Sedimentation Rate Ferritin 03/14/2023 Lipid Panel 05/01/2023 Lipid Panel 05/17/2024 Lipid Panel 02/22/2024 Lipid Panel 01/19/2024 Lipid Panel 09/16/2024 Lipid Panel 09/19/2023 Free T4 (Free Thyroxine) 01/19/2024 TSH reflex Free T4 01/19/2024 Next Appt Details Provider Name:Erik Grant, 01/17/2025 11:30:00 AM, [address] [place] [address] [address], [place], [phone], Provider Name:Erik Grant, 05/21/2025 02:30:00 PM, [address] [place] [address] [address], [place], [address], Insurance Providers Payer Name Payer Address Payer Phone Subscriber Number Group Number Insured Name Patient Relationship to Insured Coverage Start Date Coverage End Date MEDICARE NGS [address] [place] [address] [id number] Palak Vargas Self - patient is the insured [address] [place] [phone] [id number] Palak Vargas Self - patient is the [...]
--- OUTSIDE RECORDS SUMMARY | 2024-10-14 09:47 | XMS_ITS | Data Portability ---
Author Organization [place] [facility], Allergy Address [address] [address] Care Team Providers Care Grain Elevator Agent Name Role Phone CHHAYA MANLEY Primary Care Provider Assessment No assessment recorded. Plan of Treatment [...] then fax date and time to 2023 [facility] Centralized Scheduling([facility]), [address] [place] [address], [address], 4 10:44:23 Medication Orders doxycycline hyclate 100 mg capsule 2023 024 [facility] #[id number], [address] [place], [address], 11:30:26 Patient TargetsNo targets recorded. Patient InstructionsNo instructions recorded. Reason for Referral None Reported. Results Created Date Observation Date Name Description Value Unit Range Abnormal Flag Note LastModifiedBy Organization Detail LastModifiedTime 01/30/2001/30/2024 BUN BUN 13 mg/dL 8-27 normal Not Available [facility] ([facility]) [address] [facility] [address], [place], [address], 01/30/2024 23:13:29 01/30/20 24 01/30/2024 CREAT ININE creatinine 0.78 mg/dL 0.57-1 .00 normal Not Available [facility] ([facility]) [address] [facility] [address], [place], [address], 01/30/2024 23:13:30 01/30/20 24 01/30/2024 CREAT ININE eGFR 77 mL/mi n/1.7 3 >59 normal Not Available [facility] ([facility]) [address] [facility] [address], [place], [address], 01/30/2024 23:13:30 01/30/20 24 02/02/2024 AEROB IC BACTE RIAL CULTU RE aerobic bacterial culture Final report abnormal Not Available [facility] ([facility]) [address] [facility] [address], [place], [address], 02/13/2024 12:11:49 01/30/20 24 02/02/2024 AEROB IC BACTE RIAL CULTU RE result 1 COMMEN T abnormal Cyndi tia lique facie ns compl ex Moder ate growt h Not Available [facility] ([facility]) [address] [facility] [address], [place], [address], 02/13/2024 12:11:49 01/30/20 24 02/02/2024 AEROB IC BACTE RIAL CULTU RE result 2 Skin brenna isolat ed Light growt h Not Available [facility] ([facility]) [address] [place], [address], 02/13/2024 12:11:49 01/30/20 24 02/02/2024 AEROB IC [...] thopr im/Mcwilliams lfa S Not Available [facility] ([facility]) [address] [facility] [address], [place], [address], 02/13/2024 12:11:49 01/30/2002/13/2024 FUNGU S (MYCO LOGY) CULTU RE fungus (mycology) culture Final report Not Available [facility] ([facility]) [address] [facility] [address], [place], [address], 02/13/2024 12:11:50 01/30/2002/13/2024 FUNGU S (MYCO LOGY) CULTU RE result 1 Commen t Cultu re overg rown with bacte ramila. Not Available [facility] ([facility]) [address] [facility] [address], [place], [address], 02/13/2024 12:11:50 01/17/20 24 01/10/2024 CT, neck, [...] contr ast No observ ation [email or web address] [address] [place], [address], 03/05/2024 09:46:19 03/14/20 24 02/16/2024 CT, neck, soft tissu e, w/ contr ast No observ ation record ed. [email or web address] [facility] Centralized Scheduling(Ra diology) [address] [facility], [place], [address], 03/14/2024 14:29:05 Result Notes None recorded. Problems Name Problem SNOMED Code Status Onset Date Resolution Date Notes Provider Name and Address Organization Details Recorded Time Allergic rhinitis 07886773 Active 2014 Allergic rhinitis: Due to other allergen; Note: Date Diagnosed : 11/18/2014 3:06 PM (477.8) ; Start Date : 5 Allergi c rhinitis: Due to other allergen; Note: Date Diagnosed : 11/07/2014 2:39 PM (477.8) ; Start Date : 5 Perenni al allergic rhinitis; Note: Date Diagnosed : 12/23/2014 3:48 PM (J30.89) [mapped from ICD9 code: 477.8] Not Available [facility] 4 02:19:39 Impacted cerumen 69035472 Active 2014 Impacted cerumen; Note: Date Diagnosed : 11/07/2014 2:38 PM (380.4) Not Available [facility] 4 02:19:31 Sialolithi asis 22693504 Active 2023 WILIAM LUX MD [address] [place] [address], [place], [address] , [place] [facility] 4 11:30:16 Acute sialoadeni tis 024261262 Active 2023 WILIAM LUX MD [address] [place] [address], [place], [address] , [place] [facility] 4 11:30:23 Chronic sialadenit is 012117558 Active 2023 WIILAM LUX MD [address] [place] [address],[place] [address], [place], [address] , [facility] - [facility] 4 11:43:53 Problem Notes None recorded. Procedures [...] CT, neck, soft tissue, w/ contrast completed [address], [address], 03/05/2024 09:46:19 02/16/2024 CT, neck, soft tissue, w/ contrast completed [address] Scheduling(Radiol [facility]) [address] [place] [address], [address], 03/14/2024 14:29:05 Procedure Notes None recorded. Medical Equipment None Reported. Medications Name Sig Start Date Stop Date Status Note LastModified by Organization Details LastModified Time celecoxib 200 mg capsule 11/11 [place]: [id number] Du ration Value: 30 Reason: () Brand [...] mg tablet 05/05 [place] ID: [id number] Du ration Value: 60 Reason: () Brand Name: furosemi de Send Method: E-Prescr ibed Sub s Allowed: subs OK Speci al Instruct ion: TAKE 1 TABLET BY MOUTH TWICE A WEEK-- MONDAY AND MONDAY Medicat ionGener icName: furosemi de Not Available Not Available Not Available vitamin E 670 mg (1,000 unit) capsule 2015 active Medicati on ID: [id number] B rand Name: vitamin E Send Method: E-Prescr ibed Sub s Allowed: subs OK Medic ationGen ericName : vitamin E Not Available Not Available Not Available vitamin A 2,400 mcg capsule 2015 active Medicati on ID: 295902 B rand Name: vitamin A Send Method: E-Prescr ibed Sub s Allowed: subs OK Medic ationGen ericName : vitamin A Not Available Not Available Not Available loratadin e 10 mg disintegr ating tablet 02/11 completed Medicati on ID: [id number] Re ason: () Brand Name: loratadi ne [...] mg tablet 05/05 completed Medicati on ID: [id number] D uration Value: 30 Reason: () Brand Name: labetalo l Send Method: E-Prescr ibed Sub s Allowed: subs OK Speci al Instruct ion: TAKE 1 TABLET BY MOUTH TWICE A DAY Medi cationGe nericNam e: labetalo l Not Available Not Available Not Available Claritin 10 mg tablet 1 tablet by mouth 2015 active Medicati on ID: [id number] D uration Value: 30 Brand Name: Claritin Send Method: E-Prescr ibed Sub s Allowed: subs OK Medic ationGen ericName : Claritin Not Available Not Available Not Available meloxicam 15 mg tablet 02/09 completed Medicati on ID: [id number] D uration Value: 30 Reason: () Brand [...] mg tablet 02/09 completed Medicati on ID: [id number] D uration Value: 30 Reason: () Brand Name: amlodipi ne Send Method: E-Prescr ibed Sub s Allowed: subs OK Speci al Instruct ion: TAKE 1 TABLET BY MOUTH EVERY NIGHT Me dication GenericN naman: amlodipi ne Not Available Not Available Not Available aspirin 81 mg tablet,de layed release 2014 active Medicati on ID: 34146 Du ration Value: 30 Brand Name: aspirin Send Method: E-Prescr ibed Sub s Allowed: subs OK Speci al Instruct ion: TAKE 1 TABLET BY MOUTH ONCE A DAY Medi cationGe nericNam e: aspirin Not Available Not Available Not Available tramadol 50 mg tablet 2014 active Medicati on ID: [id number] Du ration Value: 15 Brand Name: tramadol [...] mg capsule 2015 active Medicati on ID: [id number] B rand Name: lutein S end Method: [...] elayed release 2014 active Medicati on ID: [id number] Du ration Value: 30 Brand Name: omeprazo le Send Method: E-Prescr ibed Sub s Allowed: subs OK Speci al Instruct ion: TAKE 1 CAPSULE BY MOUTH TWICE A DAY Medi cationGe nericNam e: omeprazo le Not Available Not Available Not Available Tylenol 325 mg tablet 2014 active Medicati on ID: [id number] B rand Name: Tylenol Send Method: E-Prescr ibed Sub s Allowed: subs OK Medic ationGen ericName : Tylenol Not Available Not Available Not Available zinc 50 mg tablet 2015 active Medicati on ID: 579613 B rand Name: zinc Sen d Method: [...] nasal spray 2014 active Medicati on ID: 922343 D uration Value: 30 Brand Name: ipratrop ium bromide Send Method: E-Prescr ibed Sub s Allowed: subs OK Speci al Instruct ion: INHALE 2 SPRAY INTO BOTH NOSTRILS THREE TIMES A DAY DIRECTED Medicat ionGener icName: ipratrop ium bromide Not Available Not Available Not Available Co Q-10 10 mg capsule 02/09 completed Medicati on ID: [id number] R poonam: () Brand Name: Co Q-10 Sen d Method: E-Prescr ibed Sub s Allowed: subs OK Medic ationGen ericName : Co Q-10 Not Available Not Available Not Available nabumeton e 500 mg tablet TAKE 2 TABLETS BY MOUTH TWICE A DAY active Not Available Not Available No t Available lutein 15 mg-zeaxan thin extract 0.7 mg capsule 2015 active Medicati on ID: 217360 B rand Name: lutein-z eaxanthi n Send Method: E-Prescr ibed Sub s Allowed: subs OK Medic ation ericName : lutein-z eaxanthi n Not Available Not Available Not Available valsartan 160 mg tablet 04/15 [place] Medicati on ID: [id number] Du ration Value: 30 Reason: () Brand Name: valsarta n Send Method: E-Prescr ibed Sub s Allowed: subs OK Speci al Instruct ion: TAKE 1 TABLET BY MOUTH EVERY EVENING Medicati onGeneri cName: valsarta n Not Available Not Available Not Available Vitamin C 500 mg capsule,e xtended release 2015 active Medicati on ID: 132446 B rand Name: Vitamin C Send Method: E-Prescr ibed Sub s Allowed: subs OK Medic ationGen ericName : Vitamin C Not Available Not Available Not Available Vitamin D3 25 mcg (1,000 unit) capsule 2015 active Medicati on ID: 122241 B rand Name: Vitamin D3 Send Method: [...] mg tablet 2014 active Medicati on ID: 28836 Du ration Value: 30 Brand Name: Crestor Send Method: E-Prescr ibed Sub s Allowed: subs OK Speci al Instruct ion: TAKE 1 TABLET BY MOUTH ONCE A DAY Medi cationGe nericNam e: Crestor Not Available Not Available Not Available ProAir HFA 90 mcg/actua tion aerosol inhaler 02/11 completed Medicati on ID: [id number] R poonam: () Brand Name: ProAir HFA Send Method: E-Prescr ibed Sub s Allowed: subs OK Medic ationGen ericName : ProAir HFA Not Available Not Available Not Available Calcium 500 mg + D (D3) 3.125 mcg (125 unit) tablet 05/05 completed Medicati on ID: [id number] R poonam: () Brand Name: Calcium 500 + D (D3) Sen d Method: E-Prescr ibed Sub s Allowed: subs OK Medic ationGen ericName : Calcium 500 + D (D3) Not Available Not Available Not Available copper gluconate 2 mg capsule 2015 active Medicati on ID: [id number] B rand Name: copper gluconat e Send Method: E-Prescr ibed Sub s Allowed: subs OK Medic ationGen ericName : copper gluconat e Not Available Not Available Not Available Prevnar 13 (PF) 0.5 mL intramusc ular syringe 11/11 completed Medicati on ID: [id number] Du ration Value: 30 Reason: () Brand Name: Prevnar 13 (PF) Sen d Method: E-Prescr ibed Sub s Allowed: subs OK Speci al Instruct ion: TO BE ADMINIST ERED BY PHARMACI ST FOR IMMUNIZA TION Med icationG enericNa me: Prevnar 13 (PF) Not Available Not Available Not Available Probiotic and Acidophil us 300 million cell-250 mg capsule 2014 active Medicati on ID: [id number] B rand Name: Probioti c & Acidophi raphael Send Method: E-Prescr ibed Sub s Allowed: subs OK Medic ationGen ericName : Probioti c & Acidophi raphael Not Available Not Available Not Available EpiPen 2-Navneet 0.3 mg/0.3 mL injection , auto-inje ctor 1 pen injector intramus cularly 2015 active Medicati on ID: [id number] D uration Value: 180 Prescri bed By Name: Otf Ortiz nd Name: EpiPen 2-Navneet Se nd Method: E-Prescr ibed Sub s Allowed: subs OK Medic ationGen ericName : EpiPen 2-Navneet Not Available Not Available Not Available PreserVis ion AREDS-2 250 mg-90 mg-40 mg-1 mg capsule 2014 active Medicati on ID: [id number] B rand Name: PreserVi sukhwinder AREDS 2 Send Method: E-Prescr ibed Sub s Allowed: subs OK Medic ationGen ericName : PreserVi sukhwinder AREDS 2 Not Available Not Available Not Available turmeric 2015 active Medicati on ID: 185222 B rand Name: turmeric Send Method: E-Prescr ibed Sub s Allowed: subs OK Medic ationGen ericName : turmeric Not Available Not Available Not Available glucosami ne sulf dipotassi um Cl 750 mg-chondr oitin sulf 600 mg tablet 02/09 completed Medicati on ID: [id number] R poonam: () Brand Name: glucosam ine-phil droitn sulf.Na Send Method: E-Prescr ibed Sub s Allowed: subs OK Medic ationGen ericName : glucosam ine-phil droitn sulf.Na Not Available Not Available Not Available Vitals Date Recorded Body height Body mass index (BMI) Body weight Provider Name and Address Organization Details Last Updated DateTime 01/30/2024 149.86 cm 39.4 kg/m2 16718.51 g Jose Nelson [place] [facility] 01/30/2024 11:12:04 Date Recorded Body height Body mass index (BMI) Body weight Provider Name and Address Organization Details Last Updated DateTime 03/06/2024 149.86 cm 39.4 kg/m2 90527.51 g Jose Nelson [facility] 03/06/2024 10:40:47 Social History None recorded. Functional Status None recorded. Mental Status None recorded. Family History Nothing Reported. Medical History Condition Response Arthritis Y Hypertension Y Gynecological HistoryNo gynecological history recorded. Obstetrics History GPAL:G 0 P 0 0 0 0 Past Encounters Encounter ID Performer Location Encounter Start Date Encounter Closed Date Diagnosis/Indication Diagnosis SNOMED-CT Code Diagnosis ICD10 Code Diagnosis Note [id number] WLIIAM LUX MD [facility] [address] [address] 01/30/2024 10:48:55 01/30/2024 11:40:42 Sialolithiasis 97422812 K11.5 see below Chronic sialadenitis 235 975623 K11.23 She has chronic left submandibu lar [...] exclude neoplastic pathology with f/u thereafter . [id number] WILIAM LUX MD [facility] on [address] [place] [address] 03/06/2024 10:14:58 03/06/2024 11:31:46 Chronic sialadenitis 927066187 K11.23 She has chronic left submandibu lar [...] gland removal. Will reassess at f/u. Sialolithiasis 19812009 K11.5 see below Health Concerns Section Related Observation LastModified by Organization Detai ls LastModified Time None Recorded Concern Status LastModified by Organization Details LastModified Time None Recorded Advance Directives Directive None Recorded Payers Insurance Date Sequence Insurance Name Policy Number Policy Escobar Covered Member ID Escobar Member ID Guarantor Name 06/10/2024 1 [place]ARE [place]: [employer] Palak Vargas [id number] Palak Vargas 06/10/2024 2 [facility] [id number] Palak Vargas [id number] Palak Vargas Notes Date Note Type Note Provider Name [...] with adjacent obstructing calculi in the proximal Freeport's duct. Non obstructive calculi were see on the right without sialadenitis. Thyroid heterogeneity was noted and correlation with TFTs was recommended. WILIAM LUX MD [address] [facility],[place] [address], [place], [address], [place] - [facility] 01/30/2024 11:47:19 03/06/2024 text/html Hx of [...] plenty of water. WILIAM LUX MD [address] [facility],[place] [address], [place], [address], [facility] - [facility] 03/06/2024 11:30:27 OBGyn Episode No OBEpisode recorded.
--- OUTSIDE RECORDS SUMMARY | 2024-10-14 09:47 | XMS_ITS ---
Author Organization [facility] Address [address] [place] [address] Care Team Providers Care Wire Tinner Name Role Phone Rudy ALEGRIA, Erik Primary Care Provider Unavailab Erik Sarah Unavailable [phone] REASON FOR VISIT requesting results on labs Encounters Encounter Location Date Provider Diagnosis [facility] [address] [place] [address] 10/19/2023 Erik Avery Plan Of Treatment No Information Progress Notes * RENETTA, ADELE EDOB: [birth year] (78 yo F)Acc No.[id number]:10/19/2023 Patient:?ORA JACKSON :1945???Age:78 Y???Sex:Female Address:[address] [facility], [place] [address] * true * Date:? Generated for Printi ng/Faxing/eTransmitting on:?10/14/2024 09:47 AM EDT
--- OUTSIDE RECORDS SUMMARY | 2024-10-14 09:47 | XMS_ITS | Patient Health Record ---
Author Organization [facility] Address [address] [place] [address] Care Team Providers Care Helper Marble Finisher Name Role Phone Erik Grant MD Primary Care Provider UnavailErik Morgan Unavailable [phone] Allergies Allergen (clinical drug ingredient) Drug/Non Drug Allergy documented on EMR Reaction Allergy Type Onset Date Status Adhesive Unknown Allergy Active dibucaine Dibucaine Unknown Drug Allergy Active Reason For Referral No Information Medications Medication SIG (Take, Route, Frequency, Duration) [...] 30 day(s) Active Vitamin D3 50 MCG (2000 UT) 1 [...] 1/2 tablet Orally Once a day Active Immunizations Vaccine Route Administration Date Status Comme nts Flu vaccine no Preserv 3 and > Unknown 03/19/2014 Admin istered Flu vaccine no Preserv 3 and > Unknown 02/04/2016 Admin istered Influenza Unknown 03/04/2019 Administered Influenza Unknown 03/05/2020 Administered Influenza Unknown 02/03/2022 Administered Influenza Unknown 03/28/2023 Administered Problems Problem Type SNOMED Code ICD Code Onset Dates Problem Status W/U Status Risk Notes Problem 773193590 Encounter for screening for malignant neoplasm of colon (Z12.11) Active confirmed Problem Diarrhea (17417136) Diarrhea (R19.7) Active confirmed Problem Irritable bowel syndrome with diarrhea (956000637) Irritable bowel syndrome with diarrhea (K58.0) Active confirmed Problem 354514051 Gastroesophageal reflux disease, esophagitis presence not specified (K21.9) Active confirmed Problem 502931376 Clostridium difficile infection (B96.89) Active confirmed Problem 56583759 Hiatal hernia (K44.9) Active confirmed Problem 81154974 Diarrhea, unspecified type (R19.7) Active confirmed Problem 80229185 Cough, unspecifi ed type (R05.9) Active confirmed Vital Signs Temperature 97.3 degrees Fahrenheit 03/01/2024 Blood pressure diastolic 00 mm Hg 03/01/2024 Height 60.0 in 03/01/2024 Blood pressure systolic 000 mm Hg 03/01/2024 Weight 197 lb 6 oz lbs 03/01/2024 BMI 38.54 kg/m2 03/01/2024 Encounters Encounter Location Date Provider Diagnosis [facility] [address] [place] [address] 03/01/2024 Erik Avery Irritable bowel synd ricardo with diarrhea K58.0 and Gastroesophageal reflux disease, esophagitis presence not specified K21.9 [facility] [address] [place] [address] 10/19/2023 Erik Avery Assessments Encounter Date Diagnosis (ICD Code) Assessment [...] assistance in the future. Plan Of Treatment Pending Test Test Name Order Date CHEM 7 PROFILE 10/10/2023 LIVER PROFILE 10/10/2023 CRP 10/10/2023 CBC w DIFF 10/10/2023 SED RATE (ESR) 10/10/2023 CLOSTRIDIUM DIFF TOXIN A&B (C DIFF) 12/2016 CLOSTRIDIUM DIFF TOXIN A&B (C DIFF) 06/06 CLOSTRIDIUM DIFF TOXIN A&B (C DIFF) 09/04 STOOL WBC 08/09/2016 STOOL WBC 09/27/2016 CELIAC PANEL #10 08/30/2023 STOOL WBC 10/10/2023 C DIFFICILE RFLX PCR 10/10/2023 Future Test Test Name Order Date UPPER GI ENDOSCOPY 03/08/2018 COLONOSCOPY 03/27/2019 Insurance Providers Payer Name Payer Address Payer Phone Subscriber Number Group Number Insured Name Patient Relationship to Insured Coverage Start Date Coverage End Date MEDICARE OF JOANN MCDANIELS [address] [id number] ORA JACKSON Self - patient is the insured [facility] [address] [place] [address] [id number] ORA JACKSON Self - patient is the insured Medical (General) History Medical History History ICD Code Neg. Colonoscopies in 2002 a nd 01/2009--no polyps--diverticulosis and internal hemorrhoids---neg. Hemoccults in 2014 and 2015 GERD--Moderate-sized Hiatal hernia-otherwise Neg EGD in 01/2009 and in 04/2018-- moderate-sized hiatal hernia, no esophagitis nor Arias's esophagus, normal duodenal biopsies, benign gastric polyps with biopsies negative for H. 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
--- OUTSIDE RECORDS SUMMARY | 2024-10-14 09:47 | XMS_ITS | Clinical Summary ---
Author Organization [facility] Address [address] [place] [address] Phone Care Team Providers Care Chief Console Operator Name Role Phone Erik Grant MD Primary Care Provider [phone] Allergies Active Allergy Reactions Criticality Noted Date [...] EVERY MORNIGN & AGAIN AT 5PM 90 01/22/20 23 Active ipratropium (ATROVENT) 0.06 % nasal spray USE 1 SPRAY IN EACH NOSTRIL TWICE DAILY 11/08/19 23 Active nabumetone (RELAFEN) 500 MG tablet Take 2 tablets by mouth in the morning and 2 tablets in the evening. Active spironolactone (Aldactone) 25 MG tablet Take 1 tablet (25 mg total) by mouth 3 times weekly on Monday 153 tablet 10/03/19 25 026 Active furosemide (LASIX) 20 MG tablet Take 1 tablet (20 mg total) by mouth 1 (one) time each day 90 tablet 10/02/19 25 025 Active furosemide (LASIX) 20 MG tablet TAKE 1 TABLET (20 MG TOTAL) BY MOUTH ONE TIME EACH DAY 90 tablet 05/19/20 24 025 Discontinued furosemide (LASIX) 20 MG tablet Take 1 tablet (20 mg total) by mouth in the morning and 1 tablet (20 mg total) in the evening. 180 tablet 1 10/01/19 25 025 Discontinued Active Problems Problem Noted Date Diagnosed Date Edema 02/01/2024 Clostridioides difficile infection 07/22/2021 Diarrhea 07/22/2021 Gastroesophageal reflux disease 07/22/2021 Hiatal hernia 07/22/2021 Screening for malignant neoplasm of colon 2021 Essential hypertension 06/28/2021 Encounters Date Type Department Care Team Description 10/14/2024 Orders Only [facility] [address] [place] [phone] Aftab Louis MD Edema, not otherwise specified 10/07/2024 Orders Only [facility] [address] [place] [address] Aftab Louis MD Edema, not otherwise specified 10/01/2024 Office Communication [facility] [address] [phone] Aftab Louis MD 09/30/2024 1:00 PM EDT Office Visit [facility] [address] [place] [address] Aftab Louis MD Edema, not otherwise specified (Primary Dx) 09/23/2024 Telephone [facility] [address] [phone] Alba Helm MA from Last 3 Months Immunizations Immunization Administration Dates Next Due Influenza, Unspecified 03/05/2020,03/04/2019,06/2015,03/19/2014 [...] Sign Reading Time Taken Comments Blood Pressure 118/72 09/30/2024 12:54 PM EDT Pulse 77 09/30/2024 12:54 PM EDT Temperature - - Respiratory Rate - - Oxygen Saturation 98% 09/30/2024 12:54 PM EDT Inhaled Oxygen Concentration - - Weight 87.1 kg (192 lb) 09/30/2024 12:54 PM EDT Height 152.4 cm (5') 01/20/2022 1:22 PM EDT Body Mass Index 37.5 01/20/2022 1:22 PM EDT Plan of Treatment Upcoming Encounters Date Type Department Care Team (Late st Contact Info) Description 02/06/2025 2:00 PM EDT Office Visit [facility] [address] [place] [address] Aftab Louis MD [address] [phone] 03/31/2025 3:00 PM EDT Office Visit [facility] [address] [place] [phone] Aftab Louis MD [address] [facility] [address] [place] [address] Health Maintenance Due Date Last Done Comments Pneumococcal Vaccine: 50+ Years (2 of 2 - PCV) 12/26/2014 12/26/2013 Influenza Vaccine (Season Ended) 2025 03/05/2020, 03/04/2019, 02/04/2016, Additional history exists Pneumococcal Vaccine: Peds (0 to 5 Years) and At-Risk Patients (6 to 49 Years) Discontinued 12/26/2013 Hepatitis B Vaccine Aged Out No longe r eligible based on patient's age to complete this topic Insurance Medicare [facility] Medicare [facility] Care Teams Chief Console Operator Relationship Specialty Start Date End Date Erik Grant MD [address] [place] [address] , [address] [place] [address] PCP - General Medical Oncology 10/01/24
--- OUTSIDE RECORDS SUMMARY | 2024-10-14 09:47 | XMS_ITS ---
Author Organization Erik Grant III, MD Address [address] [place] [address] Care Team Providers Care Demolition Engineer Name Role Phone Erik Grant Primary Care Provider [phone] Allergies Allergen (clinical drug ingredient) Drug/Non Drug [...] Date Provider Diagnosis Erik Grant III, MD [address] [place] [address] [place] [address] 05/17/2024 Erik Grant Hypertension I10 ; O [...] Her reflux symptoms are well controlled with cwtq-wkz-tiegyuj medication. 05/17/2024 Primary osteoarthrit is involving multiple [...] eyes (ICD-10 - H35.3132) She sees her facilities maintenance supervisor regularly. 05/17/2024 Obstructive sleep ap lucien (ICD-10 [...] 4 Months, Reason: OV Provider Name:Erik Grant, 01/17/2025 11:30:00 AM, [address] [place] [address] [address] [place], [place], [phone], Provider Name:Erik Grant, 05/21/2025 02:30:00 PM, [address] [place] [address] [address], [place], [phone], Progress Notes * Palak VARGAS EDOB: [birth year] (78 yo F)Acc No.[id number]:05/17/2024 Progress Notes Patient:?Palak VARGAS Provider:?Erik Grant MD :1945???Age:78 Y???Sex:Female D ate:05/17/2024 Address:[address] [place] [address], [id number] Subjective: * Chief Complaints: * ???Annual Exam [...] Tobacco Non-User?Aggressive non-smoker ???She was born in [place], [place] and lives in [place]. 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 She has been to [employer] for many years. She has a son and a daughter and 4 grandchildren. She has no anabaptist objection to blood transfusion. She does not [...] - 03/05/2024) (Performed Date - 03/05/2024) Lab:[facility] * Collection Date 05/13/2024 [...] :Her reflux symptoms are well controlled with ktjb-uzj-ndbvydz medication.???5.?Primary osteoarthritis involving multiple joints - M15.9???Notes [...] both eyes - H35.3132???Notes :She sees her facilities maintenance supervisor regularly.???13.?Obstructive sleep apnea - G47.33???Notes :She was [...] Grant MD Date:?05/05 Generated for Gely mcfadden/[place]/eTransmitting on:?10/14/2024 09:46 AM EDT History and Physical [...]
--- OUTSIDE RECORDS SUMMARY | 2024-10-14 09:47 | XMS_ITS ---
Author Organization Erik Grant III, MD Address [address] [place] [address] Care Team Providers Care Tattoo Designer Name Role Phone Erik Grant Primary [...] Date Provider Diagnosis Erik Grant III, MD [address] [place] [address] [place] [address] 09/16/2024 Erik Grant Hypertension I10 ; O [...] Her reflux symptoms are well controlled with glsy-rde-hverzbg medication. 09/16/2024 Primary osteoarthrit is involving multiple [...] OV Provider Name:Erik Grant, 01/17/2025 11:30:00 AM, [address] [place] [address] [address], [place], [phone], Provider Name:Erik Grant, 05/21/2025 02:30:00 PM, [address] [place] [address] [address], [place], [phone], Progress Notes * Palak VARGAS EDOB: [birth year] (79 yo F)Acc No.[id number]:09/16/2024 Progress Notes Patient:?Palak VARGAS Provider:?Erik Grant MD :1945???Age:79 Y???Sex:Female D ate:09/16/2024 Address:[address] [place] [address] [phone] Subjective: * Chief Complaints: * ???HypertensionGERDDysplasia right breastHyperlipidemiaHearing lossSleep at * HPI: ???COVID-19 Screening:?She returns to the office for management of multiple issues.? She is now [facility] at [facility].? She has had a fall.? Since her last visit with us great on her nose and a bruise on her right knee.? She has occasional ankle swelling which is not present today.? She sees Dr. Louis, Nephrology, for her blood pressure.? He has been compliant with all of her medications.She says she uses CPAP.? She has had no new illnesses since her last visit.? Her blood woork was reviewed with her. ?Questions?Have you had any new onset fever, chills, cough, congestion, sore throat, shortness of breath, muscle aches??No * ROS:?General/Constitutional:?pain?only normal aches and pains.?Chills?denies.?Fatigue?admits.?Fever?denies.?ENT:?Decreased hearing?in both ears.?Respiratory:?Cough?non-productive.?Cardiovascular:?Chest pain with exertion?denies.?Dyspnea on exertion?denies.?Shortness of breath?with exertion.?Gastrointestinal:?Constipation?occasional.?Decreased appetite?denies.?Diarrhea?denies.?Heartburn?denies.?Nausea?denies.?Rectal bleeding?denies.?Vomiting?denies.?Hematology:?bruising?denies.?petechiae?denies.?Swollen glands?none have been noted.?Genitourinary:?Frequent urination?at night.?Musculoskeletal:?Muscle aches?denies.?Painful joints?denies.?Sciatica?denies.?Weakness?denies.?Skin:?Itching?denies.?Rash?denies.?Skin lesion(s)?denies.?Neurologic:?Difficulty speaking?denies.?Dizziness?denies.?Headache?denies.?Low back pain?denies.?Psychiatric:?Depressed mood?denies.? * Medical [...] Tobacco Non-User?Aggressive non-smoker ???She was born in [place], [place] and lives in [place]. 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 She has been to [employer] for many years. She has a son and a daughter and 4 grandchildren. She has no alevism objection to blood transfusion. She does not drink alcohol or smoke cigarettes. * Medications:?TakingIbuprofen Gas Relief 180 MG Capsule 1 capsule [...] Allergies:?AdhesiveDibucaine Succinylcholineno[Allergies Verified] Objective: * Vitals:?Ht: 60, Wt:193, BMI: 37.69, BP:135/80, HR:85, Temp:97.4, Wt-k.54. * ???Past Orders: Lab:Complete Blood Count Aut o Diff * Collection Date 09/11/2024 05/13/2024 02/01/2024 Collection Time 07:53 AM 09:35 AM 08:35 AM Order Date 09/11/2024 05/13/2024 02/01/2024 White Blood Count 5.4 (Ref Range: 4.8-10.8 X10*3/uL) 6.3 (Ref Range: 4.8-10.8 X10*3/uL) 5.5 (Ref Range: 4.8-10.8 X10*3/uL) Red Blood Count 4.53 (Ref Range: 4.20-5.50 X10*6/uL) 4.44 (Ref Range: 4.20-5.50 X10*6/uL) 4.12?L (Ref Range: 4.20-5.50 X10*6/uL) Hemoglobin 13.2 (Ref [...] (Ref Range: 20-40 %) Monocytes Percent Auto 15.7?H (Ref Range: 2-11 %) 12.9?H (Ref Range: 2-11 %) 12.3?H (Ref Range: 2-11 %) Eosinophils Percent Auto 6.4?H (Ref Range: 0-4 %) 3.5 (Ref Range: [...] 0.000 (Ref Range: 0.0-0.012 X10*3/uL) * Lab:[facility] * Collection Date 09/11/2024 05/13/2024 02/01/2024 Collection Time 07:53 AM 09:35 AM 08:35 AM Order Date 09/11/2024 05/13/2024 02/01/2024 Sodium 142 (Ref Range: 135-145 mmol/L) 139 (Ref Range: 135-145 mmol/L) 139 (Ref Range: 135-145 mmol/L) Bilirubin Total 0.5 (Ref Range: 0.0-1.0 mg/dL) 0.4 (Ref Range: 0.0-1.0 mg/dL) 0.3 (Ref Range: 0.0-1.0 mg/dL) Aspartate Amino Transferase 32?H (Ref Range: 5-31 U/L) 33?H (Ref Range: 5-31 U/L) 20 (Ref Range: 5-31 U/L) Alanine Aminotransferase 27 (Ref Range: 0-31 U/L) 34?H (Ref Range: 0-31 U/L) 21 (Ref [...] mmol/L) 4.0 (Ref Range: 3.3-5.1 mmol/L) Chloride 111?H (Ref Range: 96-108 mmol/L) 106 (Ref Range: 96-108 mmol/L) 107 (Ref Range: 96-108 mmol/L) Carbon Dioxide 25 (Ref Range: 22-29 mmol/L) 26 (Ref Range: 22-29 mmol/L) 23 (Ref Range: 22-29 mmol/L) Anion Gap 10?L (Ref Range: 12-20) 11?L (Ref Range: 12-20) 13 (Ref Range: 12-20) Blood Urea Nitrogen 13 (Ref Range: 9-16 mg/dL) 15 (Ref Range: 9-16 mg/dL) 15 (Ref Range: 9-16 mg/dL) Creatinine 0.78 (Ref Range: 0.5-1.4 mg/dL) 0.65 (Ref Range: 0.5-1.4 mg/dL) 0.81 (Ref Range: 0.5-1.4 mg/dL) Estimated Glomerular Filt Rate > 60 > 60 > 60 Glucose Fasting 103?H (Ref Range: 60-99 mg/dL) 92 (Ref Range: 60-99 mg/dL) 104?H (Ref Range: 60-99 mg/dL) Calcium 9.0 (Ref [...] mg/dL) Cholesterol 193 (Ref Range: <200 mg/dL) 208?H (Ref Range: <200 mg/dL) 190 (Ref Range: <200 mg/dL) LDL Cholesterol Calculated 118?H (Ref Range: <100 mg/dL) 128?H (Ref Range: <100 mg/dL) 113?H (Ref Range: <100 mg/dL) HDL Cholesterol 55 [...] 1.01 (Ref Range: 0.32-4.0 uIU/mL) * Examination: ???General Examination: ?GENERAL APPEARANCE:?pleasant, well nourished, well developed, in no acute distress, calm and relaxed, obese, woman.?HEAD:?atraumatic, normocephalic.?EYES:?eomi, perrla, anicteric, conjugate.?EARS:?Normal anatomy with moderate hearing loss.?NOSE:?septum intact.?ORAL CAVITY:?normal, unremarkable.?NECK/THYROID:?no jugular venous distention, no carotid bruit, thyroid normal.?LYMPH NODES:?no enlarged lymph nodes,spleen normal.?SKIN:?no suspicious lesions, anicteric.?HEART:?no clicks, gallops, murmurs, or rubs, regular rhythm, S1, S2 normal, no s3, or vascular bruits.?LUNGS:?clear to auscultation .?BREASTS:?Not examined.?ABDOMEN:?bowel sounds normal, no ascites, no organomegaly, no mass, centripital obesity.?RECTAL EXAM:?not examined.?MUSCULOSKELETAL:?extremities unremarkable, no clubbing, cyanosis or edema.?PERIPHERAL PULSES:?normal.?NEUROLOGIC:?alert and oriented, cranial nerves 2-12 grossly intact with hearing loss, deep tendon reflexes 2+ symmetrical, motor strength normal upper and lower extremities, sensory exam intact.?PSYCH:?alert, oriented.? Assessment: * Assessment: 1.?Hypertension - I10 (Prima ry)???Notes :Her blood pressure is stable and no change in her regimen was needed.The value is 136/80.???2.?Obesity (BMI 30-39.9) - E66.9???Notes :Her body mass index is 36.? Her weight is stable.? We have discussed diet and nutrition and made a plan to lose weight at a rate of one half of a pound per week through a diet restricted in fat calories and sodium.???3.?Mixed hyperlipidemia - E78.2???Notes :Her total cholesterol was 193 and your LDL is 118.? She was continued on her current medications without change.? 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 Has ever been detected.???9.?Unspecified benign mammary dysplasia of right breast - N60.91???Notes :She has had multiple biopsies of the breast that showed benign disease.??? Plan: * Treatment: 2.?Obesity (BMI 30-39.9)?LAB: PROFILE, FASTING (COMPREHENSIVE METABOLIC) ?LAB: CBC w DIFF ?LAB: Lipid Panel 3.?Mixed hyperlipidemia?LAB: PROFILE, FASTING (COMPREHENSIVE METABOLIC) ?LAB: CBC w DIFF ?LAB: Lipid Panel * Procedure Codes:? * Preventive Medicine:? ??Counseling:?Care [...] or Other reason not done * Follow Up:?4 Months (Reason: OV) * Images: * Sign off status: Completed true * Provider:?Erik Grant MD Date:?09/03 Generated for Gely mcfadden/[place]/eTduncansmjose on:?10/14/2024 09:46 AM EDT History and Physical [...]
[2024-10-14 14:11] LABS: Anion Gap 12 (12-20); Blood Urea Nitrogen 19 mg/dL (9-16); Calcium 8.9 mg/dL (8.4-10.2); Carbon Dioxide 24 mmol/L (22-29); Chloride 110 mmol/L (96-108); Estimated Glomerular Filt Rate > 60; Potassium 3.6 mmol/L (3.3-5.1); Sodium 142 mmol/L (135-145)
== END 2024-10-14 09:30 | disposition home or self-care (01) ==
LOC: HO.HMGCLDS 09:29
PROVIDERS: PCP Internal Medicine Medical Oncology; Visit Provider Internal Medicine Nephrology
DX: R60.9 Edema, unspecified (principal)
CPT/HCPCS: 36415; 80051; 82310; 82565; 84520

== ENCOUNTER 2025-01-06 07:32 | Outpatient (REF) | payer OTHER, SELFPAY ==
[2025-01-06 10:18] LABS: MANUAL DIFF FLAG NO
[2025-01-06 10:36] LABS: Hematocrit 40.0 % (37.0-47.0); Hemoglobin 13.5 g/dl (12.0-16.0); Imm Gran Abs Auto 0.01 X10*3/uL (0.00-0.03); Imm Gran Pct Auto 0.2 % (0.0-0.4); Lymphocytes Absolute Auto 1.6 X10*3/uL (1.2-4.9); Mean Corpuscular HGB Conc 33.8 g/dl (31.0-35.0); Mean Corpuscular Hemoglobin 30.3 pg (27.0-33.0); Mean Corpuscular Volume 89.9 fL (80.0-98.0); NRBC Abs Auto 0.000 X10*3/uL (0.0-0.012); NRBC Pct Auto 0.0 /100WBC (0.0-0.2); Platelet Count 202 X10*3/uL (160-400); Red Blood Count 4.45 X10*6/uL (4.20-5.50); White Blood Count 5.2 X10*3/uL (4.8-10.8)
[2025-01-06 10:49] LABS: Alanine Aminotransferase 27 U/L (0-31); Albumin Level 3.9 g/dL (3.5-5.0); Alkaline Phosphatase 93 U/L (39-117); Anion Gap 11 (12-20); Aspartate Amino Transferase 33 U/L (5-31); Blood Urea Nitrogen 17 mg/dL (9-16); Calcium 8.9 mg/dL (8.4-10.2); Carbon Dioxide 25 mmol/L (22-29); Chloride 110 mmol/L (96-108); Cholesterol 220 mg/dL (<200); Estimated Glomerular Filt Rate > 60; HDL Cholesterol 44 mg/dL (>40); Potassium 3.6 mmol/L (3.3-5.1); Sodium 142 mmol/L (135-145); Total Protein 6.9 g/dL (6.5-8.0); Triglycerides 214 mg/dL (<150)
== END 2025-01-06 07:33 | disposition home or self-care (01) ==
LOC: HO.HMGCLDS 07:32
PROVIDERS: PCP Internal Medicine Medical Oncology; Visit Provider Internal Medicine Medical Oncology
DX: I10 Essential (primary) hypertension (principal); E66.9 Obesity, unspecified; E78.2 Mixed hyperlipidemia
CPT/HCPCS: 36415; 80053; 80061; 85025

== ENCOUNTER 2025-01-28 06:48 | Outpatient (REF) | payer OTHER, SELFPAY ==
--- OUTSIDE RECORDS SUMMARY | 2024-05-17 11:00 | XMS_ITS ---
Author Organization Erik Gratn III, MD Address [address] [place] [address] Care Team Providers Care Advanced Developer Name Role Phone Erik Grant Primary Care Provider [phone] Allergies Allergen (clinical drug ingredient) Drug/Non Drug [...] Date Provider Diagnosis Erik Grant III, MD [address] [place] [address] [place] [address] 05/17/2024 Erik Grant Hypertension I10 ; O [...] Her reflux symptoms are well controlled with kzzq-kgf-sdiqwyy medication. 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 05/17/2024 Obstructive sleep ap lucien (ICD-10 [...] Up: 4 Months, Reason: OV Provider Name:Erik Grant, 05/21/2025 02:30:00 PM, [address] [place] [address] DR, [place] [address], [place], [address], Progress Notes * Palak VARGAS EDOB: [birth year] (78 yo F)Acc No.[id number]:05/17/2024 Progress Notes Patient: Palak MILLER Provider: Skylar Grant MD :1945 A ge:78 Y S ex:Female Date:05/17/2024 Address:[address] [place] [address], [id number] Subjective: * Chief Complaints: * A nnual [...] ggressive non-smoker S he was born in [place], [place] and lives in [place]. 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 She has been to [place] for many years. She has a son and a daughter and 4 grandchildren. She has no sikh objection to blood transfusion. She does not [...] - 03/05/2024) (Performed Date - 03/05/2024) Lab:[facility] * Collection Date 05/13/2024 02/01/2024 08/21/2023 [...] :Her reflux symptoms are well controlled with zqlb-due-hrubhjh medication. 5 . P rimary osteoarthritis involving [...] - H35.3132 N otes :She sees her communications professional regularly. 1 3. O bstructive sleep apnea [...] true * Provider: Skylar Grant MD Date: 07/18/2023 Generated for Sandori bogdan/[place]/eTransmitting on: 0 01/28/2025 06:52 AM EDT History and Physical Notes * HPI [...]
--- OUTSIDE RECORDS SUMMARY | 2024-09-16 07:15 | XMS_ITS ---
Author Organization Erik Grant III, MD Address [address] [facility] [place] [address] Care Team Providers Care Occupational Therapy Co Director Name Role Phone Erik Grant Primary Care Provider [phone] Allergies Allergen (clinical drug ingredient) Drug/Non Drug Allergy documented on EMR Reaction Allergy Type Onset Date Status succinylcholine Succinylcholine Unknown Drug Allergy Active dibucaine Dibucaine Unknown Drug Allergy Active Adhesive Unknown Allergy Active REASON FOR VISIT Hypertension, GERD, Dysplasia right breast, Hyperlipidemia, Hearing loss, Sleep at Medications Medication SIG (Take, Route, Frequency, Duration) Notes Start Date End Date Status Pramipexole Dihydrochloride 0.25 MG TAKE 2 (0.5MG) TO 3 TABS (0.75 MG) DAILY Orally Active PreserVision AREDS 2 - as directed Orally Active hydroCHLOROthiazide 25 MG 1 tablet in th e morning Orally Once a day Active Amoxicillin 500 MG 4 capsules 1 hour before dental or surgical procedures Orally Once Dental procedures Active Rosuvastatin Calcium 5 MG TAKE 1 TABLET BY MOUTH EVERY DAY FOR 90 DAYS Active Fluticasone Propionate 50 MCG/ACT Nasal Active Esomeprazole Magnesium 40 MG 1 capsule Orally Twice a day Active Famotidine 40 MG 1 tablet as needed Orally Twice a day Active Tums 500 MG 1 tablet Orally Once a day Active Nabumetone 1000 MG 1 tablet Orally Twice a day Active Claritin 10 MG 1 tablet Orally Once a day Active Aspirin 81 81 MG 1 tablet Orally Once a day Active Fiber Active Imodium A-D Active Flax Seed Oil Active Multivitamin Active Gas Relief 180 MG 1 capsule after meals and at bedtime as needed Orally Twice a day Active Calcium Active Melatonin Active Ibuprofen Active Furosemide 20 MG 1 tablet Orally Once a day Active Probiotic 250 MG as directed Orally Active Voltaren 1 % as directed Externally Active Social History Tobacco Use: Social History Observation Description Date Details (start date - stop date) Never Smoker NA - NA Sex Assigned At : Social History Observation Description Sex Assigned At Female Tobacco Use/Smoking Question Answer Notes Patient is a nonsmoker Additional Findings: Tobacco Non-User Aggressive non-smoker Vital Signs Temperature 97.4 degrees Fahrenheit 09/17/19 25 Blood pressure systolic 135 mm Hg 09/17/19 25 Blood pressure diastolic 80 mm Hg 025 Heart Rate 85 /min 09/16/2024 Height 60 in 09/16/2024 Weight 193 lbs 09/16/2024 BMI 37.69 kg/m2 09/16/2024 Encounters Encounter Location Date Provider Diagnosis Erik Grant III, MD [address] [place] [address] [place] [address] 09/16/2024 Erik Grant Hypertension I10 ; O besity (BMI 30-39.9) E66.9 ; Mixed hyperlipidemia E78.2 ; GERD (gastroesophageal reflux disease) K21.9 ; Primary osteoarthritis involving multiple joints M15.9 ; 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 09/16/2024 Obesity (BMI 30-39.9 ) (ICD-10 - E66.9) Her body mass index is 36. Her weight is stable. We have discussed diet and nutrition and made a plan to lose weight at a rate of one half of a pound per week through a diet restricted in fat calories and sodium. 09/16/2024 Mixed hyperlipidemia (ICD-10 - E78.2) Her total cholesterol was 193 and your LDL is 118. She was continued on her current medications without change. I recommended aggressive weight loss and a diet low in animal fat. 09/16/2024 GERD (gastroesophage al reflux disease) (ICD-10 - K21.9) Her reflux symptoms are well controlled with yhik-fmr-kpquzxn medication. 09/16/2024 Primary osteoarthrit is involving multiple joints (ICD-10 - M15.9) She has had multiple surgical procedures and a right knee arthroplasty. She is able to conduct all of the activities of daily life. 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 09/16/2024 Sensorineural hearin g loss (SNHL) of both ears (ICD-10 - H90.3) Communication was possible and she has working hearing aids. 09/16/2024 Unspecified benign mammary dysplasia of left breast (ICD-10 - N60.92) No breast cancer. Has ever been detected. 09/16/2024 Unspecified benign mammary dysplasia of right breast (ICD-10 - N60.91) She has had multiple biopsies of the breast that showed benign disease. Plan Of Treatment Medication Medication Name Sig Start Date Stop Date Notes Pramipexole Dihydrochloride 0.25 MG TAKE 2 (0.5MG) TO 3 TABS (0.75 MG) DAILY Orally PreserVision AREDS 2 - as directed Orally hydroCHLOROthiazide 25 MG 1 tablet in th e morning Orally Once a day Amoxicillin 500 MG 4 capsules 1 hour before dental or surgical procedures Orally Once Dental procedures Rosuvastatin Calcium 5 MG TAKE 1 TABLET BY MOUTH EVERY DAY FOR 90 DAYS Fluticasone Propionate 50 MCG/ACT Nasal Esomeprazole Magnesium 40 MG 1 capsule O rally Twice a day Famotidine 40 MG 1 tablet as needed Orally Twice a day Tums 500 MG 1 tablet Orally Once a day Nabumetone 1000 MG 1 tablet Orally Twice a day Claritin 10 MG 1 tablet Orally Once a day Aspirin 81 81 MG 1 tablet Orally Once a day Fiber Imodium A-D Flax Seed Oil Multivitamin Gas Relief 180 MG 1 capsule after meals and at bedtime as needed Orally Twice a day Calcium Melatonin Ibuprofen Furosemide 20 MG 1 tablet Orally Once a day Probiotic 250 MG as directed Orally Voltaren 1 % as directed Externally Pending Test Test Name Order Date PROFILE, FASTING (COMPREHENSIVE METABOLI C) 09/16/2024 CBC w DIFF 09/16/2024 Lipid Panel 09/16/2024 Next Appt Details Follow Up: 4 Months, Reason: OV Provider Name:Erik Grant, 05/21/2025 02:30:00 PM, [address] [place] [address] [address], [place], [address], Progress Notes * Palak VARGAS EDOB: [birth year] (79 yo F)Acc No.[id number]:09/16/2024 Progress Notes Patient: Palak MILLER Provider: Skylar Grant MD :1945 A ge:79 Y S ex:Female Date:09/16/2024 Address:[address] [place] [address], [place] [address], [id number] Subjective: * Chief Complaints: * H ypertensionGERDDysplasia right breastHyperlipidemiaHearing lossSleep at * HPI: C OVID-19 Screening: S he returns to the office for management of multiple issues. She is now living at [facility]. She has had a fall. Since her last visit with us great on her nose and a bruise on her right knee. She has occasional ankle swelling which is not present today. She sees Dr. Louis, Nephrology, for her blood pressure. He has been compliant with all of her medications.She says she uses CPAP. She has had no new illnesses since her last visit. Her blood woork was reviewed with her. Questions H ave you had any new onset fever, chills, cough, congestion, sore throat, shortness of breath, muscle aches? N o * ROS: G eneral/Constitutional: pain o nly normal aches and pains. C hills d enies.?Fatigue a dmits. F ever d enies. E NT: Decreased hearing i n both ears. R espiratory: Cough n on-productive. C ardiovascular: Chest pain with exertion d [...] Muscle aches d enies. P ainful joints d enies. S ciatica d enies. W eakness d [...] ggressive non-smoker S he was born in [place], [place] and lives in [place]. 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 She has been to [employer] for many years. She has a son and a daughter and 4 grandchildren. She has no hinduism objection to blood transfusion. She does not drink alcohol or smoke cigarettes. * Medications: T akingIbuprofen Gas Relief 180 MG Capsule 1 capsule after meals and at bedtime as needed Orally Twice a day Multivitamin Melatonin Calcium Aspirin 81 81 MG Tablet Delayed Release 1 tablet Orally Once a day Claritin 10 MG Tablet 1 tablet Orally Once a day Flax Seed Oil Imodium A-D Fiber Tums 500 MG Tablet Chewable 1 tablet Orally Once a day Famotidine 40 MG Tablet 1 tablet as [...] proceduresVoltaren 1 % Gel as directed Externally Probiotic 250 MG Capsule as directed Orally Furosemide 20 MG Tablet 1 tablet Orally Once a day Taking Ibuprofen Taking Gas Relief 180 MG Capsule 1 capsule after meals and at bedtime as needed Orally Twice a day Taking Multivitamin Taking Melatonin Taking Calcium Taking Aspirin 81 81 MG Tablet Delayed Release 1 tablet Orally Once a day Taking Claritin 10 MG Tablet 1 tablet Orally Once a day Taking Flax Seed Oil Taking Imodium A-D Taking Fiber Taking Tums 500 MG Tablet Chewable 1 tablet Orally Once a day Taking Famotidine 40 MG Tablet 1 tablet [...] Voltaren 1 % Gel as directed Externally Taking Probiotic 250 MG Capsule as directed Orally Taking Furosemide 20 MG Tablet 1 tablet Orally Once a day DiscontinuedhydroCHLOROthiazide 25 MG Tablet 1 tablet in the morning Orally Once a day PARoxetine HCl 10 MG Tablet 1 tablet in the morning Orally Once a day Medication List reviewed and reconciled with the patientDiscontinued hydroCHLOROthiazide 25 MG Tablet 1 tablet in the morning Orally Once a day Discontinued PARoxetine HCl 10 MG Tablet 1 tablet in the morning Orally Once a day Medication List reviewed and reconciled with the patient * Allergies: A dhesiveDibucaineSuccinylcholineno[Allergies Verified] Objective: * Vitals: H t: 60, Wt:193, BMI:37.69, BP:135/80, HR:85, Temp:97.4, Wt-k.54. * P ast Orders: Lab:Complete Blood Count Aut o Diff * Collection Date 09/11/2024 05/13/2024 02/01/2024 Collection Time 07:53 AM 09:35 AM 08:35 AM Order Date 09/11/2024 05/13/2024 02/01/2024 White Blood Count 5.4 (Ref Range: 4.8-10.8 X10*3/uL) 6.3 (Ref Range: 4.8-10.8 X10*3/uL) 5.5 (Ref Range: 4.8-10.8 X10*3/uL) Red Blood Count 4.53 (Ref Range: 4.20-5.50 X10*6/uL) 4.44 (Ref Range: 4.20-5.50 X10*6/uL) 4.12 L (Ref Range: 4.20-5.50 X10*6/uL) Hemoglobin 13.2 (Ref Range: 12.0-16.0 g/dl) 13.0 (Ref Range: 12.0-16.0 g/dl) 12.4 (Ref Range: 12.0-16.0 g/dl) Hematocrit 40.3 (Ref Range: 37.0-47.0 %) 40.1 (Ref Range: 37.0-47.0 %) 37.0 (Ref Range: 37.0-47.0 %) Mean Corpuscular Volume 89.0 (Ref Range: 80.0-98.0 fL) 90.3 (Ref Range: 80.0-98.0 fL) 89.8 (Ref Range: 80.0-98.0 fL) Mean Corpuscular Hemoglobin 29.1 (Ref Range: 27.0-33.0 pg) 29.3 (Ref Range: 27.0-33.0 pg) 30.1 (Ref Range: 27.0-33.0 pg) Mean Corpuscular HGB Conc 32.8 (Ref Range: 31.0-35.0 g/dl) 32.4 (Ref Range: 31.0-35.0 g/dl) 33.5 (Ref Range: 31.0-35.0 g/dl) Red Cell Distribution Width 13.4 (Ref Range: 11.0-16.0 %) 13.4 (Ref Range: 11.0-16.0 %) 13.9 (Ref Range: 11.0-16.0 %) Platelet Count 221 (Ref Range: 160-400 X10*3/uL) 247 (Ref Range: 160-400 X10*3/uL) 222 (Ref Range: 160-400 X10*3/uL) Mean Platelet Volume 11.0 (Ref Range: 9.4-12.3 fL) 10.6 (Ref Range: 9.4-12.3 fL) 10.5 (Ref Range: 9.4-12.3 fL) Neutrophils Percent Auto 52.1 (Ref Range: 45-73 %) 62.1 (Ref Range: 45-73 %) 58.8 (Ref Range: 45-73 %) Imm Gran Pct Auto 0.2 (Ref Range: 0.0-0.4 %) 0.2 (Ref Range: 0.0-0.4 %) 0.4 (Ref Range: 0.0-0.4 %) Lymphocytes Percent Auto 24.5 (Ref Range: 20-40 %) 20.5 (Ref Range: 20-40 %) 23.6 (Ref Range: 20-40 %) Monocytes Percent Auto 15.7 H (Ref Range: 2-11 %) 12.9 H (Ref Range: 2-11 %) 12.3 H (Ref Range: 2-11 %) Eosinophils Percent Auto 6.4 H (Ref Range: 0-4 %) 3.5 (Ref Range: 0-4 %) 4.0 (Ref Range: 0-4 %) Basophils Percent Auto 1.1 (Ref Range: 0-2 %) 0.8 (Ref Range: 0-2 %) 0.9 (Ref Range: 0-2 %) NRBC Pct Auto 0.0 (Ref Range: 0.0-0.2 /100WBC) 0.0 (Ref Range: 0.0-0.2 /100WBC) 0.0 (Ref Range: 0.0-0.2 /100WBC) Neutrophils Absolute Auto 2.8 (Ref Range: 2.0-8.3 x10*3/uL) 3.9 (Ref Range: 2.0-8.3 x10*3/uL) 3.3 (Ref Range: 2.0-8.3 x10*3/uL) Imm Gran Abs Auto 0.01 (Ref Range: 0.00-0.03 X10*3/uL) 0.01 (Ref Range: 0.00-0.03 X10*3/uL) 0.02 (Ref Range: 0.00-0.03 X10*3/uL) Lymphocytes Absolute Auto 1.3 (Ref Range: 1.2-4.9 X10*3/uL) 1.3 (Ref Range: 1.2-4.9 X10*3/uL) 1.3 (Ref Range: 1.2-4.9 X10*3/uL) Monocytes Absolute Auto 0.8 (Ref Range: 0.1-1.2 X10*3/uL) 0.8 (Ref Range: 0.1-1.2 X10*3/uL) 0.7 (Ref Range: 0.1-1.2 X10*3/uL) Eosinophils Absolute Auto 0.3 (Ref Range: 0.0-0.4 X10*3/uL) 0.2 (Ref Range: 0.0-0.4 X10*3/uL) 0.2 (Ref Range: 0.0-0.4 X10*3/uL) Basophils Absolute Auto 0.1 (Ref Range: 0.0-0.2 X10*3/uL) 0.1 (Ref Range: 0.0-0.2 X10*3/uL) 0.1 (Ref Range: 0.0-0.2 X10*3/uL) NRBC Abs Auto 0.000 (Ref Range: 0.0-0.012 X10*3/uL) 0.000 (Ref Range: 0.0-0.012 X10*3/uL) 0.000 (Ref Range: 0.0-0.012 X10*3/uL) * Lab:Jacqueline Blake. Stephanie l Fast * Collection Date 09/11/2024 05/13/2024 02/01/2024 Collection Time 07:53 AM 09:35 AM 08:35 AM Order Date 09/11/2024 05/13/2024 02/01/2024 Sodium 142 (Ref Range: 135-145 mmol/L) 139 (Ref Range: 135-145 mmol/L) 139 (Ref Range: 135-145 mmol/L) Bilirubin Total 0.5 (Ref Range: 0.0-1.0 mg/dL) 0.4 (Ref Range: 0.0-1.0 mg/dL) 0.3 (Ref Range: 0.0-1.0 mg/dL) Aspartate Amino Transferase 32 H (Ref Range: 5-31 U/L) 33 H (Ref Range: 5-31 U/L) 20 (Ref Range: 5-31 U/L) Alanine Aminotransferase 27 (Ref Range: 0-31 U/L) 34 H (Ref Range: 0-31 U/L) 21 (Ref Range: 0-31 U/L) Total Protein 6.7 (Ref Range: 6.5-8.0 g/dL) 7.1 (Ref Range: 6.5-8.0 g/dL) 6.9 (Ref Range: 6.5-8.0 g/dL) Albumin Level 3.8 (Ref Range: 3.5-5.0 g/dL) 3.8 (Ref Range: 3.5-5.0 g/dL) 3.7 (Ref Range: 3.5-5.0 g/dL) Alkaline Phosphatase 90 (Ref Range: 39-117 U/L) 85 (Ref Range: 39-117 U/L) 73 (Ref Range: 39-117 U/L) Potassium 3.6 (Ref Range: 3.3-5.1 mmol/L) 3.8 (Ref Range: 3.3-5.1 mmol/L) 4.0 (Ref Range: 3.3-5.1 mmol/L) Chloride 111 H (Ref Range: 96-108 mmol/L) 106 (Ref Range: 96-108 mmol/L) 107 (Ref Range: 96-108 mmol/L) Carbon Dioxide 25 (Ref Range: 22-29 mmol/L) 26 (Ref Range: 22-29 mmol/L) 23 (Ref Range: 22-29 mmol/L) Anion Gap 10 L (Ref Range: 12-20) 11 L (Ref Range: 12-20) 13 (Ref Range: 12-20) Blood Urea Nitrogen 13 (Ref Range: 9-16 mg/dL) 15 (Ref Range: 9-16 mg/dL) 15 (Ref Range: 9-16 mg/dL) Creatinine 0.78 (Ref Range: 0.5-1.4 mg/dL) 0.65 (Ref Range: 0.5-1.4 mg/dL) 0.81 (Ref Range: 0.5-1.4 mg/dL) Estimated Glomerular Filt Rate > 60 > 60 > 60 Glucose Fasting 103 H (Ref Range: 60-99 mg/dL) 92 (Ref Range: 60-99 mg/dL) 104 H (Ref Range: 60-99 mg/dL) Calcium 9.0 (Ref Range: 8.4-10.2 mg/dL) 8.8 (Ref Range: 8.4-10.2 mg/dL) 9.3 (Ref Range: 8.4-10.2 mg/dL) * Lab:Lipid Panel * Collection Date 09/11/2024 05/13/2024 02/01/2024 Collection Time 07:53 AM 09:35 AM 08:35 AM Order Date 09/11/2024 05/13/2024 02/01/2024 Triglycerides 103 (Ref Range: <150 mg/dL) 137 (Ref Range: <150 mg/dL) 128 (Ref Range: <150 mg/dL) Cholesterol 193 (Ref Range: <200 mg/dL) 208 H (Ref Range: <200 mg/dL) 190 (Ref Range: <200 mg/dL) LDL Cholesterol Calculated 118 H (Ref Range: <100 mg/dL) 128 H (Ref Range: <100 mg/dL) 113 H (Ref Range: <100 mg/dL) HDL Cholesterol 55 (Ref Range: >40 mg/dL) 53 (Ref Range: >40 mg/dL) 52 (Ref Range: >40 mg/dL) * Lab:Thyroid Stimulating Horm one * Collection Date 09/11/2024 03/11/2023 08/05/2022 Collection Time 07:53 AM 10:17 AM 07:45 AM Order Date 09/11/2024 03/11/2023 08/05/2022 Thyroid Stimulating Hormone 0.78 (Ref Range: 0.32-4.0 uIU/mL) 0.79 (Ref Range: 0.32-4.0 uIU/mL) 1.01 (Ref Range: 0.32-4.0 uIU/mL) * Examination: G eneral Examination: GENERAL APPEARANCE: p leasant, well nourished, well developed, in no acute distress, calm and relaxed, obese, woman. HEAD: a traumatic, normocephalic. EYES: e jayashree, perrla, anicteric, conjugate. EARS: N ormal anatomy with moderate hearing loss. NOSE: s eptum intact. ORAL CAVITY: n ormal, unremarkable. NECK/THYROID: n o jugular venous distention, no carotid bruit, thyroid normal. LYMPH NODES: n o enlarged lymph nodes,spleen normal. SKIN: n o suspicious lesions, anicteric. HEART: n o clicks, gallops, murmurs, or rubs, regular rhythm, S1, S2 normal, no s3, or vascular bruits. LUNGS: c lear to auscultation . BREASTS: N ot examined. ABDOMEN: b owel sounds normal, no ascites, no organomegaly, no mass, centripital obesity. RECTAL EXAM: n ot examined. MUSCULOSKELETAL: e xtremities unremarkable, no clubbing, cyanosis or edema. PERIPHERAL PULSES: n ormal. NEUROLOGIC: a lert and oriented, cranial nerves 2-12 grossly intact with hearing loss, deep tendon reflexes 2+ symmetrical, motor strength normal upper and lower extremities, sensory exam intact. PSYCH: a lert, oriented. Assessment: * Assessment: 1. H ypertension - I10 (Primary) N otes :Her blood pressure is stable and no change in her regimen was needed.The value is 136/80. 2 . O besity (BMI 30-39.9) - E66.9 N otes :Her body mass index is 36. Her weight is stable. We have discussed diet and nutrition and made a plan to lose weight at a rate of one half of a pound per week through a diet restricted in fat calories and sodium. 3 . M ixed hyperlipidemia - E78.2 N otes :Her total cholesterol was 193 and your LDL is 118. She was continued on her current medications without change. I recommended aggressive weight loss and a diet low in animal fat. 4 . G ERD (gastroesophageal reflux disease) - K21.9 N otes :Her reflux symptoms are well controlled with ffso-zhg-hsznlan medication. 5 . P rimary osteoarthritis involving multiple joints - M15.9 N otes :She has had multiple surgical procedures and a right knee arthroplasty. She is able to conduct all of the activities of daily life. 6 . 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 7 . S ensorineural hearing loss (SNHL) of both ears - H90.3 N otes :Communication was possible and she has working hearing aids. 8 . U nspecified benign mammary dysplasia of left breast - N60.92 ?Notes :No breast cancer. Has ever been detected. 9 . U nspecified benign mammary dysplasia of right breast - N60.91 ?Notes :She has had multiple biopsies of the breast that showed benign disease. Plan: * Treatment: 2. O besity (BMI 30-39.9) L AB: PROFILE, FASTING (COMPREHENSIVE METABOLIC) L AB: CBC w DIFF L AB: Lipid Panel 3. M ixed hyperlipidemia L AB: PROFILE, FASTING (COMPREHENSIVE METABOLIC) L AB: CBC w DIFF L AB: Lipid Panel * Procedure Codes: * Preventive Medicine: Counseling: C are goal follow-up plan: Counseling for abnormal BMI given Y es Above Normal BMI Follow-up D ietary management education, guidance, and counseling, Dietary needs education, Exercise promotion: strength training, Exercise promotion: stretching, Feeding regime, Giving encouragement to exercise, Lifestyle education regarding diet, Nutrition / feeding management, Nutrition therapy, Prescribed activity/exercise education, Prescribed diet education, Prescribed dietary intake, Special diet education, Weight monitoring , Intervention, Order not done: Medical or Other reason not done * Follow Up: 4 Months (Reason: OV) * Images: * Sign off status: Completed true * Provider: Skylar Grant MD Date: 0 09/16/2024 Generated for Gely mcfadden/Faxing/eTransmitting on: 0 01/28/2025 06:52 AM EDT History and Physical Notes * HPI (History of Present Illness) Category Sub-Category Detail Notes COVID-19 Screening Questions Have you had any new onset fever, chills, cough, congestion, sore throat, shortness of breath, muscle aches?: No Examination Category Sub-Category Detail Notes General Examination GENERAL APPEARANCE: pleasant , well nourished, well developed, in no acute distress, calm and relaxed, obese, woman HEAD: atraumatic, normocep halic EYES: eomi, perrla, anicte yamile, conjugate EARS: Normal anatomy with moderate hearing loss NOSE: septum intact NECK/THYROID: no jugular venous di stention, no carotid bruit, thyroid normal HEART: no clicks, gallops, murmurs, or rubs, regular rhythm, S1, S2 normal, no s3, or vascular bruits LUNGS: clear to auscultatio n ABDOMEN: bowel sounds normal, no ascites, no organomegaly, no mass, centripital obesity NEUROLOGIC: alert and oriented, cranial nerves 2-12 grossly intact with hearing loss, deep tendon reflexes 2+ symmetrical, motor strength normal upper and lower extremities, sensory exam intact SKIN: no suspicious lesion s, anicteric PERIPHERAL PULSES: normal BREASTS: Not examined MUSCULOSKELETAL: extremities unremark able, no clubbing, cyanosis or edema LYMPH NODES: no enlarged lymph no alonso,spleen normal RECTAL EXAM: not examined PSYCH: alert, oriented ORAL CAVITY: normal, unremarkable
--- OUTSIDE RECORDS SUMMARY | 2025-01-17 11:45 | XMS_ITS ---
Author Organization Erik Grant III, MD Address [address] [address] Care Team Providers Care Pc Support Specialist Name Role Phone Erik Grant Primary Care [...] Date Provider Diagnosis Erik Grant III, MD [address] [place] [address] [place] [address] 01/17/2025 Erik Grant Obesity (BMI 30-39.9 ) [...] Her reflux symptoms are well controlled with ogjb-ibz-fudhtzd medication. 01/17/2025 Primary osteoarthrit is involving multiple [...] Scheduled, Nel son: Annual Exam Provider Name:Erik Grant, 05/21/2025 02:30:00 PM, [address] [place] [address] [address] [place] [address], [place], [address], Progress Notes * Palak VARGAS EDOB: [birth year] (79 yo F)Acc No.[id number]:01/17/2025 Progress Notes Patient: Palak MILLER Provider: Skylar Grant MD :1945 A ge:79 Y S ex:Female Date:01/17/2025 Address:[address] [place] [address], [address] Subjective: * Chief Complaints: * H [...] this. She is going to see her inspection clerk in the near future. She does not [...] surgery cataract surgery biopsy breast x3, Dr. sEpinal urinary track surgery Bilateral blepharoplasty Colonoscopy, upper [...] ggressive non-smoker S he was born in [place], [place] and lives in [place]. 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 She has been to [employer] for many [...] Blake. Stephanie l Fast * Collection Date 01/06/2025 09/11/2024 [...] :Her reflux symptoms are well controlled with nmcm-ilp-klticfp medication. 5 . P rimary osteoarthritis involving [...] true * Provider: Skylar Grant MD Date: 01/17/2025 Generated for Gely mcfadden/[place]/Yakelin on: 01/28/2025 06:52 AM EDT History and Physical [...]
--- OUTSIDE RECORDS SUMMARY | 2025-01-28 06:52 | XMS_ITS | Patient Health Record ---
Author Organization [facility] Roger coles Vashon Address [address] [place] [address] Care Team Providers Care Welder Fitter Helper Name Role Phone Leila Nicole MD Primary Care Provider Unavaila Rich Guajardo Unavailable [phone] Alba Pierce DO Unavailable Unavailable Allergies Allergen (clinical drug ingredient) Drug/Non Drug Allergy documented on EMR Reaction Allergy Type Onset Date Status Adhesive Tape rash, hives Drug Allergy A ctive Reason For Referral No Information Medications Medication SIG (Take, Route, Frequency, Duration) Notes Start Date End Date Status Claritin Active Metamucil Active Pramipexole Dihydrochloride 0.25 MG TAKE 2 TO 3 TABLETS BY MOUTH AT BEDTIME NEEDED 30 Oral; Duration: 30 Active Omeprazole 20 MG TAKE 1 CAPSULE BY MOUTH TWICE A DAY Oral; Duration: 45 Not-Taking PreserVision AREDS 2+Multi Vit Active Amoxicillin 500 MG TAKE 4 CAPSULES 1 HOUR PRIOR TO DENTAL WORK Oral; Duration: 5 Active hydroCHLOROthiazide 25 MG Orally Active Fluticasone Propionate 50 MCG/ACT USE 1 SPRAY IN EACH NOSTRIL ONCE A DAY NASALLY 30 DAY(S) Nasal; Duration: 30 Active Flax Seed Oil 1000 MG as directed Orally Active D 1000 1000 UNIT TAKE 1 CAPSULE EVERY DAY Oral; Duration: 30 Not-Taking Biotin 1000 MCG 1 tablet Orally Once a day; Duration: 30 day(s) Active Ammonium Lactate 12 % 1 application to affected area Externally to feet Twice a day; Duration: 30 Active Crestor 5 MG 1 tablet Orally Once a day Active Carafate 1 GM 1 tablet on an empty stomach Orally Twice a day; Duration: 30 day(s) Active Aspirin 81 MG 1 tablet Orally Once a day Active Antacid Active Calcium Citrate Acti ve Diclofenac Sod & Trolamine Tony Active Tylenol Arthritis Pain Active Gas Relief 180 MG 1 capsule after meals and at bedtime as needed Orally Twice a day Active Social History Tobacco Use: Social History Observation Description Date Details (start date - stop date) Never Smoker NA - NA Tobacco Use/Smoking Question Answer Notes Are you a: nonsmoker Additional Findings: Tobacco Non-User Current no n-smoker Alcohol Screen Question Answer Notes Did you have a drink contain ing alcohol in the past year? Yes How often did you have a dri nk containing alcohol in the past year? 2 to 4 times a month (2 points) Points 2 Interpretation Negative Tobacco use other than smoking: Question Answer Notes Are you an other tobacco user? No Problems Problem Type SNOMED Code ICD Code Onset Dates Problem Status W/U Status Risk Notes Problem Plantar wart (36524289) Plantar wart (B07.0) Active confirmed Plan Of Treatment Pending Test Test Name Order Date [id number] Destruction, -14 06/28/2019 [id number] Destruction, -14 05/08/2018 [id number] Plate 11/14/2017 [id number]- Biopsy of skin lesion 04/04/2017 Insurance Providers Payer Name Payer Address Payer Phone Subscriber Number Group Number Insured Name Patient Relationship to Insured Coverage Start Date Coverage End Date [employer] [address] [place] [address] [id number] Palak Vargas Self - patient is the insured [facility] [address] [place] [address] [phone] [id number] Palak Vargas Self - patient is the insured Medical (General) History Medical History History ICD Code Arthritis Cholesterol High blood pressure Reflux ( GERD) Macular degeneration Measles Mumps Chicken pox Joint implants/screws Surgical History Surgery Date(Month/Year) knee surgery 09/2015 gall bladder ankle surgery [place], Right 2nd toe 1996 Cataract Right eye 11/13/17
--- OUTSIDE RECORDS SUMMARY | 2025-01-28 06:52 | XMS_ITS | Encounter Summary ---
Author Organization [facility] Address [address] [address] Phone Care Team Providers Care Geophysical Prospector Name Role Phone Erik Grant MD Primary Care Provider [phone] Encounter Details Date Type Department Care Team (Late Contact Info) Description 03/25/2024 Office Communication [facility] [address] [address] Sonya Michel [address] [place] [phone] Social History Tobacco Use Types Packs/Day [...] in the morning. Pls call her at [phone]. documented in this encounter Plan of Treatment Upcoming Encounters Date Type Department Care Team ([facility] Contact Info) Description 02/06/2025 2:00 PM EDT Office Visit [facility] [address] [place] [id number] Aftab Louis MD [address] [phone] 03/31/2025 3:00 PM EDT Office Visit [facility] [address] [place] [address] Aftab Louis MD [address] [phone] documented as of this encounter Visit Diagnoses Not on filedocumented in this encounter Care Teams Geophysical Prospector Relationship Specialty Start Date End Date Erik Grant MD [address] [place] [address] Dr[address] [place] [address] PCP - General Medical Oncology 10/01/24 documented as of this encounter
--- OUTSIDE RECORDS SUMMARY | 2025-01-28 06:52 | XMS_ITS | Patient Health Record ---
Author Organization Erik Grant III, MD Address [address] [place] [address] [place] [address] Care Team Providers Care Video Photographer Name Role Phone Erik Grant Primary Care Provider [phone] Allergies Allergen (clinical drug ingredient) Drug/Non Drug Allergy documented on EMR Reaction Allergy Type Onset Date Status succinylcholine Succinylcholine Unknown Drug Allergy Active dibucaine Dibucaine Unknown Drug Allergy Active Adhesive Unknown Allergy Active Results Component Value Reference Range Notes Complete Blood Count Auto Di ff Reviewed date:02/01/2024 12:28:30 PM Interpretation: Performing Lab:[facility], [address] [place] [phone] Notes/Report: White Blood Count 5.5 4.8-10.8 X10*3/uL [...] NRBC Abs Auto 0.000 0.0-0.012 X10*3/uL Comprehensive [place]. Panel Fa Reviewed date:02/01/2024 12:28:30 PM Interpretation: Performing Lab:[facility], [address] [place] [phone] Notes/Report: Sodium 139 135-145 mmol/L Potassium 4.0 3.3-5.1 mmol/L Chloride 107 96-108 mmol/L Carbon Dioxide 23 22-29 mmol/L Anion Gap 13 12-20 Blood Urea Nitrogen 15 9-16 mg/dL Creatinine 0.81 0.5-1.4 mg/dL Estimated Glomerular Filt Rate > 60 NOTE: For -Norwegian individuals, multiply the result by 1.210. Chronic [...] Panel Reviewed date:02/01/2024 12:28:30 PM Interpretation: Performing Lab:[facility], [address] [place] [phone] Notes/Report: Triglycerides 128 <150 mg/dL Desirable Triglyceride: [...] Thyroxine) Reviewed date:02/01/2024 12:28:30 PM Interpretation: Performing Lab:[address] [address] Notes/Report: Free T4 (Free Thyroxine) 1.17 0.71-1.85 ng/dL TSH reflex Free T4 Reviewed date:02/01/2024 12:28:30 PM Interpretation: Performing Lab:[address] [address] Notes/Report: TSH reflex Free T4 0.79 0.32-4.0 uIU/mL MM tomosynthesis screening B I Reviewed date:03/18/2024 07:34:20 AM Interpretation: Performing Lab: Notes/Report: [facility] [address] [place] [address] Mammography Report Signed Patient: Palak Vargas MR#: [id number] 00 : 1945 Acct:[id number] Age/Sex: 78 / F ADM Date: 03/05/24 Loc: [facility] Attending Dr: Sylvester Helm MD Ordering Physician: Sylvester Helm MD Results: 2Ben ign Findings Date of Service: 03/05/24 Follow Up: 1 Year From Orig inal Mammogram Procedure(s): MM tomosynthesis screening BI Accession Number(s): [id number] cc: Erik Grant MD; Sylvester Helm MD [...] 03/12/24 1748 DD/ 1015 TD/TT: 03/05/24 1031 Wind Plant Manager: [facility] [address] [place] [address] Mammography Report Signed Patient: Gigi Vargas MR#: [id number] 00 : 1945 Acct:[id number] Age/Sex: 78 / F ADM Date: 03/05/24 Loc: [facility] Attending Dr: Lizette Helm MD Ordering Physician: Sylvester Helm MD Results: 2Ben ign Findings Date of Service: 03/05/24 Follow Up: 1 Year From Orig inal Mammogram Procedure(s): MM tomosynthesis screening BI Accession Number(s): [id number] cc: Erik Grant MD; Sylvester Helm MD [...] 03/12/24 1748 DD/ 1015 TD/TT: 03/05/24 1031 Wind Plant Manager: Complete Blood Count Auto Di ff Reviewed date:05/17/2024 08:37:13 AM Interpretation: Performing Lab:[facility], [address] [place] [phone] Notes/Report: White Blood Count 6.3 4.8-10.8 X10*3/uL [...] NRBC Abs Auto 0.000 0.0-0.012 X10*3/uL Comprehensive [place]. Panel Fa st Reviewed date:05/17/2024 08:37:13 AM Interpretation: Performing Lab:[facility], [address] [place] [phone] Notes/Report: Sodium 139 135-145 mmol/L Potassium 3.8 [...] Panel Reviewed date:05/17/2024 08:37:13 AM Interpretation: Performing Lab:[facility], [address] [place] [phone] Notes/Report: Triglycerides 137 <150 mg/dL Desirable Triglyceride: [...] ff Reviewed date:09/12/2024 08:11:36 PM Interpretation: Performing Lab:[facility], [address] [place] [phone] Notes/Report: White Blood Count 5.4 4.8-10.8 X10*3/uL [...] NRBC Abs Auto 0.000 0.0-0.012 X10*3/uL Comprehensive [place]. Panel Fa st Reviewed date:09/12/2024 08:11:36 PM Interpretation: Performing Lab:[facility], [address] [place] [phone] Notes/Report: Sodium 142 135-145 mmol/L Potassium 3.6 [...] Panel Reviewed date:09/12/2024 08:11:36 PM Interpretation: Performing Lab:[facility], [address] [place] [phone] Notes/Report: Triglycerides 103 <150 mg/dL Desirable Triglyceride: [...] Hormone Reviewed date:09/12/2024 08:11:36 PM Interpretation: Performing Lab:[facility], [address] [place] [phone] Notes/Report: Thyroid Stimulating Hormone 0.78 0.32-4.0 uIU/mL TSH 3rd Generation ([facility]) Electrolytes Reviewed date:12/06/2024 07:22:30 PM Interpretation: Performing Lab:[facility], [address] [place] [phone] Notes/Report: Sodium 142 135-145 mmol/L Potassium 3.6 3.3-5.1 mmol/L Chloride 110 96-108 mmol/L Carbon Dioxide 24 22-29 mmol/L Anion Gap 12 12-20 Blood Urea Nitrogen Reviewed date:12/06/2024 07:22:30 PM Interpretation: Performing Lab:[facility], [address] [place] [phone] Notes/Report: Blood Urea Nitrogen 19 9-16 mg/dL Creatinine Reviewed date:12/06/2024 07:22:30 PM Interpretation: Performing Lab:[facility], [address] [place] [phone] Notes/Report: Creatinine 0.74 0.5-1.4 mg/dL Estimated Glomerular Filt Rate > 60 Chronic Kidney Disease: Estimated GFR < 60 mL/min/1.73m2 Severe Kidney Disease: Estimated GFR < 15 mL/min/1.73m2 Calcium Reviewed date:12/06/2024 07:22:30 PM Interpretation: Performing Lab:[facility], [address] [place] [phone] Notes/Report: Calcium 8.9 8.4-10.2 mg/dL Complete Blood Count Auto Di ff Reviewed date:01/12/2025 08:07:14 PM Interpretation: Performing Lab:[facility], [address] [place] [phone] Notes/Report: White Blood Count 5.2 4.8-10.8 X10*3/uL Red Blood Count 4.45 4.20-5.50 X10*6/uL Hemoglobin 13.5 12.0-16.0 g/dl Hematocrit 40.0 37.0-47.0 % Mean Corpuscular Volume 89.9 80.0-98.0 fL Mean Corpuscular Hemoglobin 30.3 27.0-33.0 pg Mean Corpuscular HGB Conc 33.8 31.0-35.0 g/dl Red Cell Distribution Width 13.2 11.0-16.0 % Platelet Count 202 160-400 X10*3/uL Mean Platelet Volume 11.1 9.4-12.3 fL Neutrophils Percent Auto 50.7 45-73 % Imm Gran Pct Auto 0.2 0.0-0.4 % Lymphocytes Percent Auto 31.0 20-40 % Monocytes Percent Auto 12.1 2-11 % Eosinophils Percent Auto 5.0 0-4 % Basophils Percent Auto 1.0 0-2 % NRBC Pct Auto 0.0 0.0-0.2 /100WBC Neutrophils Absolute Auto 2.7 2.0-8.3 x10*3/u L Imm Gran Abs Auto 0.01 0.00-0.03 X10*3/uL Lymphocytes Absolute Auto 1.6 1.2-4.9 X10*3/u L Monocytes Absolute Auto 0.6 0.1-1.2 X10*3/uL Eosinophils Absolute Auto 0.3 0.0-0.4 X10*3/u L Basophils Absolute Auto 0.1 0.0-0.2 X10*3/uL NRBC Abs Auto 0.000 0.0-0.012 X10*3/uL Comprehensive [place]. Panel Fa st Reviewed date:01/12/2025 08:07:14 PM Interpretation: Performing Lab:[facility], [address] [place] [phone] Notes/Report: Sodium 142 135-145 mmol/L Potassium 3.6 3.3-5.1 mmol/L Chloride 110 96-108 mmol/L Carbon Dioxide 25 22-29 mmol/L Anion Gap 11 12-20 Blood Urea Nitrogen 17 9-16 mg/dL Creatinine 0.81 0.5-1.4 mg/dL Estimated Glomerular Filt Rate > 60 Chronic Kidney Disease: Estimated GFR < 60 mL/min/1.73m2 Severe Kidney Disease: Estimated GFR < 15 mL/min/1.73m2 Glucose Fasting 96 60-99 mg/dL Calcium 8.9 8.4-10.2 mg/dL Bilirubin Total 0.5 0.0-1.0 mg/dL Aspartate Amino Transferase 33 5-31 U/L Alanine Aminotransferase 27 0-31 U/L Total Protein 6.9 6.5-8.0 g/dL Albumin Level 3.9 3.5-5.0 g/dL Alkaline Phosphatase 93 39-117 U/L Lipid Panel Reviewed date:01/12/2025 08:07:14 PM Interpretation: Performing Lab:[facility], [address] [place] [phone] Notes/Report: Triglycerides 214 <150 mg/dL Desirable Triglyceride: less than 150 mg/dL Borderline High Triglyceride 150-199 mg/dL High Triglyceride: 200-499 mg/dL Very High Triglyceride: greater than or equal to 5OO mg/dL Cholesterol 220 <200 mg/dL Desirable Cholesterol: less than 200 mg/dL Borderline High Cholesterol: 200-239 mg/dL High Cholesterol: greater than 239 mg/dL LDL Cholesterol Calculated 134 <100 mg/dL Desirable LDL: less than 100 mg/dL Near Optimal/Above Optimal LDL: 110-129 mg/dL Borderline High LDL: 130-159 mg/dL High LDL: 160-189 mg/dL Very High LDL: greater than or equal to 190 mg/dL HDL Cholesterol 44 >40 mg/dL Desirable HDL: greater than 40 mg/dL Note: This HDL assay may give artificially low results in patients with liver disease. Reason For Referral No Information Medications Medication SIG (Take, Route, Frequency, Duration) Notes Start Date End Date Status Ibuprofen Active Pramipexole Dihydrochloride 0.25 MG TAKE 2 TO 3 TABLETS BY MOUTH EVERY DAY Active Multivitamin Active Gas Relief 180 MG 1 capsule after meals and at bedtime as needed Orally Twice a day Active Rosuvastatin Calcium 5 MG TAKE 1 TABLET BY MOUTH EVERY DAY Active Imodium A-D Active Probiotic 250 MG as directed Orally Active Flax Seed Oil Active Voltaren 1 % as directed Externally Active Tums 500 MG 1 tablet Orally Once a day Active Fiber Active Furosemide 20 MG 1 tablet Orally Once a day Active Calcium Active PreserVision AREDS 2 - as directed Orally Active Melatonin Active Nabumetone 1000 MG 1 tablet Orally Twice a day Active Claritin 10 MG 1 tablet Orally Once a day Active hydroCHLOROthiazide 25 MG 1 tablet in th e morning Orally Once a day Active Aspirin 81 81 MG 1 tablet Orally Once a day Active Amoxicillin 500 MG 4 capsules 1 hour before dental or surgical procedures Orally Once Dental procedures Active Esomeprazole Magnesium 40 MG 1 capsule Orally Twice a day Active Famotidine 40 MG 1 tablet as needed Orally Twice a day Active Fluticasone Propionate 50 MCG/ACT Nasal Active Immunizations Vaccine Route Administration Date Status [...] Status W/U Status Risk Notes Problem Hypertension (25824902) Hypertension (I10) Active confirmed Her blood pressure is stable and no change in her regimen was needed.The value is 136/80. Problem Gastroesophageal reflux disease (160823863) GERD (gastroesophage al reflux disease) (K21.9) Active confirmed Her reflux symptoms are well controlled with sula-sok-kxpitey medication. Problem 830790955 Mixed hyperlipidemia (E78.2) Active confirmed Her total cholesterol was 193 and your LDL is 118. She was continued on her current medications without change. I recommended aggressive weight loss and a diet low in animal fat. Problem 71265406 Age-related osteoporosis without current pathological fracture (M81.0) Active confirmed She was continued on current medications. Her bone densities will be reviewed and another one ordered if necessary. 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 Problem [id number] Unspecified benign mammary dysplasia of left breast (N60.92) Active confirmed No breast cancer. Has ever been detected. Problem 767544843 Obesity (BMI 30-39.9) (E66.9) Active confirmed Her body mass index is 36. Her weight is stable. We have discussed diet and nutrition and made a plan to lose weight at a rate of one half of a pound per week through a diet restricted in fat calories and sodium. Problem 88155779 Chronic fatigue (R53.82) Active confirmed He says that sh e feels tired all of the time but denies daytime somnolence. Problem 54135749 Obstructive sleep apnea (G47.33) Active confirmed She was continued on her CPAP. No change in her regimen was needed. Problem 68841482 Hiatal hernia (K44.9) Active confirmed Her reflux symptoms are well controlled. Problem Osteoarthritis (729419837) Osteoarthritis (M19.90) Active confirmed She has mild arthritic pain in her fingers but her main complaint is pain in the right knee on the tibial plateau. Problem 925242199 TIA (transient ischemic attack) (G45.9) Active confirmed She has had no neurological symptoms recently. She was continue current therapy. Problem 39686084 Restless leg syndrome (G25.81) Active confirmed This is been a minor problem lately and does not require changing her regimen. Problem 375881273 History of DVT (deep vein thrombosis) (Z86.718) Active confirmed She is no longe r anticoagulated. She has had no further blood clots. Old records will be requested. Problem Goiter (9918376) Enlarged thyroid (E01.0) Active confirmed There was no palpable mass in the neck this time. Problem 562926344 Sensorineural hearing loss (SNHL) of both ears (H90.3) Active confirmed Communication was possible and she has working hearing aids. 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 Problem 237653824 Primary osteoarthritis involving multiple joints (M15.9) Active confirmed She has had multiple surgical procedures and a right knee arthroplasty. She is able to conduct all of the activities of daily life. 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 Problem 025746874 Mass of left side of neck (R22.1) Active confirmed On the CT scan done recently this appears to be obstructed salivary gland or sialadenitis. Opinion from ENT will be obtained. Vital Signs Heart Rate 89 /min 01/17/2025 Temperature 97.5 degrees Fahrenheit 01/17/2025 Blood pressure diastolic 80 mm Hg 01/17/2025 Height 60 in 01/17/2025 Blood pressure systolic 135 mm Hg 01/17/2025 Weight 190 lbs 01/17/2025 BMI 37.1 kg/m2 01/17/2025 Encounters Encounter Location Date Provider Diagnosis Erik Grant III, MD [address] [place] [address] [place] [address] 02/22/2024 Erik Grant Hypertension I10 ; O besity (BMI 30-39.9) E66.9 ; Mixed hyperlipidemia E78.2 ; Chronic fatigue R53.82 ; GERD (gastroesophageal reflux disease) K21.9 and Primary osteoarthritis involving multiple joints M15.9 Erik Grant III, MD [address] [place] [address] [place] [address] 05/17/2024 Erik Grant Hypertension I10 ; O [...] Hiatal hernia K44.9 Erik Grant III, MD [address] [place] [address] [place] [address] 09/16/2024 Erik Grant Hypertension I10 ; O besity (BMI 30-39.9) E66.9 ; Mixed hyperlipidemia E78.2 ; GERD (gastroesophageal reflux disease) K21.9 ; Primary osteoarthritis involving multiple joints M15.9 ; 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 ; Sensorineural hearing loss (SNHL) of both ears H90.3 ; Unspecified benign mammary dysplasia of left breast N60.92 and Unspecified benign mammary dysplasia of right breast N60.91 Erik Grant III, MD [address] [place] [address] [place] [address] 01/17/2025 Erik Grant Obesity (BMI 30-39.9 ) [...] leg syndrome G25.81 Erik Grant III, MD [address] [place] [address] [place] [address] 03/05/2024 Erik Grant III, MD [address] [place] [address] [address] [place], [place] [address] 03/07/2024 Erik Grant III, MD [address] [place] [address] [address] [place] [address] 03/27/2024 Erik Grant Assessments Encounter Date Diagnosis (ICD Code) Assessment Notes T reatment Notes Treatment Clinical Notes 02/22/2024 Hypertension (ICD-10 - I10) Her blood [...] restricted in fat calories and sodium. 01/17/2025 Obesity (BMI 30-39.9 ) (ICD-10 - [...] recently been exposed to any anesthetics. 02/22/2024 Mixed hyperlipidemia (ICD-10 - E78.2) Her [...] a diet low in animal fat. 01/17/2025 Hypertension (ICD-10 - I10) Her blood pressure is stable and no change in her regimen was needed.The value is 136/80. 02/22/2024 Chronic fatigue (ICD -10 - R53.82) He says that she feels tired all of the time but denies daytime somnolence. 05/17/2024 GERD (gastroesophage al reflux disease) (ICD-10 - K21.9) Her reflux symptoms are well controlled with kisj-jxd-vjhujmf medication. 09/16/2024 GERD (gastroesophage al reflux disease) (ICD-10 - K21.9) Her reflux symptoms are well controlled with tkgy-mdu-ochwwgv medication. 01/17/2025 GERD (gastroesophage al reflux disease) (ICD-10 - K21.9) Her reflux symptoms are well controlled with cfzb-fft-yeakzew medication. 02/22/2024 GERD (gastroesophage al reflux disease) (ICD-10 - K21.9) Her reflux symptoms are well controlled with oezw-hiy-ehyhlxg medication. 05/17/2024 Primary osteoarthrit is involving multiple [...] of the activities of daily life. 01/17/2025 Primary osteoarthrit is involving multiple joints (ICD-10 - M15.9) She has had multiple surgical procedures and a right knee arthroplasty. She is able to conduct all of the activities of daily life. 02/22/2024 Primary osteoarthrit is involving multiple joints [...] recently been exposed to any anesthetics. 01/17/2025 Sensorineural hearin g loss (SNHL) of [...] and a diet low in animal fat. 05/17/2024 Sensorineural hearin g loss (SNHL) of both ears (ICD-10 - H90.3) Communication was possible and she has working hearing aids. 09/16/2024 Unspecified benign mammary dysplasia of left breast (ICD-10 - N60.92) No breast cancer. Has ever been detected. 01/17/2025 Obstructive sleep ap lucien (ICD-10 - G47.33) She was continued on her CPAP. No change in her regimen was needed. 05/17/2024 Unspecified benign mammary dysplasia of left breast (ICD-10 - N60.92) No breast cancer. Has ever been detected. 09/16/2024 Unspecified benign mammary dysplasia of right breast (ICD-10 - N60.91) She has had multiple biopsies of the breast that showed benign disease. 01/17/2025 Enlarged thyroid (IC D-10 - E01.0) There was no palpable mass in the neck this time. 05/17/2024 History of DVT (deep vein thrombosis) (ICD-10 - Z86.718) She is no longer anticoagulated. She has had no further blood clots. Old records will be requested. 01/17/2025 Age-related osteopor osis without current pathological fracture (ICD-10 - M81.0) She was continued on current medications. Her bone densities will be reviewed and another one ordered if necessary. 05/17/2024 Age-related osteopor osis without current pathological fracture (ICD-10 - M81.0) She was continued on current medications. Her bone densities will be reviewed and another one ordered if necessary. 01/17/2025 History of DVT (deep vein thrombosis) (ICD-10 - Z86.718) She is no longer anticoagulated. She has had no further blood clots. Old records will be requested. 05/17/2024 Intermediate stage nonexudative age-related macular degeneration of both eyes (ICD-10 - H35.3132) She sees her furniture assembler regularly. 01/17/2025 Restless leg syndrom e (ICD-10 - G25.81) This is been a minor problem lately and does not require changing her regimen. 05/17/2024 Obstructive sleep ap lucien (ICD-10 - G47.33) She was continued on her CPAP. No change in her regimen was needed. 05/17/2024 Hiatal hernia (ICD-1 0 - K44.9) Her reflux symptoms are well controlled. Plan Of Treatment Pending Test Test Name Order Date PROFILE, FASTING (COMPREHENSIVE METABOLI C) 12/26/2022 PROFILE, FASTING (COMPREHENSIVE METABOLI C) 01/19/2024 PROFILE, FASTING (COMPREHENSIVE METABOLI C) 09/16/2024 PROFILE, FASTING (COMPREHENSIVE METABOLI C) 09/19/2023 PROFILE, FASTING (COMPREHENSIVE METABOLI C) 08/04/2022 PROFILE, FASTING (COMPREHENSIVE METABOLI C) 08/26/2022 PROFILE, FASTING (COMPREHENSIVE METABOLI C) 05/17/2024 PROFILE, FASTING (COMPREHENSIVE METABOLI C) 05/01/2023 PROFILE, FASTING (COMPREHENSIVE METABOLI C) 01/17/2025 PROFILE, FASTING (COMPREHENSIVE METABOLI C) 02/22/2024 PROFILE, RANDOM (COMPREHENSIVE METABOLIC ) 03/14/2023 LIPID PANEL 12/26/2022 LIPID PANEL 08/04/2022 LIPID PANEL 08/26/2022 FREE T4 (FT4) 08/04/2022 TSH (THYROID STIMULATING HORMONE) 2024 TSH (THYROID STIMULATING HORMONE) 2023 TSH (THYROID STIMULATING HORMONE) 2023 TSH (THYROID STIMULATING HORMONE) 2022 TSH (THYROID STIMULATING HORMONE) 2022 BRAIN NATRIURETIC PEPTIDE (BNP) 03/14/20 CBC w DIFF 08/04/2022 CBC w DIFF 03/14/2023 CBC w DIFF 01/17/2025 CBC w DIFF 12/26/2022 CBC w DIFF 09/16/2024 CBC w DIFF 08/26/2022 CBC w DIFF 05/01/2023 VITAMIN D 25-OH TOTAL 08/04/2022 CBC WITH AUTO DIFF 02/22/2024 CBC WITH AUTO DIFF 01/19/2024 CBC WITH AUTO DIFF 09/19/2023 CBC WITH AUTO DIFF 05/17/2024 Erythrocyte Sedimentation Rate Ferritin 03/14/2023 Lipid Panel 05/17/2024 Lipid Panel 05/01/2023 Lipid Panel 02/22/2024 Lipid Panel 01/17/2025 Lipid Panel 01/19/2024 Lipid Panel 09/16/2024 Lipid Panel 09/19/2023 Free T4 (Free Thyroxine) 01/17/2025 Free T4 (Free Thyroxine) 01/19/2024 TSH reflex Free T4 01/19/2024 Next Appt Details Provider Name:Erik Grant, 05/21/2025 02:30:00 PM, [address] [place] [address] [address], [place], [address], Insurance Providers Payer Name Payer Address Payer Phone Subscriber Number Group Number Insured Name Patient Relationship to Insured Coverage Start Date Coverage End Date MEDICARE NGS [address] [place] [phone] [id number] Palak Vargsa Self - patient is the insured [address] [facility] [phone] [id number] Palak Vargas Self - patient is the [...]
--- OUTSIDE RECORDS SUMMARY | 2025-01-28 06:52 | XMS_ITS | Clinical Summary ---
Author Organization [facility] Address [address] [place] [address] Phone Care Team Providers Care Airplane Cabin Attendant Name Role Phone Erik Grant MD Primary Care Provider [phone] Allergies Active Allergy Reactions Criticality Noted Date [...] 3 times weekly on Monday 153 tablet 5 10/03/19 26 Active furosemide (LASIX) 20 MG tablet Take 1 tablet (20 mg total) by mouth 1 (one) time each day 90 tablet 5 Active Active Problems Problem Noted Date Diagnosed Date Edema 02/01/2024 Clostridioides difficile infection 07/22/2021 Diarrhea 07/22/2021 Gastroesophageal reflux disease 07/22/2021 Hiatal hernia 07/22/2021 Screening for malignant neoplasm of colon 2021 Essential hypertension 06/28/2021 Immunizations Immunization Administration Dates Next Due Influenza, [...] Visit [facility] [address] [place] [address] Aftab Louis MD [address] [address] 03/31/2025 3:00 PM EDT Office Visit [facility] [address] [place] [address] Aftab Louis MD [address] [address] Health Maintenance Due Date Last Done Comments Pneumococcal Vaccine: 50+ Years (2 of 2 - PCV) 12/26/2014 12/26/2013 Influenza Vaccine (#1) 2025 , 03/04/2019, 02/04/2016, Additional history exists Pneumococcal Vaccine: Peds (0 to 5 Years) and At-Risk Patients (6 to 49 Years) Discontinued 12/26/2013 Hepatitis B Vaccine Aged Out No longe r eligible based on patient's age to complete this topic Insurance Medicare [facility] Medicare [facility] Care Teams Airplane Cabin Attendant Relationship Specialty Start Date End Date rEik Grant MD [address] [place] [address] , [address] [place] [address] PCP - General Medical Oncology 10/01/24
--- OUTSIDE RECORDS SUMMARY | 2025-01-28 06:53 | XMS_ITS | Patient Health Record ---
Author Organization [facility] Address [address] [place] [address] Care Team Providers Care Protection Consultant Name Role Phone Erik Grant MD Primary Care Provider UnavailErik Morgan Unavailable [phone] Allergies Allergen (clinical drug ingredient) Drug/Non Drug [...] directed Externally as needed for pain Active Famotidine 40 MG 1 tablet Orally Twice a day for 30 days 11/07/2024 Active Calcium Citrate + D3 Maximum 315-250 [...] Problem Status W/U Status Risk Notes Problem 944997752 Encounter for screening for malignant neoplasm of colon (Z12.11) Active confirmed Problem Diarrhea (R19.7) Active confirmed Problem Irritable bowel syndrome with diarrhea (433787053) Irritable bowel syndrome with diarrhea (K58.0) Active confirmed Problem 614032449 Gastroesophageal reflux disease, esophagitis presence not specified (K21.9) Active confirmed Problem 941888963 Clostridium difficile infection (B96.89) Active confirmed Problem 78062853 Hiatal hernia (K44.9) Active confirmed Problem 39350753 Diarrhea, unspecified type (R19.7) Active confirmed Problem 50271240 Cough, unspecifi ed type (R05.9) Active confirmed Vital Signs Temperature 97.3 degrees Fahrenheit 03/01/2024 Blood pressure diastolic 00 mm Hg 03/01/2024 Height 60.0 in 03/01/2024 Blood pressure systolic 000 mm Hg 03/01/2024 Weight 197 lb 6 oz lbs 03/01/2024 BMI 38.54 kg/m2 03/01/2024 Encounters Encounter Location Date Provider Diagnosis [facility] [address] [place] [address] 03/01/2024 Erik Avery Irritable bowel synd ricardo with diarrhea K58.0 and Gastroesophageal reflux disease, esophagitis presence not specified K21.9 [facility] [address] [place] [address] 11/06/2024 Erik Avery Assessments Encounter Date Diagnosis (ICD [...] Date UPPER GI ENDOSCOPY 03/08/2018 COLONOSCOPY 03/27/2019 Next Appt Details Provider Name:Erik Avery , 02/27/2025 11:20:00 AM, [address], [address], [place], [address], Insurance Providers Payer Name Payer Address Payer Phone Subscriber Number Group Number Insured Name Patient Relationship to Insured Coverage Start Date Coverage End Date MEDICARE OF [place] [address] [place] [address] [phone] [id number] ORA JACKSON Self - patient is the insured [facility] [address] [place] [phone] [id number] ORA JACKSON Self - patient is the insured Medical (General) History Medical History History ICD Code Neg. Colonoscopies in 2002 a nd 01/2009--no polyps--diverticulosis and internal hemorrhoids---neg. Hemoccults in 2014 and 2015 GERD--Moderate-sized Hiatal hernia-otherwise Neg EGD in 01/2009 and in 04/2018-- moderate-sized hiatal hernia, no esophagitis nor Arias's esophagus, normal duodenal biopsies, benign gastric polyps with biopsies negative for H. 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 of C.diff infection in 201 [...] right knee in 02/2014 requiring surgery and jail antibiotics-still on them as of 08/19/14--in 2015 had the prosthetic knee removed and treated with antibiotics--new knee replaced in 2016 Right hand surgery Cholecystectomy Ankle and foot surgery-left Foot surgery-right X3 Exploratory laparotomy Cataract right eye Vein ligation left leg
[2025-01-28 10:23] LABS: Alanine Aminotransferase 29 U/L (0-31); Aspartate Amino Transferase 32 U/L (5-31)
== END 2025-01-28 06:49 | disposition home or self-care (01) ==
LOC: HO.HMGCLDS 06:48
PROVIDERS: PCP Internal Medicine Medical Oncology; Visit Provider Internal Medicine Nephrology
DX: R60.9 Edema, unspecified (principal)
CPT/HCPCS: 36415; 84450; 84460

== ENCOUNTER 2025-03-11 13:00 | Outpatient (REF) | payer MEDICARE, OTHER, SELFPAY ==
--- OUTSIDE RECORDS SUMMARY | 2024-05-17 11:00 | XMS_ITS ---
Author Organization Erik Gratn III, MD Address [address] [place] [address] Care Team Providers Care Matlab Developer Name Role Phone Dr. Erik Grant III Primary Care Provider Allergies Allergen (clinical drug ingredient) Drug/Non Drug Allergy documented on EMR Reaction Allergy Type Onset Date Status succinylcholine Succinylcholine Unknown Drug Allergy Active dibucaine Dibucaine Unknown Drug Allergy Active Adhesive Unknown Allergy Active REASON FOR VISIT Annual Exam Medications Medication SIG (Take, Route, Frequency, Duration) Notes Start Date End Date Status Rosuvastatin Calcium 5 MG TAKE 1 TABLET BY MOUTH EVERY DAY FOR 90 DAYS Active Amoxicillin 500 MG 4 capsules 1 hour before dental or surgical procedures Orally Once Dental procedures Active Voltaren 1 % as directed Externally Active hydroCHLOROthiazide 25 MG 1 tablet in th e morning Orally Once a day Active PARoxetine HCl 10 MG 1 tablet in the morning Orally Once a day 03/27/2024 Active PreserVision AREDS 2 - as directed Orally Active Nabumetone 1000 MG 1 tablet Orally Twice a day Active Pramipexole Dihydrochloride 0.25 MG TAKE 2 (0.5MG) TO 3 TABS (0.75 MG) DAILY Orally Active Furosemide 20 MG 1 tablet Orally Once a day Active Probiotic 250 MG as directed Orally Active Fiber Active Famotidine 40 MG 1 tablet as needed Orally Twice a day Active Tums 500 MG 1 tablet Orally Once a day Active Fluticasone Propionate 50 MCG/ACT Nasal Active Esomeprazole Magnesium 40 MG 1 capsule Orally Twice a day Active Calcium Active Claritin 10 MG 1 tablet Orally Once a day Active Aspirin 81 81 MG 1 tablet Orally Once a day Active Flax Seed Oil Active Imodium A-D Active Melatonin Active Ibuprofen Active Multivitamin Active Gas Relief 180 MG 1 capsule after meals and at bedtime as needed Orally Twice a day Active Social History Tobacco Use: Social History Observation Description Date Details (start date - stop date) Never Smoker NA - NA Sex Assigned At : Social History Observation Description Sex Assigned At Female Tobacco Use/Smoking Question Answer Notes Patient is a nonsmoker Additional Findings: Tobacco Non-User Aggressive non-smoker Vital Signs Temperature 97.0 degrees Fahrenheit 05/17/20 24 Blood pressure systolic 138 mm Hg 05/17/20 24 Blood pressure diastolic 82 mm Hg 024 Heart Rate 78 /min 05/17/2024 Height 60 in 05/17/2024 Weight 194 lbs 05/17/2024 BMI 37.88 kg/m2 05/17/2024 Encounters Encounter Location Date Provider Diagnosis Erik Grant III, MD [address] [place] [address] [place] [address] 05/17/2024 Erik Grant Hypertension I10 ; O besity (BMI 30-39.9) E66.9 ; Mixed hyperlipidemia E78.2 ; GERD (gastroesophageal reflux disease) K21.9 ; Primary osteoarthritis involving multiple joints M15.9 ; Restless leg syndrome G25.81 ; 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 05/17/2024 Obesity (BMI 30-39.9 ) (ICD-10 - E66.9) Her body mass index is 37. We discussed her diet and nutrition. We reviewed her weight loss strategy. We made a plan to lose weight at a rate of one half of a pound per week through diet restricted in fat calories and sodium. 05/17/2024 Mixed hyperlipidemia (ICD-10 - E78.2) Her cholesterol is slightly above 200. She is essentially at target. No change in her regimen was necessary today. 05/17/2024 GERD (gastroesophage al reflux disease) (ICD-10 - K21.9) Her reflux symptoms are well controlled with [id number] medication. 05/17/2024 Primary osteoarthrit is involving multiple joints (ICD-10 - M15.9) She has had multiple surgical procedures and a right knee arthroplasty. She is able to conduct all of the activities of daily life. 05/17/2024 Restless leg syndrom e (ICD-10 - G25.81) This is been a minor problem lately and does not require changing her regimen. 05/17/2024 Pseudocholinesterase deficiency (ICD-10 - E88.09) She has not recently been exposed to any anesthetics. 05/17/2024 Sensorineural hearin g loss (SNHL) of both ears (ICD-10 - H90.3) Communication was possible and she has working hearing aids. 05/17/2024 Unspecified benign mammary dysplasia of left breast (ICD-10 - N60.92) No breast cancer. Has ever been detected. 05/17/2024 History of DVT (deep vein thrombosis) (ICD-10 - Z86.718) She is no longer anticoagulated. She has had no further blood clots. Old records will be requested. 05/17/2024 Age-related osteopor osis without current pathological fracture (ICD-10 - M81.0) She was continued on current medications. Her bone densities will be reviewed and another one ordered if necessary. 05/17/2024 Intermediate stage nonexudative age-related macular degeneration of both eyes (ICD-10 - H35.3132) She sees her sprinkler worker regularly. 05/17/2024 Obstructive sleep ap lucien (ICD-10 - G47.33) She was continued on her CPAP. No change in her regimen was needed. 05/17/2024 Hiatal hernia (ICD-1 0 - K44.9) Her reflux symptoms are well controlled. Plan Of Treatment Medication Medication Name Sig Start Date Stop Date Notes Rosuvastatin Calcium 5 MG TAKE 1 TABLET BY MOUTH EVERY DAY FOR 90 DAYS Amoxicillin 500 MG 4 capsules 1 hour before dental or surgical procedures Orally Once Dental procedures Voltaren 1 % as directed Externally hydroCHLOROthiazide 25 MG 1 tablet in e morning Orally Once a day PARoxetine HCl 10 MG 1 tablet in the morning Orally Once a day 03/27/2024 PreserVision AREDS 2 - as directed Orally Nabumetone 1000 MG 1 tablet Orally Twice a day Pramipexole Dihydrochloride 0.25 MG TAKE 2 (0.5MG) TO 3 TABS (0.75 MG) DAILY Orally Furosemide 20 MG 1 tablet Orally Once a day Probiotic 250 MG as directed Orally Fiber Famotidine 40 MG 1 tablet as needed Orally Twice a day Tums 500 MG 1 tablet Orally Once a day Fluticasone Propionate 50 MCG/ACT Nasal Esomeprazole Magnesium 40 MG 1 capsule O rally Twice a day Calcium Claritin 10 MG 1 tablet Orally Once a day Aspirin 81 81 MG 1 tablet Orally Once a day Flax Seed Oil Imodium A-D Melatonin Ibuprofen Multivitamin Gas Relief 180 MG 1 capsule after meals and at bedtime as needed Orally Twice a day Pending Test Test Name Order Date PROFILE, FASTING (COMPREHENSIVE METABOLI C) 05/17/2024 TSH (THYROID STIMULATING HORMONE) 2023 CBC WITH AUTO DIFF 05/17/2024 Lipid Panel 05/17/2024 Next Appt Details Follow Up: 4 Months, Reason: OV Provider Name:Erik Grant , 05/21/2025 02:30:00 PM, [address] [place] [address] [address] [place] [address], [facility] [place], [address], Progress Notes * RENETTA Palak EDOB: [id number] (78 yo F)Acc No.[id number]:05/17/2024 Progress Notes Patient: Palak MILLER Provider: Skylar Grant MD :1945 A ge:78 Y S ex:Female Date:05/17/2024 Address:[address] [place] [address] LEONILA, JOANN [id number] Subjective: * Chief Complaints: * A nnual Exam * HPI: D epression Screening: PHQ-9 L ittle interest or pleasure in doing things?Nearly every day F eeling down, depressed, or hopeless N ot at all T rouble falling or staying asleep, or sleeping too much N early every day F eeling tired or having little energy S everal days P oor appetite or overeating N ot at all F eeling bad about yourself or that you are a failure, or have let yourself or your family down N ot at all T rouble concentrating on things, such as reading the newspaper or watching television N ot at all M oving or speaking so slowly that other people could have noticed; or the opposite, being so fidgety or restless that you have been moving around a lot more than usual N ot at all T houghts that you would be better off or of hurting yourself in some way N ot at all T otal Score 7 I nterpretation M ild Depression C OVID-19 Screening: Questions H ave you had any new onset fever, chills, cough, congestion, sore throat, shortness of breath, muscle aches? N o F all Risk Screening: Fall History H ave you had any falls with injury in the past year? N o H ave you had two or more falls in the past year? N o F all Risk Assessment: S JHON Questions: SDOH Questions I n the past year have you been worried about losing your housing? N o I n the past year have you or any family members you live with been unable to get any of the following when it was really needed? Check all that apply: N one * ROS: G eneral/Constitutional: pain o nly normal aches and pains. C hills d enies.?Fatigue a dmits. F ever d enies. E NT: Decreased hearing i n both ears. R espiratory: Cough d enies. C ardiovascular: Chest pain with exertion d enies. D yspnea on exertion?denies. S hortness of breath w ith exertion. G astrointestinal: Constipation o ccasional. D ecreased appetite d enies. D iarrhea d enies. H eartburn d enies. N ausea d enies. R ectal bleeding d enies. V omiting d enies. H ematology: bruising d enies. p etechiae d enies. S wollen glands n one have been noted. G enitourinary: Frequent urination a t night. M usculoskeletal: Muscle aches d enies. P ainful joints H ands hips shoulders and knees. S ciatica d enies. W eakness d enies. S kin: Itching d enies. R giles d enies. S kin lesion(s)?denies. N eurologic: Difficulty speaking d enies. D izziness d enies.?Headache d enies. L ow back pain d enies. P sychiatric: Depressed mood d enies. * Medical History: * Surgical History: R ight knee replacement Cholecystectomy right hand surgery Nasal surgery cataract surgery biopsy breast x3, Dr. Espinal urinary track surgery Bilateral blepharoplasty Colonoscopy, upper endoscopy * Hospitalization/Major Diagno stic Procedure: D enies Past Hospitalization * Family History: F ather: 86 yrs, stomach cancer, osteoarthritis, CHF, diagnosed with Cancer, CVD.?Mother: 84 yrs, Osteoarthritis. C hildren: alive. S on(s): alive. D aughter(s): alive. S iblings: , colon cancer, Parkinsons, Lung dicease. M aternal Grand Mother: , gall bladder disease. 6 brother(s) . 1 son(s) , 1 daughter(s) - healthy. . She has 7 brothers. Several have arthritis. One has Parkinson's disease and one has colon cancer. There is no family history of breast cancer, endometrial cancer or ovarian cancer. HER-2 children and 4 grandchildren are healthy and well. She is not aware of any family history of mental illness or substance use disorder or addiction. * Social History: T obacco Use: T obacco Use/Smoking P atient is a n onsmoker A dditional Findings: Tobacco Non-User A ggressive non-smoker S he was born in [place], [place] and lives in [place]. 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 She has been to [place] for many years. She has a son and a daughter and 4 grandchildren. She has no anglican objection to blood transfusion. She does not drink alcohol or smoke cigarettes. * Medications: T akingProbiotic 250 MG Capsule as directed Orally Furosemide 20 MG Tablet 1 tablet Orally Once a day Multivitamin Melatonin Calcium Aspirin 81 81 MG Tablet Delayed Release 1 tablet Orally Once a day Flax Seed Oil Imodium A-D Fiber Famotidine 40 MG Tablet 1 tablet as needed Orally Twice a day Esomeprazole Magnesium 40 MG Capsule Delayed Release 1 capsule Orally Twice a day Fluticasone Propionate 50 MCG/ACT Suspension Nasal Nabumetone 1000 MG Tablet 1 tablet Orally Twice a day PreserVision AREDS 2 - Capsule as directed Orally Pramipexole Dihydrochloride 0.25 MG Tablet TAKE 2 (0.5MG) TO 3 TABS (0.75 MG) DAILY Orally Rosuvastatin Calcium 5 MG Tablet TAKE 1 TABLET BY MOUTH EVERY DAY FOR 90 DAYS Amoxicillin 500 MG Capsule 4 capsules 1 hour before dental or surgical procedures Orally Once , Notes to Pharmacist: Dental proceduresVoltaren 1 % Gel as directed Externally Taking Probiotic 250 MG Capsule as directed Orally Taking Furosemide 20 MG Tablet 1 tablet Orally Once a day Taking Multivitamin Taking Melatonin Taking Calcium Taking Aspirin 81 81 MG Tablet Delayed Release 1 tablet Orally Once a day Taking Flax Seed Oil Taking Imodium A-D Taking Fiber Taking Famotidine 40 MG Tablet 1 tablet as needed Orally Twice a day Taking Esomeprazole Magnesium 40 MG Capsule Delayed Release 1 capsule Orally Twice a day Taking Fluticasone Propionate 50 MCG/ACT Suspension Nasal Taking Nabumetone 1000 MG Tablet 1 tablet Orally Twice a day Taking PreserVision AREDS 2 - Capsule as directed Orally Taking Pramipexole Dihydrochloride 0.25 MG Tablet TAKE 2 (0.5MG) TO 3 TABS (0.75 MG) DAILY Orally Taking Rosuvastatin Calcium 5 MG Tablet TAKE 1 TABLET BY MOUTH EVERY DAY FOR 90 DAYS Taking Amoxicillin 500 MG Capsule 4 capsules 1 hour before dental or surgical procedures Orally Once , Notes to Pharmacist: Dental proceduresTaking Voltaren 1 % Gel as directed Externally Not- Taking/PRNPARoxetine HCl 10 MG Tablet 1 tablet in the morning Orally Once a day Ibuprofen Gas Relief 180 MG Capsule 1 capsule after meals and at bedtime as needed Orally Twice a day Claritin 10 MG Tablet 1 tablet Orally Once a day Tums 500 MG Tablet Chewable 1 tablet Orally Once a day hydroCHLOROthiazide 25 MG Tablet 1 tablet in the morning Orally Once a day Medication List reviewed and reconciled with the patientNot-Taking/PRN PARoxetine HCl 10 MG Tablet 1 tablet in the morning Orally Once a day Not-Taking/PRN Ibuprofen Not-Taking/PRN Gas Relief 180 MG Capsule 1 capsule after meals and at bedtime as needed Orally Twice a day Not-Taking/PRN Claritin 10 MG Tablet 1 tablet Orally Once a day Not-Taking/PRN Tums 500 MG Tablet Chewable 1 tablet Orally Once a day Not-Taking/PRN hydroCHLOROthiazide 25 MG Tablet 1 tablet in the morning Orally Once a day Medication List reviewed and reconciled with the patient * Allergies: A dhesiveDibucaineSuccinylcholineno[Allergies Verified] Objective: * Vitals: H t: 60, Wt:194, BMI:37.88, BP:138/82, HR:78, Temp:97.0, Wt-k. * P ast Orders: I maging:MM tomosynthesis screening BI (Order Date - 03/05/2024) (Performed Date - 03/05/2024) Lab:[facility] [place]. Stephanie l Fast * Collection Date 05/13/2024 02/01/2024 08/21/2023 Collection Time 09:35 AM 08:35 AM 07:27 AM Order Date 05/13/2024 02/01/2024 08/21/2023 Sodium 139 (Ref Range: 135-145 mmol/L) 139 (Ref Range: 135-145 mmol/L) 141 (Ref Range: 135-145 mmol/L) Bilirubin Total 0.4 (Ref Range: 0.0-1.0 mg/dL) 0.3 (Ref Range: 0.0-1.0 mg/dL) 0.4 (Ref Range: 0.0-1.0 mg/dL) Aspartate Amino Transferase 33 H (Ref Range: 5-31 U/L) 20 (Ref Range: 5-31 U/L) 19 (Ref Range: 5-31 U/L) Alanine Aminotransferase 34 H (Ref Range: 0-31 U/L) 21 (Ref Range: 0-31 U/L) 22 (Ref Range: 0-31 U/L) Total Protein 7.1 (Ref Range: 6.5-8.0 g/dL) 6.9 (Ref Range: 6.5-8.0 g/dL) 7.0 (Ref Range: 6.5-8.0 g/dL) Albumin Level 3.8 (Ref Range: 3.5-5.0 g/dL) 3.7 (Ref Range: 3.5-5.0 g/dL) 3.8 (Ref Range: 3.5-5.0 g/dL) Alkaline Phosphatase 85 (Ref Range: 39-117 U/L) 73 (Ref Range: 39-117 U/L) 76 (Ref Range: 39-117 U/L) Potassium 3.8 (Ref Range: 3.3-5.1 mmol/L) 4.0 (Ref Range: 3.3-5.1 mmol/L) 4.0 (Ref Range: 3.3-5.1 mmol/L) Chloride 106 (Ref Range: 96-108 mmol/L) 107 (Ref Range: 96-108 mmol/L) 107 (Ref Range: 96-108 mmol/L) Carbon Dioxide 26 (Ref Range: 22-29 mmol/L) 23 (Ref Range: 22-29 mmol/L) 25 (Ref Range: 22-29 mmol/L) Anion Gap 11 L (Ref Range: 12-20) 13 (Ref Range: 12-20) 13 (Ref Range: 12-20) Blood Urea Nitrogen 15 (Ref Range: 9-16 mg/dL) 15 (Ref Range: 9-16 mg/dL) 18 H (Ref Range: 9-16 mg/dL) Creatinine 0.65 (Ref Range: 0.5-1.4 mg/dL) 0.81 (Ref Range: 0.5-1.4 mg/dL) 0.82 (Ref Range: 0.5-1.4 mg/dL) Estimated Glomerular Filt Rate > 60 > 60 > 60 Glucose Fasting 92 (Ref Range: 60-99 mg/dL) 104 H (Ref Range: 60-99 mg/dL) 92 (Ref Range: 60-99 mg/dL) Calcium 8.8 (Ref Range: 8.4-10.2 mg/dL) 9.3 (Ref Range: 8.4-10.2 mg/dL) 9.2 (Ref Range: 8.4-10.2 mg/dL) * Lab:Complete Blood Count Aut o Diff * Collection Date 05/13/2024 02/01/2024 01/09/2024 Collection Time 09:35 AM 08:35 AM 04:17 PM Order Date 05/13/2024 02/01/2024 01/09/2024 White Blood Count 6.3 (Ref Range: 4.8-10.8 X10*3/uL) 5.5 (Ref Range: 4.8-10.8 X10*3/uL) 7.2 (Ref Range: 4.8-10.8 X10*3/uL) Red Blood Count 4.44 (Ref Range: 4.20-5.50 X10*6/uL) 4.12 L (Ref Range: 4.20-5.50 X10*6/uL) 4.26 (Ref Range: 4.20-5.50 X10*6/uL) Hemoglobin 13.0 (Ref Range: 12.0-16.0 g/dl) 12.4 (Ref Range: 12.0-16.0 g/dl) 12.9 (Ref Range: 12.0-16.0 g/dl) Hematocrit 40.1 (Ref Range: 37.0-47.0 %) 37.0 (Ref Range: 37.0-47.0 %) 37.7 (Ref Range: 37.0-47.0 %) Mean Corpuscular Volume 90.3 (Ref Range: 80.0-98.0 fL) 89.8 (Ref Range: 80.0-98.0 fL) 88.5 (Ref Range: 80.0-98.0 fL) Mean Corpuscular Hemoglobin 29.3 (Ref Range: 27.0-33.0 pg) 30.1 (Ref Range: 27.0-33.0 pg) 30.3 (Ref Range: 27.0-33.0 pg) Mean Corpuscular HGB Conc 32.4 (Ref Range: 31.0-35.0 g/dl) 33.5 (Ref Range: 31.0-35.0 g/dl) 34.2 (Ref Range: 31.0-35.0 g/dl) Red Cell Distribution Width 13.4 (Ref Range: 11.0-16.0 %) 13.9 (Ref Range: 11.0-16.0 %) 14.1 (Ref Range: 11.0-16.0 %) Platelet Count 247 (Ref Range: 160-400 X10*3/uL) 222 (Ref Range: 160-400 X10*3/uL) 249 (Ref Range: 160-400 X10*3/uL) Mean Platelet Volume 10.6 (Ref Range: 9.4-12.3 fL) 10.5 (Ref Range: 9.4-12.3 fL) 10.1 (Ref Range: 9.4-12.3 fL) Neutrophils Percent Auto 62.1 (Ref Range: 45-73 %) 58.8 (Ref Range: 45-73 %) 59.6 (Ref Range: 45-73 %) Imm Gran Pct Auto 0.2 (Ref Range: 0.0-0.4 %) 0.4 (Ref Range: 0.0-0.4 %) 0.1 (Ref Range: 0.0-0.4 %) Lymphocytes Percent Auto 20.5 (Ref Range: 20-40 %) 23.6 (Ref Range: 20-40 %) 25.9 (Ref Range: 20-40 %) Monocytes Percent Auto 12.9 H (Ref Range: 2-11 %) 12.3 H (Ref Range: 2-11 %) 11.1 H (Ref Range: 2-11 %) Eosinophils Percent Auto 3.5 (Ref Range: 0-4 %) 4.0 (Ref Range: 0-4 %) 2.9 (Ref Range: 0-4 %) Basophils Percent Auto 0.8 (Ref Range: 0-2 %) 0.9 (Ref Range: 0-2 %) 0.4 (Ref Range: 0-2 %) NRBC Pct Auto 0.0 (Ref Range: 0.0-0.2 /100WBC) 0.0 (Ref Range: 0.0-0.2 /100WBC) 0.0 (Ref Range: 0.0-0.2 /100WBC) Neutrophils Absolute Auto 3.9 (Ref Range: 2.0-8.3 x10*3/uL) 3.3 (Ref Range: 2.0-8.3 x10*3/uL) 4.3 (Ref Range: 2.0-8.3 x10*3/uL) Imm Gran Abs Auto 0.01 (Ref Range: 0.00-0.03 X10*3/uL) 0.02 (Ref Range: 0.00-0.03 X10*3/uL) 0.01 (Ref Range: 0.00-0.03 X10*3/uL) Lymphocytes Absolute Auto 1.3 (Ref Range: 1.2-4.9 X10*3/uL) 1.3 (Ref Range: 1.2-4.9 X10*3/uL) 1.9 (Ref Range: 1.2-4.9 X10*3/uL) Monocytes Absolute Auto 0.8 (Ref Range: 0.1-1.2 X10*3/uL) 0.7 (Ref Range: 0.1-1.2 X10*3/uL) 0.8 (Ref Range: 0.1-1.2 X10*3/uL) Eosinophils Absolute Auto 0.2 (Ref Range: 0.0-0.4 X10*3/uL) 0.2 (Ref Range: 0.0-0.4 X10*3/uL) 0.2 (Ref Range: 0.0-0.4 X10*3/uL) Basophils Absolute Auto 0.1 (Ref Range: 0.0-0.2 X10*3/uL) 0.1 (Ref Range: 0.0-0.2 X10*3/uL) 0.0 (Ref Range: 0.0-0.2 X10*3/uL) NRBC Abs Auto 0.000 (Ref Range: 0.0-0.012 X10*3/uL) 0.000 (Ref Range: 0.0-0.012 X10*3/uL) 0.000 (Ref Range: 0.0-0.012 X10*3/uL) * Lab:Lipid Panel * Collection Date 05/13/2024 02/01/2024 08/21/2023 Collection Time 09:35 AM 08:35 AM 07:27 AM Order Date 05/13/2024 02/01/2024 08/21/2023 Triglycerides 137 (Ref Range: <150 mg/dL) 128 (Ref Range: <150 mg/dL) 114 (Ref Range: <150 mg/dL) Cholesterol 208 H (Ref Range: <200 mg/dL) 190 (Ref Range: <200 mg/dL) 208 H (Ref Range: <200 mg/dL) LDL Cholesterol Calculated 128 H (Ref Range: <100 mg/dL) 113 H (Ref Range: <100 mg/dL) 129 H (Ref Range: <100 mg/dL) HDL Cholesterol 53 (Ref Range: >40 mg/dL) 52 (Ref Range: >40 mg/dL) 57 (Ref Range: >40 mg/dL) * Examination: G eneral Examination: GENERAL APPEARANCE: p paula, well nourished, well developed, in no acute distress, calm and relaxed, obese, elderly woman. HEAD: a traumatic, normocephalic. EYES: e jayashree, perrla, anicteric, conjugate. EARS: n ormal. NOSE: s eptum intact. ORAL CAVITY: n ormal, unremarkable. NECK/THYROID: n o jugular venous distention, no carotid bruit, thyroid normal. LYMPH NODES: n o enlarged lymph nodes,spleen normal. SKIN: n o suspicious lesions, anicteric. HEART: n o clicks, gallops, murmurs, or rubs, regular rhythm, S1, S2 normal, no s3, or vascular bruits. LUNGS: c lear to auscultation . BREASTS: no masses palpable bilaterally. ABDOMEN: b owel sounds normal, no ascites, no organomegaly, no mass, centripital obesity. RECTAL EXAM: n ot examined. MUSCULOSKELETAL: e xtremities unremarkable, no clubbing, cyanosis or edema, Mild arthritic changes of fingers. PERIPHERAL PULSES: n ormal. NEUROLOGIC: a lert and oriented, cranial nerves 2-12 grossly intact, deep tendon reflexes 2+ symmetrical, motor strength normal upper and lower extremities, sensory exam intact. PSYCH: a lert, oriented, thought process logical, goal directed, speech clear, good eye contact, cooperative with exam, cognitive function intact. ? Assessment: * Assessment: 1. H ypertension - I10 (Primary) N otes :Her blood pressure is stable and no change in her regimen was needed. 2 . O besity (BMI 30-39.9) - E66.9 N otes :Her body mass index is 37. We discussed her diet and nutrition. We reviewed her weight loss strategy. We made a plan to lose weight at a rate of one half of a pound per week through diet restricted in fat calories and sodium. 3 . M ixed hyperlipidemia - E78.2 N otes :Her cholesterol is slightly above 200. She is essentially at target. No change in her regimen was necessary today. 4 . G ERD (gastroesophageal reflux disease) - K21.9 N otes :Her reflux symptoms are well controlled with ksaw-xuj-[id number] medication. 5 . P rimary osteoarthritis involving multiple joints - M15.9 N otes :She has had multiple surgical procedures and a right knee arthroplasty. She is able to conduct all of the activities of daily life. 6 . R estless leg syndrome - G25.81 N otes :This is been a minor problem lately and does not require changing her regimen. 7 . 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 8 . S ensorineural hearing loss (SNHL) of both ears - H90.3 N otes :Communication was possible and she has working hearing aids. 9 . U nspecified benign mammary dysplasia of left breast - N60.92 ?Notes :No breast cancer. Has ever been detected. 1 0. H istory of DVT (deep vein thrombosis) - Z86.718 N otes :She is no longer anticoagulated. She has had no further blood clots. Old records will be requested. 1 1. A ge-related osteoporosis without current pathological fracture - M81.0? Notes :She was continued on current medications. Her bone densities will be reviewed and another one ordered if necessary. 1 2. I ntermediate stage nonexudative age-related macular degeneration of both eyes - H35.3132 N otes :She sees her sprinkler worker regularly. 1 3. O bstructive sleep apnea - G47.33 N otes :She was continued on her CPAP. No change in her regimen was needed. 1 4. H iatal hernia - K44.9 N otes :Her reflux symptoms are well controlled. Plan: * Treatment: 2. O besity (BMI 30-39.9) L AB: PROFILE, FASTING (COMPREHENSIVE METABOLIC) L AB: TSH (THYROID STIMULATING HORMONE) L AB: CBC WITH AUTO DIFF L AB: Lipid Panel 3. M ixed hyperlipidemia L AB: PROFILE, FASTING (COMPREHENSIVE METABOLIC) L AB: TSH (THYROID STIMULATING HORMONE) L AB: CBC WITH AUTO DIFF L AB: Lipid Panel 4. O thers Continue PARoxetine HCl Tablet, 10 MG, 1 tablet in the morning, Orally, Once a day. * Procedure Codes: * Preventive Medicine: Counseling: C are goal follow-up plan: Counseling for abnormal BMI given Y es Above Normal BMI Follow-up D ietary management education, guidance, and counseling, Dietary needs education, Exercise promotion: strength training * Follow Up: 4 Months (Reason: OV) * Images: * Sign off status: Completed true * Provider: Skylar Grant MD Date: 1 07/18/2023 Generated for Sandori bogdan/[place]/eTransmitting on: 03:55 PM EDT History and Physical Notes * HPI (History of Present Illness) Category Sub-Category Detail Notes Depression Screening PHQ-9 Little inte rest or pleasure in doing things: Nearly every day Feeling down, depressed, or hopeless: No t at all Trouble falling or staying asleep, or sl eeping too much: Nearly every day Feeling tired or having little energy: S everal days Poor appetite or overeating: Not at all Feeling bad about yourself o r that you are a failure, or have let yourself or your family down: Not at all Trouble concentrating on thi ngs, such as reading the newspaper or watching television: Not at all Moving or speaking so slowly that other people could have noticed; or the opposite, being so fidgety or restless that you have been moving around a lot more than usual: Not at all Thoughts that you would be b enzo off or of hurting yourself in some way: Not at all Total Score: 7 Interpretation: Mild Depression Fall Risk Screening Fall History Have you had any falls with injury in the past year?: No Have you had two or more falls in the st year?: No Fall Risk Assessment:: COVID-19 Screening Questions Have you had any new onset fever, chills, cough, congestion, sore throat, shortness of breath, muscle aches?: No SDOH Questions SDOH Questions In the past year have you been worried about losing your housing?: No In the past year have you or any family members you live with been unable to get any of the following when it was really needed? Check all that apply:: None Examination Category Sub-Category Detail Notes General Examination GENERAL APPEARANCE: pleasant , well nourished, well developed, in no acute distress, calm and relaxed, obese, elderly woman HEAD: atraumatic, normocep halic EYES: eomi, perrla, anicte yamile, conjugate EARS: normal NOSE: septum intact NECK/THYROID: no jugular venous di stention, no carotid bruit, thyroid normal HEART: no clicks, gallops, murmurs, or rubs, regular rhythm, S1, S2 normal, no s3, or vascular bruits LUNGS: clear to auscultatio n ABDOMEN: bowel sounds normal, no ascites, no organomegaly, no mass, centripital obesity NEUROLOGIC: alert and oriented, cranial nerves 2-12 grossly intact, deep tendon reflexes 2+ symmetrical, motor strength normal upper and lower extremities, sensory exam intact SKIN: no suspicious lesion s, anicteric PERIPHERAL PULSES: normal BREASTS: no masses palpable b ilaterally MUSCULOSKELETAL: extremities unremark able, no clubbing, cyanosis or edema, Mild arthritic changes of fingers LYMPH NODES: no enlarged lymph no alonso,spleen normal RECTAL EXAM: not examined PSYCH: alert, oriented, tho ught process logical, goal directed, speech clear, good eye contact, cooperative with exam, cognitive function intact ORAL CAVITY: normal, unremarkable
--- OUTSIDE RECORDS SUMMARY | 2024-09-16 07:15 | XMS_ITS ---
Author Organization Erik Grant III, MD Address [address] [place] [address] [place] [address] Care Team Providers Care Straw Boss Name Role Phone Dr. Erik Grant III [...] Provider Diagnosis Erik Grant III, MD [address] [place] [address] [place] [address] 09/16/2024 Erik Grant Hypertension I10 ; O [...] Her reflux symptoms are well controlled with hedo-qpt-fzqewwc medication. 09/16/2024 Primary osteoarthrit is involving multiple [...] Provider Name:Erik Grant , 05/21/2025 02:30:00 PM, [address] [place] [address] [address], [place], [address], Progress Notes * Palak VARGAS EDOB: [birth year] (79 yo F)Acc No.[id number]:09/16/2024 Progress Notes Patient: Palak MILLER Provider: Skylar Grant MD :1945 A ge:79 Y S ex:Female Date:09/16/2024 Address:[address] [place] [address], [place] [address], [id number] Subjective: * Chief Complaints: * H ypertensionGERDDysplasia right breastHyperlipidemiaHearing lossSleep at * HPI: C OVID-19 Screening: S he returns to the office for management of multiple issues. She is now living at [facility]. She has had a fall. Since her [...] with Cancer, CVD.?Mother: 84 yrs, Osteoarthritis. C hilen: alive. S on(s): alive. D aughter(s): alive. [...] ggressive non-smoker S he was born in [place], [place] and lives in [place]. 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 She has been to [employer] for many years. She has a son and a daughter and 4 grandchildren. She has no amish objection to blood transfusion. She does not [...] :Her reflux symptoms are well controlled with imvh-fja-rqpudva medication. 5 . P rimary osteoarthritis involving [...] MD Date: 0 09/16/2024 Generated for Gely mcfadden/[place]/Letyitting on: 1 03:55 PM EDT History and Physical Notes [...]
--- OUTSIDE RECORDS SUMMARY | 2025-01-17 11:45 | XMS_ITS ---
Author Organization Erik Grant III, MD Address [address] [place] [address] [place] [address] Care Team Providers Care Retail Equipment Associate Name Role Phone Dr. Erik Grant III Primary Care Provider [phone] Allergies Allergen (clinical drug ingredient) Drug/Non Drug Allergy documented on EMR Reaction Allergy Type Onset Date Status succinylcholine Succinylcholine Unknown Drug Allergy Active dibucaine Dibucaine Unknown Drug Allergy Active Adhesive Unknown Allergy Active REASON FOR VISIT Hypertension, GERD, Obesity, Hearing loss, Hyperlipidemia, Osteoporosis, History of DVT, Restless leg syndrome Medications Medication SIG (Take, Route, Frequency, Duration) Notes Start Date End Date Status Probiotic 250 MG as directed Orally Active Voltaren 1 % as directed Externally Active Furosemide 20 MG 1 tablet Orally Once a day Active hydroCHLOROthiazide 25 MG 1 tablet in th e morning Orally Once a day Active PreserVision AREDS 2 - as directed Orally Active Nabumetone 1000 MG 1 tablet Orally Twice a day Active Amoxicillin 500 MG 4 capsules 1 hour before dental or surgical procedures Orally Once Dental procedures Active Esomeprazole Magnesium 40 MG 1 capsule Orally Twice a day Active Fluticasone Propionate 50 MCG/ACT Nasal Active Imodium A-D Active Flax Seed Oil Active Tums 500 MG 1 tablet Orally Once a day Active Fiber Active Famotidine 40 MG 1 tablet as needed Orally Twice a day Active Calcium Active Melatonin Active Claritin 10 MG 1 tablet Orally Once a day Active Aspirin 81 81 MG 1 tablet Orally Once a day Active Multivitamin Active Ibuprofen Active Pramipexole Dihydrochloride 0.25 MG TAKE 2 TO 3 TABLETS BY MOUTH EVERY DAY Active Gas Relief 180 MG 1 capsule after meals and at bedtime as needed Orally Twice a day Active Rosuvastatin Calcium 5 MG TAKE 1 TABLET BY MOUTH EVERY DAY Active Social History Tobacco Use: Social History Observation Description Date Details (start date - stop date) Never Smoker NA - NA Sex Assigned At : Social History Observation Description Sex Assigned At Female Tobacco Use/Smoking Question Answer Notes Patient is a nonsmoker Additional Findings: Tobacco Non-User Aggressive non-smoker Vital Signs Temperature 97.5 degrees Fahrenheit 01/18/20 25 Blood pressure systolic 135 mm Hg 01/18/20 25 Blood pressure diastolic 80 mm Hg 025 Heart Rate 89 /min 01/17/2025 Height 60 in 01/17/2025 Weight 190 lbs 01/17/2025 BMI 37.1 kg/m2 01/17/2025 Encounters Encounter Location Date Provider Diagnosis Erik Grant III, MD [address] [place] [address] [place] [address] 01/17/2025 Erik Grant Obesity (BMI 30-39.9 ) E66.9 ; 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 ; Hypertension I10 ; GERD (gastroesophageal reflux disease) K21.9 ; Primary osteoarthritis involving multiple joints M15.9 ; Sensorineural hearing loss (SNHL) of both ears H90.3 ; Mixed hyperlipidemia E78.2 ; Obstructive sleep apnea G47.33 ; Enlarged thyroid E01.0 ; Age-related osteoporosis without current pathological fracture M81.0 ; History of DVT (deep vein thrombosis) Z86.718 and Restless leg syndrome G25.81 Assessments Encounter Date Diagnosis (ICD Code) Assessment Notes T reatment Notes Treatment Clinical Notes 01/17/2025 Obesity (BMI 30-39.9 ) (ICD-10 - E66.9) Her body mass index is 36. Her weight is stable. We have discussed diet and nutrition and made a plan to lose weight at a rate of one half of a pound per week through a diet restricted in fat calories and sodium. 01/17/2025 Pseudocholinesterase deficiency (ICD-10 - E88.09) She has not recently been exposed to any anesthetics. 01/17/2025 Hypertension (ICD-10 - I10) Her blood pressure is stable and no change in her regimen was needed.The value is 136/80. 01/17/2025 GERD (gastroesophage al reflux disease) (ICD-10 - K21.9) Her reflux symptoms are well controlled with csnk-dfz-fljsyeg medication. 01/17/2025 Primary osteoarthrit is involving multiple joints (ICD-10 - M15.9) She has had multiple surgical procedures and a right knee arthroplasty. She is able to conduct all of the activities of daily life. 01/17/2025 Sensorineural hearin g loss (SNHL) of both ears (ICD-10 - H90.3) Communication was possible and she has working hearing aids. 01/17/2025 Mixed hyperlipidemia (ICD-10 - E78.2) Her total cholesterol was 193 and your LDL is 118. She was continued on her current medications without change. I recommended aggressive weight loss and a diet low in animal fat. 01/17/2025 Obstructive sleep ap lucien (ICD-10 - G47.33) She was continued on her CPAP. No change in her regimen was needed. 01/17/2025 Enlarged thyroid (IC D-10 - E01.0) There was no palpable mass in the neck this time. 01/17/2025 Age-related osteopor osis without current pathological fracture (ICD-10 - M81.0) She was continued on current medications. Her bone densities will be reviewed and another one ordered if necessary. 01/17/2025 History of DVT (deep vein thrombosis) (ICD-10 - Z86.718) She is no longer anticoagulated. She has had no further blood clots. Old records will be requested. 01/17/2025 Restless leg syndrom e (ICD-10 - G25.81) This is been a minor problem lately and does not require changing her regimen. Plan Of Treatment Medication Medication Name Sig Start Date Stop Date Notes Probiotic 250 MG as directed Orally Voltaren 1 % as directed Externally Furosemide 20 MG 1 tablet Orally Once a day hydroCHLOROthiazide 25 MG 1 tablet in th e morning Orally Once a day PreserVision AREDS 2 - as directed Orally Nabumetone 1000 MG 1 tablet Orally Twice a day Amoxicillin 500 MG 4 capsules 1 hour before dental or surgical procedures Orally Once Dental procedures Esomeprazole Magnesium 40 MG 1 capsule O rally Twice a day Fluticasone Propionate 50 MCG/ACT Nasal Imodium A-D Flax Seed Oil Tums 500 MG 1 tablet Orally Once a day Fiber Famotidine 40 MG 1 tablet as needed Orally Twice a day Calcium Melatonin Claritin 10 MG 1 tablet Orally Once a day Aspirin 81 81 MG 1 tablet Orally Once a day Multivitamin Ibuprofen Pramipexole Dihydrochloride 0.25 MG TAKE 2 TO 3 TABLETS BY MOUTH EVERY DAY Gas Relief 180 MG 1 capsule after meals and at bedtime as needed Orally Twice a day Rosuvastatin Calcium 5 MG TAKE 1 TABLET BY MOUTH EVERY DAY Pending Test Test Name Order Date PROFILE, FASTING (COMPREHENSIVE METABOLI C) 01/17/2025 TSH (THYROID STIMULATING HORMONE) 2024 CBC w DIFF 01/17/2025 Lipid Panel 01/17/2025 Free T4 (Free Thyroxine) 01/17/2025 Next Appt Details Follow Up: As Scheduled, Nel son: Annual Exam Provider Name:Erik Grant , 05/21/2025 02:30:00 PM, [address] [place] [address] [address] [place] [address], [place], [address], Progress Notes * RENETTA, Palak EDOB: [birth year] (79 yo F)Acc No.[id number]:01/17/2025 Progress Notes Patient: Palak MILLER Provider: Skylar Grant MD :1945 A ge:79 Y S ex:Female Date:01/17/2025 Address:[address] [place] [address], [address]-[address] Subjective: * Chief Complaints: * H ypertensionGERDObesityHearing lossHyperlipidemiaOsteoporosisHistory of DVTRestless leg syndrome * HPI: C OVID-19 Screening: S he returns for a scheduled visit for medical management. A main complaint today was her heartburn. She sees Dr. Erik Avery of the gastroenterology service for her reflux symptoms. They are controlled but occasionally breakthrough. We discussed ways to cope with this. She is going to see her date puller in the near future. She does not do breast self-examination saying that she has a surgeon for that. She has macular degeneration both wet and dry and is receiving intra-ocular injections. The right eye is the one with the better vision. Questions H ave you had any new onset fever, chills, cough, congestion, sore throat, shortness of breath, muscle aches? N o * ROS: G eneral/Constitutional: pain S houlders hips and knees. C hills d enies.?Fatigue a dmits. F ever d enies. E NT: Decreased hearing i n both ears. R espiratory: Cough d enies. C ardiovascular: Chest pain with exertion d enies. D yspnea on exertion?denies. S hortness of breath d enies. G astrointestinal: Constipation o ccasional. D ecreased appetite d enies. D iarrhea d enies. H eartburn d enies. N ausea d enies. R ectal bleeding d enies. V omiting d enies. H ematology: bruising d enies. p etechiae d enies. S wollen glands n one have been noted. G enitourinary: Frequent urination d enies. M usculoskeletal: Muscle aches d enies. P ainful joints S houlders hips and knees, fingers. S ciatica d enies. W eakness d [...] T obacco Use: T obacco Use/Smoking P viv is a n onsmoker A dditional Findings: Tobacco Non-User A ggressive non-smoker S he was born in [place], [place] and lives in [place]. 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 She has been to [employer] for many years. She has a son and a daughter and 4 grandchildren. She has no mormonism objection to blood transfusion. She does not [...] AREDS 2 - Capsule as directed Orally Amoxicillin 500 MG Capsule 4 capsules 1 hour before dental or surgical procedures Orally Once , Notes to Pharmacist: Dental procedureshydroCHLOROthiazide 25 MG Tablet 1 tablet in the morning Orally Once a day Voltaren 1 % Gel as directed Externally Probiotic 250 MG Capsule as directed Orally Pramipexole Dihydrochloride 0.25 MG Tablet TAKE 2 TO 3 TABLETS BY MOUTH EVERY DAY Rosuvastatin Calcium 5 MG Tablet TAKE 1 TABLET BY MOUTH EVERY DAY Taking Ibuprofen Taking Gas Relief 180 MG [...] 2 - Capsule as directed Orally Taking Amoxicillin 500 MG Capsule 4 capsules 1 hour before dental or surgical procedures Orally Once , Notes to Pharmacist: Dental proceduresTaking hydroCHLOROthiazide 25 MG Tablet 1 tablet in the morning Orally Once a day Taking Voltaren 1 % Gel as directed Externally Taking Probiotic 250 MG Capsule as directed Orally Taking Pramipexole Dihydrochloride 0.25 MG Tablet TAKE 2 TO 3 TABLETS BY MOUTH EVERY DAY Taking Rosuvastatin Calcium 5 MG Tablet TAKE 1 TABLET BY MOUTH EVERY DAY DiscontinuedFurosemide 20 MG Tablet 1 tablet Orally Once a day Medication List reviewed and reconciled with the patientDiscontinued Furosemide 20 MG Tablet 1 tablet Orally Once a day Medication List reviewed and reconciled with the patient * Allergies: A dhesiveDibucaineSuccinylcholineno[Allergies Verified] Objective: * Vitals: H t: 60, Wt:190, BMI:37.1, BP:135/80, HR:89, Temp:97.5, Wt-k.18. * P ast Orders: Lab:Complete Blood Count Aut o Diff * Collection Date 01/06/2025 09/11/2024 05/13/2024 Collection Time 07:40 AM 07:53 AM 09:35 AM Order Date 01/06/2025 09/11/2024 05/13/2024 White Blood Count 5.2 (Ref Range: 4.8-10.8 X10*3/uL) 5.4 (Ref Range: 4.8-10.8 X10*3/uL) 6.3 (Ref Range: 4.8-10.8 X10*3/uL) Red Blood Count 4.45 (Ref Range: 4.20-5.50 X10*6/uL) 4.53 (Ref Range: 4.20-5.50 X10*6/uL) 4.44 (Ref Range: 4.20-5.50 X10*6/uL) Hemoglobin 13.5 (Ref Range: 12.0-16.0 g/dl) 13.2 (Ref Range: 12.0-16.0 g/dl) 13.0 (Ref Range: 12.0-16.0 g/dl) Hematocrit 40.0 (Ref Range: 37.0-47.0 %) 40.3 (Ref Range: 37.0-47.0 %) 40.1 (Ref Range: 37.0-47.0 %) Mean Corpuscular Volume 89.9 (Ref Range: 80.0-98.0 fL) 89.0 (Ref Range: 80.0-98.0 fL) 90.3 (Ref Range: 80.0-98.0 fL) Mean Corpuscular Hemoglobin 30.3 (Ref Range: 27.0-33.0 pg) 29.1 (Ref Range: 27.0-33.0 pg) 29.3 (Ref Range: 27.0-33.0 pg) Mean Corpuscular HGB Conc 33.8 (Ref Range: 31.0-35.0 g/dl) 32.8 (Ref Range: 31.0-35.0 g/dl) 32.4 (Ref Range: 31.0-35.0 g/dl) Red Cell Distribution Width 13.2 (Ref Range: 11.0-16.0 %) 13.4 (Ref Range: 11.0-16.0 %) 13.4 (Ref Range: 11.0-16.0 %) Platelet Count 202 (Ref Range: 160-400 X10*3/uL) 221 (Ref Range: 160-400 X10*3/uL) 247 (Ref Range: 160-400 X10*3/uL) Mean Platelet Volume 11.1 (Ref Range: 9.4-12.3 fL) 11.0 (Ref Range: 9.4-12.3 fL) 10.6 (Ref Range: 9.4-12.3 fL) Neutrophils Percent Auto 50.7 (Ref Range: 45-73 %) 52.1 (Ref Range: 45-73 %) 62.1 (Ref Range: 45-73 %) Imm Gran Pct Auto 0.2 (Ref Range: 0.0-0.4 %) 0.2 (Ref Range: 0.0-0.4 %) 0.2 (Ref Range: 0.0-0.4 %) Lymphocytes Percent Auto 31.0 (Ref Range: 20-40 %) 24.5 (Ref Range: 20-40 %) 20.5 (Ref Range: 20-40 %) Monocytes Percent Auto 12.1 H (Ref Range: 2-11 %) 15.7 H (Ref Range: 2-11 %) 12.9 H (Ref Range: 2-11 %) Eosinophils Percent Auto 5.0 H (Ref Range: 0-4 %) 6.4 H (Ref Range: 0-4 %) 3.5 (Ref Range: 0-4 %) Basophils Percent Auto 1.0 (Ref Range: 0-2 %) 1.1 (Ref Range: 0-2 %) 0.8 (Ref Range: 0-2 %) NRBC Pct Auto 0.0 (Ref Range: 0.0-0.2 /100WBC) 0.0 (Ref Range: 0.0-0.2 /100WBC) 0.0 (Ref Range: 0.0-0.2 /100WBC) Neutrophils Absolute Auto 2.7 (Ref Range: 2.0-8.3 x10*3/uL) 2.8 (Ref Range: 2.0-8.3 x10*3/uL) 3.9 (Ref Range: 2.0-8.3 x10*3/uL) Imm Gran Abs Auto 0.01 (Ref Range: 0.00-0.03 X10*3/uL) 0.01 (Ref Range: 0.00-0.03 X10*3/uL) 0.01 (Ref Range: 0.00-0.03 X10*3/uL) Lymphocytes Absolute Auto 1.6 (Ref Range: 1.2-4.9 X10*3/uL) 1.3 (Ref Range: 1.2-4.9 X10*3/uL) 1.3 (Ref Range: 1.2-4.9 X10*3/uL) Monocytes Absolute Auto 0.6 (Ref Range: 0.1-1.2 X10*3/uL) 0.8 (Ref Range: 0.1-1.2 X10*3/uL) 0.8 (Ref Range: 0.1-1.2 X10*3/uL) Eosinophils Absolute Auto 0.3 (Ref Range: 0.0-0.4 X10*3/uL) 0.3 (Ref Range: 0.0-0.4 X10*3/uL) 0.2 (Ref Range: 0.0-0.4 X10*3/uL) Basophils Absolute Auto 0.1 (Ref Range: 0.0-0.2 X10*3/uL) 0.1 (Ref Range: 0.0-0.2 X10*3/uL) 0.1 (Ref Range: 0.0-0.2 X10*3/uL) NRBC Abs Auto 0.000 (Ref Range: 0.0-0.012 X10*3/uL) 0.000 (Ref Range: 0.0-0.012 X10*3/uL) 0.000 (Ref Range: 0.0-0.012 X10*3/uL) * Lab:Jacqueline Blake. Roberte l Fast * Collection Date 01/06/2025 09/11/2024 05/13/2024 Collection Time 07:40 AM 07:53 AM 09:35 AM Order Date 01/06/2025 09/11/2024 05/13/2024 Sodium 142 (Ref Range: 135-145 mmol/L) 142 (Ref Range: 135-145 mmol/L) 139 (Ref Range: 135-145 mmol/L) Bilirubin Total 0.5 (Ref Range: 0.0-1.0 mg/dL) 0.5 (Ref Range: 0.0-1.0 mg/dL) 0.4 (Ref Range: 0.0-1.0 mg/dL) Aspartate Amino Transferase 33 H (Ref Range: 5-31 U/L) 32 H (Ref Range: 5-31 U/L) 33 H (Ref Range: 5-31 U/L) Alanine Aminotransferase 27 (Ref Range: 0-31 U/L) 27 (Ref Range: 0-31 U/L) 34 H (Ref Range: 0-31 U/L) Total Protein 6.9 (Ref Range: 6.5-8.0 g/dL) 6.7 (Ref Range: 6.5-8.0 g/dL) 7.1 (Ref Range: 6.5-8.0 g/dL) Albumin Level 3.9 (Ref Range: 3.5-5.0 g/dL) 3.8 (Ref Range: 3.5-5.0 g/dL) 3.8 (Ref Range: 3.5-5.0 g/dL) Alkaline Phosphatase 93 (Ref Range: 39-117 U/L) 90 (Ref Range: 39-117 U/L) 85 (Ref Range: 39-117 U/L) Potassium 3.6 (Ref Range: 3.3-5.1 mmol/L) 3.6 (Ref Range: 3.3-5.1 mmol/L) 3.8 (Ref Range: 3.3-5.1 mmol/L) Chloride 110 H (Ref Range: 96-108 mmol/L) 111 H (Ref Range: 96-108 mmol/L) 106 (Ref Range: 96-108 mmol/L) Carbon Dioxide 25 (Ref Range: 22-29 mmol/L) 25 (Ref Range: 22-29 mmol/L) 26 (Ref Range: 22-29 mmol/L) Anion Gap 11 L (Ref Range: 12-20) 10 L (Ref Range: 12-20) 11 L (Ref Range: 12-20) Blood Urea Nitrogen 17 H (Ref Range: 9-16 mg/dL) 13 (Ref Range: 9-16 mg/dL) 15 (Ref Range: 9-16 mg/dL) Creatinine 0.81 (Ref Range: 0.5-1.4 mg/dL) 0.78 (Ref Range: 0.5-1.4 mg/dL) 0.65 (Ref Range: 0.5-1.4 mg/dL) Estimated Glomerular Filt Rate > 60 > 60 > 60 Glucose Fasting 96 (Ref Range: 60-99 mg/dL) 103 H (Ref Range: 60-99 mg/dL) 92 (Ref Range: 60-99 mg/dL) Calcium 8.9 (Ref Range: 8.4-10.2 mg/dL) 9.0 (Ref Range: 8.4-10.2 mg/dL) 8.8 (Ref Range: 8.4-10.2 mg/dL) * Lab:Lipid Panel * Collection Date 01/06/2025 09/11/2024 05/13/2024 Collection Time 07:40 AM 07:53 AM 09:35 AM Order Date 01/06/2025 09/11/2024 05/13/2024 Triglycerides 214 H (Ref Range: <150 mg/dL) 103 (Ref Range: <150 mg/dL) 137 (Ref Range: <150 mg/dL) Cholesterol 220 H (Ref Range: <200 mg/dL) 193 (Ref Range: <200 mg/dL) 208 H (Ref Range: <200 mg/dL) LDL Cholesterol Calculated 134 H (Ref Range: <100 mg/dL) 118 H (Ref Range: <100 mg/dL) 128 H (Ref Range: <100 mg/dL) HDL Cholesterol 44 (Ref Range: >40 mg/dL) 55 (Ref Range: >40 mg/dL) 53 (Ref Range: >40 mg/dL) * Examination: G eneral Examination: GENERAL APPEARANCE: p leasant, well nourished, well developed, in no acute distress, calm and relaxed: obese: woman. HEAD: a traumatic, normocephalic. EYES: e jayashree, perrla, anicteric, conjugate. EARS: N ormal anatomy with bilateral hearing loss wearing hearing aids. NOSE: s eptum intact. ORAL CAVITY: n [...] sounds normal, no ascites, no organomegaly, no mass. RECTAL EXAM: n ot examined. MUSCULOSKELETAL: e xtremities unremarkable, no clubbing, cyanosis or peripheral edema, Mild arthritic changes fingers. PERIPHERAL PULSES: n ormal. NEUROLOGIC: a lert and oriented, cranial nerves 2-12 grossly intact, deep tendon reflexes 2+ symmetrical, motor strength normal upper and lower extremities, sensory exam intact. PSYCH: a lert, oriented. Assessment: * Assessment: 1. O besity (BMI 30-39.9) - E66.9 (Primary) N otes :Her body mass index is 36. Her weight is stable. We have discussed diet and nutrition and made a plan to lose weight at a rate of one half of a pound per week through a diet restricted in fat calories and sodium. 2 . 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 3 . H ypertension - I10 N otes :Her blood pressure is stable and no change in her regimen was needed.The value is 136/80. 4 . G ERD (gastroesophageal reflux disease) - K21.9 N otes :Her reflux symptoms are well controlled with iaei-tsz-lguzall medication. 5 . P rimary osteoarthritis involving multiple joints - M15.9 N otes :She has had multiple surgical procedures and a right knee arthroplasty. She is able to conduct all of the activities of daily life. 6 . S ensorineural hearing loss (SNHL) of both ears - H90.3 N otes :Communication was possible and she has working hearing aids. 7 . M ixed hyperlipidemia - E78.2 N otes :Her total cholesterol was 193 and your LDL is 118. She was continued on her current medications without change. I recommended aggressive weight loss and a diet low in animal fat. 8 . O bstructive sleep apnea - G47.33 N otes :She was continued on her CPAP. No change in her regimen was needed. 9 . E nlarged thyroid - E01.0 N otes :There was no palpable mass in the neck this time. 1 0. A ge-related osteoporosis without current pathological fracture - M81.0? Notes :She was continued on current medications. Her bone densities will be reviewed and another one ordered if necessary. 1 1. H istory of DVT (deep vein thrombosis) - Z86.718 N otes :She is no longer anticoagulated. She has had no further blood clots. Old records will be requested. 1 2. R estless leg syndrome - G25.81 N otes :This is been a minor problem lately and does not require changing her regimen. Plan: * Treatment: 2. O thers Continue Rosuvastatin Calcium Tablet, 5 MG, TAKE 1 TABLET BY MOUTH EVERY DAY; C ontinue Pramipexole Dihydrochloride Tablet, 0.25 MG, TAKE 2 TO 3 TABLETS BY MOUTH EVERY DAY; C ontinue Ibuprofen; C ontinue Gas Relief Capsule, 180 MG, 1 capsule after meals and at bedtime as needed, Orally, Twice a day; C ontinue Multivitamin; C ontinue Melatonin; C ontinue Calcium; C ontinue Aspirin 81 Tablet Delayed Release, 81 MG, 1 tablet, Orally, Once a day; C ontinue Claritin Tablet, 10 MG, 1 tablet, Orally, Once a day; C ontinue Flax Seed Oil; C ontinue Imodium A-D; Continue Fiber; C ontinue Tums Tablet Chewable, 500 MG, 1 tablet, Orally, Once a day; C ontinue Famotidine Tablet, 40 MG, 1 tablet as needed, Orally, Twice a day; C ontinue Esomeprazole Magnesium Capsule Delayed Release, 40 MG, 1 capsule, Orally, Twice a day; C ontinue Fluticasone Propionate Suspension, 50 MCG/ACT, Nasal; C ontinue Nabumetone Tablet, 1000 MG, 1 tablet, Orally, Twice a day; C ontinue PreserVision AREDS 2 Capsule, -, as directed, Orally; C ontinue Amoxicillin Capsule, 500 MG, 4 capsules 1 hour before dental or surgical procedures, Orally, Once, Notes to Pharmacist: Dental procedures; C ontinue hydroCHLOROthiazide Tablet, 25 MG, 1 tablet in the morning, Orally, Once a day; C ontinue Voltaren Gel, 1 %, as directed, Externally; C ontinue Probiotic Capsule, 250 MG, as directed, Orally; C ontinue Furosemide Tablet, 20 MG, 1 tablet, Orally, Once a day. * Procedure Codes: [...] Other reason not done * Follow Up: A s Scheduled (Reason: Annual Exam) * Images: * Sign off status: Completed true * Provider: Skylar Grant MD Date: 0 01/17/2025 Generated for Gely mcfadden/[place]/Yakelin on: 03:55 PM EDT History and Physical Notes * HPI (History of Present Illness) Category Sub-Category Detail Notes COVID-19 Screening Questions Have you had any new onset fever, chills, cough, congestion, sore throat, shortness of breath, muscle aches?: No Examination Category Sub-Category Detail Notes General Examination GENERAL APPEARANCE: pleasant , well nourished, well developed, in no acute distress, calm and relaxed: obese: woman HEAD: atraumatic, normocep halic EYES: eomi, perrla, anicte yamile, conjugate EARS: Normal anatomy with bilateral hearing loss wearing hearing aids NOSE: septum intact NECK/THYROID: no jugular venous di stention, no carotid bruit, thyroid normal HEART: no clicks, gallops, murmurs, or rubs, regular rhythm, S1, S2 normal, no s3, or vascular bruits LUNGS: clear to auscultatio n ABDOMEN: bowel sounds normal, no ascites, no organomegaly, no mass NEUROLOGIC: alert and oriented, cranial nerves 2-12 grossly intact, deep tendon reflexes 2+ symmetrical, motor strength normal upper and lower extremities, sensory exam intact SKIN: no suspicious lesion s, anicteric PERIPHERAL PULSES: normal BREASTS: Not examined MUSCULOSKELETAL: extremities unremark able, no clubbing, cyanosis or peripheral edema, Mild arthritic changes fingers LYMPH NODES: no enlarged lymph no alonso,spleen normal RECTAL EXAM: not examined PSYCH: alert, oriented ORAL CAVITY: normal, unremarkable
--- OUTSIDE RECORDS SUMMARY | 2025-02-20 09:32 | XMS_ITS ---
Author Organization Erik Grant III, MD Address [address] [place] [address] [place] [address] Care Team Providers Care Record Label Internship Name Role Phone Dr. Erik Grant III Primary Care Provider REASON FOR VISIT refill request for Ipratropium Nasal spray Social History Sex Assigned At : Social History Observation Description Sex Assigned At Female Encounters Encounter Location Date Provider Diagnosis Erik Grant III, MD [address] [place] [address] [place] [address] 02/20/2025 Erik Grant Plan Of Treatment Next Appt Details Provider Name:Erik Grant , 05/21/2025 02:30:00 PM, [address] [place] [address] [address], [place], [address], Progress Notes * SAMAnabelle EDOB: [birth year] (79 yo F)Acc No.[id number]:02/20/2025 Patient: Palak MILLER :1945 A ge:79 Y S ex:Female Address:[address] [place] [address], [facility] [address], [place], [address] * true * Date: Generated for Sandori bogdan/Kristiang/eTransmitting on: 03:54 PM EDT
--- OUTSIDE RECORDS SUMMARY | 2025-02-21 09:21 | XMS_ITS ---
Author Organization Erik Grant III, MD Address [address] [place] [address] Care Team Providers Care Mechanical Pencils Assembler Name Role Phone Dr. Erik Grant III Primary Care Provider REASON FOR VISIT Nasal [place] Request Medications Medication SIG (Take, Route, Frequency, Duration) Notes Start Date End Date Status Furosemide 20 MG 1 tablet Orally Once a day Active Probiotic 250 MG as directed Orally Active Voltaren 1 % as directed Externally Active hydroCHLOROthiazide 25 MG 1 tablet in morning Orally Once a day Active Ipratropium [place] 0.06 % USE 1 SPRAY I N EACH NOSTRIL TWICE DAILY Nasal for 90 Days Active Amoxicillin 500 MG 4 capsules 1 hour before dental or surgical procedures Orally Once Dental procedures Active PreserVision AREDS 2 - as directed Orally Active Nabumetone 1000 MG 1 tablet Orally Twice a day Active Fluticasone Propionate 50 MCG/ACT Nasal Active Esomeprazole Magnesium 40 MG 1 capsule Orally Twice a day Active Fiber Active Imodium A-D Active Flax Seed Oil Active Famotidine 40 MG 1 tablet as needed Orally Twice a day Active Tums 500 MG 1 tablet Orally Once a day Active Aspirin 81 81 MG 1 tablet Orally Once a day Active Calcium Active Claritin 10 MG 1 tablet Orally Once a day Active Multivitamin Active Melatonin Active Rosuvastatin Calcium 5 MG TAKE 1 TABLET BY MOUTH EVERY DAY Active Gas Relief 180 MG 1 capsule after meals and at bedtime as needed Orally Twice a day Active Ibuprofen Active Pramipexole Dihydrochloride 0.25 MG TAKE 2 TO 3 TABLETS BY MOUTH EVERY DAY Active Social History Sex Assigned At : Social History Observation Description Sex Assigned At Female Encounters Encounter Location Date Provider Diagnosis Erik Grant III, MD [address] [place] [address] [address] [place] [address] 02/21/2025 Erik Mascorrorne Plan Of Treatment Next Appt Details Provider Name:Erik Grant , 05/21/2025 02:30:00 PM, [address] [place] [address] [address], [place], [address], Progress Notes * Palak VARGAS EDOB: [birth year] (79 yo F)Acc No.[id number]:02/21/2025 Patient: Palak MILLER :1945 A ge:79 Y S ex:Female Address:[address] [place] [address], [place] [address], [place], [address] Subjective: * Chief Complaints: * N janessa [place] Request * Medical History: * Surgical History: * Hospitalization/Major Diagno stic Procedure: * Medications: T akingRosuvastatin Calcium 5 MG Tablet TAKE 1 TABLET BY MOUTH EVERY DAY Pramipexole Dihydrochloride 0.25 MG Tablet TAKE 2 TO 3 TABLETS BY MOUTH EVERY DAY Ibuprofen Gas Relief 180 MG Capsule 1 [...] Tablet 1 tablet Orally Once a day Ipratropium [place] 0.06 % Solution USE 1 SPRAY IN EACH NOSTRIL TWICE DAILY Nasal Taking Rosuvastatin Calcium 5 MG Tablet TAKE 1 TABLET BY MOUTH EVERY DAY Taking Pramipexole Dihydrochloride 0.25 MG Tablet TAKE 2 TO 3 TABLETS BY MOUTH EVERY DAY Taking Ibuprofen Taking [...] 1 tablet Orally Once a day Taking Ipratropium [place] 0.06 % Solution USE 1 SPRAY IN EACH NOSTRIL TWICE DAILY Nasal Objective: * Vitals: * Physical Examination: Assessment: Plan: * Treatment: * Procedure Codes: * true * Date: Generated for Gely Clemens/Yakelin on: 03:54 PM EDT
--- OUTSIDE RECORDS SUMMARY | 2025-02-27 07:20 | XMS_ITS ---
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 Name Role Phone Erik Grant MD Primary Care Provider UnavailErik Morgan Unavailable [phone] Allergies Allergen (clinical drug ingredient) Drug/Non Drug Allergy documented on EMR Reaction Allergy Type Onset Date Status Adhesive Unknown Allergy Active dibucaine Dibucaine Unknown Drug Allergy Active REASON FOR VISIT Patient presents today for ESOPHAGEAL REFLUX Medications Medication SIG (Take, Route, Frequency, Duration) Notes Start Date End Date Status Amoxicillin NEEDED FOR DENTAL OR SURGICAL PROCEDURES Not-Taking Amoxicillin when seeing a dentist Active Famotidine 40 MG 1 tablet Orally Twice a day for 30 days 11/07/2024 Active Esomeprazole Magnesium 40 MG TAKE 1 CAP BY MOUTH IN THE MORNING AND 1 CAP IN THE EVENING FOR 90 DAYS for 90 Active Famotidine 40 MG 1 tablet at midday and at bedtime Orally Twice a day for 90 days Active Cholestyramine 4 GM/DOSE 1/2 to 1 scoop in a glass of water or orange juice orally Once or twice a day for diarrhea for 30 day(s) 10/12/2023 Not-Taking Claritin Active Diclofenac Sodium 1 % as directed Externally as needed for pain Active Vitamin D3 50 MCG (2000 UT) 1 tablet Orally Once a day Active Fiber 2 tablets as needed ONCE A DAY Active Fluticasone Propionate 50 MCG/ACT 1 spray in each nostril Nasally Twice a day Active Flax Seed Oil 1000 MG as directed Orally BID Active Calcium Citrate + D3 Maximum 315-250 MG-UNIT 2 tablet ONCE a day Active Multi Vitamin/Minerals - as directed Orally once a day Active PreserVision AREDS 2 - as directed Orally BID Active hydroCHLOROthiazide 25 MG 1 tablet in morning Orally Once a day for 30 day(s) Active Tylenol 8 Hour Arthritis Pain 650 MG 2 tablets as needed Orally tid/prn Active Mirapex 0.25 MG 2-3 tablet Orally DAILY Active Crestor 5 MG 1/2 tablet Orally Once a day Active Aspir-Low 81 MG 1 tablet Orally Once a day for 30 day(s) Active Melatonin 3 MG 1 tablet at bedtime as needed Orally Once a day for 30 day(s) Active Sudafed 60 MG 1 tablet as needed Orally every 6 hrs Active immodium 1 tab Oral for 14 days Active Gas Relief 180 MG 1 capsule after meals and at bedtime as needed Orally Twice a day Active Nabumetone 1000 MG 1 tablet Orally Once a day for 30 day(s) Active Diclofenac Sod &Adhesive Sheet 1 % as directed Transdermal Active Furosemide 20 MG 1 tablet Orally Once a day for 30 day(s) Active Pramipexole Dihydrochloride 0.25 MG 1 tablet Orally Once a day Active Culturelle - as directed Orally Active Aspirin 81 81 MG 1 tablet Orally Once a day Active Spironolactone 25 MG 1 tablet Orally Once a day Active Vital Signs Temperature 97.7 degrees Fahrenheit 02/28/20 25 Blood pressure systolic 001 mm Hg 02/28/20 25 Blood pressure diastolic 01 mm Hg 025 Height 60.0 in 02/27/2025 Weight 191.6 lbs 02/27/2025 BMI 37.42 kg/m2 02/27/2025 Encounters Encounter Location Date Provider Diagnosis [facility] [address] [place] [id number] 02/27/2025 Erik Avery Irritable bowel synd ricardo with diarrhea K58.0 and Gastroesophageal reflux disease, esophagitis presence not specified K21.9 Assessments Encounter Date Diagnosis (ICD Code) Assessment Notes Treatment Notes Treatment Clinical Notes Section Notes 02/27/2025 Irritable bowel syndrome with diarrhea (ICD-10 - K58.0) Use 1 or 2 Imodium every morning and every evening to try to prevent diarrhea and leakage . Avoid eggs and/or lactose for a while to see if that helps with the loose stools. Overall, Ora appears well from a clinical standpoint. Her reflux symptoms seem to be stable on her current regimen of the Nexium and famotidine. However, we did review that dietary discretion in regard to the types of food, amounts of food, and the timing of her meals with bedtime will make a difference for her and she needs to pay attention to those variables . I did advise her to continue her current medical regimen for the reflux. I do not think she needs an upper endoscopy at this time. Given her age and some comorbidities I advised her that I would not recommend any surgical intervention for the hiatal hernia at this time. In regard to her occasional fecal incontinence of loose stools I advised her to take 1 Imodium each morning and 1 Imodium each evening to see if that can help prevent the loose stools and incontinence. I did advise her to be careful not to become constipated on that. She does take some fiber supplement and I did advise her to continue that as well. We also reviewed that she should keep track of any particular food items that make the bowel movements more loose and more problematic. I do not think she needs a colonoscopy at this point given no other worrisome symptoms such as bleeding or significant change in her bowel habits. At this point, if things remain stable, I will plan to see her in 1 year for a follow-up office visit. I did advise her to certainly call in the interim if she has any problems or questions I can be of assistance with. Ora was comfortable with this plan. Thank you again for allowing me to participate in Ora's care. I shall continue to keep you advised of her progress. 02/27/2025 Gastroesophageal reflux disease, esophagitis presence not specified (ICD-10 - K21.9) Continue the Nexium and Pepcid as you are doing for the reflux Overall, Ora appears well from a clinical standpoint. Her reflux symptoms seem to be stable on her current regimen of the Nexium and famotidine. However, we did review that dietary discretion in regard to the types of food, amounts of food, and the timing of her meals with bedtime will make a difference for her and she needs to pay attention to those variables . I did advise her to continue her current medical regimen for the reflux. I do not think she needs an upper endoscopy at this time. Given her age and some comorbidities I advised her that I would not recommend any surgical intervention for the hiatal hernia at this time. In regard to her occasional fecal incontinence of loose stools I advised her to take 1 Imodium each morning and 1 Imodium each evening to see if that can help prevent the loose stools and incontinence. I did advise her to be careful not to become constipated on that. She does take some fiber supplement and I did advise her to continue that as well. We also reviewed that she should keep track of any particular food items that make the bowel movements more loose and more problematic. I do not think she needs a colonoscopy at this point given no other worrisome symptoms such as bleeding or significant change in her bowel habits. At this point, if things remain stable, I will plan to see her in 1 year for a follow-up office visit. I did advise her to certainly call in the interim if she has any problems or questions I can be of assistance with. Ora was comfortable with this plan. Thank you again for allowing me to participate in Ora's care. I shall continue to keep you advised of her progress. Plan Of Treatment Treatment Notes Assessment Notes Irritable bowel syndrome with diarrhea U se 1 or 2 Imodium every morning and every evening to try to prevent diarrhea and leakage . Avoid eggs and/or lactose for a while to see if that helps with the loose stools. Gastroesophageal reflux dise ase, esophagitis presence not specified Continue the Nexium and Pepcid as you are doing for the reflux Next Appt Details Follow Up: 1 Year, Reason: Provider Name:Erik Avery , 03/03/2026 01:20:00 PM, [address] [place] [address], Suite [facility], [place], [address], Progress Notes * ORA JACKSON EDOB: [id number] (79 yo F)Acc No.[id number]:02/27/2025 Progress Notes Patient: ORA MILLER Provider: Skylar Avery MD :[id number] A ge:79 Y S ex:Female Date:02/27/2025 Address:[address] [place], [place] [id number] Pcp:Erik Grant MD Subjective: * Chief Complaints: * 1 . Patient presents today for ESOPHAGEAL REFLUX. * HPI: i ncontinence: I saw Ora in follow-up today in regard to her chronic gastroesophageal reflux and hiatal hernia, loose bowel movements, and occasional fecal incontinence. I last saw Ora 1 year ago. Since that time she has remained on the same regimen of her Nexium and famotidine. She takes each of those twice a day and this usually gives her good relief of her previous reflux symptoms. She does take intermittent Tums when she is feeling some indigestion. Many times this is related to eating her evening meal later than usual. She denies any dysphagia, anorexia, nausea, or vomiting. She denies any particular abdominal pain, jaundice, nor unintentional weight loss. She describes that her bowel movements remain fairly regular with at least 1 soft bowel movement per day. She does have intermittent episodes of some seepage of a liquid feces onto a sanitary napkin or pad. She has not noticed any hematochezia nor melena. Laboratories in January revealed normal chemistries and renal function, normal LFTs, and a normal CBC. * Medical History: N eg. Colonoscopies in 2002 and 01/2009- no polyps- diverticulosis and internal hemorrhoids- -neg. Hemoccults in 2014 and 2015, GERD- Moderate-sized Hiatal hernia-otherwise Neg EGD in 01/2009 and in 04/2018- moderate-sized hiatal hernia, no esophagitis nor Arias's esophagus, normal duodenal biopsies, benign gastric polyps with biopsies negative for H. 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 of C.diff infection in 2016 from the above antibiotics in 2015-2 stools equivocal in 06/2016-treated with 2 courses of Flagyl- stool neg. for C.diff in 08/2016, Urinary incontinence -mild, Sleep apnea- uses a mouth appliance, no CPAP, Questionable sigmoid diverticulitis on CAT scan in August of 2018, Colonoscopy 06/2019 with 2 small tubular adenomas removed, IBS with loose stools. * Surgical History: R ight knee replacement in approx 2010- had an infection in the right knee in 02/2014 requiring surgery and senior care antibiotics-still on them as of 08/19/14- in 2015 had the prosthetic knee removed and treated with antibiotics- new knee replaced in 2016 , Right hand surgery , Cholecystectomy , Ankle and foot surgery-left , Foot surgery-right X3 , Exploratory laparotomy , Cataract right eye , Vein ligation left leg . * Hospitalization/Major Diagno stic Procedure: D enies Past Hospitalization. * Family History: F ather: . M other: . S iblings: , colon cancer in his 60, diagnosed with Colon cancer. Brother with colon cancer in his 60's. No family history of liver cancer. * Social History: T obacco Use: T obacco Use/Smoking A re you a: nonsmoker. D rugs/Alcohol: A lcohol Screen P oints: 1, Interpretation: Negative. M iscellaneous: C affeine: 1-2 cups per day. Marital status: . Occupation: retired. N onsmoker; no sig.alcohol. * Medications: T aking Spironolactone 25 MG Tablet 1 tablet Orally Once a day , Taking Aspirin 81 81 MG Tablet Delayed Release 1 tablet Orally Once a day , Taking Culturelle - Capsule as directed Orally , Taking Pramipexole Dihydrochloride 0.25 MG Tablet 1 tablet Orally Once a day , Taking Furosemide 20 MG Tablet 1 tablet Orally Once a day , Taking Diclofenac Sod &Adhesive Sheet 1 % Therapy Pack as directed Transdermal , Taking Gas Relief 180 MG Capsule 1 capsule after meals and at bedtime as needed Orally Twice a day , Taking immodium 1 tab Oral , Taking Sudafed 60 MG Tablet 1 tablet as needed Orally every 6 hrs , Taking Melatonin 3 MG Tablet 1 tablet at bedtime as needed Orally Once a day , Taking Nabumetone 1000 MG Tablet 1 tablet Orally Once a day , Taking Aspir-Low 81 MG Tablet Delayed Release 1 tablet Orally Once a day , Taking Crestor 5 MG Tablet 1/2 tablet Orally Once a day , Taking Mirapex 0.25 MG Tablet 2-3 tablet Orally DAILY , Taking Tylenol 8 Hour Arthritis Pain 650 MG Tablet Extended Release 2 tablets as needed Orally tid/prn , Taking hydroCHLOROthiazide 25 MG Tablet 1 tablet in the morning Orally Once a day , Taking PreserVision AREDS 2 - Tablet Chewable as directed Orally BID , Taking Multi Vitamin/Minerals - Tablet as directed Orally once a day , Taking Calcium Citrate + D3 Maximum 315-250 MG-UNIT Tablet 2 tablet ONCE a day , Taking Flax Seed Oil 1000 MG Capsule as directed Orally BID , Taking Fluticasone Propionate 50 MCG/ACT Suspension 1 spray in each nostril Nasally Twice a day , Taking Fiber 2 tablets as needed ONCE A DAY , Taking Vitamin D3 50 MCG (2000 UT) Capsule 1 tablet Orally Once a day , Taking Diclofenac Sodium 1 % Gel as directed Externally as needed for pain , Taking Claritin , Taking Famotidine 40 MG Tablet 1 tablet at midday and at bedtime Orally Twice a day , Taking Esomeprazole Magnesium 40 MG Capsule Delayed Release TAKE 1 CAP BY MOUTH IN THE MORNING AND 1 CAP IN THE EVENING FOR 90 DAYS , Taking Famotidine 40 MG Tablet 1 tablet Orally Twice a day , Taking Amoxicillin , Notes to Pharmacist: when seeing a dentist, Not- Taking/PRN Cholestyramine 4 GM/DOSE Powder 1/2 to 1 scoop in a glass of water or orange juice orally Once or twice a day for diarrhea , Not-Taking/PRN Amoxicillin NEEDED FOR DENTAL OR SURGICAL PROCEDURES , Medication List reviewed and reconciled with the patient * Allergies: D ibucaine, Adhesive. Objective: * Vitals: W t: 191.6 lbs, Ht: 60.0 in, BMI: 37.42 Index, BP: 001/01 mm Hg, Temp: 97.7, Wt- k.91. Assessment: * Assessment: 1. G astroesophageal reflux disease, esophagitis presence not specified - K21.9 (Primary) ? 2 . I rritable bowel syndrome with diarrhea - K58.0 Overall, Ora appears well from a clinical standpoint. Her reflux symptoms seem to be stable on her current regimen of the Nexium and famotidine. However, we did review that dietary discretion in regard to the types of food, amounts of food, and the timing of her meals with bedtime will make a difference for her and she needs to pay attention to those variables . I did advise her to continue her current medical regimen for the reflux. I do not think she needs an upper endoscopy at this time. Given her age and some comorbidities I advised her that I would not recommend any surgical intervention for the hiatal hernia at this time. In regard to her occasional fecal incontinence of loose stools I advised her to take 1 Imodium each morning and 1 Imodium each evening to see if that can help prevent the loose stools and incontinence. I did advise her to be careful not to become constipated on that. She does take some fiber supplement and I did advise her to continue that as well. We also reviewed that she should keep track of any particular food items that make the bowel movements more loose and more problematic. I do not think she needs a colonoscopy at this point given no other worrisome symptoms such as bleeding or significant change in her bowel habits. At this point, if things remain stable, I will plan to see her in 1 year for a follow-up office visit. I did advise her to certainly call in the interim if she has any problems or questions I can be of assistance with. Ora was comfortable with this plan. Thank you again for allowing me to participate in Ora's care. I shall continue to keep you advised of her progress. Plan: * Treatment: 2. I rritable bowel syndrome with diarrhea Notes: Use 1 or 2 Imodium every morning and every evening to try to prevent diarrhea and leakage . Avoid eggs and/or lactose for a while to see if that helps with the loose stools. * Preventive Medicine: Counseling: C are goal follow-up plan: A isaiah Normal BMI Follow-up G iving encouragement to exercise, B AK management provided Y es. Urinary Incontinence: U rinary Incontinence A ssessment: P resent, P agnes of care documented: N o, reason not specified. Screenings: F all Risk Screening F all Risk Assessment: N o falls in the past year, S creening: N o falls in the past year, P agnes of Care: N ot documented, no reason specified. * Follow Up: 1 Year * * The named appointment provid er may or may not be the originator of this progress note, and it is not deemed complete until electronically signed by the appointment provider. Sign off status: Pending * Provider: Skylar Avery MD Date: 0 02/27/2025 Generated for Gely mcfadden/[place]/Letyitting on: 1 03:54 PM EDT History and Physical Notes * HPI (History of Present Illness) Category Sub-Category Detail Notes Category Not es incontinence I saw Ora in follow-up today in regard to her chronic gastroesophageal reflux and hiatal hernia, loose bowel movements, and occasional fecal incontinence. I last saw Ora 1 year ago. Since that time she has remained on the same regimen of her Nexium and famotidine. She takes each of those twice a day and this usually gives her good relief of her previous reflux symptoms. She does take intermittent Tums when she is feeling some indigestion. Many times this is related to eating her evening meal later than usual. She denies any dysphagia, anorexia, nausea, or vomiting. She denies any particular abdominal pain, jaundice, nor unintentional weight loss. She describes that her bowel movements remain fairly regular with at least 1 soft bowel movement per day. She does have intermittent episodes of some seepage of a liquid feces onto a sanitary napkin or pad. She has not noticed any hematochezia nor melena. Laboratories in January revealed normal chemistries and renal function, normal LFTs, and a normal CBC
--- OUTSIDE RECORDS SUMMARY | 2025-03-11 15:54 | XMS_ITS | Patient Health Record ---
Author Organization Erik Grant III, MD Address [address] [place] [address] [place] [address] Care Team Providers Care Parachute Folder Name Role Phone Dr. Erik Grant III Primary Care Provider Allergies Allergen (clinical drug ingredient) Drug/Non Drug Allergy documented on EMR Reaction Allergy Type Onset Date Status succinylcholine Succinylcholine Unknown Drug Allergy Active dibucaine Dibucaine Unknown Drug Allergy Active Adhesive Unknown Allergy Active Results Component Value Reference Range Notes Complete Blood Count Auto Di ff Reviewed date:05/17/2024 08:37:13 AM Interpretation: Performing Lab:[facility], [address] [place] [phone] Notes/Report: White Blood Count 6.3 4.8-10.8 X10*3/uL [...] NRBC Abs Auto 0.000 0.0-0.012 X10*3/uL [facility] [place]. Panel Fa st Reviewed date:05/17/2024 08:37:13 AM Interpretation: Performing Lab:[address] [address] Notes/Report: Sodium 139 135-145 mmol/L Potassium 3.8 [...] Panel Reviewed date:05/17/2024 08:37:13 AM Interpretation: Performing Lab:[facility], [address] [place] [phone] Notes/Report: Triglycerides 137 <150 mg/dL Desirable Triglyceride: [...] ff Reviewed date:09/12/2024 08:11:36 PM Interpretation: Performing Lab:[facility], [address] [place] [phone] Notes/Report: White Blood Count 5.4 4.8-10.8 X10*3/uL [...] NRBC Abs Auto 0.000 0.0-0.012 X10*3/uL [facility] [place]. Panel Fa st Reviewed date:09/12/2024 08:11:36 PM Interpretation: Performing Lab:[facility], [address] [place] [phone] Notes/Report: Sodium 142 135-145 mmol/L Potassium 3.6 [...] Panel Reviewed date:09/12/2024 08:11:36 PM Interpretation: Performing Lab:[facility], [address] [place] [phone] Notes/Report: Triglycerides 103 <150 mg/dL Desirable Triglyceride: [...] Hormone Reviewed date:09/12/2024 08:11:36 PM Interpretation: Performing Lab:[facility], [address] [place] [phone] Notes/Report: Thyroid Stimulating Hormone 0.78 0.32-4.0 uIU/ mL TSH 3rd Generation ([facility]) Electrolytes Reviewed date:12/06/2024 07:22:30 PM Interpretation: Performing Lab:[address] [address] Notes/Report: Sodium 142 135-145 mmol/L Potassium 3.6 3.3-5.1 mmol/L Chloride 110 96-108 mmol/L Carbon Dioxide 24 22-29 mmol/L Anion Gap 12 12-20 Blood Urea Nitrogen Reviewed date:12/06/2024 07:22:30 PM Interpretation: Performing Lab:[facility], [address] [place] [phone] Notes/Report: Blood Urea Nitrogen 19 9-16 mg/dL Creatinine Reviewed date:12/06/2024 07:22:30 PM Interpretation: Performing Lab:[address] [address] Notes/Report: Creatinine 0.74 0.5-1.4 mg/dL Estimated Glomerular Filt Rate > 60 Chronic Kidney Disease: Estimated GFR < 60 mL/min/1.73m2 Severe Kidney Disease: Estimated GFR < 15 mL/min/1.73m2 Calcium Reviewed date:12/06/2024 07:22:30 PM Interpretation: Performing Lab:[address] [phone] Notes/Report: Calcium 8.9 8.4-10.2 mg/dL Complete Blood Count Auto Di ff Reviewed date:01/12/2025 08:07:14 PM Interpretation: Performing Lab:[facility], [address] [place] [phone] Notes/Report: White Blood Count 5.2 4.8-10.8 X10*3/uL [...] NRBC Abs Auto 0.000 0.0-0.012 X10*3/uL [facility] [place]. Panel Fa st Reviewed date:01/12/2025 08:07:14 PM Interpretation: Performing Lab:[facility], [address] [place] [phone] Notes/Report: Sodium 142 135-145 mmol/L Potassium 3.6 [...] Panel Reviewed date:01/12/2025 08:07:14 PM Interpretation: Performing Lab:[facility], [address] [place] [phone] Notes/Report: Triglycerides 214 <150 mg/dL Desirable Triglyceride: [...] low results in patients with liver disease. Aspartate Amino Transferase Reviewed date:02/17/2025 01:05:59 PM Interpretation: Performing Lab:[facility], [address] [place] [phone] Notes/Report: Aspartate Amino Transferase 32 5-31 U/L Alanine Aminotransferase Reviewed date:02/17/2025 01:05:59 PM Interpretation: Performing Lab:[facility], [address] [place] [phone] Notes/Report: Alanine Aminotransferase 29 0-31 U/L Reason For Referral No Information Medications Medication SIG (Take, Route, Frequency, Duration) Notes Start Date End Date Status Aspirin 81 81 MG 1 tablet Orally Once a day Active Amoxicillin 500 MG 4 capsules 1 hour before dental or surgical procedures Orally Once Dental procedures Active Calcium Active PreserVision AREDS 2 - as directed Orally Active Nabumetone 1000 MG 1 tablet Orally Twice a day Active Rosuvastatin Calcium 5 MG TAKE 1 TABLET BY MOUTH EVERY DAY Active Fiber Active Furosemide 20 MG 1 tablet Orally Once a day Active Imodium A-D Active Probiotic 250 MG as directed Orally Active Flax Seed Oil Active Voltaren 1 % as directed Externally Active Claritin 10 MG 1 tablet Orally Once a day Active hydroCHLOROthiazide 25 MG 1 tablet in morning Orally Once a day Active Multivitamin Active Fluticasone Propionate 50 MCG/ACT Nasal Active Gas Relief 180 MG 1 capsule after meals and at bedtime as needed Orally Twice a day Active Esomeprazole Magnesium 40 MG 1 capsule Orally Twice a day Active Ibuprofen Active Famotidine 40 MG 1 tablet as needed Orally Twice a day Active Pramipexole Dihydrochloride 0.25 MG TAKE 2 TO 3 TABLETS BY MOUTH EVERY DAY Active Tums 500 MG 1 tablet Orally Once a day Active Ipratropium Lamont 0.06 % USE 1 SPRAY I N EACH NOSTRIL TWICE DAILY Nasal for 90 Days Active Melatonin Active Immunizations Vaccine Route Administration Date Status [...] Status W/U Status Risk Notes Problem Hypertension (57347257) Hypertension (I10) Active confirmed Her blood pressure is stable and no change in her regimen was needed.The value is 136/80. Problem Gastroesophageal reflux disease (767479315) GERD (gastroesophage al reflux disease) (K21.9) Active confirmed Her reflux symptoms are well controlled with ripm-jcu-vhhlokk medication. Problem 578205110 Mixed hyperlipidemia (E78.2) Active confirmed Her total cholesterol was 193 and your LDL is 118. She was continued on her current medications without change. I recommended aggressive weight loss and a diet low in animal fat. Problem 34079567 Age-related osteoporosis without current pathological fracture (M81.0) Active confirmed She was continued on current medications. Her bone densities will be reviewed and another one ordered if necessary. Problem 566392775 Unspecified benign mammary dysplasia of right breast (N60.91) Active confirmed She has had multiple biopsies of the breast that showed benign disease. Problem [id number] Unspecified benign mammary dysplasia of left breast (N60.92) Active confirmed No breast cancer. Has ever been detected. Problem 737163802 Obesity (BMI 30-39.9) (E66.9) Active confirmed Her body mass index is 36. Her weight is stable. We have discussed diet and nutrition and made a plan to lose weight at a rate of one half of a pound per week through a diet restricted in fat calories and sodium. Problem 96846998 Chronic fatigue (R53.82) Active confirmed He says that jason branch feels tired all of the time but denies daytime somnolence. Problem 19598697 Obstructive sleep apnea (G47.33) Active confirmed She was continued on her CPAP. No change in her regimen was needed. Problem 51653021 Hiatal hernia (K44.9) Active confirmed Her reflux symptoms are well controlled. Problem Osteoarthritis (739440957) Osteoarthritis (M19.90) Active confirmed She has mild arthritic pain in her fingers but her main complaint is pain in the right knee on the tibial plateau. Problem 538673200 TIA (transient ischemic attack) (G45.9) Active confirmed She has had no neurological symptoms recently. She was continue current therapy. Problem 43588171 Restless leg syndrome (G25.81) Active confirmed This is been a minor problem lately and does not require changing her regimen. Problem 692863800 History of DVT (deep vein thrombosis) (Z86.718) Active confirmed She is no longe r anticoagulated. She has had no further blood clots. Old records will be requested. Problem Goiter (8751363) Enlarged thyroid (E01.0) Active confirmed There was no palpable mass in the neck this time. Problem 917797358 Sensorineural hearing loss (SNHL) of both ears (H90.3) Active confirmed Communication was possible and she has working hearing aids. 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 Problem 928937105 Primary osteoarthritis involving multiple joints (M15.9) Active confirmed She has had multiple surgical procedures and a right knee arthroplasty. She is able to conduct all of the activities of daily life. 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 Problem 187484567 Mass of left side of neck (R22.1) [...] Date Provider Diagnosis Erik Grant III, MD [address] [place] [address] [place] [address] 05/17/2024 Erik Grant Hypertension I10 ; O [...] Hiatal hernia K44.9 Erik Grant III, MD [address] [place] [address] [place] [address] 09/16/2024 Erik Grant Hypertension I10 ; O besity (BMI 30-39.9) E66.9 ; Mixed hyperlipidemia E78.2 ; GERD (gastroesophageal reflux disease) K21.9 ; Primary osteoarthritis involving multiple joints M15.9 ; 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 ; Sensorineural hearing loss (SNHL) of both ears H90.3 ; Unspecified benign mammary dysplasia of left breast N60.92 and Unspecified benign mammary dysplasia of right breast N60.91 Erik Grant III, MD [address] [place] [address] [place] [address] 01/17/2025 Erik Grant Obesity (BMI 30-39.9 ) [...] leg syndrome G25.81 Erik Grant III, MD [address] [place] [address] [address] [place] [address] 03/27/2024 Erik Grant III, MD [address] [place] [address] [address] [place] [address] 02/20/2025 Erik Grant III, MD [address] [place] [address] [address] [place] [address] 02/21/2025 Erik Grant Assessments Encounter Date Diagnosis (ICD [...] recently been exposed to any anesthetics. 05/17/2024 Mixed hyperlipidemia (ICD-10 - E78.2) Her [...] her regimen was needed.The value is 136/80. 05/17/2024 GERD (gastroesophage al reflux disease) (ICD-10 - K21.9) Her reflux symptoms are well controlled with gwkx-fyu-xgwwwjl medication. 09/16/2024 GERD (gastroesophage al reflux disease) (ICD-10 - K21.9) Her reflux symptoms are well controlled with mufo-zmt-qpiexyx medication. 01/17/2025 GERD (gastroesophage al reflux disease) (ICD-10 - K21.9) Her reflux symptoms are well controlled with azvu-rmu-ovpevts medication. 05/17/2024 Primary osteoarthrit is involving multiple [...] eyes (ICD-10 - H35.3132) She sees her geodetic technician regularly. 01/17/2025 Restless leg syndrom e (ICD-10 [...] HORMONE) 2022 TSH (THYROID STIMULATING HORMONE) 2022 TSH (THYROID STIMULATING HORMONE) 2024 BRAIN NATRIURETIC PEPTIDE (BNP) 03/14/20 23 CBC [...] Erythrocyte Sedimentation Rate Ferritin 03/14/2023 Lipid Panel 02/22/2024 Lipid Panel 01/17/2025 Lipid Panel 01/19/2024 Lipid Panel 09/16/2024 Lipid Panel 09/19/2023 Lipid Panel 05/17/2024 Lipid Panel 05/01/2023 Free T4 (Free Thyroxine) 01/17/2025 Free T4 (Free Thyroxine) 01/19/2024 TSH reflex Free T4 01/19/2024 Next Appt Details Provider Name:Erik Mascorrorne , 05/21/2025 02:30:00 PM, [address] [place] [address] [address], [address], [place], [address], Insurance Providers Payer Name Payer Address Payer Phone Subscriber Number Group Number Insured Name Patient Relationship to Insured Coverage Start Date Coverage End Date MEDICARE NGS [address] [place] [phone] [id number] Palak Vargas Self - patient is the insured [address] [place] [phone] [id number] Palak Vargas Self - patient is the [...]
--- OUTSIDE RECORDS SUMMARY | 2025-03-11 15:55 | XMS_ITS | Encounter Summary ---
Author Organization [facility] Address [address] [address] Phone Care Team Providers Care Principle Industrial Hygienist Name Role Phone Erik Grant MD Primary Care Provider [phone] Encounter Details Date Type Department Care Team (Late Contact Info) Description 03/25/2024 Office Communication [facility] [address] [address] Sonya Michel [address] [place] [address] Social History Tobacco Use Types Packs/Day [...] in the morning. Pls call her at [phone]. documented in this encounter Plan of Treatment Upcoming Encounters Date Type Department Care Team ([facility] Contact Info) Description 02/05/2026 2:00 PM EDT Office Visit [facility] [address] [place] [address] Aftab Louis MD [address] [facility] [address] [place] [phone] documented as of this encounter Visit Diagnoses Not on filedocumented in this encounter Care Teams Principle Industrial Hygienist Relationship Specialty Start Date End Date Erik Grant MD [address] [place] [address] , [address] [place] [address] PCP - General Medical Oncology 10/01/24 documented as of this encounter
--- OUTSIDE RECORDS SUMMARY | 2025-03-11 15:55 | XMS_ITS | Clinical Summary ---
Author Organization [facility] Address [address] [place] [address] Phone Care Team Providers Care Cleaner Signs Name Role Phone Erik Grant MD Primary Care Provider [phone] Allergies Active Allergy Reactions Criticality Noted Date [...] weekly on Monday 153 tablet 5 10/03/19 Active furosemide (LASIX) 20 MG tablet Take 1 tablet (20 mg total) by mouth 1 (one) time each day 90 tablet 5 Active Active Problems Problem Noted Date Diagnosed Date Edema 02/01/2024 Clostridioides difficile infection 07/22/2021 Diarrhea 07/22/2021 Gastroesophageal reflux disease 07/22/2021 Hiatal hernia 07/22/2021 Screening for malignant neoplasm of colon 2021 Essential hypertension 06/28/2021 Encounters Date Type Department Care Team Description 02/06/2025 2:00 PM EDT Office Visit [facility] [address] [place] [address] Aftab Louis MD Edema, not otherwise specified (Primary Dx); Essential hypertension 01/28/2025 Orders Only [facility] [address] [place] [address] [address] [place] [address] Aftab Louis MD from Last 3 Months Immunizations Immunization Administration Dates Next Due Influenza Split 02/04/2016,03/19/2014 Influenza, Unspecified 03/05/2020,03/04/2019,06/2015,03/19/2014 Pneumococcal Polysaccharide 12/26/2013 Family [...] Sign Reading Time Taken Comments Blood Pressure 112/64 02/06/2025 2:11 PM EDT Pulse 75 02/06/2025 2:11 PM EDT Temperature - - Respiratory Rate - - Oxygen Saturation 98% 02/06/2025 2:11 PM EDT Inhaled Oxygen Concentration - - Weight 86.8 kg (191 lb 6.4 oz) 02/06/2025 2:11 P M EDT Height 152.4 cm (5') 01/20/2022 1:22 PM EDT Body Mass Index 37.38 01/20/2022 1:22 PM EDT Plan of Treatment Upcoming Encounters Date Type Department Care Team (Late st Contact Info) Description 02/05/2026 2:00 PM EDT [facility] [address] [place] [address] Aftab Louis MD [address] [facility] [address] [place] [address] Health Maintenance Due Date Last Done Comments Pneumococcal Vaccine: 50+ Years (2 of 2 - PCV) 12/26/2014 12/26/2013 Influenza Vaccine (#1) 2025 , 03/04/2019, 02/04/2016, Additional history exists Pneumococcal Vaccine: Peds (0 to 5 Years) and At-Risk Patients (6 to 49 Years) Discontinued 12/26/2013 Hepatitis B Vaccine Aged Out No longe r eligible based on patient's age to complete this topic Procedures Procedure Name Priority Date/Time Associated Diagnosis Comments ALT Routine 01/28/2025 10:03 AM EDT AST Routine 01/28/2025 10:03 AM EDT from Last 3 Months Results * ALT (01/28/2025 10:03 AM EDT) ALT (SGPT) 29 0 - 31 U/L See orde r comments 01/28/2025 10:0 3 AM EDT 01/28/2025 10:03 AM EDT us Aftab Louis MD LAB BLOOD ORDERABLES Final Re sult [place] See order comments [place] [address] * (ABNORMAL) AST (01/28/2025 10:03 AM EDT) AST (SGOT) 32(H) 5 - 31 U/L See orde r comments 01/28/2025 10:0 3 AM EDT 01/28/2025 10:03 AM EDT Aftab Louis MD LAB BLOOD ORDERABLES Final Re sult Performing Organization Address City/[facility]/ZIP Co de Phone Number [place] See order comments [place] [address] from Last 3 Months Insurance Medicare [facility] Medicare [facility] Care Teams Cleaner Signs Relationship Specialty Start Date End Date Erik Grant MD [address] [place] [address] , [address] [place] [address] PCP - General Medical Oncology 10/01/24
--- OUTSIDE RECORDS SUMMARY | 2025-03-11 15:55 | XMS_ITS | Patient Health Record ---
Author Organization [facility] Address [address] [place] [address] Care Team Providers Care Farmworker Animal Name Role Phone Erik Grant MD Primary Care Provider Unavailab Erik Sarah Unavailable [phone] Allergies Allergen (clinical drug ingredient) Drug/Non Drug Allergy documented on EMR Reaction Allergy Type Onset Date Status Adhesive Unknown Allergy Active dibucaine Dibucaine Unknown Drug Allergy Active Reason For Referral No Information Medications Medication SIG (Take, Route, Frequency, Duration) Notes Start Date End Date Status Melatonin 3 MG 1 tablet at bedtime as needed Orally Once a day for 30 day(s) Active Sudafed 60 MG 1 tablet as needed Orally every 6 hrs Active immodium 1 tab Oral for 14 days Active Gas Relief 180 MG 1 capsule after meals and at bedtime as needed Orally Twice a day Active Diclofenac Sod &Adhesive Sheet 1 % as directed Transdermal Active Furosemide 20 MG 1 tablet Orally Once a day for 30 day(s) Active Pramipexole Dihydrochloride 0.25 MG 1 tablet Orally Once a day Active Culturelle - as directed Orally Active Claritin Active Aspirin 81 81 MG 1 tablet Orally Once a day Active Diclofenac Sodium 1 % as directed Externally as needed for pain Active Spironolactone 25 MG 1 tablet Orally Once a day Active Vitamin D3 50 MCG (2000 UT) [...] Once a day for 30 day(s) Active Amoxicillin NEEDED FOR DENTAL OR SURGICAL [...] Twice a day for 90 days Active Tylenol 8 Hour Arthritis Pain 650 MG 2 tablets as needed Orally tid/prn Active Cholestyramine 4 GM/DOSE 1/2 to 1 scoop in a glass of water or orange juice orally Once or twice a day for diarrhea for 30 day(s) 10/12/2023 Not-Taking Mirapex 0.25 MG 2-3 tablet Orally DAILY Active Crestor 5 MG 1/2 tablet Orally Once a day Active Aspir-Low 81 MG 1 tablet Orally Once a day for 30 day(s) Active Nabumetone 1000 MG 1 tablet Orally Once a day for 30 day(s) Active Immunizations Vaccine Route Administration Date Status Comme nts Flu vaccine no Preserv 3 and > Unknown 03/19/2014 Admin istered Flu vaccine no Preserv 3 and > Unknown 02/04/2016 Admin istered Influenza Unknown 03/04/2019 Administered Influenza Unknown 03/05/2020 Administered Influenza Unknown 02/03/2022 Administered Influenza Unknown 03/28/2023 Administered Influenza Unknown 02/28/2024 Administered Problems Problem Type SNOMED Code ICD Code Onset Dates Problem Status W/U Status Risk Notes Problem 128104617 Encounter for screening for malignant neoplasm of colon (Z12.11) Active confirmed Problem Diarrhea (64687924) Diarrhea (R19.7) Active confirmed Problem Irritable bowel syndrome with diarrhea (881946789) Irritable bowel syndrome with diarrhea (K58.0) Active confirmed Problem 477992710 Gastroesophageal reflux disease, esophagitis presence not specified (K21.9) Active confirmed Problem 044995577 Clostridium difficile infection (B96.89) Active confirmed Problem 38192630 Hiatal hernia (K44.9) Active confirmed Problem 21840904 Diarrhea, unspecified type (R19.7) Active confirmed Problem 28694011 Cough, unspecifi ed type (R05.9) Active confirmed Vital Signs Temperature 97.7 degrees Fahrenheit 02/27/2025 Blood pressure diastolic 01 mm Hg 02/27/2025 Height 60.0 in 02/27/2025 Blood pressure systolic 001 mm Hg 02/27/2025 Weight 191.6 lbs 02/27/2025 BMI 37.42 kg/m2 02/27/2025 Encounters Encounter Location Date Provider Diagnosis [facility] [address] [place] [address] 02/27/2025 Erik Avery Irritable bowel synd ricardo with diarrhea K58.0 and Gastroesophageal reflux disease, esophagitis presence not specified K21.9 [facility] [address] [facility] [address] [place] [address] 11/06/2024 Erik Avery Assessments Encounter Date Diagnosis [...] advised of her progress. Plan Of Treatment Pending Test Test Name Order Date CHEM /07/2024 LIVER PROFILE 10/10/2023 CRP 10/10/2023 CBC w [...] Next Appt Details Provider Name:Erik Avery , 03/03/2026 01:20:00 PM, [address] [place] [address], [address], [place], [address], Insurance Providers Payer Name Payer Address Payer Phone Subscriber Number Group Number Insured Name Patient Relationship to Insured Coverage Start Date Coverage End Date MEDICARE OF [place] [address] [facility] [place] [address] [id number] RENETTAORA Dykes Self - patient is the insured [facility] [address] [place] [address] [id number] ORA JACKSON Self - patient is the insured Medical (General) History Medical History History ICD Code Neg. Colonoscopies in 2002 a nd 01/2009- no polyps- diverticulosis and internal hemorrhoids- -neg. Hemoccults in 2014 and 2015 GERD- Moderate-sized Hiatal hernia-otherwise Neg EGD in 01/2009 and in 04/2018- moderate-sized hiatal hernia, no esophagitis nor Arias's esophagus, normal duodenal biopsies, benign gastric polyps with biopsies negative for H. 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 of C.diff infection in 201 7 from the above antibiotics in 2015-2 stools equivocal in 06/2016-treated with 2 courses of Flagyl- stool neg. for C.diff in 08/2016 urinary incontinence -mild Sleep apnea- uses a mouth appliance, no CPAP Questionable sigmoid diverticulitis on C AT scan in August of 2018 Colonoscopy 06/2019 with 2 small tubular adenomas removed IBS with loose stools Surgical History Surgery Date(Month/Year) Vein ligation left leg Cataract right eye Exploratory laparotomy Foot surgery-right X3 Ankle and foot surgery-left Cholecystectomy Right hand surgery Right knee replacement in ap prox 2010- had an infection in the right knee in 02/2014 requiring surgery and jail antibiotics-still on them as of 08/19/14- in 2015 had the prosthetic knee removed and treated with antibiotics- new knee replaced in 2015
--- OUTSIDE RECORDS SUMMARY | 2025-03-11 15:55 | XMS_ITS | Data Portability ---
Author Organization [place] - [facility], Allergy Address [address] [address] Care Team Providers Care Director Mission Name Role Phone CHHAYA MANLEY Primary Care Provider Assessment No assessment recorded. Plan of Treatment Reminders Order Date Submit Date Provider Last Modified By Organization Details Last Modified Time Details Appointments None recorded. Lab None recorded. Referral None recorded. Procedures None recorded. Surgeries None recorded. Imaging CT, neck, soft tissue, w/ contrast - evaluate for sialadeniti s and neoplastic left submandibul ar process Please call and book then fax date and time to 2023 [facility] Centralized Scheduling([facility]), [address] [place], [address], 4 10:44:23 Medication Orders doxycycline hyclate [address] [facility][id number], [address] [place], [address], 11:30:26 Patient TargetsNo targets recorded. Patient InstructionsNo instructions recorded. Reason for Referral None Reported. Results Created Date Observation Date Name Description Value Unit Range Abnormal Flag Note LastModifiedBy Organization Detail LastModifiedTime 01/30/20 24 01/30/2024 BUN BUN 13 mg/dL 8-27 normal Not Available [facility] ([facility]] [facility]) [address] [facility], [place], [address], 01/30/2024 23:13:29 01/30/20 24 01/30/2024 CREAT ININE creatinine 0.78 mg/dL 0.57-1 .00 normal Not Available [facility] ([facility]) [address] [place], [address], 01/30/2024 23:13:30 01/30/20 24 01/30/2024 CREAT ININE eGFR 77 mL/mi n/1.7 3 >59 normal Not Available [facility] ([facility]) [address] [facility], [place], [address], 01/30/2024 23:13:30 01/30/20 24 02/02/2024 AEROB IC BACTE RIAL CULTU RE aerobic bacterial culture Final report abnormal Not Available [facility] ([facility]) [address] [facility], [place], [address], 02/13/2024 12:11:49 01/30/20 24 02/02/2024 AEROB IC BACTE RIAL CULTU RE result 1 COMMEN T abnormal Cyndi tia lique facie ns compl ex Moder ate growt h Not Available [facility] ([facility]) [address] [facility], [place], [address], 02/13/2024 12:11:49 01/30/20 24 02/02/2024 AEROB IC BACTE RIAL CULTU RE result 2 Skin brenna isolat ed Light growt h Not Available [facility] ([facility]) [address] [place], [address], 02/13/2024 12:11:49 01/30/20 24 02/02/2024 AEROB IC [...] thopr im/Mcwilliams lfa S Not Available [facility] ([facility]) [address] [facility], [place], [address], 02/13/2024 12:11:49 01/30/2002/13/2024 FUNGU S (MYCO LOGY) CULTU RE fungus (mycology) culture Final report Not Available [facility] ([facility]) [address] [facility], [place], [address], 02/13/2024 12:11:50 01/30/2002/13/2024 FUNGU S (MYCO LOGY) CULTU RE result 1 Commen t Cultu re overg rown with bacte ramila. Not Available [facility] ([facility]) [address] [facility], [place], [address], 02/13/2024 12:11:50 01/17/20 24 01/10/2024 CT, neck, [...] contr ast No observ ation record ed. pati [facility] [address] [place], [address], 03/05/2024 09:46:19 03/14/20 24 02/16/2024 CT, neck, soft tissu e, w/ contr ast No observ ation record ed. [email or web address] [facility] Centralized Scheduling([facility]) [address] [facility], [place], [address], 03/14/2024 14:29:05 Result Notes None recorded. Problems Name Problem SNOMED Code Status Onset Date Resolution Date Notes Provider Name and Address Organization Details Recorded Time Impacted cerumen 11992175 Active 2014 Impacted cerumen; Note: Date Diagnosed : 11/07/2014 2:38 PM (380.4) Not Available Replaced by [facility] 4 02:19:31 Allergic rhinitis 61227763 Active 2014 Allergic rhinitis: Due to other allergen; Note: Date Diagnosed : 11/18/2014 3:06 PM (477.8) ; Start Date : 5 Allergi c rhinitis: Due to other allergen; Note: Date Diagnosed : 11/07/2014 2:39 PM (477.8) ; Start Date : 5 Perenni al allergic rhinitis; Note: Date Diagnosed : 12/23/2014 3:48 PM (J30.89) [mapped from ICD9 code: 477.8] Not Available Replaced by [facility] 4 02:19:39 Sialolithi asis 46746504 Active 2023 WILIAM LUX MD [address] [place] [address], [place], [address] , [place] - [facility] 4 11:30:16 Acute sialoadeni tis 535104663 Active 2023 WILIAM LUX MD [address] [place] [address], [place], [address] , [facility] - [facility] 4 11:30:23 Chronic sialadenit is 911444987 Active 2023 WILIAM LUX MD [address] [place] [address],[place] [address], [place], [address] , [facility] - [facility] 4 11:43:53 Problem Notes None recorded. Medical Equipment None Reported. Medications Name Sig Start Date Stop Date Status Note LastModified by Organization Details LastModified Time celecoxib 200 mg capsule 11/11 completed Medicati on ID: [id number] Du ration Value: 30 Reason: () Brand [...] mg tablet 05/05 completed Medicati on ID: [id number] Du ration Value: 60 Reason: () Brand Name: furosemi de Send Method: E-Prescr ibed Sub s Allowed: subs OK Speci al Instruct ion: TAKE 1 TABLET BY MOUTH TWICE A WEEK-- MONDAY AND MONDAY Medicat ionGener icName: furosemi de Not Available Not Available Not Available vitamin E 670 mg (1,000 unit) capsule 2015 active Medicati on ID: [id number] B rand Name: vitamin E Send Method: E-Prescr ibed Sub s Allowed: subs OK Medic ationGen ericName : vitamin E Not Available Not Available Not Available vitamin A 2,400 mcg capsule 2015 active Medicati on ID: [id number] B rand Name: vitamin A Send Method: E-Prescr ibed Sub s Allowed: subs OK Medic ationGen ericName : vitamin A Not Available Not Available Not Available loratadin e 10 mg disintegr ating tablet 02/11 completed Medicati on ID: [id number] Re ason: () Brand Name: loratadi ne [...] mg tablet 05/05 completed Medicati on ID: [id number] D uration Value: 30 Reason: () Brand Name: labetalo l Send Method: E-Prescr ibed Sub s Allowed: subs OK Speci al Instruct ion: TAKE 1 TABLET BY MOUTH TWICE A DAY Medi cationGe nericNam e: labetalo l Not Available Not Available Not Available Claritin 10 mg tablet 1 tablet by mouth 2015 active Medicati on ID: [id number] D uration Value: 30 Brand Name: Claritin Send Method: E-Prescr ibed Sub s Allowed: subs OK Medic ationGen ericName : Claritin Not Available Not Available Not Available meloxicam 15 mg tablet 02/09 completed Medicati on ID: [id number] D uration Value: 30 Reason: () Brand [...] mg tablet 02/09 completed Medicati on ID: [id number] D uration Value: 30 Reason: () Brand Name: amlodipi ne Send Method: E-Prescr ibed Sub s Allowed: subs OK Speci al Instruct ion: TAKE 1 TABLET BY MOUTH EVERY NIGHT Me dication GenericN naman: amlodipi ne Not Available Not Available Not Available aspirin 81 mg tablet,de layed release 2014 [place] Medicati on ID: [id number] Du ration Value: 30 Brand Name: aspirin Send Method: E-Prescr ibed Sub s Allowed: subs OK Speci al Instruct ion: TAKE 1 TABLET BY MOUTH ONCE A DAY Medi cationGe nericNam e: aspirin Not Available Not Available Not Available tramadol 50 mg tablet 2014 active Medicati on ID: [id number] Du ration Value: 15 Brand Name: tramadol [...] mg capsule 2015 active Medicati on ID: [id number] B rand Name: lutein S end Method: [...] elayed release 2014 active Medicati on ID: [id number] Du ration Value: 30 Brand Name: omeprazo le Send Method: E-Prescr ibed Sub s Allowed: subs OK Speci al Instruct ion: TAKE 1 CAPSULE BY MOUTH TWICE A DAY Medi cationGe nericNam e: omeprazo le Not Available Not Available Not Available Tylenol 325 mg tablet 2014 active Medicati on ID: [id number] B rand Name: Tylenol Send Method: E-Prescr ibed Sub s Allowed: subs OK Medic ationGen ericName : Tylenol Not Available Not Available Not Available zinc 50 mg tablet 2015 active Medicati on ID: [id number] B rand Name: zinc Sen d Method: [...] nasal spray 2014 active Medicati on ID: [id number] D uration Value: 30 Brand Name: ipratrop ium bromide Send Method: E-Prescr ibed Sub s Allowed: subs OK Speci al Instruct ion: INHALE 2 SPRAY INTO BOTH NOSTRILS THREE TIMES A DAY DIRECTED Medicat ionGener icName: ipratrop ium bromide Not Available Not Available Not Available Co Q-10 10 mg capsule 02/09 completed Medicati on ID: [id number] R poonam: () Brand Name: Co Q-10 Sen d Method: E-Prescr ibed Sub s Allowed: subs OK Medic ationGen ericName : Co Q-10 Not Available Not Available Not Available nabumeton e 500 mg tablet TAKE 2 TABLETS BY MOUTH TWICE A DAY active Not Available Not Available No t Available lutein 15 mg-zeaxan thin extract 0.7 mg capsule 2015 active Medicati on ID: [id number] B rand Name: lutein-z eaxanthi n Send Method: E-Prescr ibed Sub s Allowed: subs OK Medic ationGen ericName : lutein-z eaxanthi n Not Available Not Available Not Available valsartan 160 mg tablet 04/15 completed Medicati on ID: [id number] Du ration Value: 30 Reason: () Brand Name: valsarta n Send Method: E-Prescr ibed Sub s Allowed: subs OK Speci al Instruct ion: TAKE 1 TABLET BY MOUTH EVERY EVENING Medicati onGeneri cName: valsarta n Not Available Not Available Not Available Vitamin C 500 mg capsule,e xtended release 2015 active Medicati on ID: [id number] B rand Name: Vitamin C Send Method: E-Prescr ibed Sub s Allowed: subs OK Medic ationGen ericName : Vitamin C Not Available Not Available Not Available Vitamin D3 25 mcg (1,000 unit) capsule 2015 active Medicati on ID: [id number] B rand Name: Vitamin D3 Send Method: [...] mg tablet 2014 [place] Medicati [place] ID: [id number] Du ration Value: 30 Brand Name: Crestor Send Method: E-Prescr ibed Sub s Allowed: subs OK Speci al Instruct ion: TAKE 1 TABLET BY MOUTH ONCE A DAY Medi cationGe nericNam e: Crestor Not Available Not Available Not Available ProAir HFA 90 mcg/actua tion aerosol inhaler 02/11 completed Medicati on ID: [id number] R poonam: () Brand Name: ProAir HFA Send Method: E-Prescr ibed Sub s Allowed: subs OK Medic ationGen ericName : ProAir HFA Not Available Not Available Not Available Calcium 500 mg + D (D3) 3.125 mcg (125 unit) tablet 05/05 completed Medicati on ID: [id number] R poonam: () Brand Name: Calcium 500 + D (D3) Sen d Method: E-Prescr ibed Sub s Allowed: subs OK Medic ationGen ericName : Calcium 500 + D (D3) Not Available Not Available Not Available copper gluconate 2 mg capsule 2015 active Medicati on ID: [id number] B rand Name: copper gluconat e Send Method: E-Prescr ibed Sub s Allowed: subs OK Medic ationGen ericName : copper gluconat e Not Available Not Available Not Available Prevnar 13 (PF) 0.5 mL intramusc ular syringe 11/11 completed Medicati on ID: [id number] Du ration Value: 30 Reason: () Brand Name: Prevnar 13 (PF) Sen d Method: E-Prescr ibed Sub s Allowed: subs OK Speci al Instruct ion: TO BE ADMINIST ERED BY PHARMACI ST FOR IMMUNIZA TION Med icationG enericNa me: Prevnar 13 (PF) Not Available Not Available Not Available Probiotic and Acidophil us 300 million cell-250 mg capsule 2014 active Medicati on ID: [id number] B rand Name: Probioti c & Acidophi raphael Send Method: E-Prescr ibed Sub s Allowed: subs OK Medic ationGen ericName : Probioti c & Acidophi raphael Not Available Not Available Not Available EpiPen 2-Navneet 0.3 mg/0.3 mL injection , auto-inje ctor 1 pen injector intramus cularly 2015 active Medicati on ID: [id number] D uration Value: 180 Prescri bed By Name: Jr Leggett M.D. Bra nd Name: EpiPen 2-Navneet Se nd Method: E-Prescr ibed Sub s Allowed: subs OK Medic ationGen ericName : EpiPen 2-Navneet Not Available Not Available Not Available PreserVis ion AREDS-2 250 mg-90 mg-40 mg-1 mg capsule 2014 active Medicati on ID: [id number] B rand Name: PreserVi sukhwinder AREDS 2 Send Method: E-Prescr ibed Sub s Allowed: subs OK Medic ationGen ericName : PreserVi skuhwinder AREDS 2 Not Available Not Available Not Available turmeric 2015 active Medicati on ID: [id number] B rand Name: turmeric Send Method: E-Prescr ibed Sub s Allowed: subs OK Medic ationGen ericName : turmeric Not Available Not Available Not Available glucosami ne sulf dipotassi um Cl 750 mg-chondr oitin sulf 600 mg tablet 02/09 completed Medicati on ID: [id number] R poonam: () Brand Name: glucosam ine-phil droitn sulf.Na Send Method: E-Prescr ibed Sub s Allowed: subs OK Medic ationGen ericName : glucosam ine-phil droitn sulf.Na Not Available Not Available Not Available Vitals Date Recorded Body height Body mass index (BMI) Body weight Provider Name and Address Organization Details Last Updated DateTime 01/30/2024 149.86 cm 39.4 kg/m2 17652.51 g Jose Nelson [place] - [facility] 01/30/2024 11:12:04 Date Recorded Body height Body mass index (BMI) Body weight Provider Name and Address Organization Details Last Updated DateTime 03/06/2024 149.86 cm 39.4 kg/m2 75298.51 g Jose Nelson [place] - [facility] 03/06/2024 10:40:47 Social History None recorded. Functional Status None recorded. Mental Status None recorded. Family History Nothing Reported. Medical History Condition Response Arthritis Y Hypertension Y Gynecological HistoryNo gynecological history recorded. Obstetrics History GPAL:G 0 P 0 0 0 0 Past Encounters Encounter ID Performer Location Encounter Start Date Encounter Closed Date Diagnosis/Indication Diagnosis SNOMED-CT Code Diagnosis ICD10 Code Diagnosis IMO Codes Diagnosis Note [id number] WILIAM LUX MD [facility] [address] [place] [address] 01/30/2024 10:48:55 01/30/2024 11:40:42 Sialolithiasis 95203834 K11.5 see below Chronic sialadenitis 235 964273 K11.23 She has chronic left submandibu lar [...] exclude neoplastic pathology with f/u thereafter . [id number] WILIAM LUX MD [facility] on [address] [place] [address] 03/06/2024 10:14:58 03/06/2024 11:31:46 Chronic sialadenitis 185139487 K11.23 She has chronic left submandibu lar [...] gland removal. Will reassess at f/u. Sialolithiasis 90990649 K11.5 see below Health Concerns Section Related Observation LastModified by Organization Detai ls LastModified Time None Recorded Concern Status LastModified by Organization Details LastModified Time None Recorded Advance Directives Directive None Recorded Payers Insurance Date Sequence Insurance Name Policy Number Policy Escobar Covered Member ID Escobar Member ID Guarantor Name 06/10/2024 1 [place]ICARE [place]: [employer] Palak Vargas [id number] Palak Andersone 06/10/2024 2 [facility] [id number] 1 Palak Andersone [id number] Palak Vargas Notes Date Note Type Note Provider Name and Address Organization Details Recorded Time 01/30/2024 text/html ROS as noted in the HPI She reports feeling fatigued and tired starting in August 2023. [...] with adjacent obstructing calculi in the proximal Walworth's duct. Non obstructive calculi were see on the right without sialadenitis. Thyroid heterogeneity was noted and correlation with TFTs was recommended. WILIAM LUX MD [address] [place] [address], [address], [place] - [facility] 01/30/2024 11:47:19 03/06/2024 text/html ROS as noted in the HPI Hx of recurrent left submandibular sialadenitis. At [...] drinks plenty of water. WILIAM LUX MD [address] [place] [address], [place], [address], [place] - [facility] 03/06/2024 11:30:27 OBGyn Episode No OBEpisode recorded.
--- OUTSIDE RECORDS SUMMARY | 2025-03-11 15:55 | XMS_ITS | Patient Health Record ---
Author Organization [facility] Roger coles [place] Address [address] [place] [address] Care Team Providers Care Fender Repairer Name Role Phone Leila Nicole MD Primary Care Provider Unavaila Rich Guajardo Unavailable [phone] Alba Pierce DO Unavailable Unavailable Allergies Allergen [...] W/U Status Risk Notes Problem Plantar wart (80384125) Plantar wart (B07.0) Active confirmed Plan Of Treatment Pending Test Test Name Order Date 01181-Bwjs Destruction, -14 05/08/2018 60060-Ssre Destruction, -14 06/28/2019 [id number]-Umobjyyj Plate 11/14/2017 36395- Biopsy of skin lesion 04/04/2017 Insurance Providers Payer Name Payer Address Payer Phone Subscriber Number Group Number Insured Name Patient Relationship to Insured Coverage Start Date Coverage End Date Medicare National [employer] [address] [place] [address] [id number] Palak Vargas Self - patient is the insured [facility] [address] [place] [address] [phone] [id number] Palak Vargas Self - patient is the insured Medical (General) History Medical History History ICD Code Arthritis Cholesterol High blood pressure Reflux ( GERD) Macular degeneration Measles Mumps Chicken pox Joint implants/screws Surgical History Surgery Date(Month/Year) knee surgery 09/2015 gall bladder ankle surgery [place]oe, Right 2nd toe 1996 Cataract Right eye 11/13/17
== END 2025-03-11 13:01 | disposition home or self-care (01) ==
LOC: HO.MAMMO 13:00
PROVIDERS: PCP Internal Medicine Medical Oncology; Visit Provider Internal Medicine Medical Oncology
DX: Z12.31 Encounter for screening mammogram for malignant neoplasm of breast (principal)
CPT/HCPCS: 77063; 77067

== ENCOUNTER → 2025-03-11 13:15 | Outpatient (BNV) | payer MEDICARE, OTHER, SELFPAY | PROVIDERS: PCP Internal Medicine Medical Oncology; Visit Provider Internal Medicine | DX: Z12.31 Encounter for screening mammogram for malignant neoplasm of breast (principal) | CPT/HCPCS: 77063; 77067 ==

== ENCOUNTER 2025-03-27 11:19 | Outpatient (AMB) | payer MEDICARE, OTHER, SELFPAY ==
--- NOTE | 2025-03-27 11:31 | MHC.OFFVIS ---
Vital Signs 03/27/25 11:38 Height 5 ft Weight 191 lb 4 oz BMI 37.3 Intake Visit Reasons: yearly breast exam Intake Note: This patient presents for yearly breast examination. Pt c/o; reports no breast complaints at this time. 03/05/2025- MM screening 03/11/2025- MM screening Micro Paleontologist Required: No Accompanied by: Self / Same As Patient Allergies succinylcholine (SUCCINYLCHOLINE) Allergy (Severe, Verified 03/27/25 11:38) PSEUDOCHOLINESTERASE DEFICIENT adhesive tape (ADHESIVE TAPE) Allergy (Intermediate, Verified 03/27/25 11:38) BLISTERS, ITCHING dibucaine (DIBUCAINE) Allergy (Unknown, Verified 03/27/25 11:38) UNKNOWN Medication List - Last Reconciled 03/27/25 by Sylvester Helm MD acetaminophen ER 650 mg PO Q8H amoxicillin 2,000 mg PO ONCE aspirin 81 mg PO DAILY calcium citrate-vitamin D3 200 mg-6.25 mcg (250 unit) 2 tabs PO DAILY 90 days cholecalciferol (vitamin D3) 50 mcg PO DAILY 90 days diclofenac sodium 1% 2 grams topical QID esomeprazole magnesium 40 mg PO BID famotidine 40 mg PO BID flaxseed oil 1,000 mg PO TID fluticasone propionate 50 mcg/actuation 1 spray intranasal DAILY furosemide 20 mg PO DAILY ibuprofen 600 mg PO Q6H PRN ipratropium bromide intranasal lisinopril 5 mg (1/2 x 10 mg) PO BID loperamide (Imodium A-D) 2 mg PO QID PRN loratadine (Claritin) 10 mg PO DAILY melatonin 3 mg PO BEDTIME PRN nabumetone 1,000 mg PO BID pramipexole 0.5 - 0.75 mg (2 - 3 x 0.25 mg) PO DAILY rosuvastatin 5 mg PO daily; simethicone (Gas Relief (simethicone)) 180 mg PO DAILY vit C,Y-Fg-fsikv-lutein-zeaxan 250-90-40-1 mg (PreserVision AREDS-2) 1 tab PO BID HPI HPI yearly breast exam: Details: [age] year old female here for a surveillance for a history of atypical ductal hyperplasia. She denies any palpable mass. He denies any skin changes on her breast She had a mammogram 3 weeks ago and this was unremarkable. She says that her known significant changes with her health overall. She does state that her last June,. [facility] Medical History Obstructive sleep apnea Annual physical exam Osteoporosis Knee pain, left Atypical ductal hyperplasia of breast Hearing loss Hx of Clostridium difficile infection Hx of deep venous thrombosis Hiatal hernia PVD (peripheral vascular disease) Restless leg syndrome Sleep apnea Hearing difficulty of both ears Family history of pseudocholinesterase deficiency GERD (gastroesophageal reflux disease) Vitamin D deficiency Cataract Obesity Osteopenia Macular degeneration TIA (transient ischemic attack) Hypercholesterolemia HTN (hypertension) Surgical History History of eyelid surgery Hx of right cataract extraction History of esophagogastroduodenoscopy (EGD) History of breast biopsy History of foot surgery History of ankle surgery History of exploratory laparotomy History of nasal surgery History of thumb surgery History of revision of total replacement of right knee joint History of eye surgery History of knee replacement procedure of right knee History of removal of cyst Hx of cholecystectomy History of colonoscopy Family History Father Heart disease Stomach cancer CVD (cardiovascular disease) Mother Arthritis Brother Colon cancer Maternal Grandmother No problems noted. Maternal Grandfather No problems noted. Paternal Grandfather No problems noted. Paternal Grandmother No problems noted. Son No problems noted. Daughter No problems noted. Brother No problems noted. Brother No problems noted. Brother No problems noted. Brother No problems noted. Brother No problems noted. Brother No problems noted. Brother No problems noted. Social History Housing: House Alcohol intake: current Alcohol intake frequency: holidays/special occasions only Patient Tobacco Use Status: Never used Tobacco e-Cigarette/Vaping Use: Never Used Current occupational status: retired Cognitive needs: No Hearing needs: No Vision needs: Yes Review of Systems Const Denies chills and Denies fever(s) Card Denies chest pain, Denies dyspnea and Denies dyspnea on exertion Resp Denies cough, Denies dyspnea and Denies dyspnea on exertion GI Details: Frequent diarrhea Denies hematochezia and Denies change in bowel habits Denies hematuria Musc Denies back pain and Denies limited range of motion Neuro Denies focal weakness and Denies convulsions Psych Denies depression and Denies mood swings Physical Exam Vital Signs: BMI result Body Mass Index 37.3 Const General: comfortable and no acute distress Orientation/consciousness: patient oriented x3 Neck Neck: Yes no lymphadenopathy Chest Other: No palpable breast masses, no nipple or skin changes, no axillary lymphadenopathy Resp Auscultation: clear to auscultation bilaterally Cardio Rhythm: regular rhythm GI Palpation (GI): Soft to palpation, nontender and no guarding Neuro General: patient oriented x3 Assessment & Plan Assessment & Plan (1) Atypical ductal hyperplasia of breast: Code(s): N60.99 - Unspecified benign mammary dysplasia of unspecified breast Category: Medical Plan: She has a history of atypical ductal hyperplasia. Current physical exam does not suggest any palpable mass or any axillary lymphadenopathy or any nipple or skin changes. I have reviewed her mammogram from 2 weeks ago and this was unremarkable I reminded her to continue with a regular screening mammograms I can see her in the office next year after her next mammogram. She understands the plan well Coding Level of Care Code Est Pt Level 3 (57323) Diagnoses Atypical ductal hyperplasia of breast N60.99
[2025-03-27 11:38] VITALS: BMI 37.3
--- OUTSIDE RECORDS SUMMARY | 2025-03-27 14:26 | XMS_ITS | Clinical Summary ---
Author Organization [facility] Address [address] [place] [address] Phone Care Team Providers Care Crisis Therapist Name Role Phone Erik Grant MD Primary Care Provider [phone] Allergies Active Allergy Reactions Criticality Noted Date [...] Office Visit [facility] [address] [place] [address] Aftab Louis MD Edema, not otherwise specified (Primary Dx); Essential hypertension 01/28/2025 Orders Only [facility] [address] [place] [address] [address] [place] [address] Aftab Louis MD from Last [...] Visit [facility] [address] [place] [address] Aftab Louis MD [address] [facility] [address] [place] [address] Health Maintenance Due Date Last [...] order comments [place] [address] * (ABNORMAL) AST (01/28/2025 10:03 AM EDT) AST (SGOT) 32(H) 5 - 31 U/L See orde r comments 01/28/2025 10:0 3 AM EDT 01/28/2025 10:03 AM EDT Aftab Louis MD LAB BLOOD ORDERABLES Final Re sult Performing Organization Address City/[facility]/ZIP Co de Phone Number [place] See order comments [place] [address] from Last 3 Months Insurance Medicare [facility] Medicare [facility] Care Teams Crisis Therapist Relationship Specialty Start Date End Date Erik Grant MD [address] [place] [address] , [address] [place] [address] PCP - General Medical Oncology 10/01/24
--- OUTSIDE RECORDS SUMMARY | 2025-03-27 14:26 | XMS_ITS | Encounter Summary ---
Author Organization [facility] Address [address] [address] Phone Care Team Providers Care [place] Driver Name Role Phone Erik Grant MD Primary Care Provider [phone] Encounter Details Date Type Department Care Team (Late Contact Info) Description 03/25/2024 Office Communication [facility] [address] [phone] [address] Michel [address] [place] [phone] Social History Tobacco Use Types Packs/Day [...] in the morning. Pls call her at [phone]. documented in this encounter Plan of Treatment Upcoming Encounters Date Type Department Care Team ([facility] Contact Info) Description 02/05/2026 2:00 PM EDT Office Visit [facility] [address] [place] [id number] Aftab Louis MD [address] [facility] [address] [place] [phone] documented as of this encounter Visit Diagnoses Not on filedocumented in this encounter Care Teams Airport Driver Relationship Specialty Start Date End Date Erik Grant MD [address] [place] [address] , [address] [place] [id number] PCP - General Medical Oncology 10/01/24 documented as of this encounter
== END 2025-03-27 11:45 | disposition home or self-care (01) ==
LOC: HO.HGS 11:19
PROVIDERS: PCP Internal Medicine Medical Oncology; Visit Provider Surgery
DX: N60.99 Unspecified benign mammary dysplasia of unspecified breast (principal)
CPT/HCPCS: 99213

== ENCOUNTER → 2025-03-27 11:19 | Outpatient (BNVA) | payer MEDICARE, OTHER, SELFPAY | PROVIDERS: PCP Internal Medicine Medical Oncology; Visit Provider Surgery | DX: N60.99 Unspecified benign mammary dysplasia of unspecified breast (principal) | CPT/HCPCS: 99212 ==

== ENCOUNTER 2025-05-09 08:42 | Outpatient (REF) | payer MEDICARE, OTHER, SELFPAY ==
[2025-05-09 10:13] LABS: MANUAL DIFF FLAG NO
[2025-05-09 10:21] LABS: Hematocrit 42.5 % (37.0-47.0); Hemoglobin 14.0 g/dl (12.0-16.0); Imm Gran Abs Auto 0.02 X10*3/uL (0.00-0.03); Imm Gran Pct Auto 0.3 % (0.0-0.4); Lymphocytes Absolute Auto 1.2 X10*3/uL (1.2-4.9); Mean Corpuscular HGB Conc 32.9 g/dl (31.0-35.0); Mean Corpuscular Hemoglobin 29.7 pg (27.0-33.0); Mean Corpuscular Volume 90.2 fL (80.0-98.0); NRBC Abs Auto 0.000 X10*3/uL (0.0-0.012); NRBC Pct Auto 0.0 /100WBC (0.0-0.2); Platelet Count 261 X10*3/uL (160-400); Red Blood Count 4.71 X10*6/uL (4.20-5.50); White Blood Count 6.3 X10*3/uL (4.8-10.8)
[2025-05-09 10:51] LABS: Alanine Aminotransferase 23 U/L (0-31); Albumin Level 3.9 g/dL (3.5-5.0); Alkaline Phosphatase 112 U/L (39-117); Anion Gap 9 (12-20); Aspartate Amino Transferase 25 U/L (5-31); Blood Urea Nitrogen 15 mg/dL (9-16); Calcium 9.6 mg/dL (8.4-10.2); Carbon Dioxide 27 mmol/L (22-29); Chloride 111 mmol/L (96-108); Cholesterol 200 mg/dL (<200); Estimated Glomerular Filt Rate > 60; HDL Cholesterol 56 mg/dL (>40); Potassium 3.7 mmol/L (3.3-5.1); Sodium 143 mmol/L (135-145); Total Protein 7.2 g/dL (6.5-8.0); Triglycerides 134 mg/dL (<150)
[2025-05-09 11:22] LABS: Free T4 (Free Thyroxine) 1.42 ng/dL (0.71-1.85); Thyroid Stimulating Hormone 0.96 uIU/mL (0.32-4.0)
== END 2025-05-09 08:43 | disposition home or self-care (01) ==
LOC: HO.HMGCLDS 08:42
PROVIDERS: PCP Internal Medicine Medical Oncology; Visit Provider Internal Medicine Medical Oncology
DX: I10 Essential (primary) hypertension (principal); K21.9 Gastro-esophageal reflux disease without esophagitis; E78.2 Mixed hyperlipidemia; E01.0 Iodine-deficiency related diffuse (endemic) goiter; E66.9 Obesity, unspecified
CPT/HCPCS: 36415; 80053; 80061; 84439; 84443; 85025